=== PATIENT | female | born 1935 | race Caucasian/White ===

== ENCOUNTER 2018-10-15 13:31 | Observation (INO) | payer MEDICARE ==
[2018-10-15] MEDS ORDERED: SODIUM CHLORIDE 0.9% 1,000 ML IV STA (13:50)
--- NOTE | 2018-10-15 14:13 | ED ---
Weakness HPI - General Chief complaint: Weakness Stated complaint: weakness, not eating Time Seen by Provider: 10/15/18 13:47 Source: patient, RN notes reviewed, old records reviewed Mode of arrival: wheelchair Limitations: no limitations - History of Present Illness Initial comments: This is an 83-year-old female the ER for evaluation patient resents today for evaluation of weakness decreased appetite decreased [id number]. Admits to mild dysuria. Patient denies any headache chest pain shortness breath or abdominal pain. Patient states she is having difficulty the last 3 days symptoms progressively worsening. Taking all medication as prescribed. No recent hospitalizations MD Complaint: generalized weakness -: days(s) (3) Location: generalized Severity: moderate Severity scale (1-10): 4 Quality: aching Consistency: constant Improves with: none Worsens with: none Context: recent illness Associated Symptoms: nausea/vomiting - Related Data Home Medications Medication Instructions Recorded Confirmed Aspirin EC [Ecotrin Low Dose] 81 mg PO DAILY 10/15/18 10/15/18 Letrozole [Femara] 2.5 mg PO DAILY 10/15/18 10/15/18 Levothyroxine Sodium [Synthroid] 88 mcg PO DAILY 10/15/18 10/15/18 Phenytoin Sodium Extended 200 mg PO Q48H 10/15/18 10/15/18 [Dilantin] Phenytoin Sodium Extended 300 mg PO Q48H 10/15/18 10/15/18 [Dilantin] Pravastatin Sodium [Pravachol] 20 mg PO HS 10/15/18 10/15/18 amLODIPine [Norvasc] 5 mg PO DAILY 10/15/18 10/15/18 hydrALAZINE HCL 25 mg PO Q6H PRN 10/15/18 10/15/18 lamoTRIgine [LaMICtal] 300 mg PO BID 10/15/18 10/15/18 Allergies Allergy/AdvReac Type Severity Reaction Status Date / Time No Known Allergies Allergy Verified 10/15/18 13:48 Review of Systems ROS Statement: Those systems with pertinent positive or pertinent negative responses have been documented in the HPI. ROS Other: All systems not noted in ROS Statement are negative. Past Medical History Past Medical History: Hyperlipidemia, Seizure Disorder Additional Past Medical History / Comment(s): Breast Ca History of Any Multi-Drug Resistant Organisms: None Reported Past Surgical History: Cholecystectomy Additional Past Surgical History / Comment(s): Breast removal Past Psychological History: Anxiety, Depression Smoking Status: Current every day smoker Past Alcohol Use History: None Reported Past Drug Use History: None Reported General Exam Limitations: no limitations General appearance: alert, in no apparent distress Head exam: Present: atraumatic, normocephalic, normal inspection Eye exam: Present: normal appearance, PERRL, EOMI. Absent: scleral icterus, conjunctival injection, periorbital swelling ENT exam: Present: normal exam, mucous membranes moist Neck exam: Present: normal inspection. Absent: tenderness, meningismus, lymphadenopathy Respiratory exam: Present: normal lung sounds bilaterally. Absent: respiratory distress, wheezes, rales, rhonchi, stridor Cardiovascular Exam: Present: regular rate, normal rhythm, normal heart sounds. Absent: systolic murmur, diastolic murmur, rubs, gallop, clicks GI/Abdominal exam: Present: soft, normal bowel sounds. Absent: distended, tenderness, guarding, rebound, rigid Extremities exam: Present: normal inspection, full ROM, normal capillary refill. Absent: tenderness, pedal edema, joint swelling, calf tenderness Back exam: Present: normal inspection Neurological exam: Present: alert, oriented X3, CN II-XII intact Psychiatric exam: Present: normal affect, normal mood Skin exam: Present: warm, dry, intact, normal color. Absent: rash Course Vital Signs 10/15/18 10/15/18 13:34 16:40 Temperature 98.5 F Pulse Rate 75 62 Respiratory 16 18 Rate Blood Pressure 122/68 154/67 O2 Sat by Pulse 97 97 Oximetry - Reevaluation(s) Reevaluation #1: Medical records reviewed Patient without significant complaint or symptom. She does admit to still feeling weak no improvement here in the ER EKG Findings - EKG Comments: EKG Findings:: EKG shows sinus rhythm at 71, NE 272, QRS 84, QTc 436 Medical Decision Making - Medical Decision Making 83 female the ER for evaluation of weakness positive dysuria with UTI, will admit for antibiotics hydration. - Lab Data Result diagrams: 10/16/18 07:37 10/16/18 07:37 Lab Results 10/15/18 10/15/18 10/15/18 Range/Units 14:07 14:07 14:07 WBC 7.7 (3.8-10.6) k/uL RBC 4.69 (3.80-5.40) m/uL Hgb 13.5 (11.4-16.0) gm/dL Hct 41.0 (34.0-46.0) % MCV 87.4 (80.0-100.0) fL MCH 28.7 (25.0-35.0) pg MCHC 32.8 (31.0-37.0) g/dL RDW 13.7 (11.5-15.5) % Plt Count 247 (150-450) k/uL Neutrophils % 75 % Lymphocytes % 12 % Monocytes % 7 % Eosinophils % 1 % Basophils % 1 % Neutrophils # 5.8 (1.3-7.7) k/uL Lymphocytes # 1.0 (1.0-4.8) k/uL Monocytes # 0.6 (0-1.0) k/uL Eosinophils # 0.1 (0-0.7) k/uL Basophils # 0.1 (0-0.2) k/uL PT (9.0-12.0) sec INR (<1.2) APTT (22.0-30.0) sec Sodium 134 L (137-145) mmol/L Potassium 4.1 (3.5-5.1) mmol/L Chloride 95 L (98-107) mmol/L Carbon Dioxide 28 (22-30) mmol/L Anion Gap 11 mmol/L BUN 17 (7-17) mg/dL Creatinine 0.83 (0.52-1.04) mg/dL Est GFR (CKD-EPI)AfAm 77 (>60 ml/min/1.73 sqM) Est GFR (CKD-EPI)NonAf 67 (>60 ml/min/1.73 sqM) Glucose 98 (74-99) mg/dL Plasma Lactic Acid Edgar 1.2 (0.7-2.0) mmol/L Calcium 9.3 (8.4-10.2) mg/dL Phosphorus 4.2 (2.5-4.5) mg/dL Magnesium 1.8 (1.6-2.3) mg/dL Total Bilirubin 0.3 (0.2-1.3) mg/dL AST 32 (14-36) U/L ALT 17 (9-52) U/L Alkaline Phosphatase 122 (38-126) U/L Creatine Kinase 45 (30-135) U/L Troponin I (0.000-0.034) ng/mL NT-Pro-B Natriuret Pep pg/mL Total Protein 7.3 (6.3-8.2) g/dL Albumin 4.4 (3.5-5.0) g/dL TSH 0.444 L (0.465-4.680) mIU/L Urine Color Urine Appearance (Clear) Urine pH (5.0-8.0) Ur Specific Taylor (1.001-1.035) Urine Protein (Negative) Urine Glucose (UA) (Negative) Urine Ketones (Negative) Urine Blood (Negative) Urine Nitrite (Negative) Urine Bilirubin (Negative) Urine Urobilinogen (<2.0) mg/dL Ur Leukocyte Esterase (Negative) Urine RBC (0-5) /hpf Urine WBC (0-5) /hpf Ur Squamous Epith Cells (0-4) /hpf Urine Bacteria (None) /hpf 10/15/18 10/15/18 10/15/18 Range/Units 14:07 14:07 14:07 WBC (3.8-10.6) k/uL RBC (3.80-5.40) m/uL Hgb (11.4-16.0) gm/dL Hct (34.0-46.0) % MCV (80.0-100.0) fL MCH (25.0-35.0) pg MCHC (31.0-37.0) g/dL RDW (11.5-15.5) % Plt Count (150-450) k/uL Neutrophils % % Lymphocytes % % Monocytes % % Eosinophils % % Basophils % % Neutrophils # (1.3-7.7) k/uL Lymphocytes # (1.0-4.8) k/uL Monocytes # (0-1.0) k/uL Eosinophils # (0-0.7) k/uL Basophils # (0-0.2) k/uL PT 10.1 (9.0-12.0) sec INR 0.9 (<1.2) APTT 23.2 (22.0-30.0) sec Sodium (137-145) mmol/L Potassium (3.5-5.1) mmol/L Chloride (98-107) mmol/L Carbon Dioxide (22-30) mmol/L Anion Gap mmol/L BUN (7-17) mg/dL Creatinine (0.52-1.04) mg/dL Est GFR (CKD-EPI)AfAm (>60 ml/min/1.73 sqM) Est GFR (CKD-EPI)NonAf (>60 ml/min/1.73 sqM) Glucose (74-99) mg/dL Plasma Lactic Acid Edgar (0.7-2.0) mmol/L Calcium (8.4-10.2) mg/dL Phosphorus (2.5-4.5) mg/dL Magnesium (1.6-2.3) mg/dL Total Bilirubin (0.2-1.3) mg/dL AST (14-36) U/L ALT (9-52) U/L Alkaline Phosphatase (38-126) U/L Creatine Kinase (30-135) U/L Troponin I <0.012 (0.000-0.034) ng/mL NT-Pro-B Natriuret Pep 464 pg/mL Total Protein (6.3-8.2) g/dL Albumin (3.5-5.0) g/dL TSH (0.465-4.680) mIU/L Urine Color Urine Appearance (Clear) Urine pH (5.0-8.0) Ur Specific Taylor (1.001-1.035) Urine Protein (Negative) Urine Glucose (UA) (Negative) Urine Ketones (Negative) Urine Blood (Negative) Urine Nitrite (Negative) Urine Bilirubin (Negative) Urine Urobilinogen (<2.0) mg/dL Ur Leukocyte Esterase (Negative) Urine RBC (0-5) /hpf Urine WBC (0-5) /hpf Ur Squamous Epith Cells (0-4) /hpf Urine Bacteria (None) /hpf 10/15/18 Range/Units 15:35 WBC (3.8-10.6) k/uL RBC (3.80-5.40) m/uL Hgb (11.4-16.0) gm/dL Hct (34.0-46.0) % MCV (80.0-100.0) fL MCH (25.0-35.0) pg MCHC (31.0-37.0) g/dL RDW (11.5-15.5) % Plt Count (150-450) k/uL Neutrophils % % Lymphocytes % % Monocytes % % Eosinophils % % Basophils % % Neutrophils # (1.3-7.7) k/uL Lymphocytes # (1.0-4.8) k/uL Monocytes # (0-1.0) k/uL Eosinophils # (0-0.7) k/uL Basophils # (0-0.2) k/uL PT (9.0-12.0) sec INR (<1.2) APTT (22.0-30.0) sec Sodium (137-145) mmol/L Potassium (3.5-5.1) mmol/L Chloride (98-107) mmol/L Carbon Dioxide (22-30) mmol/L Anion Gap mmol/L BUN (7-17) mg/dL Creatinine (0.52-1.04) mg/dL Est GFR (CKD-EPI)AfAm (>60 ml/min/1.73 sqM) Est GFR (CKD-EPI)NonAf (>60 ml/min/1.73 sqM) Glucose (74-99) mg/dL Plasma Lactic Acid Edgar (0.7-2.0) mmol/L Calcium (8.4-10.2) mg/dL Phosphorus (2.5-4.5) mg/dL Magnesium (1.6-2.3) mg/dL Total Bilirubin (0.2-1.3) mg/dL AST (14-36) U/L ALT (9-52) U/L Alkaline Phosphatase (38-126) U/L Creatine Kinase (30-135) U/L Troponin I (0.000-0.034) ng/mL NT-Pro-B Natriuret Pep pg/mL Total Protein (6.3-8.2) g/dL Albumin (3.5-5.0) g/dL TSH (0.465-4.680) mIU/L Urine Color Light Yellow Urine Appearance Clear (Clear) Urine pH 5.5 (5.0-8.0) Ur Specific Taylor 1.004 (1.001-1.035) Urine Protein Negative (Negative) Urine Glucose (UA) Negative (Negative) Urine Ketones Negative (Negative) Urine Blood Trace H (Negative) Urine Nitrite Positive H (Negative) Urine Bilirubin Negative (Negative) Urine Urobilinogen <2.0 (<2.0) mg/dL Ur Leukocyte Esterase Trace H (Negative) Urine RBC 1 (0-5) /hpf Urine WBC <1 (0-5) /hpf Ur Squamous Epith Cells <1 (0-4) /hpf Urine Bacteria Few H (None) /hpf - Radiology Data Radiology results: report reviewed (CTA chest is negative for acute disease), image reviewed Disposition Clinical Impression: Dehydration, Weakness, UTI (urinary tract infection) Disposition: ADMITTED IP TO THIS HOSP Condition: Fair Is patient prescribed a controlled substance at d/c from ED?: No
[2018-10-15 14:27] LABS: Basophils # (A) 0.1 k/uL (0-0.2); Basophils % (A) 1 %; Eosinophils # (A) 0.1 k/uL (0-0.7); Eosinophils % (A) 1 %; HGB 13.5 gm/dL (11.4-16.0); Lymphocytes % (A) 12 %; MCH 28.7 pg (25.0-35.0); MCHC 32.8 g/dL (31.0-37.0); MCV 87.4 fL (80.0-100.0); Mean Platelet Volume 7.4; Monocytes # (A) 0.6 k/uL (0-1.0); Monocytes % (A) 7 %; Neutrophils # (A) 5.8 k/uL (1.3-7.7); Neutrophils % (A) 75 %; Platelet Count 247 k/uL (150-450); RBC 4.69 m/uL (3.80-5.40); RDW 13.7 % (11.5-15.5); WBC 7.7 k/uL (3.8-10.6)
[2018-10-15 14:33] LABS: INR 0.9 (<1.2); Partial Thromboplastin Time 23.2 sec (22.0-30.0); Prothrombin Time 10.1 sec (9.0-12.0)
[2018-10-15 14:44] LABS: Albumin 4.4 g/dL (3.5-5.0); Calcium 9.3 mg/dL (8.4-10.2); Magnesium 1.8 mg/dL (1.6-2.3); Phosphorus 4.2 mg/dL (2.5-4.5); Potassium 4.1 mmol/L (3.5-5.1); Total Bilirubin 0.3 mg/dL (0.2-1.3); Total Protein 7.3 g/dL (6.3-8.2)
[2018-10-15 15:53] LABS: Appearance,Urine Clear (Clear); Bacteria,Urine Few /hpf; Bilirubin,Urine Negative (Negative); Blood,Urine Trace (Negative); Color,Urine Light Yellow; Glucose,Urine (UA) Negative (Negative); Ketones,Urine Negative (Negative); Leukocyte Esterase,Urine Trace (Negative); Nitrite,Urine Positive (Negative); PH, Urine 5.5 (5.0-8.0); Protein,Urine Negative (Negative); RBC,Urine 1 /hpf (0-5); Specific Gravity,Urine 1.004 (1.001-1.035); Squamous Epithelial Cell,Urine <1 /hpf (0-4); Urobilinogen,Urine <2.0 mg/dL (<2.0); WBC,Urine <1 /hpf (0-5)
--- NOTE | 2018-10-15 16:16 | CT ---
EXAMINATION TYPE: CT angio chest DATE OF EXAM: 10/15/2018 COMPARISON: None HISTORY: Weakness and fatigue CT DLP: 205 mGycm CONTRAST: CT chest with contrast and 3D reconstruction with MIP imaging is performed with IV Contrast, patient injected with 67 mL of Isovue 370. Contrast-enhanced CT of the chest was performed through the course of the pulmonary arteries with billy g and mediastinal window settings submitted. 3D reconstruction with MIP imaging was also performed. PULMONARY ARTERIES: The pulmonary arteries and their major tributaries are patent. I do not see meg dence for sizable filling defect to suggest pulmonary embolic process. LUNGS: The lungs are clear and free of infiltrate. No evidence for atelectasis. Nonspecific 5 mm pulm onary nodule within the periphery of the right midlung zone. Consider follow-up CT in [address] eural effusion. MEDIASTINUM: Thoracic aorta is of normal caliber,however, evaluation is limited given timing of the contrast bolus. If there is concern for thoracic aortic pathology consider KARUNA. Correlate clinicall y . The heart is mildly enlarged. No evidence for mediastinal mass. No mediastinal lymph nodes grea ter than 1cm. HILAR STRUCTURES: No evidence for mass. No hilar lymph nodes greater than 1 cm. UPPER ABDOMEN: Simple cyst of the kidneys. IMPRESSION: 1. No evidence for Pulmonary embolism at this time.
[2018-10-15] MEDS ORDERED: hydrALAZINE HCL 25 MG TAB PO PRN (17:41)
[2018-10-15] MEDS ORDERED: NALOXONE 0.4 MG/ML 1 ML VIAL IV PRN (17:46)
--- NOTE | 2018-10-15 18:33 | P.HPIM ---
History of Present Illness H&P Date: 10/15/18 Chief Complaint: weakness 83-year-old female with PMH of hyperlipidemia, seizure disorder, history of breast cancer, anxiety and depression presents to the ED for generalized weakness. Patient's main complaint is bilateral shoulder pain. This is been ongoing for the past month. Pain is worsened on the left side rather than the right side. Patient describes the pain as muscular soreness and usually occurs at night when she goes to sleep. Patient states that she has underwent shoulder x-ray through her PCP which was negative.patient reports her pain to be 10 out of 10 in severity, especially at night. Patient reports generalized weakness that has been ongoing over the last 2 days. Her reports that he had to lift her legs up just to get her into bed. Patient does not ambulate with any assisted devices. Patient reports a fall last night after urinating and having an episode of diarrhea. She did report some lightheadedness as she was getting up prior to the fall. Patient denies any loss of consciousness or head trauma. Patient does report diarrhea that has been ongoing since yesterday. She reports 2 bowel movements, semisolid without any blood. Patient also reports urinary frequency. She denies any dysuria or hematuria. Patient denies any headache, lower extremity edema, nausea or vomiting, fever or chills, cough, chest pain, shortness of breath. Patient does report a decrease appetite and a weight loss of 15 pounds over the past year. She denies any numbness/weakness/tingling of the extremities. In the ED, vital signs were stable. CBC and coagulation panel was negative. BMP showed sodium of 134, chloride of 95. Lactic acid was negative. Troponin was less than 0.012. BNP was 464. TSH was 0.444. Urinalysis showed trace blood and positive for nitrite. CTA of the chest ruled out PE. Patient is admitted for generalized weakness, UTI. Review of Systems Pertinent positives and negatives as discussed in HPI, a complete review of systems was performed and all other systems are negative. Past Medical History Past Medical History: Hyperlipidemia, Seizure Disorder Additional Past Medical History / Comment(s): Breast Ca History of Any Multi-Drug Resistant Organisms: None Reported Past Surgical History: Cholecystectomy Additional Past Surgical History / Comment(s): Breast removal Past Psychological History: Anxiety, Depression Smoking Status: Current every day smoker Past Alcohol Use History: None Reported Past Drug Use History: None Reported Medications and Allergies Home Medications Medication Instructions Recorded Confirmed Type Letrozole [Femara] 2.5 mg PO DAILY 10/15/18 10/15/18 History Levothyroxine Sodium [Synthroid] 88 mcg PO DAILY 10/15/18 10/15/18 History Phenytoin Sodium Extended 200 mg PO Q48H 10/15/18 10/15/18 History [Dilantin] Phenytoin Sodium Extended 300 mg PO Q48H 10/15/18 10/15/18 History [Dilantin] Pravastatin Sodium [Pravachol] 20 mg PO HS 10/15/18 10/15/18 History amLODIPine [Norvasc] 5 mg PO DAILY 10/15/18 10/15/18 History hydrALAZINE HCL 25 mg PO Q6H PRN 10/15/18 10/15/18 History lamoTRIgine [LaMICtal] 300 mg PO BID 10/15/18 10/15/18 History Allergies Allergy/AdvReac Type Severity Reaction Status Date / Time No Known Allergies Allergy Verified 10/15/18 13:48 Physical Exam Vitals: Vital Signs Temp Pulse Resp BP Pulse Ox 10/15/18 16:40 62 18 154/67 97 10/15/18 13:34 98.5 F 75 16 122/68 97 Intake and Output 10/15/18 10/15/18 10/15/18 06:59 14:59 22:59 Other: Weight 58.967 kg General: [non toxic], [no distress], [appears at stated age] Derm: [warm], [dry] Head: [atraumatic], [normocephalic], [symmetric] Eyes: [EOMI], [no lid lag], [anicteric sclera] Mouth: [no lip lesion], [mucus membranes moist] Cardiovascular: [S1S2 reg], [no murmur], [positive DP pulse bilateral], Lungs: [CTA bilateral], [no rhonchi, no rales] , [no accessory muscle use] Abdominal: [soft], [ nontender to palpation], [no guarding], [no appreciable organomegaly] Ext: [no gross muscle atrophy], 1+ nonpitting edema], [no contractures] Neuro: [ CN II-XI grossly intact], [no focal neuro deficits] Psych: [Alert], [oriented], [appropriate affect] Results CBC & Chem 7: 10/15/18 14:07 10/15/18 14:07 Labs: Abnormal Lab Results - Last 24 Hours (Table) 10/15/18 10/15/18 Range/Units 14:07 15:35 Sodium 134 L (137-145) mmol/L Chloride 95 L (98-107) mmol/L TSH 0.444 L (0.465-4.680) mIU/L Urine Blood Trace H (Negative) Urine Nitrite Positive H (Negative) Ur Leukocyte Esterase Trace H (Negative) Urine Bacteria Few H (None) /hpf Assessment and Plan Assessment: Generalized weakness likely secondary to UTI Bilateral shoulder pain UTI Hypothyroidism with low TSH Hypertension Seizure disorder Hyperlipidemia History of breast cancer Smoker Likely secondary to UTI. Plans: Follow PT and OT recommendations. IV antibiotics in the treatment of UTI. Fall precautions. Troponin was less than 0.012, EKG showing sinus rhythm with first-degree AV block. CTA of the chest ruled out PE. Plans: Adequate outpatient follow-up for possible arthritis or nerve entrapment. Urinalysis shows positive nitrites. Patient asymptomatic. Plans: Start Rocephin IV daily. Follow urine cultures. Follow blood cultures. Continue normal saline at 75 mL per hour. TSH 0.44. Possibly over titration of levothyroxine. Plans: Follow free T4. We'll continue Synthroid for now. BP 154/67. Plans: Continue amlodipine and hydralazine. Monitor vitals, adjust medications as necessary. Plans: Continue phenytoin and lamotrigine. Plans: Continue pravastatin. Plans: Continue letrozole. Need adequate outpatient follow-up. Plans: Will offer nicotine patch. Patient states that she does not want any mechanical intubation. She is open to chest compressions. Patient names her Marques decision-maker in the case that she can't make decisions for herself. DVT prophylaxis: [SCD boots] Discussed with: [Patient] Anticipated discharge: [1-2 days] Anticipated discharge place: [[facility] versus home with home health] A total of [45] minutes was spent on the care of this complex patient more than 50% of the time was spent in counseling and care coordination.
[2018-10-15] MEDS ORDERED: ACETAMINOPHEN TAB 325 MG TAB PO PRN (18:48)
[2018-10-15] MEDS ORDERED: HYDROcodone/APAP 5-325MG 1 EACH TAB PO PRN (18:48)
[2018-10-15] MEDS: lamoTRIgine 100 MG TAB PO SCH (20:27)
[2018-10-15] MEDS: SODIUM CHLORIDE 0.9% 1,000 ML IV SCH (20:30)
[2018-10-15] MEDS ORDERED: PRAVASTATIN SODIUM 20 MG TAB PO SCH (21:00)
[2018-10-16] MEDS ORDERED: LEVOTHYROXINE 88 MCG TAB PO SCH (06:30)
[2018-10-16] MEDS: lamoTRIgine 100 MG TAB PO SCH (08:10)
[2018-10-16 08:19] LABS: Calcium 8.9 mg/dL (8.4-10.2); Potassium 3.8 mmol/L (3.5-5.1)
[2018-10-16 08:35] LABS: T4, Free (Free Thyroxine) 1.01 ng/dL (0.78-2.19)
[2018-10-16] MEDS: SODIUM CHLORIDE 0.9% 1,000 ML IV SCH (08:41)
[2018-10-16 08:46] LABS: Basophils % (A) 1 %; Eosinophils # (A) 0.1 k/uL (0-0.7); Eosinophils % (A) 2 %; HCT 37.1 % (34.0-46.0); HGB 12.3 gm/dL (11.4-16.0); Lymphocytes # (A) 1.1 k/uL (1.0-4.8); Lymphocytes % (A) 16 %; MCH 28.6 pg (25.0-35.0); MCHC 33.3 g/dL (31.0-37.0); Mean Platelet Volume 7.4; Monocytes # (A) 0.6 k/uL (0-1.0); Monocytes % (A) 9 %; Neutrophils # (A) 4.6 k/uL (1.3-7.7); Neutrophils % (A) 69 %; Platelet Count 218 k/uL (150-450); RBC 4.31 m/uL (3.80-5.40); RDW 13.3 % (11.5-15.5); WBC 6.7 k/uL (3.8-10.6)
[2018-10-16] MEDS ORDERED: LETROZOLE 2.5 MG TAB PO SCH (09:00)
[2018-10-16] MEDS ORDERED: amLODIPine 5 MG TAB PO SCH (09:00)
[2018-10-16] MEDS ORDERED: PHENYTOIN SODIUM EXTENDED 100 MG CAP PO SCH (09:00)
[2018-10-16 09:11] LABS: C Reactive Protein 62.4 mg/L (<10.0)
[2018-10-16] MEDS ORDERED: predniSONE 20 MG TAB PO SCH (09:30)
--- NOTE | 2018-10-16 11:54 | XR ---
EXAMINATION TYPE: XR KUB DATE OF EXAM: 10/16/2018 COMPARISON: NONE HISTORY: Diarrhea TECHNIQUE: One view abdominal series FINDINGS: The bowel gas pattern nonspecific with multiple air-fluid levels. Surgical clips in the right upper q uadrant are seen of subsegmental consolidation left lung base. Curvature the spine with degenerative changes noted. Arthropathy of the hips. IMPRESSION: 1. Nonspecific abdomen correlate for ileus, enteritis or partial obstruction.
--- NOTE | 2018-10-16 12:35 | P.PN ---
Subjective Progress Note Date: 10/16/18 Principal diagnosis: Weakness, diarrhea Patient was seen and examined. No acute events overnight. Patient reports 2 episodes of diarrhea, semisolid stool. She denies any chest pain, shortness of breath or palpitations. No nausea or vomiting. Tolerating diet very well. Objective - Vital Signs Vital signs: Vital Signs Temp 99.1 F 10/16/18 05:00 Pulse 68 10/16/18 05:00 Resp 20 10/16/18 05:00 BP 154/61 10/16/18 05:00 Pulse Ox 96 10/16/18 05:00 Intake & Output 10/15/18 10/16/18 10/16/18 18:59 06:59 18:59 Intake Total 300 Balance 300 Weight 58.967 kg Intake: Oral 300 Other: Voiding Method Bedside Commode Toilet Toilet Incontinent Incontinent Incontinent # Voids 4 - Exam General: [non toxic], [no distress], [appears at stated age] Derm: [warm], [dry] Head: [atraumatic], [normocephalic], [symmetric] Eyes: [EOMI], [no lid lag], [anicteric sclera] Mouth: [no lip lesion], [mucus membranes moist] Cardiovascular: [S1S2 reg], [no murmur], [positive DP pulse bilateral], Lungs: [CTA bilateral], [no rhonchi, no rales] , [no accessory muscle use] Abdominal: [soft], [ nontender to palpation], [no guarding], [no appreciable organomegaly] Ext: [no gross muscle atrophy], 1+ nonpitting edema], [no contractures] Neuro: [ CN II-XI grossly intact], [no focal neuro deficits] Psych: [Alert], [oriented], [appropriate affect] - Labs CBC & Chem 7: 10/16/18 07:37 10/16/18 07:37 Labs: Abnormal Lab Results - Last 24 Hours (Table) 10/15/18 10/15/18 10/16/18 Range/Units 14:07 15:35 07:37 Sodium 134 L (137-145) mmol/L Chloride 95 L (98-107) mmol/L Glucose 65 L (74-99) mg/dL C-Reactive Protein 62.4 H (<10.0) mg/L TSH 0.444 L (0.465-4.680) mIU/L Urine Blood Trace H (Negative) Urine Nitrite Positive H (Negative) Ur Leukocyte Esterase Trace H (Negative) Urine Bacteria Few H (None) /hpf Microbiology - Last 24 Hours (Table) 10/15/18 15:50 Urine Culture - Preliminary Urine,Voided Assessment and Plan Assessment: Generalized weakness likely secondary to UTI Diarrhea Bilateral shoulder pain UTI Subclinical hyperthyroidism Hypertension Seizure disorder Hyperlipidemia History of breast cancer Smoker Likely secondary to UTI. CPK negative. CRP elevated. Concerns for polymyalgia rheumatica? Plans: Follow PT and OT recommendations. IV antibiotics in the treatment of UTI. Fall precautions. Follow ESR. Trial of low-dose prednisone starting today. Ongoing for the last 2 days. Plans: Follow KUB. C. difficile negative. Troponin was less than 0.012 x 2, EKG showing sinus rhythm with first-degree AV block, ACS ruled out. CTA of the chest ruled out PE. Plans: Concerns for polymyalgia rheumatica, will start low-dose prednisone today. Urinalysis shows positive nitrites. Patient asymptomatic. Plans: Start Rocephin IV daily. Follow urine cultures. Follow blood cultures. Continue normal saline at 75 mL per hour. TSH 0.44, free-T4 within normal limits. Possibly over titration of levothyroxine. Plans: Continue Synthroid. BP 154/61. Plans: Continue amlodipine and hydralazine. Monitor vitals, adjust medications as necessary. Plans: Continue phenytoin and lamotrigine. Plans: Continue pravastatin. Plans: Continue letrozole. Need adequate outpatient follow-up. Plans: Will offer nicotine patch. Patient requires assistance from nursing services manager in order to get out of bed and shower. Seen by PT and cleared. Trial of prednisone for possible polymyalgia rheumatica. Will DC on Bactrim DS for 3 days for treatment of UTI. Advised to follow up PCP within 1-2 days of discharge. KUB suggestive of partial obstruction? but patient does not have any nausea or vomiting, she is tolerating her diet well with bowel movements.
--- NOTE | 2018-10-16 12:42 | P.DS ---
Providers Date of admission: 10/15/18 16:20 Expected date of discharge: 10/16/18 Attending physician: Bob Joseph MD Primary care physician: Tania Eagle MD Hospital Course: 83-year-old female with PMH of hyperlipidemia, seizure disorder, history of breast cancer, anxiety and depression presents to the ED for generalized weakness. Patient's main complaint is bilateral shoulder pain. This is been ongoing for the past month. Pain is worsened on the left side rather than the right side. Patient describes the pain as muscular soreness and usually occurs at night when she goes to sleep. Patient states that she has underwent shoulder x-ray through her PCP which was negative. Patient reports her pain to be 10 out of 10 in severity, especially at night. Patient reports generalized weakness that has been ongoing over the last 2 days. Her reports that he had to lift her legs up just to get her into bed. Patient does not ambulate with any assisted devices. Patient reports a fall last night after urinating and having an episode of diarrhea. She did report some lightheadedness as she was getting up prior to the fall. Patient denies any loss of consciousness or head trauma. Patient does report diarrhea that has been ongoing since yesterday. She reports 2 bowel movements, semisolid without any blood. Patient also reports urinary frequency. She denies any dysuria or hematuria. Patient denies any headache, lower extremity edema, nausea or vomiting, fever or chills, cough, chest pain, shortness of breath. Patient does report a decrease appetite and a weight loss of 15 pounds over the past year. She denies any numbness/weakness/tingling of the extremities. In the ED, vital signs were stable. CBC and coagulation panel was negative. BMP showed sodium of 134, chloride of 95. Lactic acid was negative. Troponin was less than 0.012. BNP was 464. TSH was 0.444. Urinalysis showed trace blood and positive for nitrite. CTA of the chest ruled out PE. Patient is admitted for generalized weakness, UTI. Her generalized weakness was thought to be secondary to UTI. CPK was negative. CRP was elevated, concerns for polymyalgia rheumatica. Physical therapy was consulted and cleared the patient for discharge. Patient was started on low- dose prednisone, to be followed up with primary care provider. Patient reported 2 days of diarrhea. Clostridium difficile was negative. KUB was obtained which showed nonspecific air-fluid levels. Acute coronary syndrome was ruled out for her bilateral shoulder pain. Troponin was less than 0.0122 with EKG showing sinus rhythm with first-degree AV block. CT of the chest was performed which ruled out PE. Urinalysis was positive for nitrates. Patient started on Rocephin IV. Urine cultures were pending at the time of discharge. Patient was discharged on Manjula trim by mouth. Patient had a low TSH of 0.44 on admission. Free T4 was within normal limits. She was continued on her home dose of Synthroid. Otherwise, her home medications were resumed for seizure disorder, hypertension, hyperlipidemia, history of breast cancer and smoker. Patient was seen prior to discharge. She is requesting to go home. Patient reports that her energy level has improved since admission. She was able to walk with physical therapy without any difficulties. Generalized weakness likely secondary to UTI Diarrhea Bilateral shoulder pain UTI Subclinical hyperthyroidism Hypertension Seizure disorder Hyperlipidemia History of breast cancer Smoker Likely secondary to UTI. CPK negative. CRP elevated. Concerns for polymyalgia rheumatica? Plans: Follow PT and OT recommendations. IV antibiotics in the treatment of UTI. Fall precautions. Follow ESR. Trial of low-dose prednisone starting today. Ongoing for the last 2 days. Plans: Follow KUB. C. difficile negative. Troponin was less than 0.012 x 2, EKG showing sinus rhythm with first-degree AV block, ACS ruled out. CTA of the chest ruled out PE. Plans: Concerns for polymyalgia rheumatica, will start low-dose prednisone today. Urinalysis shows positive nitrites. Patient asymptomatic. Plans: Start Rocephin IV daily. Follow urine cultures. Follow blood cultures. Continue normal saline at 75 mL per hour. TSH 0.44, free-T4 within normal limits. Possibly over titration of levothyroxine. Plans: Continue Synthroid. BP 154/61. Plans: Continue amlodipine and hydralazine. Monitor vitals, adjust medications as necessary. Plans: Continue phenytoin and lamotrigine. Plans: Continue pravastatin. Plans: Continue letrozole. Need adequate outpatient follow-up. Plans: Will offer nicotine patch. Seen by PT and cleared. Trial of prednisone for possible polymyalgia rheumatica. Will DC on Bactrim DS for 3 days for treatment of UTI. Advised to follow up PCP within 1-2 days of discharge. KUB suggestive of partial obstruction? but patient does not have any nausea or vomiting, she is tolerating her diet well with bowel movements. Pertinent Studies: Chest CTA, KUB Patient Condition at Discharge: Stable Plan - Discharge Summary New Discharge Prescriptions: New RX: predniSONE 20 mg PO DAILY #14 tab Sulfamethox-Tmp 800-160Mg [Bactrim DS 800-160 mg] 1 tab PO Q12HR #6 tab Continue RX: hydrALAZINE HCL 25 mg PO Q6H PRN PRN Reason: Blood Pressure - High RX: Levothyroxine Sodium [Synthroid] 88 mcg PO DAILY RX: lamoTRIgine [LaMICtal] 300 mg PO BID RX: amLODIPine [Norvasc] 5 mg PO DAILY RX: Pravastatin Sodium [Pravachol] 20 mg PO HS RX: Letrozole [Femara] 2.5 mg PO DAILY RX: Phenytoin Sodium Extended [Dilantin] 300 mg PO Q48H RX: Phenytoin Sodium Extended [Dilantin] 200 mg PO Q48H RX: Aspirin EC [Ecotrin Low Dose] 81 mg PO DAILY Discharge Medication List RX: Aspirin EC [Ecotrin Low Dose] 81 mg PO DAILY 10/15/18 [History] RX: Letrozole [Femara] 2.5 mg PO DAILY 10/15/18 [History] RX: Levothyroxine Sodium [Synthroid] 88 mcg PO DAILY 10/15/18 [History] RX: Phenytoin Sodium Extended [Dilantin] 200 mg PO Q48H 10/15/18 [History] RX: Phenytoin Sodium Extended [Dilantin] 300 mg PO Q48H 10/15/18 [History] RX: Pravastatin Sodium [Pravachol] 20 mg PO HS 10/15/18 [History] RX: amLODIPine [Norvasc] 5 mg PO DAILY 10/15/18 [History] RX: hydrALAZINE HCL 25 mg PO Q6H PRN 10/15/18 [History] RX: lamoTRIgine [LaMICtal] 300 mg PO BID 10/15/18 [History] RX: predniSONE 20 mg PO DAILY #14 tab 10/16/18 [Rx] Sulfamethox-Tmp 800-160Mg [Bactrim DS 800-160 mg] 1 tab PO Q12HR #6 tab 10/16/18 [Rx] Follow up Appointment(s)/Referral(s): Tania Eagle MD [Primary Care Provider] - 1-2 days Activity/Diet/Wound Care/Special Instructions: Diet: Heart healthy, add ensure Follow-up PCP within 1-2 days of discharge. He was started on low-dose prednisone for concerns of polymyalgia rheumatica. You will need to see your primary care doctor for further workup. Your urine culture is pending at the time of discharge. We will prescribe 3 days of Bactrim. Please follow up urine culture with your primary care doctor. Discharge Disposition: HOME SELF-CARE
[2018-10-16 13:27] LABS: Erythrocyte Sedimentation Rate 15 mm/hr (0-20)
[2018-10-16 13:45] VITALS: BMI 22.3
[2018-10-16 14:11] VITALS: BP 150/67; PULSE 64; RESP 16; TEMP 98.4
[2018-10-17] MEDS ORDERED: PHENYTOIN SODIUM EXTENDED 100 MG CAP PO SCH (09:00)
== END 2018-10-16 14:29 | disposition home or self-care (01) ==
LOC: EC 13:31 → 4MS4W 16:20
PROVIDERS: ADMIT Family Medicine; ATTEND Family Medicine
DX: R53.1 Weakness (principal); N39.0 Urinary tract infection, site not specified; E86.0 Dehydration; E03.9 Hypothyroidism, unspecified; I10 Essential (primary) hypertension; I44.0 Atrioventricular block, first degree; E05.90 Thyrotoxicosis, unspecified without thyrotoxic crisis or storm; R19.7 Diarrhea, unspecified; R79.82 Elevated C-reactive protein (CRP); G40.909 Epilepsy, unspecified, not intractable, without status epilepticus; E78.5 Hyperlipidemia, unspecified; F41.9 Anxiety disorder, unspecified; F32.9 Major depressive disorder, single episode, unspecified; F17.200 Nicotine dependence, unspecified, uncomplicated; M25.511 Pain in right shoulder; M25.512 Pain in left shoulder; Z79.82 Long term (current) use of aspirin; Z79.890 Hormone replacement therapy; Z79.811 Long term (current) use of aromatase inhibitors; Z79.899 Other long term (current) drug therapy; Z85.3 Personal history of malignant neoplasm of breast; Z90.49 Acquired absence of other specified parts of digestive tract; Z90.10 Acquired absence of unspecified breast and nipple; W19.XXXA Unspecified fall, initial encounter
CPT/HCPCS: 96361; 96365; 99285; 36415; 93005; 97116; 97162; 84439; 83880; 80053; 80048; 85652; 82550 ×2; 83605; 83735; 84100; 84443; 84484; 85025 ×2; 85610; 85730; 86140; 81001; 87040; 87324; 87086; 87077; 87186; 74018; 71275; G0378 ×2; J0696; J7512; Q9967

== ENCOUNTER 2018-11-08 19:21 | Emergency (ER) | payer MEDICARE ==
[2018-11-08 19:45] LABS: Glucose,Whole Blood 97 mg/dL (75-99)
[2018-11-08 21:08] LABS: Basophils # (A) 0.1 k/uL (0-0.2); Basophils % (A) 1 %; Eosinophils # (A) 0.1 k/uL (0-0.7); Eosinophils % (A) 2 %; HCT 38.3 % (34.0-46.0); HGB 12.6 gm/dL (11.4-16.0); Lymphocytes % (A) 15 %; MCH 29.4 pg (25.0-35.0); MCHC 32.9 g/dL (31.0-37.0); MCV 89.4 fL (80.0-100.0); Mean Platelet Volume 7.3; Monocytes # (A) 0.5 k/uL (0-1.0); Monocytes % (A) 7 %; Neutrophils % (A) 72 %; Platelet Count 233 k/uL (150-450); RBC 4.28 m/uL (3.80-5.40); RDW 15.4 % (11.5-15.5); WBC 6.9 k/uL (3.8-10.6)
[2018-11-08 21:24] LABS: ALT 16 U/L (9-52); AST 26 U/L (14-36); African American GFR (CKD) >90 (>60 ml/min/1.73 sqM); Albumin 4.4 g/dL (3.5-5.0); Alkaline Phosphatase 106 U/L (38-126); Anion Gap 11 mmol/L; Bilirubin, Delta 0.1 mg/dL (0.0-0.2); Bilirubin,Unconjugated 0.3 mg/dL (0.0-1.1); Blood Urea Nitrogen 18 mg/dL (7-17); Calcium 9.5 mg/dL (8.4-10.2); Carbon Dioxide 28 mmol/L (22-30); Chloride 98 mmol/L (98-107); Glucose 94 mg/dL (74-99); Phenytoin (Dilantin) 14.6 ug/mL; Potassium 4.7 mmol/L (3.5-5.1); Sodium 137 mmol/L (137-145); Total Bilirubin 0.4 mg/dL (0.2-1.3); Total Protein 7.5 g/dL (6.3-8.2)
[2018-11-08 21:46] LABS: Appearance,Urine Cloudy (Clear); Bacteria,Urine Few /hpf; Bilirubin,Urine Negative (Negative); Blood,Urine Negative (Negative); Color,Urine Light Yellow; Glucose,Urine (UA) Negative (Negative); Ketones,Urine Negative (Negative); Leukocyte Esterase,Urine Moderate (Negative); Mucus,Urine Rare /hpf; Nitrite,Urine Positive (Negative); PH, Urine 7.5 (5.0-8.0); Protein,Urine Negative (Negative); RBC,Urine 2 /hpf (0-5); Specific Gravity,Urine 1.013 (1.001-1.035); Squamous Epithelial Cell,Urine <1 /hpf (0-4); Urobilinogen,Urine <2.0 mg/dL (<2.0)
--- NOTE | 2018-11-08 21:50 | ED ---
Neuro HPI - General Chief Complaint: Neuro Symptoms/Deficit Stated Complaint: Confusion Time Seen by Provider: 11/08/18 19:40 Source: patient, family Mode of arrival: wheelchair Limitations: no limitations - History of Present Illness Is the patient presenting with stroke symptoms?: No Initial Comments: 83-year-old female presenting after a episode of unresponsiveness. Per the patient's she was sitting outside on the porch when her daughter found her staring, repeatedly swallowing, not answering questions. After this resolved the patient was confused and did not know where she was, who her was, or who her daughter was. They state by the time she arrived in the ED via EMS she had returned to her baseline. They state that she does have a history of seizure disorder, however her seizures are normally characterized by generalized tonic-clonic movements, and her last seizure was 3 months prior. She is compliant with her Dilantin She is only complaining of feeling tired today. She denied any headache, chest pain, shortness of breath, or any other symptoms prior to the event. The patient states 3 months prior she was diagnosed with a kidney infection, and that today she was urinating less frequently. The patient and her recently moved to the area. She is seeing a neurologist out of [facility], but they are unsure if he works inpatient as well. Patient has no previous history of CVA. - Related Data Home Medications: Home Medications Medication Instructions Recorded Confirmed Aspirin EC [Ecotrin Low Dose] 81 mg PO DAILY 10/15/18 11/08/18 Letrozole [Femara] 2.5 mg PO DAILY 10/15/18 11/08/18 Levothyroxine Sodium [Synthroid] 88 mcg PO DAILY 10/15/18 11/08/18 Phenytoin Sodium Extended 200 mg PO Q48H 10/15/18 11/08/18 [Dilantin] Phenytoin Sodium Extended 300 mg PO Q48H 10/15/18 11/08/18 [Dilantin] Pravastatin Sodium [Pravachol] 20 mg PO HS 10/15/18 11/08/18 amLODIPine [Norvasc] 5 mg PO DAILY 10/15/18 11/08/18 hydrALAZINE HCL 25 mg PO Q6H PRN 10/15/18 11/08/18 lamoTRIgine [LaMICtal] 300 mg PO BID 10/15/18 11/08/18 Allergies/Adverse Reactions: Allergies Allergy/AdvReac Type Severity Reaction Status Date / Time No Known Allergies Allergy Verified 11/08/18 20:36 Review of Systems ROS Statement: Those systems with pertinent positive or pertinent negative responses have been documented in the HPI. Review of Systems Constitutional: Denies fever, chills Eyes: Denies change in vision, Denies pain Ears, nose, mouth, throat: Denies headaches, Denies sore throat Cardiovascular: Denies chest pain. Denies palpitations Respiratory: Denies shortness of breath, Denies cough Gastrointestinal: Denies abdominal pain. Denies nausea, vomiting, diarrhea. Genitourinary: Denies hematuria, Denies infections Musculoskeletal: Denies pain, Denies swelling Integumentary: Denies rash Neurological: Denies headache, focal weakness, focal numbness. Positive altered mental status Psychiatric: Denies anxiety, Denies depression Hematologic/Lymphatic: Denies easy bleeding or bruising ROS Other: All systems not noted in ROS Statement are negative. General Exam - General Exam Comments Initial Comments: General: Awake, alert, No acute Distress HENT: Normocephalic. Atraumatic Eyes: PERRL. EOMI. No scleral icterus. No injected conjunctiva Neck: Full ROM Chest/Lungs: Clear to auscultation bilaterally. No wheezing, rhonchi, or rales Cardiac: Regular rate, rhythm. No murmurs or rubs Abdomen/GI: Soft, nontender, nondistended. No rebound, guarding, or rigidity. Musculoskeletal: Full ROM Skin: Warm, dry, intact Neurologic: A/Ox3, no weakness, no sensory deficit, no abnormal gait, no coordination deficit. finger to nose intact. No pronator drift. No facial asymmetry. Limitations: no limitations Stroke MDM - Lab Data Result diagrams: 11/08/18 19:52 11/08/18 19:52 Lab Results 11/08/18 11/08/18 11/08/18 Range/Units 19:36 19:52 19:52 WBC 6.9 (3.8-10.6) k/uL RBC 4.28 (3.80-5.40) m/uL Hgb 12.6 (11.4-16.0) gm/dL Hct 38.3 (34.0-46.0) % MCV 89.4 (80.0-100.0) fL MCH 29.4 (25.0-35.0) pg MCHC 32.9 (31.0-37.0) g/dL RDW 15.4 (11.5-15.5) % Plt Count 233 (150-450) k/uL Neutrophils % 72 % Lymphocytes % 15 % Monocytes % 7 % Eosinophils % 2 % Basophils % 1 % Neutrophils # 5.0 (1.3-7.7) k/uL Lymphocytes # 1.0 (1.0-4.8) k/uL Monocytes # 0.5 (0-1.0) k/uL Eosinophils # 0.1 (0-0.7) k/uL Basophils # 0.1 (0-0.2) k/uL Sodium 137 (137-145) mmol/L Potassium 4.7 (3.5-5.1) mmol/L Chloride 98 (98-107) mmol/L Carbon Dioxide 28 (22-30) mmol/L Anion Gap 11 mmol/L BUN 18 H (7-17) mg/dL Creatinine 0.71 (0.52-1.04) mg/dL Est GFR (CKD-EPI)AfAm >90 (>60 ml/min/1.73 sqM) Est GFR (CKD-EPI)NonAf 81 (>60 ml/min/1.73 sqM) Glucose 94 (74-99) mg/dL POC Glucose (mg/dL) 97 (75-99) mg/dL POC Glu Geography Faculty Member ID Emma Barnes Calcium 9.5 (8.4-10.2) mg/dL Total Bilirubin 0.4 (0.2-1.3) mg/dL Conjugated Bilirubin 0.0 (0.0-0.3) mg/dL Unconjugated Bilirubin 0.3 (0.0-1.1) mg/dL Delta Bilirubin 0.1 (0.0-0.2) mg/dL AST 26 (14-36) U/L ALT 16 (9-52) U/L Alkaline Phosphatase 106 (38-126) U/L Troponin I (0.000-0.034) ng/mL NT-Pro-B Natriuret Pep pg/mL Total Protein 7.5 (6.3-8.2) g/dL Albumin 4.4 (3.5-5.0) g/dL Lipase 161 (23-300) U/L Urine Color Urine Appearance (Clear) Urine pH (5.0-8.0) Ur Specific [place] (1.001-1.035) Urine Protein (Negative) Urine Glucose (UA) (Negative) Urine Ketones (Negative) Urine Blood (Negative) Urine Nitrite (Negative) Urine Bilirubin (Negative) Urine Urobilinogen (<2.0) mg/dL Ur Leukocyte Esterase (Negative) Urine RBC (0-5) /hpf Urine WBC (0-5) /hpf Ur Squamous Epith Cells (0-4) /hpf Urine Bacteria (None) /hpf Urine Mucus (None) /hpf Phenytoin 14.6 ug/mL 11/08/18 11/08/18 11/08/18 Range/Units 19:52 19:52 21:23 WBC (3.8-10.6) k/uL RBC (3.80-5.40) m/uL Hgb (11.4-16.0) gm/dL Hct (34.0-46.0) % MCV (80.0-100.0) fL MCH (25.0-35.0) pg MCHC (31.0-37.0) g/dL RDW (11.5-15.5) % Plt Count (150-450) k/uL Neutrophils % % Lymphocytes % % Monocytes % % Eosinophils % % Basophils % % Neutrophils # (1.3-7.7) k/uL Lymphocytes # (1.0-4.8) k/uL Monocytes # (0-1.0) k/uL Eosinophils # (0-0.7) k/uL Basophils # (0-0.2) k/uL Sodium (137-145) mmol/L Potassium (3.5-5.1) mmol/L Chloride (98-107) mmol/L Carbon Dioxide (22-30) mmol/L Anion Gap mmol/L BUN (7-17) mg/dL Creatinine (0.52-1.04) mg/dL Est GFR (CKD-EPI)AfAm (>60 ml/min/1.73 sqM) Est GFR (CKD-EPI)NonAf (>60 ml/min/1.73 sqM) Glucose (74-99) mg/dL POC Glucose (mg/dL) (75-99) mg/dL POC Glu Geography Faculty Member ID Calcium (8.4-10.2) mg/dL Total Bilirubin (0.2-1.3) mg/dL Conjugated Bilirubin (0.0-0.3) mg/dL Unconjugated Bilirubin (0.0-1.1) mg/dL Delta Bilirubin (0.0-0.2) mg/dL AST (14-36) U/L ALT (9-52) U/L Alkaline Phosphatase (38-126) U/L Troponin I <0.012 (0.000-0.034) ng/mL NT-Pro-B Natriuret Pep 187 pg/mL Total Protein (6.3-8.2) g/dL Albumin (3.5-5.0) g/dL Lipase (23-300) U/L Urine Color Light Yellow Urine Appearance Cloudy H (Clear) Urine pH 7.5 (5.0-8.0) Ur Specific [place] 1.013 (1.001-1.035) Urine Protein Negative (Negative) Urine Glucose (UA) Negative (Negative) Urine Ketones Negative (Negative) Urine Blood Negative (Negative) Urine Nitrite Positive H (Negative) Urine Bilirubin Negative (Negative) Urine Urobilinogen <2.0 (<2.0) mg/dL Ur Leukocyte Esterase Moderate H (Negative) Urine RBC 2 (0-5) /hpf Urine WBC 44 H (0-5) /hpf Ur Squamous Epith Cells <1 (0-4) /hpf Urine Bacteria Few H (None) /hpf Urine Mucus Rare H (None) /hpf Phenytoin ug/mL - NIH Stroke Scale 1a. Level of Consciousness: (0) alert 1b. LOC Questions: (0) answers correctly 1c. LOC Commands: (0) performs tasks correctly 2. Best Gaze: (0) normal 3. Visual: (0) no visual loss 4. Facial Palsy: (0) normal symmetrical movement 5a. Motor Arm Left: (0) no drift 5b. Motor Arm Right: (0) no drift 6a. Motor Leg Left: (0) no drift 6b. Motor Leg Right: (0) no drift 7. Limb Ataxia: (0) absent 8. Sensory: (0) normal 9. Best Language: (0) no aphasia 10. Dysarthria: (0) normal 11. Extinction/Inattention: (0) no abnormality - Medical Decision Making 83-year-old female presenting with an episode of altered mental status. On initial exam the patient is awake, alert, and in NAD. VSS. The patient's NIHSS is 0. Her CT head is negative for acute process. Her laboratory workup revealed a UTI, but otherwise was negative for acute process. Her Dilantin level was in the therapeutic range. She was given a dose of Rocephin here in the department and a culture was sent. The patient then had a similar episode in the department followed by a period of confusion. I am concerned at this time that these episodes may be seizures. We do not have neurology here at this facility and therefore the patient requires transfer to [facility]. I spoke with Dr. Biib mauro. - EKG Data -: EKG Interpreted by Me (Sinus rhythm with first-degree AV block at a rate of 80 bpm. ) Past Medical History Past Medical History: Cancer, Hearing Disorder / Deafness, Hyperlipidemia, Seizure Disorder Additional Past Medical History / Comment(s): Breast Ca , History of Any Multi-Drug Resistant Organisms: ESBL Date of last positivie culture/infection: 10/15/18-E. coli ESBL MDRO Source:: Urine Past Surgical History: Cholecystectomy Additional Past Surgical History / Comment(s): Breast removal ight sided Past Anesthesia/Blood Transfusion Reactions: No Reported Reaction Past Psychological History: Anxiety, Depression Smoking Status: Former smoker Past Alcohol Use History: None Reported Past Drug Use History: None Reported Course Vital Signs 11/08/18 19:23 Temperature 99.2 F Pulse Rate 81 Respiratory 14 Rate Blood Pressure 145/71 O2 Sat by Pulse 93 L Oximetry Disposition Clinical Impression: Seizure, Altered mental status, UTI (urinary tract infection) Disposition: TRANSFER TO PSYCH HOSP/UNIT Is patient prescribed a controlled substance at d/c from ED?: No Referrals: Tania Eagle MD [Primary Care Provider] - 1-2 days - Out of Hospital Transfer - Req. Specs Out of Hospital Transfer - Requested Specifics: Other Emergency Center ([facility])
--- NOTE | 2018-11-08 21:58 | XR ---
EXAMINATION TYPE: XR chest 2V DATE OF EXAM: 11/08/2018 COMPARISON: None HISTORY: 83-year-old female with chest pain TECHNIQUE: AP and lateral views FINDINGS: Heart borderline enlarged. Aorta within normal limits. Strandy bibasilar densities. No consolidation or pleural effusion seen. IMPRESSION: Strandy bibasilar atelectasis. No definite acute process.
--- NOTE | 2018-11-08 22:21 | CT ---
EXAM: CT Head Without Intravenous Contrast CLINICAL HISTORY: Altered mental status TECHNIQUE: Axial computed tomography images of the head/brain without intravenous contrast. CTDI is 0.085, 0.085, 49.1 mGy and DLP is 1066.4 mGy-cm. This CT exam was performed using one or more of the following dose reduction techniques: automated exposure control, adjustment of the mA and/or kV according to patient size, and/or use of iterative reconstruction technique. COMPARISON: No relevant prior studies available. FINDINGS: Brain: No acute infarct, hemorrhage, mass or edema. Chronic small vessel ischemic disease and senescent changes. Ventricles: Unremarkable. No ventriculomegaly. Bones/joints: Unremarkable. No acute fracture. Soft tissues: Unremarkable. Sinuses: Minimal mucosal thickening of paranasal sinuses. Mastoid air cells: Unremarkable as visualized. No mastoid effusion. IMPRESSION: No acute findings.
[2018-11-09 00:31] VITALS: BP 147/80; PULSE 80; RESP 20; TEMP 99
== END 2018-11-09 00:32 ==
LOC: EC 19:21
DX: G40.909 Epilepsy, unspecified, not intractable, without status epilepticus (principal); R41.82 Altered mental status, unspecified; N39.0 Urinary tract infection, site not specified; E78.5 Hyperlipidemia, unspecified; H91.90 Unspecified hearing loss, unspecified ear; Z87.891 Personal history of nicotine dependence; Z79.82 Long term (current) use of aspirin; Z79.899 Other long term (current) drug therapy; Z79.890 Hormone replacement therapy; Z85.3 Personal history of malignant neoplasm of breast
CPT/HCPCS: 36415; 93005; 83880; 80048; 80076; 80185; 83690; 84484; 85025; 81001; 87086; 71046; 70450; 99285; 96365; 96366; J0696; 87077; 87186

== ENCOUNTER 2018-12-24 16:13 | Inpatient (IN) | payer MEDICARE ==
[2018-12-24 16:22] LABS: Glucose,Whole Blood 95 mg/dL (75-99)
[2018-12-24 16:31] LABS: Basophils # (A) 0.2 k/uL (0-0.2); Basophils % (A) 2 %; Eosinophils # (A) 0.1 k/uL (0-0.7); Eosinophils % (A) 2 %; HCT 40.6 % (34.0-46.0); HGB 12.9 gm/dL (11.4-16.0); Lymphocytes # (A) 1.4 k/uL (1.0-4.8); Lymphocytes % (A) 19 %; MCH 27.5 pg (25.0-35.0); MCHC 31.7 g/dL (31.0-37.0); MCV 86.9 fL (80.0-100.0); Mean Platelet Volume 6.6; Monocytes # (A) 0.4 k/uL (0-1.0); Monocytes % (A) 5 %; Neutrophils # (A) 5.4 k/uL (1.3-7.7); Neutrophils % (A) 70 %; Platelet Count 301 k/uL (150-450); RBC 4.67 m/uL (3.80-5.40); WBC 7.7 k/uL (3.8-10.6)
[2018-12-24] MEDS ORDERED: LORazepam 2 MG/ML INJ IV STA (16:46)
[2018-12-24 16:48] LABS: ALT 12 U/L (9-52); AST 29 U/L (14-36); African American GFR (CKD) >90 (>60 ml/min/1.73 sqM); Albumin 4.5 g/dL (3.5-5.0); Alkaline Phosphatase 108 U/L (38-126); Anion Gap 10 mmol/L; Blood Urea Nitrogen 13 mg/dL (7-17); Calcium 9.5 mg/dL (8.4-10.2); Carbon Dioxide 28 mmol/L (22-30); Chloride 100 mmol/L (98-107); Glucose 106 mg/dL (74-99); Potassium 4.5 mmol/L (3.5-5.1); Sodium 138 mmol/L (137-145); Total Bilirubin 0.4 mg/dL (0.2-1.3); Total Protein 7.9 g/dL (6.3-8.2)
[2018-12-24 16:50] LABS: INR 0.9 (<1.2); Partial Thromboplastin Time 22.5 sec (22.0-30.0); Prothrombin Time 10.1 sec (9.0-12.0)
--- NOTE | 2018-12-24 16:59 | ED ---
Altered Mental Status HPI - General Chief Complaint: Altered Mental Status Stated Complaint: Poss Stroke Time Seen by Provider: 12/24/18 16:20 Source: patient, family, EMS Mode of arrival: EMS Limitations: altered mental status - History of Present Illness Initial Comments: Patient is an 83-year-old female who presents to the emergency department with reported stroke-like symptoms. states that earlier today he noted that his was confused. She seemed very forgetful. She was going to go with him to a doctor's appointment at 1:00 PM however she wanted to go back to sleep as she felt ill. states that he put her in bed around noon and this was the last time that she was seen normal. He left for his doctor's appointment and returned home around 3:00 PM. He found the patient still in bed unresponsive. He states it was difficult to arouse her. When he did, she did not recognize him. EMS was called. They noted that the patient had left-sided facial droop and severe aphasia. She does arrive to the hospital and continues to have aphasia. The facial droop has resolved. She is moving all extremities and following all commands. The patient's does report a history of seizures. States that she rarely suffers from them. She has been on her current regimen of Dilantin and Lamictal for several years. does reports that she missed a dose a few days ago. He does not believe that this is consistent with her seizure-like activity as she is normally acutely aware shortly after her seizures and does not have confusion like this. Does suffer from grand mal and petit seizures. There is no report of any recent blunt head trauma during the patient is denying any headaches, fevers, chills, nausea or v omiting. The patient is not on any anticoagulation. There are no other alleviating, precipitating or modifying factors - Related Data Home Medications Medication Instructions Recorded Confirmed Aspirin EC [Ecotrin Low Dose] 81 mg PO DAILY 10/15/18 12/24/18 Letrozole [Femara] 2.5 mg PO DAILY 10/15/18 12/24/18 Levothyroxine Sodium [Synthroid] 88 mcg PO DAILY 10/15/18 12/24/18 Phenytoin Sodium Extended 200 mg PO Q48H 10/15/18 12/24/18 [Dilantin] Phenytoin Sodium Extended 300 mg PO Q48H 10/15/18 12/24/18 [Dilantin] Pravastatin Sodium [Pravachol] 20 mg PO HS 10/15/18 12/24/18 amLODIPine [Norvasc] 5 mg PO DAILY 10/15/18 12/24/18 hydrALAZINE HCL 25 mg PO Q6H PRN 10/15/18 12/24/18 lamoTRIgine [LaMICtal] 300 mg PO BID 10/15/18 12/24/18 Allergies Allergy/AdvReac Type Severity Reaction Status Date / Time No Known Allergies Allergy Verified 12/24/18 16:26 Review of Systems ROS Statement: Those systems with pertinent positive or pertinent negative responses have been documented in the HPI. ROS Other: All systems not noted in ROS Statement are negative. Past Medical History Past Medical History: Cancer, Hearing Disorder / Deafness, Hyperlipidemia, Seizure Disorder Additional Past Medical History / Comment(s): Breast Ca , History of Any Multi-Drug Resistant Organisms: ESBL Date of last positivie culture/infection: 11/08/18-E. coli ESBL MDRO Source:: Urine Past Surgical History: Cholecystectomy Additional Past Surgical History / Comment(s): Breast removal ight sided Past Anesthesia/Blood Transfusion Reactions: No Reported Reaction Past Psychological History: Anxiety, Depression Smoking Status: Former smoker Past Alcohol Use History: None Reported Past Drug Use History: None Reported General Exam Limitations: altered mental status General appearance: alert, other (confused. oriented x 1) Head exam: Present: atraumatic, normocephalic Eye exam: Present: normal appearance, PERRL, EOMI Pupils: Present: normal accommodation ENT exam: Present: normal exam, mucous membranes moist, TM's normal bilaterally Neck exam: Present: normal inspection. Absent: tenderness, meningismus Respiratory exam: Present: normal lung sounds bilaterally. Absent: respiratory distress, wheezes, rales, rhonchi Cardiovascular Exam: Present: regular rate, normal rhythm GI/Abdominal exam: Present: soft. Absent: distended, tenderness, guarding, rebound, rigid Extremities exam: Present: normal inspection, full ROM. Absent: pedal edema Back exam: Present: normal inspection, full ROM. Absent: tenderness Neurological exam: Present: altered, other (Positive for moderate aphasia and mild dysarthria. The patient will follow most commands. She is oriented 1. Finger to nose cannot be performed as the patient cannot follow this direction. No facial droop. Patient has 5 out of 5 muscle strength in all 4 extremities. Negative pronator drift. Distal sensation is intact in all extremities) Psychiatric exam: Present: normal mood, flat affect Skin exam: Present: warm, dry, intact Course Vital Signs 12/24/18 12/24/18 12/24/18 16:16 16:45 17:15 Temperature Pulse Rate 89 77 70 Pulse Rate [ Pulse Oximetery ] Respiratory 20 16 16 Rate Blood Pressure 170/115 178/78 167/72 Blood Pressure [Right Arm] O2 Sat by Pulse 94 L 95 95 Oximetry 12/24/18 12/24/18 12/24/18 17:30 17:45 18:33 Temperature Pulse Rate 70 71 69 Pulse Rate [ Pulse Oximetery ] Respiratory 18 18 18 Rate Blood Pressure 163/71 148/63 152/67 Blood Pressure [Right Arm] O2 Sat by Pulse 96 96 95 Oximetry 12/24/18 12/24/18 12/24/18 20:52 22:09 23:33 Temperature 98 F Pulse Rate 77 68 Pulse Rate [ 66 Pulse Oximetery ] Respiratory 18 20 20 Rate Blood Pressure 151/72 147/66 Blood Pressure 151/69 [Right Arm] O2 Sat by Pulse 97 98 98 Oximetry - Reevaluation(s) Reevaluation #1: I spoke with Dr. Ramirez at [address] angios head and neck. Reevaluation #2: Patient is reevaluated. Alert and oriented 2. Speech has improved. I discussed the case with Dr. Ramirez again at 1710 who stated that the patient has no large vessel occlusion. No TPA. The patient may remain at [facility] and should have an EEG Medical Decision Making - Medical Decision Making Upon arrival the patient is immediately placed in a trauma bay 2. She is hooked up to continuous pulse ox and cardiac monitoring. An Accu-Chek is performed. A 12-lead EKG is also performed on the patient. NIH stroke scale is conducted demonstrates a score of 5. We did activate a code stroke. Last known well was at noon. During my assessment of the patient she does have focal seizure. she becomes unresponsive and hypoxic. The seizure only lasts a minute before resolving. The patient does have a post ictal phase. She is placed on oxygen and returns to her previous baseline neurologic activity. The patient does go for a CT of her head as well as CT angios of her head and neck. I did discuss the case with Dr. Ramirez who agreed with imaging studies. The patient is then placed back in the trauma bay. She is reevaluated and does have some improvement in her symptoms. Her stroke scale is now 2. Trace studies were conducted. Upon review of the results the patient does have nitrite positive urine. Because of this I did conduct blood cultures and initiated the patient on Rocephin. Dr. Ramirez does review the films and there are no gross findings. The patient will be admitted to the hospital. I called and discussed the case with Dr. Joseph who accepted admission for the patient. I will place neurology on consult. The patient remained in stable condition and was transported to the floor - Lab Data Result diagrams: 12/24/18 16:20 12/24/18 16:20 Lab Results 12/24/18 12/24/18 12/24/18 Range/Units 16:20 16:20 16:20 WBC 7.7 (3.8-10.6) k/uL RBC 4.67 (3.80-5.40) m/uL Hgb 12.9 (11.4-16.0) gm/dL Hct 40.6 (34.0-46.0) % MCV 86.9 (80.0-100.0) fL MCH 27.5 (25.0-35.0) pg MCHC 31.7 (31.0-37.0) g/dL RDW 13.0 (11.5-15.5) % Plt Count 301 (150-450) k/uL Neutrophils % 70 % Lymphocytes % 19 % Monocytes % 5 % Eosinophils % 2 % Basophils % 2 % Neutrophils # 5.4 (1.3-7.7) k/uL Lymphocytes # 1.4 (1.0-4.8) k/uL Monocytes # 0.4 (0-1.0) k/uL Eosinophils # 0.1 (0-0.7) k/uL Basophils # 0.2 (0-0.2) k/uL PT (9.0-12.0) sec INR (<1.2) APTT (22.0-30.0) sec Sodium 138 (137-145) mmol/L Potassium 4.5 (3.5-5.1) mmol/L Chloride 100 (98-107) mmol/L Carbon Dioxide 28 (22-30) mmol/L Anion Gap 10 mmol/L BUN 13 (7-17) mg/dL Creatinine 0.65 (0.52-1.04) mg/dL Est GFR (CKD-EPI)AfAm >90 (>60 ml/min/1.73 sqM) Est GFR (CKD-EPI)NonAf 84 (>60 ml/min/1.73 sqM) Glucose 106 H (74-99) mg/dL POC Glucose (mg/dL) (75-99) mg/dL POC Glu Sales Person ID Calcium 9.5 (8.4-10.2) mg/dL Total Bilirubin 0.4 (0.2-1.3) mg/dL AST 29 (14-36) U/L ALT 12 (9-52) U/L Alkaline Phosphatase 108 (38-126) U/L Troponin I <0.012 (0.000-0.034) ng/mL Total Protein 7.9 (6.3-8.2) g/dL Albumin 4.5 (3.5-5.0) g/dL TSH (0.465-4.680) mIU/L Urine Color Urine Appearance (Clear) Urine pH (5.0-8.0) Ur Specific [place] (1.001-1.035) Urine Protein (Negative) Urine Glucose (UA) (Negative) Urine Ketones (Negative) Urine Blood (Negative) Urine Nitrite (Negative) Urine Bilirubin (Negative) Urine Urobilinogen (<2.0) mg/dL Ur Leukocyte Esterase (Negative) Urine RBC (0-5) /hpf Urine WBC (0-5) /hpf Ur Squamous Epith Cells (0-4) /hpf Urine Bacteria (None) /hpf 12/24/18 12/24/18 12/24/18 Range/Units 16:20 16:20 16:21 WBC (3.8-10.6) k/uL RBC (3.80-5.40) m/uL Hgb (11.4-16.0) gm/dL Hct (34.0-46.0) % MCV (80.0-100.0) fL MCH (25.0-35.0) pg MCHC (31.0-37.0) g/dL RDW (11.5-15.5) % Plt Count (150-450) k/uL Neutrophils % % Lymphocytes % % Monocytes % % Eosinophils % % Basophils % % Neutrophils # (1.3-7.7) k/uL Lymphocytes # (1.0-4.8) k/uL Monocytes # (0-1.0) k/uL Eosinophils # (0-0.7) k/uL Basophils # (0-0.2) k/uL PT 10.1 (9.0-12.0) sec INR 0.9 (<1.2) APTT 22.5 (22.0-30.0) sec Sodium (137-145) mmol/L Potassium (3.5-5.1) mmol/L Chloride (98-107) mmol/L Carbon Dioxide (22-30) mmol/L Anion Gap mmol/L BUN (7-17) mg/dL Creatinine (0.52-1.04) mg/dL Est GFR (CKD-EPI)AfAm (>60 ml/min/1.73 sqM) Est GFR (CKD-EPI)NonAf (>60 ml/min/1.73 sqM) Glucose (74-99) mg/dL POC Glucose (mg/dL) 95 (75-99) mg/dL POC Glu Sales Person ID Jeaneth Nunes Calcium (8.4-10.2) mg/dL Total Bilirubin (0.2-1.3) mg/dL AST (14-36) U/L ALT (9-52) U/L Alkaline Phosphatase (38-126) U/L Troponin I (0.000-0.034) ng/mL Total Protein (6.3-8.2) g/dL Albumin (3.5-5.0) g/dL TSH 2.100 (0.465-4.680) mIU/L Urine Color Urine Appearance (Clear) Urine pH (5.0-8.0) Ur Specific [place] (1.001-1.035) Urine Protein (Negative) Urine Glucose (UA) (Negative) Urine Ketones (Negative) Urine Blood (Negative) Urine Nitrite (Negative) Urine Bilirubin (Negative) Urine Urobilinogen (<2.0) mg/dL Ur Leukocyte Esterase (Negative) Urine RBC (0-5) /hpf Urine WBC (0-5) /hpf Ur Squamous Epith Cells (0-4) /hpf Urine Bacteria (None) /hpf 12/24/18 Range/Units 17:30 WBC (3.8-10.6) k/uL RBC (3.80-5.40) m/uL Hgb (11.4-16.0) gm/dL Hct (34.0-46.0) % MCV (80.0-100.0) fL MCH (25.0-35.0) pg MCHC (31.0-37.0) g/dL RDW (11.5-15.5) % Plt Count (150-450) k/uL Neutrophils % % Lymphocytes % % Monocytes % % Eosinophils % % Basophils % % Neutrophils # (1.3-7.7) k/uL Lymphocytes # (1.0-4.8) k/uL Monocytes # (0-1.0) k/uL Eosinophils # (0-0.7) k/uL Basophils # (0-0.2) k/uL PT (9.0-12.0) sec INR (<1.2) APTT (22.0-30.0) sec Sodium (137-145) mmol/L Potassium (3.5-5.1) mmol/L Chloride (98-107) mmol/L Carbon Dioxide (22-30) mmol/L Anion Gap mmol/L BUN (7-17) mg/dL Creatinine (0.52-1.04) mg/dL Est GFR (CKD-EPI)AfAm (>60 ml/min/1.73 sqM) Est GFR (CKD-EPI)NonAf (>60 ml/min/1.73 sqM) Glucose (74-99) mg/dL POC Glucose (mg/dL) (75-99) mg/dL POC Glu Sales Person ID Calcium (8.4-10.2) mg/dL Total Bilirubin (0.2-1.3) mg/dL AST (14-36) U/L ALT (9-52) U/L Alkaline Phosphatase (38-126) U/L Troponin I (0.000-0.034) ng/mL Total Protein (6.3-8.2) g/dL Albumin (3.5-5.0) g/dL TSH (0.465-4.680) mIU/L Urine Color Light Yellow Urine Appearance Clear (Clear) Urine pH 7.5 (5.0-8.0) Ur Specific [place] 1.030 (1.001-1.035) Urine Protein Negative (Negative) Urine Glucose (UA) Negative (Negative) Urine Ketones Negative (Negative) Urine Blood Trace H (Negative) Urine Nitrite Positive H (Negative) Urine Bilirubin Negative (Negative) Urine Urobilinogen <2.0 (<2.0) mg/dL Ur Leukocyte Esterase Small H (Negative) Urine RBC 7 H (0-5) /hpf Urine WBC 8 H (0-5) /hpf Ur Squamous Epith Cells <1 (0-4) /hpf Urine Bacteria Rare H (None) /hpf - EKG Data EKG Comments: EKG demonstrates a sinus rhythm with a first-degree AV block. Ventricular rate of 70. MS interval 232. QRS 86. QTC 432. No acute ST segment elevations or depressions concerning for ischemic changes. Disposition Clinical Impression: UTI (urinary tract infection), Weakness, Seizure, TIA (transient ischemic attack) Disposition: ADMITTED IP TO THIS HOSP Condition: Serious Is patient prescribed a controlled substance at d/c from ED?: No Decision to Admit Reason: Admit from EC Decision Date: 12/24/18 Decision Time: 18:56
--- NOTE | 2018-12-24 17:12 | CT ---
EXAMINATION TYPE: CT angio head neck DATE OF EXAM: 12/24/2018 HISTORY: Weakness and neuro deficit. COMPARISON: None CT DLP: mGycm. Automated Exposure Control for Dose Reduction was Utilized. TECHNIQUE: CTA scan of the neck is performed with IV Contrast, patient injected with 65 mL of Isovue 370, axial images are obtained, coronal and sagittal reformatted images are reviewed. Three-D recons tructed images are created on an independent workstation and reviewed. FINDINGS: There is normal branching pattern of the great vessels on the aortic arch. There is bilateral arteria l flow in the subclavian arteries. There is arterial flow in the common internal and external carotid arteries bilaterally. There is art erial flow in both vertebral arteries. The carotid arteries show wide patency of the bifurcations. Th ere is no evidence of carotid or vertebral artery aneurysm or dissection. There is no evidence of car otid or vertebral artery stenosis. There is some mild plaque in the distal left vertebral artery. There is arterial flow in the anterior middle and posterior cerebral arteries. There is arterial flow in the vertebrobasilar artery system. There is no mass effect. There is bilateral patency of the pos terior communicating arteries. I see no evidence of intracranial aneurysm or neovascularity. There is normal contrast opacification of the venous sinuses. IMPRESSION: Negative CT angiogram of the neck. Negative CT angiogram of the brain.
--- NOTE | 2018-12-24 17:17 | CT ---
EXAMINATION TYPE: CT brain wo con for TPA DATE OF EXAM: 12/24/2018 COMPARISON: 11/08/2018 HISTORY: 83-year-old female with weakness and neuro deficit TECHNIQUE: Examination was done in axial plane without intravenous contrast. Coronal and sagittal r econstructions performed. CT DLP: Not reported Automated exposure control for dose reduction was used. FINDINGS: There is no evidence of acute intracranial hemorrhage, acute ischemic changes, mass, mass-effect, or extra-axial fluid collection. There is no effacement of cerebral sulci or basal subarachnoid cister ns. There is no hydrocephalus. There is no midline shift. De La Cruz-white matter distinction is preserv ed. Atherosclerotic calcifications within the bilateral carotid siphons. 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 Scattered mild mucosal thickening ethmoid air cells. Mastoid air cells well pneumatized. Orbits and g lobes are intact. IMPRESSION: No acute intracranial abnormality seen.
[2018-12-24 17:48] LABS: Appearance,Urine Clear (Clear); Bacteria,Urine Rare /hpf; Bilirubin,Urine Negative (Negative); Blood,Urine Trace (Negative); Color,Urine Light Yellow; Glucose,Urine (UA) Negative (Negative); Ketones,Urine Negative (Negative); Leukocyte Esterase,Urine Small (Negative); Nitrite,Urine Positive (Negative); PH, Urine 7.5 (5.0-8.0); Protein,Urine Negative (Negative); RBC,Urine 7 /hpf (0-5); Squamous Epithelial Cell,Urine <1 /hpf (0-4); Urobilinogen,Urine <2.0 mg/dL (<2.0)
--- NOTE | 2018-12-24 18:36 | XR ---
EXAMINATION TYPE: XR chest 2V DATE OF EXAM: 12/24/2018 COMPARISON: 11/08/2018 HISTORY: Altered mental status TECHNIQUE: Frontal and lateral views of the chest are obtained. FINDINGS: Heart is normal. Lungs are clear of consolidation. There are chest leads. Costophrenic ang les are clear. Bony thorax is intact. IMPRESSION: No active cardiopulmonary disease. Normal heart. Minimal scarring at the left cardiophre radha angle unchanged.
[2018-12-24] MEDS ORDERED: IBUPROFEN 400 MG TAB PO PRN (18:56)
[2018-12-24] MEDS ORDERED: NALOXONE 0.4 MG/ML 1 ML VIAL IV PRN (18:56)
[2018-12-24] MEDS ORDERED: ACETAMINOPHEN TAB 325 MG TAB PO PRN (18:56)
[2018-12-24] MEDS ORDERED: hydrALAZINE HCL 25 MG TAB PO PRN (18:58)
[2018-12-25 00:13] VITALS: BMI 21.9
[2018-12-25] MEDS: PRAVASTATIN SODIUM 20 MG TAB PO SCH ×2 (00:17→20:06)
[2018-12-25] MEDS: lamoTRIgine 100 MG TAB PO SCH ×3 (00:17→20:06)
--- NOTE | 2018-12-25 02:35 | P.HPIM ---
History of Present Illness H&P Date: 12/24/18 Chief Complaint: Altered mental status 83-year-old female with history of seizures hypertension and breast cancer Patient was brought into the hospital by her . 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 She claims that she feels fine and denies any concerns or complaints at this time. Whenever she is asked she's focused on her emotional struggles. It seems like they have moved to 5 months ago from their home to come and live with her daughter and they don't seem to be happy about it. However the did mention that this morning his seemed off, she seemed to be confused a little bit which is unusual for her. They had a doctor appointment at 1 however his did not feel well and decided to skip the appointment and stay home and sleep went to his appointment in couple hours later he comes back home he finds are still sleeping however she was not arousable this time he grew even more concerned and called 911 and decided to bring her to the hospital. Patient didn't notice any seizure-like activities, however EMS noted that there was some slurred speech and left facial droop, and more confusion when she couldn't even recognize her . However by the time she was in the ER this has resolved. However patient continues to be forgetful when she is talking which is creating some frustration to her. In the ED code stroke was activated that sukhdev Ramirez neuro intervention evaluated CT angiogram of the head and neck which showed no occlusions and he recommended no TPA. He suggested to rule out seizures. During my interview with the patient patient had a brief moment about 1 minute where she was staring into the blank not interacting and I noticed that her oxygen saturation dropped to the 60s this was very brief lasted less than 1 minute and then corrected with supplemental oxygen and the patient was alert again and interactive. However the oxygen saturation did not drop after I di scontinued the supplemental oxygen at 2 L. This was concerning for [place] seizure 1 the is asked he is not sure of what kind of seizure the patient has put he reports that she has been on the same medications for many years and she has probably missed a dose just few days ago. Otherwise patient currently denies any chest pain or trouble breathing denies any fevers or chills denies any coughing she denies any head injury or falls denies being on any anticoagulation she denies any sick contacts denies any recent traveling other than 5 months ago and removed. In the ED EKG suggested first degree AV block CT angiogram of the head and neck reviewed by neuro interventional cough. Labs were unremarkable CT of the head was negative Chest x-ray showed no acute process. patient admitted for further monitoring and evaluation by neurology Review of Systems Pertinent positives as noted in HPI. All other systems were reviewed and are negative Past Medical History Past Medical History: Cancer, Hearing Disorder / Deafness, Hyperlipidemia, Seizure Disorder Additional Past Medical History / Comment(s): Breast Ca , History of Any Multi-Drug Resistant Organisms: ESBL Date of last positivie culture/infection: 11/08/18-E. coli ESBL MDRO Source:: Urine Past Surgical History: Cholecystectomy Additional Past Surgical History / Comment(s): Breast removal ight sided Past Anesthesia/Blood Transfusion Reactions: No Reported Reaction Past Psychological History: Anxiety, Depression Smoking Status: Never smoker Past Alcohol Use History: None Reported Past Drug Use History: None Reported Medications and Allergies Home Medications Medication Instructions Recorded Confirmed Type Aspirin EC [Ecotrin Low Dose] 81 mg PO DAILY 10/15/18 12/24/18 History Letrozole [Femara] 2.5 mg PO DAILY 10/15/18 12/24/18 History Levothyroxine Sodium [Synthroid] 88 mcg PO DAILY 10/15/18 12/24/18 History Phenytoin Sodium Extended 200 mg PO Q48H 10/15/18 12/24/18 History [Dilantin] Phenytoin Sodium Extended 300 mg PO Q48H 10/15/18 12/24/18 History [Dilantin] Pravastatin Sodium [Pravachol] 20 mg PO HS 10/15/18 12/24/18 History amLODIPine [Norvasc] 5 mg PO DAILY 10/15/18 12/24/18 History hydrALAZINE HCL 25 mg PO Q6H PRN 10/15/18 12/24/18 History lamoTRIgine [LaMICtal] 300 mg PO BID 10/15/18 12/24/18 History Allergies Allergy/AdvReac Type Severity Reaction Status Date / Time No Known Allergies Allergy Verified 12/24/18 16:26 Physical Exam Vitals: Vital Signs Temp Pulse Pulse Resp BP BP Pulse Ox 12/24/18 23:33 68 20 147/66 98 12/24/18 22:09 77 20 151/72 98 12/24/18 20:52 98 F 66 18 151/69 97 12/24/18 18:33 69 18 152/67 95 12/24/18 17:45 71 18 148/63 96 12/24/18 17:30 70 18 163/71 96 12/24/18 17:15 70 16 167/72 95 12/24/18 16:45 77 16 178/78 95 12/24/18 16:16 89 20 170/115 94 L Intake and Output 12/24/18 12/24/18 12/25/18 14:59 22:59 06:59 Intake Total 500 Balance 500 Intake: Amount of Fluid Infused ( 500 ml) Other: Weight 61.643 kg Constitutional: No acute distress, conversant, pleasant Eyes: Anicteric sclerae, moist conjunctiva, n Pupils equal round reactive to light ENMT: NC/AT Oropharynx clear, no erythema, no exudates Neck: Supple, FROM, no masses, or JVD No carotid bruits No thyromegaly Lungs: Clear to auscultation Clear to percussion Normal respiratory effort, no accessory muscle use Cardiovascular: Heart regular in rate and rhythm, No murmurs, gallops, or rubs No peripheral edema Abdominal: Soft Nontender, no guarding, rebound or rigidity Abdomen moving with respiration Normoactive bowel sounds No hepatomegaly, No splenomegaly No palpable mass No abdominal wall hernia noted Skin: Normal temperature, tone, texture, turgor No induration No subcutaneous nodules No rash, lesions No ulcers Extremities: No digital cyanosis No clubbing Pedal pulses intact and symmetrical Radial pulses intact and symmetrical No calf tenderness Psychiatric: Alert and oriented to person, place and not oriented to time Appropriate affect fair judgment Neuro Muscles Strength 4/5 in all 4 extremities Sensation to light touch grossly present throughout Cranial nerves II-XII grossly intact Patient seems to have pressured speech and forgetfulness No focal sensory deficits Finger-nose testing is intact Lymphatics: no palpable cervical or supraclavicular , or inguinal lymph nodes Results CBC & Chem 7: 12/24/18 16:20 12/24/18 16:20 Labs: Abnormal Lab Results - Last 24 Hours (Table) 12/24/18 12/24/18 Range/Units 16:20 17:30 Glucose 106 H (74-99) mg/dL Urine Blood Trace H (Negative) Urine Nitrite Positive H (Negative) Ur Leukocyte Esterase Small H (Negative) Urine RBC 7 H (0-5) /hpf Urine WBC 8 H (0-5) /hpf Urine Bacteria Rare H (None) /hpf Thrombosis Risk Factor Assmnt - Choose All That Apply Any of the Below Risk Factors Present?: Yes Each Risk Factor Represents 3 Points: Age 75 years or older Thrombosis Risk Factor Assessment Total Risk Factor Score: 3 Thrombosis Risk Factor Assessment Level: Moderate Risk Assessment and Plan Assessment: 83-year-old female with history of breast cancer, hypertension, seizures. Admitted as an inpatient with anticipated length of stay more than 2 midnight due to acute changes in mental status with possibility of underlying seizures. Patient was evaluated by on-call neuro intervention for possible stroke CT angiogram the head and neck evaluated her were no occlusions noted and on-call neuro intervention did not recommend any TPA at this time Plan: Acute metabolic encephalopathy Rule out postictal confusion due to breakthrough seizure versus TIA CT angiogram of the head and neck evaluated by on-call neuro intervention no recommendations for any intervention at this time Check EEG Resume antiseizure medications Neuro evaluation Neurology consultation Permits of hypertension for 24 hours hold on blood pressure meds IV fluid hydration Check echocardiogram, Check lipid profile Seizure and fall precautions ET/OT evaluation Monitor vital signs Check phenytoin levels Surrogate decision-maker: Patient CODE STATUS: No code DVT prophylaxis: Mechanical Discussed with: Patient, ER, RN Anticipated length of stay more than [address]: Pending clinical course A total of 70 minutes was spent on the care of this complex patient more than 50% of the time was spent in counseling and care coordination.
--- NOTE | 2018-12-25 02:39 | P.HPADDEND ---
H&P Addendum H&P Addendum Date: 12/25/18 Advanced Care Planning Active diagnoses: Acute metabolic encephalopathy secondary to breakthrough seizures, rule out underlying TIA Background: The patient was admitted for treatment of confusion and possible breakthrough seizures versus TIA. Confirmation and clarification of wishes upon admission. Discussion: Person(s) present and participating in discussion: The patient, myself, and patient Summary: Patient seems to be slightly confused at this time and she is fixated on her emotional stress at home with financial and social issues not realizing or having and insight about why she is in the hospital at this time. Discussion was mainly with the was concerned about his 's condition which seems to be acutely confused today. He understand that in the differential could be TIA versus a breakthrough seizure resulting in her symptoms. Which will require further workup and neurology evaluation. Patient did express that the has mentioned in the past that she made peace with the Lord and herself and that when the time for her comes that she would like to go peacefully and not pursue any CPR or resuscitation however he does want to medically pursue everyt jovana possible at the moment to reach a diagnosis however if she sustained a cardiopulmonary arrest to let her go peacefully without pursuing any CPR. Time spent: Total time spent face to face in education and discussion directly related to advanced care plannin minutes
[2018-12-25] MEDS: LEVOTHYROXINE 88 MCG TAB PO SCH (05:40)
[2018-12-25 07:09] LABS: Phenytoin (Dilantin) Free <0.8 ug/mL (0.8-2.0)
[2018-12-25 08:05] LABS: Basophils # (A) 0.3 k/uL (0-0.2); Basophils % (A) 3 %; Eosinophils # (A) 0.1 k/uL (0-0.7); Eosinophils % (A) 1 %; HCT 38.4 % (34.0-46.0); HGB 12.7 gm/dL (11.4-16.0); Lymphocytes # (A) 1.8 k/uL (1.0-4.8); Lymphocytes % (A) 20 %; MCH 28.8 pg (25.0-35.0); MCHC 33.1 g/dL (31.0-37.0); MCV 86.9 fL (80.0-100.0); Mean Platelet Volume 7.3; Monocytes # (A) 0.7 k/uL (0-1.0); Monocytes % (A) 8 %; Neutrophils % (A) 66 %; Platelet Count 281 k/uL (150-450); RBC 4.42 m/uL (3.80-5.40); RDW 12.9 % (11.5-15.5); WBC 9.1 k/uL (3.8-10.6)
[2018-12-25 08:29] LABS: Calcium 9.3 mg/dL (8.4-10.2); Potassium 3.8 mmol/L (3.5-5.1)
[2018-12-25] MEDS ORDERED: PHENYTOIN SODIUM EXTENDED 100 MG CAP PO SCH (09:00)
[2018-12-25] MEDS ORDERED: amLODIPine 5 MG TAB PO SCH (09:00)
[2018-12-25 09:07] LABS: Lamotrigine (Lamictal) 2.8 ug/mL (2.0-15.0)
[2018-12-25] MEDS: ASPIRIN 81 MG PO SCH (09:18)
[2018-12-25] MEDS: LETROZOLE 2.5 MG TAB PO SCH (12:11)
--- NOTE | 2018-12-25 12:16 | ECHOF ---
Referral Reason:?tia MEASUREMENTS -------- HEIGHT: 167.6 cm WEIGHT: 61.2 kg BP: 142/72 RVIDd: 3.6 cm (< 3.3) IVSd: 1.5 cm (0.6 - 1.1) LVIDd: 3.7 cm (3.9 - 5.3) LVPWd: 1.2 cm (0.6 - 1.1) IVSs: 1.8 cm LVIDs: 2.6 cm LVPWs: 1.7 cm LAESV Index (A-L): 19.19 ml/m Ao Diam: 2.5 cm (2.0 - 3.7) AV Cusp: 1.7 cm (1.5 - 2.6) LA Diam: 2.6 cm (2.7 - 3.8) MV E Elan: 0.74 m/s MV DecT: 178 ms MV A Elan: 0.77 m/s MV E/A Ratio: 0.96 AV maxP.35 mmHg AV meanP.15 mmHg AR PHT: 336 ms RAP: 5.00 mmHg RVSP: 20.86 mmHg FINDINGS -------- Sinus rhythm. The left ventricular size is normal. There is moderate concentric left ventricular hypertrophy. O verall left ventricular systolic function is normal with, an EF between 55 - 60 %. The diastolic fi lling pattern is normal for the age of the patient. The right ventricle is mildly enlarged. Left atrium is normal size by volume. The right atrial size is normal. Interatrial and interventricular septum intact. The aortic valve is trileaflet and appears structurally normal. There is mild aortic valve sclerosi s without stenosis. There is mild aortic regurgitation. Mild mitral annular calcification present. There is trace mitral regurgitation. Mild tricuspid regurgitation present. There is no evidence of pulmonary hypertension. The right v entricular systolic pressure, as measured by Doppler, is 20.86mmHg. Trace/mild (physiologic) pulmonic regurgitation. The aortic root size is normal. The inferior vena cava was not well visualized. There is no pericardial effusion. CONCLUSIONS -------- 1. Sinus rhythm. 2. The left ventricular size is normal. 3. Overall left ventricular systolic function is normal with, an EF between 55 - 60 %. 4. The diastolic filling pattern is normal for the age of the patient. 5. The right ventricle is mildly enlarged. 6. Left atrium is normal size by volume. 7. The right atrial size is normal. 8. Interatrial and interventricular septum intact. 9. The aortic valve is trileaflet and appears structurally normal. 10. There is mild aortic valve sclerosis without stenosis. 11. There is mild aortic regurgitation. 12. Mild mitral annular calcification present. 13. There is trace mitral regurgitation. 14. Mild tricuspid regurgitation present. 15. There is no evidence of pulmonary hypertension. 16. The right ventricular systolic pressure, as measured by Doppler, is 20.86mmHg. 17. Trace/mild (physiologic) pulmonic regurgitation. 18. The aortic root size is normal. 19. The inferior vena cava was not well visualized. 20. There is no pericardial effusion. PRINTING MACHINE MECHANIC: Neyda Howard RDCS
--- NOTE | 2018-12-25 13:14 | P.PN ---
Subjective Progress Note Date: 12/25/18 Principal diagnosis: Confusion Patient was seen and examined. No acute events overnight. Patient reports some fatigue today. Otherwise, no complaints. She denies any chest pain, shortness of breath or palpitations. No nausea or vomiting. No fever or chills. 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 Objective - Vital Signs Vital signs: Vital Signs Temp 97.7 F 12/25/18 08:00 Pulse 70 12/25/18 09:10 Resp 14 12/25/18 09:10 BP 125/60 12/25/18 08:00 Pulse Ox 92 L 12/25/18 08:00 Intake & Output 12/24/18 12/25/18 12/25/18 18:59 06:59 18:59 Intake Total 500 120 Balance 500 120 Weight 61.643 kg 62 kg Intake: Amount of Fluid Infused ( 500 ml) Oral 120 Other: Voiding Method Bedpan Toilet # Voids 1 2 # Bowel Movements 1 - Exam General: [non toxic], [no distress], [appears at stated age] Derm: [warm], [dry] Head: [atraumatic], [normocephalic], [symmetric] Eyes: [EOMI], [no lid lag], [anicteric sclera] Mouth: [no lip lesion], [mucus membranes moist] Cardiovascular: [S1S2 reg], [no murmur], [positive DP pulse bilateral], Lungs: [CTA bilateral], [no rhonchi, no rales] , [no accessory muscle use] Abdominal: [soft], [ nontender to palpation], [no guarding], [no appreciable organomegaly] Ext: [no gross muscle atrophy], [no edema], [no contractures] Neuro: [ CN II-XI grossly intact], [no focal neuro deficits] Psych: [Alert], [oriented], [appropriate affect] - Labs CBC & Chem 7: 12/25/18 06:25 12/25/18 06:25 Labs: Abnormal Lab Results - Last 24 Hours (Table) 12/24/18 12/24/18 12/24/18 Range/Units 16:20 17:30 18:10 Basophils # (0-0.2) k/uL Sodium (137-145) mmol/L Glucose 106 H (74-99) mg/dL Urine Blood Trace H (Negative) Urine Nitrite Positive H (Negative) Ur Leukocyte Esterase Small H (Negative) Urine RBC 7 H (0-5) /hpf Urine WBC 8 H (0-5) /hpf Urine Bacteria Rare H (None) /hpf Free Phenytoin <0.8 L (0.8-2.0) ug/mL 12/25/18 12/25/18 Range/Units 06:25 06:25 Basophils # 0.3 H (0-0.2) k/uL Sodium 136 L (137-145) mmol/L Glucose 68 L (74-99) mg/dL Urine Blood (Negative) Urine Nitrite (Negative) Ur Leukocyte Esterase (Negative) Urine RBC (0-5) /hpf Urine WBC (0-5) /hpf Urine Bacteria (None) /hpf Free Phenytoin (0.8-2.0) ug/mL Assessment and Plan Assessment: Acute metabolic encephalopathy, TIA versus postictal confusion from breakthrough seizure Seizure disorder Hypertension History of breast cancer Hypothyroidism Hyperlipidemia CT brain negative. CTA head and neck negative. TSH within normal limits. UA shows positive nitrite. Plans: Resume home antiepileptics. Neurology consulted for further guidance. Follow EEG. Follow Echocardiogram. Telemetry monitoring. Fall precautions. Advanced neurochecks. Seizure precautions. PT and OT consultation. Phenytoin level sub-therapeutic. Lamotrigine level therapeutic. Plans: Ma nagement as above. Resume Lamictal 300 mg by mouth twice a day, Dilantin 200 mg by mouth every 48 hours and 300 mg by mouth. BP 125/60. Plans: Amlodipine discontinued. Monitor vitals, adjust medications as necessary. Plans: Continue Femara. Need adequate outpatient follow-up. Plans: Continue Synthroid. Plans: Continue pravastatin. [Patient admitted for acute metabolic encephalopathy, TIA versus postictal confusion. Neurology consulted. CVA and seizure workup underway. Likely DC in 1-2 days.]
--- NOTE | 2018-12-25 13:49 | P.CNNES ---
History of Present Illness Consult date: 12/25/18 Reason for Consult: Possible seizure/TIA Chief complaint: Altered mental status History of Present Illness: REFERRING PHYSICIAN: Dr. Nakita Leo HISTORY OF PRESENT ILLNESS: Thank you for allowing me to evaluate Mrs. Racheal Grace. Ms. Grace is a 83-year-old woman with past medical history of breast cancer, seizure disorder, hearing deficit, anxiety, depression, presenting with 1 episode of possible syncopal episode, consulted neurology for concern for seizure. There is no family at bedside. The H&P has a thorough information from the family. Per H&P along with the patient is providing this information, patient had a doctor's appointment yesterday around 1 PM, but patient did not feel well, so she decided to stay home and sleep. went to the doctor's appointment. Patient was still sleeping, and patient was not very easily arousable. thought patient had a seizure, and was concerned. patient states that she uses a pill box for her meds, but she does get forgetful at times. She takes phenytoin 300mg every other day and 200mg every other day, so it becomes confusing for her. Patient states that about a week ago, she had been on the toilet, had diarrhea, and when she got up, she was feeling dizzy and fell. Did not lose consciousness. She remembers the entire episode. Patient states that in the past, she has had episodes of shaking that she would know it happened after the fact, would be slightly disoriented after before returning to baseline. Patient had her first seizure when she was in first grade. Patient continues to state that her memory has gotten bad, but patient able to remember certain things. PAST MEDICAL HISTORY: breast cancer, seizure disorder, hearing deficit, anxiety, depression PAST SURGICAL HISTORY: Cholecystectomy HOME MEDICATIONS: Hydralazine, levothyroxine, lamotrigine, repeating, pravastatin, letrozole, phenytoin, aspirin 83 ALLERGIES: NO KNOWN ALLERGIES SOCIAL HISTORY: Former smoker. REVIEW OF SYSTEMS: The 14 systems are reviewed and no additional points are identified compared to the review of systems documented history and physical PHYSICAL EXAMINATION: VITAL SIGNS: T 97.7 HR 70 RR 14 blood pressure 125/60 O2 saturation 92% on room air GEN.: NAD, pleasant and cooperative HEENT: NCAT, sclera without icterus NECK: Supple, no carotid bruit SKIN AND EXTREMITIES: Warm to touch, no edema NEURO: MENTAL STATUS: Patient alert and oriented to self, place, time. Able to name the current president. Speech fluent, able to name and repeat, following all commands readily. No right and left disorientation, extinction to double simultaneous stimulation, finger agnosia, neglect. CRANIAL NERVES II THROUGH XII: II: Pupils are equal and reactive to light symmetrically. No afferent pupillary defect. Visual bunch are intact. III, IV, : No ptosis. Extraocular movements full. No nystagmus. V: Facial sensation intact from V1-3. VII. No clear facial asymmetry. VIII: Decreased hearing in R ear, which is chronic. IX, X: Symmetric palate elevation. XI: Shoulder shrug intact. XII: Tongue midline without fasciculation or atrophy. MOTOR: Normal bulk/tone. No pronator drift or tremor. Strength is 5/5 througho ut all 4 extremities. SENSORY: Intact to light touch, temperature, pinprick in all 4 extremities. REFLEXES: 2+ throughout. Toes are downgoing. COORDINATION: Finger to nose intact. No dysmetria. GAIT: deferred DIAGNOSTIC TESTING: LABORATORY: WBC 9.1 hemoglobin 12.7 platelet 281 PT 10.1 INR 0.9 sodium 136 potassium 3.8 chloride 99 bicarb 26 BUN 15 creatinine 0.74 glucose 68 AST 29 ALT 12 alk phos 108 troponin <0.012 urinalysis + nitrite and leuk esterase 8 WBC Free phenytoin level <0.8 lamotrigine 2.8 IMAGING: CT head without contrast 12/24/2018: No acute intracranial abnormality seen. CTA head and neck without without contrast 12/24/2018: Negative CTA of head and neck. Transthoracic echocardiogram on 04/03/2019: Sinus rhythm, EF 55-60%, LV/LA/RA sizes are normal. RV size is mildly enlarged. ASSESSMENT/RECOMMENDATIONS: Ms. Grace is a 83-year-old woman with past medical history of breast cancer, seizure disorder, hearing deficit, anxiety, depression, presenting with 1 episode of possible syncopal episode, consulted neurology for concern for seizure. Patient with a positive urine study, which may have caused the sleepiness and difficulty with arousal yesterday. Seizure is also not off the differential, but difficult to tell at this time. Patient's phenytoin level low at <0.8. albumin level normal. It appears that it's difficult for patient to be consistent with her meds as the dose for phenytoin alternates, from 300mg and 200mg. I would recommend patient to be on 300mg qday dosing for now along with her lamictal until she sees a neurologist as outpatient to consider changing her medication doses. Patient needs outpatient Neurology appointment within 2-3 weeks of discharge. Routine EEG obtained. Will follow up result later. If u nremarkable, Neurology will sign off. Past Medical History Past Medical History: Cancer, Hearing Disorder / Deafness, Hyperlipidemia, Seizure Disorder Additional Past Medical History / Comment(s): Breast Ca , History of Any Multi-Drug Resistant Organisms: ESBL Date of last positivie culture/infection: 11/08/18-E. coli ESBL MDRO Source:: Urine Past Surgical History: Cholecystectomy Additional Past Surgical History / Comment(s): Breast removal ight sided Past Anesthesia/Blood Transfusion Reactions: No Reported Reaction Past Psychological History: Anxiety, Depression Smoking Status: Never smoker Past Alcohol Use History: None Reported Past Drug Use History: None Reported Medications and Allergies Home Medications Medication Instructions Recorded Confirmed Type Aspirin EC [Ecotrin Low Dose] 81 mg PO DAILY 10/15/18 12/24/18 History Letrozole [Femara] 2.5 mg PO DAILY 10/15/18 12/24/18 History Levothyroxine Sodium [Synthroid] 88 mcg PO DAILY 10/15/18 12/24/18 History Phenytoin Sodium Extended 200 mg PO Q48H 10/15/18 12/24/18 History [Dilantin] Phenytoin Sodium Extended 300 mg PO Q48H 10/15/18 12/24/18 History [Dilantin] Pravastatin Sodium [Pravachol] 20 mg PO HS 10/15/18 12/24/18 History amLODIPine [Norvasc] 5 mg PO DAILY 10/15/18 12/24/18 History hydrALAZINE HCL 25 mg PO Q6H PRN 10/15/18 12/24/18 History lamoTRIgine [LaMICtal] 300 mg PO BID 10/15/18 12/24/18 History Allergies Allergy/AdvReac Type Severity Reaction Status Date / Time No Known Allergies Allergy Verified 12/24/18 16:26 Physical Examination - Vital Signs Vital Signs: Vital Signs Temp Pulse Pulse Resp BP BP Pulse Ox 12/25/18 08:00 97.7 F 70 14 125/60 92 L 12/25/18 07:50 97.7 F 70 14 125/60 92 L 12/25/18 03:05 98 F 69 18 142/72 98 12/24/18 23:33 68 20 147/66 98 12/24/18 22:09 77 20 151/72 98 12/24/18 20:52 98 F 66 18 151/69 97 12/24/18 18:33 69 18 152/67 95 12/24/18 17:45 71 18 148/63 96 12/24/18 17:30 70 18 163/71 96 12/24/18 17:15 70 16 167/72 95 12/24/18 16:45 77 16 178/78 95 12/24/18 16:16 89 20 170/115 94 L Intake and Output 12/24/18 12/25/18 12/25/18 22:59 06:59 14:59 Intake Total 500 120 Balance 500 120 Intake: Amount of Fluid Infused ( 500 ml) Oral 120 Other: Voiding Method Bedpan Toilet # Voids 1 Weight 61.643 kg 62 kg Results - Laboratory Findings CBC and BMP: 12/25/18 06:25 12/25/18 06:25 Abnormal Lab Findings: Abnormal Labs 12/24/18 12/24/18 12/24/18 16:20 17:30 18:10 Basophils # Sodium Glucose 106 H Urine Blood Trace H Urine Nitrite Positive H Ur Leukocyte Esterase Small H Urine RBC 7 H Urine WBC 8 H Urine Bacteria Rare H Free Phenytoin <0.8 L 12/25/18 12/25/18 06:25 06:25 Basophils # 0.3 H Sodium 136 L Glucose 68 L Urine Blood Urine Nitrite Ur Leukocyte Esterase Urine RBC Urine WBC Urine Bacteria Free Phenytoin
[2018-12-25 20:09] VITALS: RESP 18
[2018-12-26] MEDS: LEVOTHYROXINE 88 MCG TAB PO SCH (05:37)
[2018-12-26 07:55] VITALS: BP 148/67; PULSE 69; TEMP 98.6
[2018-12-26] MEDS: LETROZOLE 2.5 MG TAB PO SCH (08:37)
[2018-12-26] MEDS: lamoTRIgine 100 MG TAB PO SCH (08:37)
[2018-12-26] MEDS: ASPIRIN 81 MG PO SCH (08:37)
[2018-12-26] MEDS ORDERED: PHENYTOIN SODIUM EXTENDED 100 MG CAP PO SCH (09:00)
--- NOTE | 2018-12-26 10:12 | P.DS ---
Providers Date of admission: 12/24/18 19:00 Expected date of discharge: 12/26/18 Attending physician: Bob Joseph MD Consults: 12/24/18 18:57 Consult Physician Urgent Consulting Provider: Aspen Vegas Consult Reason/Comments: acute breakthrough seizure, possible TIA Do you want consulting provider notified?: Yes Primary care physician: Tania Eagle MD Hospital Course: Patient is an 83-year-old female with PMH of breast cancer, seizure disorder, hyperlipidemia that presented to the hospital for a possible seizure. 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 She claims that she feels fine and denies any concerns or complaints at this time. According to the , his appeared off, confused and was difficult to arouse after a nap. Her hu sband did not notice any seizure-like activities. EMS noted the patient had slurred speech and left facial droop and increased confusion as patient could not recognize her . All of her symptoms resolved while in the ED. Patient was resumed on her home medication of antiepileptics including Lamictal 300 mg by mouth twice a day and phenytoin alternating [address] brain showed no acute abnormality. CTA of the head and neck was within normal limits. Chest x-ray was negative for acute changes. Echocardiogram showed EF 55- 60%with moderate concentric LVH. Urinalysis showed positive nitrite and small leukocyte esterase though patient was completely asymptomatic. Neurology was consulted and recommended changing patient's phenytoin dose as she was the therapeutic to 300 mg by mouth daily. Neurology also recommended EEG which is pending at the time of discharge. She was seen by physical therapy and occupational therapy likely with the patient for discharge. Patient was seen and examined prior to discharge. No acute events overnight. Patient reports complete resolution of her symptoms. She denies any chest pain, shortness of breath or palpitations. No nausea or vomiting. No fever or chills. Patient denies any dizziness, numbness/weakness/tingling of the extremities or confusion. General: [non toxic], [no distress], [appears at stated age] Derm: [warm], [dry] Head: [atraumatic], [normocephalic], [symmetric] Eyes: [EOMI], [no lid lag], [anicteric sclera] Mouth: [no lip lesion], [mucus membranes moist] Cardiovascular: [S1S2 reg], [no murmur], [positive DP pulse bilateral], Lungs: [CTA bilateral], [no rhonchi, no rales] , [no accessory muscle use] Abdominal: [soft], [ nontender to palpation], [no guarding], [no appreciable organomegaly] Ext: [no gross muscle atrophy], [no edema], [no contractures] Neuro: [ CN II-XI grossly intact], [no focal neuro deficits] Psych: [Alert], [oriented], [appropriate affect] Acute metabolic encephalopathy, TIA versus postictal confusion from breakthrough seizure Abnormal urinalysis Seizure disorder Hypertension History of breast cancer Hypothyroidism Hyperlipidemia Plans: CVA workup negative thus far. EEG pending at the time of discharge. Discussed with neurology Dr. Vegas, patient is cleared for discharge from a neurology standpoint on Dilantin 300 mg by mouth twice a day and with outpatient follow-up. Patient does not currently drive. Plans: Patient is asymptomatic. Nothing to do. Plans: Management as above. Resume Lamictal 300 mg by mouth twice a day, Dilantin 300 mg by mouth daily. BP 148/67. Plans: Amlodipine discontinued. Monitor vitals, adjust medications as necessary. Plans: Continue Femara. Need adequate outpatient follow-up. Plans: Continue Synthroid. Plans: Continue pravastatin. [This complex discharge took around 35 minutes to complete. Patient cleared from neurology standpoint. Dilantin dose adjusted, discussed with patient. Will need adequate outpatient follow-up with neurology.] Pertinent Studies: brain CT, CTA head and neck, echocardiogram Patient Condition at Discharge: Stable Plan - Discharge Summary New Discharge Prescriptions: New Phenytoin Sodium Extended [Dilantin] 300 mg PO DAILY #90 cap Continue hydrALAZINE HCL 25 mg PO Q6H PRN PRN Reason: Blood Pressure >160 Levothyroxine Sodium [Synthroid] 88 mcg PO DAILY amLODIPine [Norvasc] 5 mg PO DAILY Pravastatin Sodium [Pravachol] 20 mg PO HS Letrozole [Femara] 2.5 mg PO DAILY Aspirin EC [Ecotrin Low Dose] 81 mg PO DAILY lamoTRIgine [LaMICtal] 300 mg PO BID #180 tab Discontinued Phenytoin Sodium Extended [Dilantin] 300 mg PO Q48H Phenytoin Sodium Extended [Dilantin] 200 mg PO Q48H Discharge Medication List Aspirin EC [Ecotrin Low Dose] 81 mg PO DAILY 10/15/18 [History] Letrozole [Femara] 2.5 mg PO DAILY 10/15/18 [History] Levothyroxine Sodium [Synthroid] 88 mcg PO DAILY 10/15/18 [History] Pravastatin Sodium [Pravachol] 20 mg PO HS 10/15/18 [History] amLODIPine [Norvasc] 5 mg PO DAILY 10/15/18 [History] hydrALAZINE HCL 25 mg PO Q6H PRN 10/15/18 [History] Phenytoin Sodium Extended [Dilantin] 300 mg PO DAILY #90 cap 12/26/18 [Rx] lamoTRIgine [LaMICtal] 300 mg PO BID #180 tab 12/26/18 [Rx] Follow up Appointment(s)/Referral(s): Tania Eagle MD [Primary Care Provider] - 1-2 days Edil Mcmahon MD [STAFF PHYSICIAN] - 1 Week Activity/Diet/Wound Care/Special Instructions: Diet: Low-salt Follow-up PCP within 3 days of discharge. Follow-up neurology within 1 week of discharge. Follow up the EEG that was done here during the Neurology appointment. Please do not drive. Take all medications as advised. Discharge Disposition: HOME SELF-CARE
--- NOTE | 2018-12-26 11:35 | EEG ---
ELECTROENCEPHALOGRAM REPORT PROCEDURE DATE: 12/25/2018 ELECTROENCEPHALOGRAM (EEG) REPORT: TECHNIQUE: A routine 18-channel EEG was performed with video using the 10/20 international electrode placement system. HISTORY: Patient more confused. Patient's having difficulty arousing her from sleep. The medical history includes hyperlipidemia, seizure disorder. CURRENT MEDICATIONS: Pravachol, Dilantin, Synthroid, Femara, Lamictal, Motrin. STUDY DURATION: 22 minutes. FINDINGS: BACKGROUND: The background activity consisted of 7-8 hertz rhythmic waveforms symmetrically distributed through both posterior quadrants. ACTIVATION: Hyperventilation: Not performed. Photic stimulation: Mild symmetric driving seen. Sleep: Drowsy. ABNORMALITIES: 1. Frequent single and occasionally grouped moderate to high voltage spike and slow waves were seen primarily over the right frontal region. Some of these had spread to the left frontal region. There was also spread to the right temporal and central regions. 2. Maximal amplitude on referential montage was over the right frontal region. 3. Intermittent diffuse 5-7 hertz polymorphic theta range slowing was seen. IMPRESSION: Abnormal EEG. The spike and slow waves seen over the right frontal region are epileptiform in nature. The diffuse theta range slowing mentioned above is not epileptiform in nature. Please note that background frequencies did not exceed 8 hertz. This can be considered within normal limits given the patient's age. CONCLUSION: These findings indicate the presence of an epileptiform focus involving the right frontal region. These findings can be seen with the presence of a structural abnormality of epileptiform origin involving the right frontal region. These findings also indicate mild diffuse cerebral dysfunction. These findings were called to the ordering neurologist at 10:30 a.m. on 12/26/2018. No seizures were recorded. MMODL / IJN: [id number] /
== END 2018-12-26 12:22 | disposition home or self-care (01) | DRG 101 ==
LOC: EC 16:13 → 3SCARD 19:00
PROVIDERS: ADMIT Family Medicine; ATTEND Family Medicine
DX: G40.909 Epilepsy, unspecified, not intractable, without status epilepticus (principal); G45.9 Transient cerebral ischemic attack, unspecified; R47.01 Aphasia; E78.5 Hyperlipidemia, unspecified; Z66 Do not resuscitate; R09.02 Hypoxemia; R47.1 Dysarthria and anarthria; R29.810 Facial weakness; I10 Essential (primary) hypertension; E03.9 Hypothyroidism, unspecified; F32.9 Major depressive disorder, single episode, unspecified; F41.9 Anxiety disorder, unspecified; R82.90 Unspecified abnormal findings in urine; H91.90 Unspecified hearing loss, unspecified ear; Z79.82 Long term (current) use of aspirin; Z79.811 Long term (current) use of aromatase inhibitors; Z79.890 Hormone replacement therapy; Z79.899 Other long term (current) drug therapy; Z85.3 Personal history of malignant neoplasm of breast; Z86.19 Personal history of other infectious and parasitic diseases; Z90.49 Acquired absence of other specified parts of digestive tract; Z90.11 Acquired absence of right breast and nipple; Z87.891 Personal history of nicotine dependence
CPT/HCPCS: 36415; 70450; 70496; 70498; 71046; 80048; 80053; 80175; 80186; 81001; 82607; 84443; 84484; 85025; 85610; 85730; 86780; 87040; 93306; 95816; 96365; 96366; 96375; 99285

== ENCOUNTER 2019-10-19 23:07 | Inpatient (IN) | payer MEDICARE ==
[2019-10-19] MEDS ORDERED: TOPICAL SKIN ADHESIVE 1 EACH AMP TOPICAL ONE (23:25)
[2019-10-19] MEDS ORDERED: DIPH,PERTUS(ACELL)TETVAC-LF 0.5 ML VIAL IM ONE (23:25)
--- NOTE | 2019-10-19 23:30 | ED ---
Fall HPI - General Stated Complaint: Fall Time Seen by Provider: 10/19/19 23:10 Source: patient, EMS Mode of arrival: EMS - History of Present Illness Initial Comments: This patient is an 84-year-old woman presenting to be evaluated for a trip and fall injury. The patient states that she had missed a step and tumbled forward striking her left brow and left hip/knee. The patient's family did give her pain pill she does not recall what kind, and phoned an ambulance to have her evaluated. The patient states she is mainly having pain to the posterior aspect of the left hip. She denies loss consciousness. She denies headache or neck pain. No chest, back, or abdominal pain. MD Complaint: fall -: hour(s) Fall From: standing When Fall Occurred: 1-[address] Fall Occurred: home Loss of Consciousness: none Prolonged Down Time?: no Symptoms Prior to Fall: none Location: face, back Severity: moderate Quality: aching Context: tripped/slipped Associated Symptoms: other - Related Data Home Medications Medication Instructions Recorded Confirmed Aspirin EC [Ecotrin Low Dose] 81 mg PO DAILY 10/15/18 12/24/18 Letrozole [Femara] 2.5 mg PO DAILY 10/15/18 12/24/18 Levothyroxine Sodium [Synthroid] 88 mcg PO DAILY 10/15/18 12/24/18 Pravastatin Sodium [Pravachol] 20 mg PO HS 10/15/18 12/24/18 amLODIPine [Norvasc] 5 mg PO DAILY 10/15/18 12/24/18 hydrALAZINE HCL 25 mg PO Q6H PRN 10/15/18 12/24/18 Previous Rx's Medication Instructions Recorded Phenytoin Sodium Extended 300 mg PO DAILY #90 cap 12/26/18 [Dilantin] lamoTRIgine [LaMICtal] 300 mg PO BID #180 tab 12/26/18 Allergies Allergy/AdvReac Type Severity Reaction Status Date / Time No Known Allergies Allergy Verified 12/24/18 16:26 Review of Systems ROS Statement: Those systems with pertinent positive or pertinent negative responses have been documented in the HPI. ROS Other: All systems not noted in ROS Statement are negative. Constitutional: Denies: fever, chills Eyes: Denies: vision change ENT: Denies: epistaxis Respiratory: Denies: cough, dyspnea Cardiovascular: Denies: chest pain, syncope Gastrointestinal: Denies: abdominal pain, vomiting Musculoskeletal: Reports: as per HPI, arthralgia Skin: Denies: rash Neurological: Denies: headache, weakness, numbness, paresthesias, confusion Hematological/Lymphatic: Denies: easy bleeding Past Medical History Past Medical History: Cancer, Hearing Disorder / Deafness, Hyperlipidemia, Seizure Disorder Additional Past Medical History / Comment(s): Breast Ca , History of Any Multi-Drug Resistant Organisms: ESBL Date of last positivie culture/infection: 11/08/18-E. coli ESBL MDRO Source:: Urine Past Surgical History: Cholecystectomy Additional Past Surgical History / Comment(s): Breast removal ight sided Past Anesthesia/Blood Transfusion Reactions: No Reported Reaction Past Psychological History: Anxiety, Depression Smoking Status: Former smoker Past Alcohol Use History: None Reported Past Drug Use History: None Reported General Exam Limitations: no limitations General appearance: alert, in no apparent distress Head exam: Present: normocephalic, other (Superficial laceration to the left brow) Eye exam: Present: PERRL, EOMI. Absent: scleral icterus, conjunctival injection, nystagmus, periorbital tenderness ENT exam: Present: normal oropharynx, mucous membranes moist Neck exam: Present: normal inspection, full ROM. Absent: tenderness, meningismus Respiratory exam: Present: normal lung sounds bilaterally. Absent: respiratory distress, wheezes, rales, rhonchi, stridor, chest wall tenderness Cardiovascular Exam: Present: regular rate, normal rhythm, normal heart sounds. Absent: systolic murmur, diastolic murmur, rubs, gallop Course Vital Signs 10/19/19 10/20/19 23:11 01:51 Temperature 98.8 F 98.6 F Pulse Rate 98 74 Respiratory 16 Rate Blood Pressure 191/69 184/68 O2 Sat by Pulse 96 96 Oximetry Disposition Clinical Impression: Fall, Fracture of hip, left, closed Disposition: ADMITTED IP TO THIS HOSP Condition: Fair Is patient prescribed a controlled substance at d/c from ED?: No Referrals: None,Stated [Primary Care Provider] - 1-2 days
--- NOTE | 2019-10-20 00:05 | XR ---
EXAMINATION TYPE: XR lumbar spine 2 or 3V DATE OF EXAM: 10/19/2019 COMPARISON: NONE HISTORY: Fall. Hip pain TECHNIQUE: 3 views FINDINGS: There is slight lumbar levoscoliosis. The posterior elements are intact. There is narrowing at L4-5 disc with spur formation. There is no compression fracture. Sacroiliac joints appear intact. IMPRESSION: L4-5 spondylosis. No fracture seen.
--- NOTE | 2019-10-20 00:07 | XR ---
EXAMINATION TYPE: XR Hip LT and AP Pelvis DATE OF EXAM: 10/19/2019 COMPARISON: 10/16/2018 HISTORY: Fall. Left hip pain TECHNIQUE: 3 views FINDINGS: Pelvic ring appears intact. Sacroiliac joints appear intact. Hip joint spaces are fairly no rmal. There is evidence of an acute nondisplaced 2 cm chip fracture of the greater trochanter of the left femur. IMPRESSION: Acute chip fracture of the greater trochanter left femur.
[2019-10-20] MEDS ORDERED: HYDROcodone/APAP 5-325MG 1 EACH TAB PO STA (01:28)
--- NOTE | 2019-10-20 01:28 | CT ---
EXAMINATION TYPE: CT hip LT wo con DATE OF EXAM: 10/20/2019 COMPARISON: None HISTORY: left hip pain from fall CT DLP: 375.9 mGycm Automated exposure control for dose reduction was used. Multiple axial sections were obtained from the mid ileum to the subtrochanteric femur without contras t. FINDINGS: There is a 2.9 x 2 cm chip fracture without displacement of the greater trochanter of the left femur. The femoral neck is intact. Acetabulum is intact. There is hypertrophic spurring of the acetabulum. There are some degenerative cysts in the anterior acetabulum. The visualized left pubic rami appear i ntact. There is no evidence of free fluid in the pelvis. There is no evidence of a soft tissue mass. IMPRESSION: Acute nondisplaced large chip fracture of the greater trochanter of the left femur.
[2019-10-20] MEDS ORDERED: NALOXONE 0.4 MG/ML 1 ML VIAL IV PRN (03:11)
[2019-10-20] MEDS: SODIUM CHLORIDE 0.9% 1,000 ML IV SCH (03:32)
[2019-10-20 03:59] LABS: Basophils # (A) 0.1 k/uL (0-0.2); Basophils % (A) 1 %; Eosinophils # (A) 0.3 k/uL (0-0.7); Eosinophils % (A) 3 %; HCT 36.8 % (34.0-46.0); HGB 11.9 gm/dL (11.4-16.0); Lymphocytes # (A) 1.8 k/uL (1.0-4.8); Lymphocytes % (A) 21 %; MCH 27.5 pg (25.0-35.0); MCHC 32.3 g/dL (31.0-37.0); MCV 85.3 fL (80.0-100.0); Mean Platelet Volume 7.5; Monocytes # (A) 0.7 k/uL (0-1.0); Monocytes % (A) 8 %; Neutrophils # (A) 5.4 k/uL (1.3-7.7); Neutrophils % (A) 63 %; Platelet Count 217 k/uL (150-450); RBC 4.32 m/uL (3.80-5.40); RDW 12.9 % (11.5-15.5); WBC 8.6 k/uL (3.8-10.6)
[2019-10-20 04:09] LABS: Calcium 9.4 mg/dL (8.4-10.2)
[2019-10-20] MEDS ORDERED: MORPHINE SULFATE 4 MG/ML SYRINGE IVP PRN (04:37)
[2019-10-20] MEDS: HYDROcodone/APAP 5-325MG 1 EACH TAB PO PRN ×2 (05:07→09:09)
[2019-10-20] MEDS ORDERED: hydrALAZINE HCL 25 MG TAB PO PRN (06:00)
[2019-10-20] MEDS: LEVOTHYROXINE 88 MCG TAB PO SCH (06:30)
[2019-10-20] MEDS: PHENYTOIN SODIUM EXTENDED 100 MG CAP PO SCH (09:05)
[2019-10-20] MEDS: amLODIPine 5 MG TAB PO SCH (09:09)
[2019-10-20] MEDS: ASPIRIN 81 MG PO SCH (09:09)
[2019-10-20] MEDS: LETROZOLE 2.5 MG TAB PO SCH (09:09)
[2019-10-20] MEDS: lamoTRIgine 100 MG TAB PO SCH ×2 (09:09→22:17)
--- NOTE | 2019-10-20 10:38 | P.CNOR ---
History of Present Illness - [facility] Consult date: 10/20/19 Consult reason: fracture History of present illness: Patient is an 84-year-old female who presented to [facility] late last night after falling at her daughter's home. She missed a step while going down the stairs, she fell directly on her left side, she also did hit her head. There was no loss of consciousness during the fall. I was contacted by the emergency room staff late last night regarding the patient, she was admitted under orthopedic care. Imaging studies demonstrated a minimally displaced left greater trochanteric femur fracture. She was admitted to the general medicine floor with our team in the evening providers, internal medicine was placed on consult. Patient was evaluated today at bedside, she is resting comfortably. She has most discomfort in her left hip region. She also has some soreness on the top of her left foot. She denies any pain involving the bilateral upper extremities, new onset cervical, thoracic or lumbar pain, or right lower extremity pain. Patient normally ambulates with no assistive devices. She denies any previous surgery involving the left lower extremity. Review of Systems Constitutional: Reports as per [facility] Past Medical History Past Medical History: Cancer, Hearing Disorder / Deafness, Hyperlipidemia, Hypertension, Seizure Disorder Additional Past Medical History / Comment(s): Breast Ca, last seizure "about a year ago" History of Any Multi-Drug Resistant Organisms: ESBL Year Discovered:: 11/08/18-E. coli ESBL MDRO Source:: Urine Past Surgical History: Cholecystectomy Additional Past Surgical History / Comment(s): Breast lump removal right sided Past Anesthesia/Blood Transfusion Reactions: No Reported Reaction Past Psychological History: Anxiety, Depression Smoking Status: Never smoker Past Alcohol Use History: None Reported Past Drug Use History: None Reported - Past Family History Mother Family Medical History: Myocardial Infarction (OK) Additional Family Medical History / Comment(s): Heart problems Sister(s) Family Medical History: Cancer Additional Family Medical History / Comment(s): of lung cancer Medications and Allergies Home Medications Medication Instructions Recorded Confirmed Type Letrozole [Femara] 2.5 mg PO DAILY 10/15/18 10/20/19 History Pravastatin Sodium [Pravachol] 20 mg PO HS 10/15/18 10/20/19 History Cholecalciferol [Vitamin D3 (25 2,000 unit PO DAILY 10/20/19 10/20/19 History Mcg = 1000 Iu)] Escitalopram [Lexapro] 5 mg PO DAILY 10/20/19 10/20/19 History Thiamine [Vitamin B-1] 100 mg PO DAILY 10/20/19 10/20/19 History lamoTRIgine [LaMICtal] 150 mg PO BID 10/20/19 10/20/19 History levETIRAcetam [Keppra] 1,000 mg PO Q12HR 10/20/19 10/20/19 History Allergies Allergy/AdvReac Type Severity Reaction Status Date / Time No Known Allergies Allergy Verified 10/20/19 07:59 Physical Examination Left lower extremity: No obvious open lesions or sores are present throughout the extremity. No cervical areas of soft tissue swelling or erythema. She's tender with palpation of the greater trochanter. Logroll maneuver of the leg reproduces no significant pain. She is able to flex the knee and hip with minimal difficulty. No effusion present on the knee, thissignificant tenderness with palpation. The calf is soft, there is no tenderness with palpation. Plantar flexion, dorsiflexion, EHL, FHL are intact. Minimal tenderness present on the dorsum of the foot with palpation. Dorsalis pedis pulses 2+. Results - Labs Labs: Abnormal Lab Results - Last 24 Hours (Table) 10/20/19 Range/Units 03:45 Glucose 123 H (74-99) mg/dL H & H 10/20/19 Range/Units 03:45 Hgb 11.9 (11.4-16.0) gm/dL Hct 36.8 (34.0-46.0) % Result Diagrams: 10/20/19 03:45 10/20/19 03:45 - Diagnostic results Hip x-ray: report reviewed, image reviewed Hip CT: report reviewed (Images of the left hip demonstrate a minimally displaced left greater trochanteric femur fracture. There is no extension of the intertrochanteric region. The hip joint remains intact.), image reviewed Assessment and Plan Assessment: Minimally displaced left greater trochanteric femur fracture Status post fall from standing Other medical comorbidities Plan: I was able to discuss the case, including the physical exam findings and imaging studies might any Dr. Hall. No orthopedic surgical intervention recommended at this time. Recommend conservative measures, this to include icing of the region. Pain medication as needed along with anti-inflammatories. Physical therapy evaluation also be placed Weightbearing status at 50% with a walker Other medical claims analyst recommendations Patient mentioned that her is in the hospital down in the [facility], they may be able to work with case management for rehab placement together. Further recommendations to follow
[2019-10-20] MEDS: traMADol 50 MG TAB PO SCH ×3 (15:09→22:17)
[2019-10-20] MEDS: PRAVASTATIN SODIUM 20 MG TAB PO SCH (22:19)
[2019-10-21] MEDS: SODIUM CHLORIDE 0.9% 1,000 ML IV SCH (03:17)
[2019-10-21] MEDS: LEVOTHYROXINE 88 MCG TAB PO SCH (06:06)
[2019-10-21] MEDS: amLODIPine 5 MG TAB PO SCH (08:39)
[2019-10-21] MEDS: lamoTRIgine 100 MG TAB PO SCH ×2 (08:39→22:13)
[2019-10-21] MEDS: LETROZOLE 2.5 MG TAB PO SCH (08:39)
[2019-10-21] MEDS: ASPIRIN 81 MG PO SCH (08:39)
[2019-10-21] MEDS: traMADol 50 MG TAB PO SCH ×4 (08:40→22:11)
[2019-10-21] MEDS: PHENYTOIN SODIUM EXTENDED 100 MG CAP PO SCH (08:41)
--- NOTE | 2019-10-21 12:39 | P.PN ---
Subjective Progress Note Date: 10/21/19 Principal diagnosis: Left greater trochanteric femur fracture Patient evaluated today at bedside, she is resting comfortably. She did attempt to get out of bed with therapy, was very difficult for her to do that due to pain. She denies any chest pain or shortness of breath. Objective - Vital Signs Vital signs: Vital Signs Temp 98.3 F 10/21/19 04:37 Pulse 70 10/21/19 08:30 Resp 16 10/21/19 08:30 BP 127/60 10/21/19 08:30 Pulse Ox 92 L 10/21/19 04:37 Intake & Output 10/20/19 10/21/19 10/21/19 18:59 06:59 18:59 Output Total 200 Balance -200 Output: Urine 200 Other: Voiding Method Bedpan Bedpan Bedpan Diaper Diaper Diaper # Voids 1 2 # Bowel Movements 0 - Exam Left lower extremity: Exam is unchanged from initial evaluation - Labs CBC & Chem 7: 10/20/19 03:45 10/20/19 03:45 Assessment and Plan Assessment: Minimally displaced left greater trochanteric femur fracture Status post fall from standing Other medical comorbidities Plan: I was able to discuss the case, including the physical exam findings and imaging studies might any Dr. Hall. No orthopedic surgical intervention r ecommended at this time. Recommend conservative measures, this to include icing of the region. Pain medication as needed along with anti-inflammatories. Physical therapy evaluation also be placed Weightbearing status at 50% with a walker Other emergency medical dispatcher recommendations Patient mentioned that her is in the hospital down in the [facility], they may be able to work with case management for rehab placement together. We will continue to follow patient patient's Time with Patient: Less than 30
[2019-10-21] MEDS ORDERED: ESCITALOPRAM 5 MG TAB PO SCH (13:30)
[2019-10-21] MEDS ORDERED: THIAMINE 100 MG TAB PO SCH (13:30)
--- NOTE | 2019-10-21 18:26 | P.CONS ---
History of Present Illness - Reason for Consult Consult date: 10/21/19 breast cancer Requesting physician: Cody Hall - Chief Complaint hip pain - History of Present Illness Patient is a 84-year-old female with a history of breast cancer, seizure disorder, and HLD who presented after a fall at her daughter's home. In the ER she underwent an extensive evaluation. She was ultimately found to have a chip fracture of her left greater trochanter. Patient seen and examined at bedside. She denies any lightheadedness, dizzines s, headache, visual disturbance, chest pain, shortness of breath, nausea, or vomiting. She states that she was at her daughter's visiting and went to go down the steps. She feels as though she missed a step and she fell initially shaking her head and then her left hip. She denies feeling ill prior to this. She denies any syncopal episodes. Patient recounts his initial story without any confusion. However on deeper questioning as to her past medical history and recent activities she becomes confused and is unable to fully tolerate the history. I discussed this with her daughter who is able to help with history gathering. Apparently the patient used to live in [place] with her and then they became increasingly confused and having frequent falls. They then moved to [place]. Per daughter. However the patient did not like living in [place] and moved to [place] with her other daughter. Approximately a week ago her was hospitalized at [facility] and she came to [place] to visit. The patient has been evaluated by her primary care physician for possible cognitive impairment. She did have a prior fall approximately a year and half ago resulting in h ospitalization. She did have some confusion which was felt to be due to Dilantin overdose, she has subsequently been taken off Dilantin and currently is taking Lamictal and Keppra. Review of Systems Pertinent positives and negatives as discussed in HPI, a complete review of systems was performed and all other systems are negative. Past Medical History Past Medical History: Cancer, Hearing Disorder / Deafness, Hyperlipidemia, Hypertension, Seizure Disorder Additional Past Medical History / Comment(s): Breast Ca, last seizure "about a year ago" History of Any Multi-Drug Resistant Organisms: ESBL Year Discovered:: 11/08/18-E. coli ESBL MDRO Source:: Urine Past Surgical History: Cholecystectomy Additional Past Surgical History / Comment(s): Breast lump removal right sided Past Anesthesia/Blood Transfusion Reactions: No Reported Reaction Past Psychological History: Anxiety, Depression Smoking Status: Never smoker Past Alcohol Use History: None Reported Past Drug Use History: None Reported - Past Family History Mother Family Medical History: Myocardial Infarction ([place]) Additional Family Medical History / Comment(s): Heart problems Sister(s) Family Medical History: Cancer Additional Family Medical History / Comment(s): of lung cancer Medications and Allergies Home Medications Medication Instructions Recorded Confirmed Type Letrozole [Femara] 2.5 mg PO DAILY 10/15/18 10/20/19 History Pravastatin Sodium [Pravachol] 20 mg PO HS 10/15/18 10/20/19 History Cholecalciferol [Vitamin D3 (25 2,000 unit PO DAILY 10/20/19 10/20/19 History Mcg = 1000 Iu)] Escitalopram [Lexapro] 5 mg PO DAILY 10/20/19 10/20/19 History Thiamine [Vitamin B-1] 100 mg PO DAILY 10/20/19 10/20/19 History lamoTRIgine [LaMICtal] 150 mg PO BID 10/20/19 10/20/19 History levETIRAcetam [Keppra] 1,000 mg PO Q12HR 10/20/19 10/20/19 History Allergies Allergy/AdvReac Type Severity Reaction Status Date / Time No Known Allergies Allergy Verified 10/20/19 07:59 Physical Exam Osteopathic Statement: *. No significant issues noted on an osteopathic structural exam other than those noted in the History and Physical/Consult. Vitals: Vital Signs Temp Pulse Pulse Resp BP Pulse Ox 10/21/19 08:30 70 16 127/60 10/21/19 08:00 16 10/21/19 04:37 98.3 F 72 12 137/66 92 L 10/20/19 20:10 98.3 F 100 16 122/80 98 Intake and Output 10/21/19 10/21/19 10/21/19 06:59 14:59 22:59 Intake Total 480 Balance 480 Intake: Oral 480 Other: Voiding Method Bedpan Bedpan Bedpan Diaper Diaper Diaper # Voids 2 2 # Bowel Movements 0 General: non toxic, no distress, appears at stated age, normal weight Derm: Contusion left supraorbital ridge, lateral, no bleeding. no unusual rashes/lesions no unusual ecchymoses, warm, dry Head: atraumatic, normocephalic, symmetric Eyes: EOMI, no lid lag, anicteric sclera, pupils equal round reactive to light ENT: Nose and ears atraumatic, no thrush, no pharyngeal erythema Neck: No thyromegaly, no cervical lymphadenopathy, trachea midline, supple Mouth: no lip lesion, mucus membranes moist Cardiovascular: S1S2 reg, no murmur, positive posterior tibial pulse bilateral, no edema, capillary refill less than 2 seconds Lungs: Decreased breath sounds bilateral, no rhonchi, no rales , no accessory muscle use Abdominal: soft, nontender to palpation, no guarding, no appreciable org anomegaly, normal bowel sounds Ext: no gross muscle atrophy, muscle strength 4 out of 5 in bilateral upper extremities grossly, no contractures, lower extremity muscle strength testing is limited secondary to pain Neuro: CN II-XI grossly intact, light touch intact all 4 extremities Psych: Alert, oriented 3, has some inappropriate rambling and difficulty maintaining concentration Results CBC & Chem 7: 10/20/19 03:45 10/20/19 03:45 Assessment and Plan Assessment: Toxic metabolic encephalopathy - likely due to pain medications - stream line meds to tramadol only - frequent reorientation - speech consult for cognition at SNF - check head CT Fall with left greater trochanter chip fracture - pain control - pt/ot - PT/OT - bone density testing as outpatient Hx Breast Ca - Femara Seizure disorder - patinet has been off dilantin - resume keppra and lamictal - outpatient follow-up HTN - not on chronic medication - follow BP HLD - statin Thank you for allowing us to participate in the care of this pleasant patient. Do not hesitate to contact us with questions. Someone can be reached from the [facility] hospitalist group all hours of the day at [phone] or via perfect serve.
[2019-10-21] MEDS: THIAMINE 100 MG TAB PO SCH (19:17)
[2019-10-21] MEDS: ESCITALOPRAM 5 MG TAB PO SCH (19:17)
[2019-10-21] MEDS: levETIRAcetam 500 MG TAB PO SCH (19:17)
--- NOTE | 2019-10-21 20:03 | CT ---
EXAMINATION TYPE: CT brain wo con DATE OF EXAM: 10/21/2019 COMPARISON: 12/24/2018 HISTORY: Fall injury CT DLP: 931.7 mGycm Automated exposure control for dose reduction was used. There is cerebral cortical atrophy. There is no mass effect nor midline shift. There is no sign of in tracranial hemorrhage. Calvarium is intact. IMPRESSION: Cerebral atrophy. No acute intracranial abnormality. No change compared to old exam.
[2019-10-21] MEDS: PRAVASTATIN SODIUM 20 MG TAB PO SCH (22:10)
[2019-10-22] MEDS: levETIRAcetam 500 MG TAB PO SCH ×2 (05:09→07:50)
[2019-10-22] MEDS: LAMOTRIGINE 150 MG PO SCH (05:09)
[2019-10-22] MEDS: SODIUM CHLORIDE 0.9% 1,000 ML IV SCH (06:11)
[2019-10-22 06:59] LABS: Basophils # (A) 0.1 k/uL (0-0.2); Basophils % (A) 1 %; Eosinophils # (A) 0.2 k/uL (0-0.7); Eosinophils % (A) 4 %; HCT 36.7 % (34.0-46.0); HGB 11.7 gm/dL (11.4-16.0); Lymphocytes # (A) 1.7 k/uL (1.0-4.8); Lymphocytes % (A) 28 %; MCH 27.4 pg (25.0-35.0); MCV 85.8 fL (80.0-100.0); Mean Platelet Volume 7.3; Monocytes # (A) 0.5 k/uL (0-1.0); Monocytes % (A) 8 %; Neutrophils # (A) 3.5 k/uL (1.3-7.7); Neutrophils % (A) 56 %; Platelet Count 208 k/uL (150-450); RBC 4.28 m/uL (3.80-5.40); RDW 12.6 % (11.5-15.5); WBC 6.2 k/uL (3.8-10.6)
[2019-10-22 07:28] LABS: Calcium 9.2 mg/dL (8.4-10.2); Potassium 4.4 mmol/L (3.5-5.1)
[2019-10-22] MEDS: lamoTRIgine 100 MG TAB PO SCH (07:49)
[2019-10-22] MEDS: ASPIRIN 81 MG PO SCH (07:50)
[2019-10-22] MEDS: ESCITALOPRAM 5 MG TAB PO SCH (07:50)
[2019-10-22] MEDS: amLODIPine 5 MG TAB PO SCH (07:50)
[2019-10-22] MEDS: traMADol 50 MG TAB PO SCH ×2 (07:50→13:03)
[2019-10-22] MEDS: LETROZOLE 2.5 MG TAB PO SCH (07:52)
[2019-10-22] MEDS: THIAMINE 100 MG TAB PO SCH (07:55)
[2019-10-22] MEDS ORDERED: CHOLECALCIFEROL 1,000 UNIT TAB PO SCH ×2 (09:00)
--- NOTE | 2019-10-22 09:05 | P.PN ---
Subjective Progress Note Date: 10/22/19 Principal diagnosis: fall with left hip pain Patient is a 84-year-old female with a history of breast cancer, seizure disorder, and HLD who presented after a fall at her daughter's home. In the ER she underwent an extensive evaluation. She was ultimately found to have a chip fracture of her left greater trochanter. She has had cognitive delay work up as outpatient. Her primary care physicians is in [place] as she lives [place] with her other daughter. Was here visiting as her was hospitalized (he lives here in [place] with her other daughter). Patient seen and examined at bedside. No chest pain, shortness of breath, nausea, or vomiting. D/W nursing, less confused today. Objective - Vital Signs Vital signs: Vital Signs Temp 98.3 F 10/22/19 04:30 Pulse 67 10/22/19 04:30 Resp 14 10/22/19 04:30 BP 127/62 10/22/19 04:30 Pulse Ox 96 10/22/19 04:30 Intake & Output 10/21/19 10/22/19 10/22/19 18:59 06:59 18:59 Intake Total 480 120 Balance 480 120 Intake: Oral 480 120 Other: Voiding Method Bedpan Bedpan Bedpan Diaper Diaper Diaper # Voids 2 1 - Exam General: non toxic, no distress, appears at stated age Derm: warm, dry Head: atraumatic, normocephalic, symmetric Eyes: EOMI, no lid lag, anicteric sclera Mouth: no lip lesion, mucus membranes moist Cardiovascular: S1S2 reg, no murmur, positive posterior tibial pulse bilateral, Lungs: CTA bilateral, no rhonchi, no rales , no accessory muscle use Abdominal: soft, nontender to palpation, no guarding, no appreciable organomegaly Ext: no gross muscle atrophy, no edema, no contractures Neuro: CN II-XI grossly intact, no focal neuro deficits Psych: Alert, slightly confused. - Labs CBC & Chem 7: 10/22/19 06:17 10/22/19 06:17 Labs: Abnormal Lab Results - Last 24 Hours (Table) 10/22/19 Range/Units 06:17 Sodium 136 L (137-145) mmol/L Assessment and Plan Assessment: Toxic metabolic encephalopathy on to of cognitive delay - likely due to pain medications - tramadol for pain - frequent reorientation - speech consult for cognition at SNF - head CT negative - outpatient bone density testing if hasn't been done in the last 2 years Fall with left greater trochanter chip fracture - pain control - PT/OT recs - bone density testing as outpatient Hx Breast Ca - Femara Seizure disorder - leti has been off dilantin - keppra and lamictal - outpatient follow-up HTN - not on chronic medication - follow BP HLD - statin Medically optimized for discharge. Thank you for allowing us to participate in the care of this pleasant patient. Do not hesitate to contact us with questions. Someone can be reached from the [facility] hospitalist group all hours of the day at [phone] or via [employer].
--- NOTE | 2019-10-22 13:27 | P.DS ---
Providers Date of admission: 10/20/19 03:16 Expected date of discharge: 10/22/19 Attending physician: Cody Hall Consults: 10/21/19 12:36 Consult Physician Routine Consulting Provider: Latosha Hearn Consult Reason/Comments: Medical Management Do you want consulting provider notified?: Yes Primary care physician: Stated None Hospital Course: Date of admission: 10/19/2019 Date of discharge: 10/22/2019 Admission diagnosis: Left greater trochanteric femur fracture, status post fall Discharge diagnosis: Same Attending physician: Dr. Hall Surgical procedures: None Brief history: Patient is a 84-year-old female who presented to [facility] for her on after falling at her daughter's home injuring her left hip. It was determined she had a minimally displaced left greater trochanteric femur fracture. She was admitted under our care for further workup. Internal medicine's consult for medical management. Hospital course: Patient did receive daily physical therapy for gait and ambulation training. We did allow 50% weightbearing with walker at all times. She did have further workup by internal medicine, medications were also altered, please see their notes for further detail. Patient will be transferred to a [facility] for [facility]hab. Discharge condition/disposition: Patient will be discharged rehab in stable condition. Discharge medications: Instructions are given on resumption of patient's normal daily medications per primary care recommendation, in addition patient will be prescribed tramadol 50 mg, Norvasc 5 mg, aspirin 81 mg. Discharge instructions: 1. 50% weightbearing, utilize walker at all times 2. Daily physical therapy 3. Pain medication as needed 4. Plan for [facility] at [facility] and 3 weeks fracture evaluation with Dr. Hall, for any questions Patient Condition at Discharge: Fair Plan - Discharge Summary New Discharge Prescriptions: New amLODIPine [Norvasc] 5 mg PO DAILY tab traMADol HCl [Ultram] 50 mg PO Q6H PRN #28 tab PRN Reason: Pain Aspirin [Adult Low Dose Aspirin EC] 81 mg PO DAILY #30 tablet. Continue Pravastatin Sodium [Pravachol] 20 mg PO HS Letrozole [Femara] 2.5 mg PO DAILY Cholecalciferol [Vitamin D3 (25 Mcg = 1000 Iu)] 2,000 unit PO DAILY Escitalopram [Lexapro] 5 mg PO DAILY lamoTRIgine [LaMICtal] 150 mg PO BID levETIRAcetam [Keppra] 1,000 mg PO Q12HR Thiamine [Vitamin B-1] 100 mg PO DAILY Discharge Medication List Letrozole [Femara] 2.5 mg PO DAILY 10/15/18 [History] Pravastatin Sodium [Pravachol] 20 mg PO HS 10/15/18 [History] Cholecalciferol [Vitamin D3 (25 Mcg = 1000 Iu)] 2,000 unit PO DAILY 10/20/19 [History] Escitalopram [Lexapro] 5 mg PO DAILY 10/20/19 [History] Thiamine [Vitamin B-1] 100 mg PO DAILY 10/20/19 [History] lamoTRIgine [LaMICtal] 150 mg PO BID 10/20/19 [History] levETIRAcetam [Keppra] 1,000 mg PO Q12HR 10/20/19 [History] Aspirin [Adult Low Dose Aspirin EC] 81 mg PO DAILY #30 tablet. 10/22/19 [Rx] amLODIPine [Norvasc] 5 mg PO DAILY tab 10/22/19 [Rx] traMADol HCl [Ultram] 50 mg PO Q6H PRN #28 tab 10/22/19 [Rx] Follow up Appointment(s)/Referral(s): None,Stated [Primary Care Provider] - 1-2 days Cody Hall DO [Doctor of Osteopathic Medicine] - 3 Weeks Activity/Diet/Wound Care/Special Instructions: Discharge instructions: 1. 50% weightbearing with walker 2. Daily physical therapy 3. Tramadol as needed 4. Plan for follow-up [facility] orth[facility] in 3 weeks Discharge Disposition: TRANSFER TO SNF/ECF
--- NOTE | 2019-10-22 13:28 | P.PN ---
Subjective Progress Note Date: 10/22/19 Principal diagnosis: Left greater trochanteric femur fracture Patient evaluated today at bedside, she is resting comfortably. Patient is doing a lot better today. Plan for discharge to rehab today. Objective - Vital Signs Vital signs: Vital Signs Temp 98.2 F 10/22/19 12:22 Pulse 63 10/22/19 12:22 Resp 17 10/22/19 12:22 BP 123/63 10/22/19 12:22 Pulse Ox 94 L 10/22/19 12:22 Intake & Output 10/21/19 10/22/19 10/22/19 18:59 06:59 18:59 Intake Total 480 120 Balance 480 120 Intake: Oral 480 120 Other: Voiding Method Bedpan Bedpan Bedpan Diaper Diaper Diaper # Voids 2 1 - Exam Left lower extremity: Exam is unchanged from initial evaluation - Labs CBC & Chem 7: 10/22/19 06:17 10/22/19 06:17 Labs: Abnormal Lab Results - Last 24 Hours (Table) 10/22/19 Range/Units 06:17 Sodium 136 L (137-145) mmol/L Assessment and Plan Assessment: Minimally displaced left greater trochanteric femur fracture Status post fall from standing Other medical comorbidities Plan: Recommend conservative measures, this to include icing of the region. Pain medication as needed along with anti-inflammatories. Physical therapy evaluation also be placed Weightbearing status at 50% with a walker Other medical scientific liaison recommendations Plan for discharge to rehab today Time with Patient: Less than 30
[2019-10-23 08:24] VITALS: BP 123/63; PULSE 63; TEMP 98.2
[2019-10-23 08:27] VITALS: RESP 17
== END 2019-10-22 15:02 | DRG 535 ==
LOC: EC 23:07 → 5NMEDONC 10-20 03:16
PROVIDERS: ADMIT Orthopaedic Surgery; ATTEND Orthopaedic Surgery
DX: S72.112A Displaced fracture of greater trochanter of left femur, initial encounter for closed fracture (principal); G92 Toxic encephalopathy; S00.83XA Contusion of other part of head, initial encounter; W10.9XXA Fall (on) (from) unspecified stairs and steps, initial encounter; Y93.01 Activity, walking, marching and hiking; H91.90 Unspecified hearing loss, unspecified ear; Z90.49 Acquired absence of other specified parts of digestive tract; Z11.59 Encounter for screening for other viral diseases; R29.6 Repeated falls; Z85.3 Personal history of malignant neoplasm of breast; E78.5 Hyperlipidemia, unspecified; G40.909 Epilepsy, unspecified, not intractable, without status epilepticus; T39.95XA Adverse effect of unspecified nonopioid analgesic, antipyretic and antirheumatic, initial encounter; I10 Essential (primary) hypertension; Z79.82 Long term (current) use of aspirin; Z79.890 Hormone replacement therapy; Z79.899 Other long term (current) drug therapy; Z80.1 Family history of malignant neoplasm of trachea, bronchus and lung; Z82.49 Family history of ischemic heart disease and other diseases of the circulatory system; Z87.891 Personal history of nicotine dependence; Z86.19 Personal history of other infectious and parasitic diseases
CPT/HCPCS: 12011; 70450; 72100; 73502; 80048; 85025; 90471; 90715; 99285

== ENCOUNTER 2022-05-04 19:02 | Inpatient (IN) | payer MEDICARE ==
--- NOTE | 2022-05-04 19:25 | ED ---
General Adult HPI - General Chief complaint: Fall Stated complaint: AMS Time Seen by Provider: 05/04/22 19:11 Source: EMS Mode of arrival: EMS - History of Present Illness Initial comments: Dictation was produced using [employer] dictation software. please excuse any grammatical, word or spelling errors. Chief Complaint: 86-year-old female presents emergency Department after being found down at home History of Present Illness: 86-year-old female past medical history of seizure disorder presents to the ER after being found down at home. Patient was witnessed by home health care from being unconscious for approximately 5-10 minutes. Upon EMS arrival she was awake and alert 1. EMS states that her mentation improved en route to the emergency department. Patient has no complaints at this time. Some clear patient fell. She does not recall the events. States that she had not had a seizure for several years. The ROS documented in this emergency department record has been reviewed and confirmed by me. Those systems with pertinent positive or negative responses have been documented in the HPI. All other systems are other negative and/or noncontributory. PHYSICAL EXAM: General Impression: Alert and oriented x3, not in acute distress HEENT: Normocephalic atraumatic, extra-ocular movements intact, pupils equal and reactive to light bilaterally, mucous membranes moist. Cardiovascular: Heart regular rate and rhythm Chest: Able to complete full sentences, no retractions, no tachypnea Abdomen: abdomen soft, non-tender, non-distended, no organomegaly Musculoskeletal: Pulses present and equal in all extremities, no peripheral edema Motor: no focal deficits noted Neurological: CN II-XII grossly intact, no focal motor or sensory deficits noted Skin: Intact with no visualized rashes Psych: Normal affect and mood ED course: 86-year-old female presents emergency Department after being found down at home. She has a history of seizure disorder. Seizure medications were vital signs upon arrival are within acceptable limits. Nursing notes and chart review was performed EKG interpreted by me: Ventricular rate 76, sinus rhythm,. Interval 343, QRS 77, QTc 38. No NC prolongation, no QTC prolongation, no ST or T-wave changes noted. Overall, this EKG is unremarkable Patient had a witnessed seizure at approximately 800pm. The bedside after immediately returning from CT. Patient's seizure lasted for approximately 1 mi nute. She was postictal. Clinically he was consistent with generalized tonic- clonic. Patient is given 2 mg of IV Ativan. Seizure activity stopped. Case discussed with neurology who recommends loading with Keppra, and continuing oral Lamictal. He also requests starting oral lacosamide. Laboratory evaluation obtained. CBC unremarkable. Metabolic panel is negative. Abdominal labs negative. Computed tomography scan of the head and C-spine was individually interpreted by me found to be unremarkable for any acute processes. Patient will be admitted with consultation to neurology. Case discussed Dr. Silva who is willing to accept patient's care for admission. Was pt. sent in by a medical professional or institution (, PA, AVIATION OPERATIONS SPECIALIST, urgent care, hospital, or chcf...) When possible be specific @ -[No] Did you speak to anyone other than the patient for history (EMS, parent, family, police, friend...)? What history was obtained from this source @ -[No] Did you review nursing and triage notes (agree or disagree)? Why? @ -[I reviewed and agree with nursing and triage notes] Were old charts reviewed (outside hosp., previous admission, EMS record, old EKG, old radiological studies, urgent care reports/EKG's, chcf records)? Report findings @ -[No old charts were reviewed] Differential Diagnosis (chest pain, altered mental status, abdominal pain women, abdominal pain men, vaginal bleeding, weakness, fever, dyspnea, syncope, headache, dizziness, GI bleed, back pain, seizure, CVA, palpatations, mental health)? @ -Differential Seizure: Recurrent seizure disorder, febrile seizure, alcohol withdrawal, stimulants, meningitis, encephalitis, intercranial hemorrhage, intracranial tumor, stroke, eclampsia, thyrotoxicosis, hypocalcemia, hyponatremia, hypernatremia, hypomagn esemia, psychogenic, this is not meant to be an all-inclusive list. EKG interpreted by me (3pts min.). @ -[As above] X-rays interpreted by me (1pt min.). @ -[None done] CT interpreted by me (1pt min.). @ -See above U/S interpreted by me (1pt. min.). @ -[None done] What testing was considered but not performed or refused? (CT, X-rays, U/S, labs)? Why? @ -[See above] What meds were considered but not given or refused? Why? @ -[See above] Did you discuss the management of the patient with other professionals (professionals i.e. , PA, AVIATION OPERATIONS SPECIALIST, lab, RT, psych nurse, social work msw, account associate, teacher, senior escrow officer, case management associate)? Give summary @ -Dr. Silva and Dr. Enriquez Was smoking cessation discussed for >3mins.? @ -[No] Was critical care preformed (if so, how long)? @ -yes, 33 minutes Were there social determinants of health that impacted care today? How? (Homelessness, low income, unemployed, alcoholism, drug addiction, transport ation, low edu. Level, literacy, decrease access to med. care, prison, rehab)? @ -[No] Was there de-escalation of care discussed even if they declined (Discuss DNR or withdrawal of care, Hospice)? DNR status @ -[No] What co-morbidities impacted this encounter? (DM, HTN, Smoking, COPD, CAD, Cancer, CVA, ARF, Chemo, Hep., AIDS, mental health diagnosis, sleep apnea, morbid obesity)? @ -[None] Was patient admitted / discharged? Hospital course, mention meds given and route, prescriptions, significant lab abnormalities, going to OR and other pertinent info. @ -see above Undiagnosed new problem with uncertain prognosis? @ -[No] Drug Therapy requiring intensive monitoring for toxicity (Heparin, Nitro, Insulin, Cardizem)? @ -no Were any procedures done? @ -no Diagnosis/symptom? @ -Status epilepticus Acute, or Chronic, or Acute on Chronic? @ -Acute Uncomplicated (without systemic symptoms) or Complicated (systemic symptoms)? @ -complicated Side effects of treatment? @ -[No] Exacerbation, Progression, or Severe Exacerbation? @ -Exacerbation Poses a threat to life or bodily function? How? (Chest pain, [place], [place], pneumonia, PE, COPD, DKA, ARF, appy, cholecystitis, CVA, Diverticulitis, Homicidal, Suicidal, threat to staff... and all critical care pts) @ -Yes - Related Data Home Medications Medication Instructions Recorded Confirmed Pravastatin Sodium [Pravachol] 20 mg PO DAILY 10/15/18 05/04/22 lamoTRIgine [LaMICtal] 150 mg PO BID 10/20/19 05/04/22 Brivaracetam [Briviact] 1 dose PO DIRECTED 05/04/22 05/04/22 Cholecalciferol [Vitamin D3 (25 25 mcg PO DAILY 05/04/22 05/04/22 Mcg = 1000 Iu)] Levothyroxine Sodium [Synthroid] 50 mcg PO DAILY 05/04/22 05/04/22 Pregabalin [Lyrica] See Taper PO DIRECTED 05/04/22 05/04/22 Sertraline [Zoloft] 100 mg PO DAILY 05/04/22 05/04/22 Thiamine [Vitamin B-1] 100 mg PO DAILY 05/04/22 05/04/22 lisinopriL [Zestril] 5 mg PO DAILY 05/04/22 05/04/22 Allergies Allergy/AdvReac Type Severity Reaction Status Date / Time No Known Allergies Allergy Verified 05/04/22 20:03 Review of Systems ROS Statement: Those systems with pertinent positive or pertinent negative responses have been documented in the HPI. ROS Other: All systems not noted in ROS Statement are negative. Past Medical History Past Medical History: Cancer, Hearing Disorder / Deafness, Hyperlipidemia, Hypertension, Seizure Disorder Additional Past Medical History / Comment(s): Breast Ca, last seizure "about a year ago" History of Any Multi-Drug Resistant Organisms: ESBL Date of last positivie culture/infection: 11/08/18-E. coli ESBL MDRO Source:: Urine Past Surgical History: Cholecystectomy Additional Past Surgical History / Comment(s): Breast lump removal right sided Past Anesthesia/Blood Transfusion Reactions: No Reported Reaction Past Psychological History: Anxiety, Depression Past Alcohol Use History: None Reported Past Drug Use History: None Reported - Past Family History Mother Family Medical History: Myocardial Infarction ([place]) Additional Family Medical History / Comment(s): Heart problems Sister(s) Family Medical History: Cancer Additional Family Medical History / Comment(s): of lung cancer Course Vital Signs 05/04/22 05/04/22 05/04/22 19:04 19:24 20:00 Temperature 98.9 F Pulse Rate 76 77 74 Respiratory 18 7 L 15 Rate Blood Pressure 167/79 167/79 184/87 O2 Sat by Pulse 95 96 96 Oximetry Medical Decision Making - Lab Data Result diagrams: 05/04/22 19:33 05/04/22 19:33 Lab Results 05/04/22 05/04/22 05/04/22 Range/Units 19:33 19:33 19:33 WBC 6.1 (3.8-10.6) k/uL RBC 4.26 (3.80-5.40) m/uL Hgb 12.0 (11.4-16.0) gm/dL Hct 37.5 (34.0-46.0) % MCV 88.0 (80.0-100.0) fL MCH 28.2 (25.0-35.0) pg MCHC 32.1 (31.0-37.0) g/dL RDW 13.1 (11.5-15.5) % Plt Count 213 (150-450) k/uL MPV 7.4 Neutrophils % 64 % Lymphocytes % 24 % Monocytes % 6 % Eosinophils % 2 % Basophils % 1 % Neutrophils # 3.9 (1.3-7.7) k/uL Lymphocytes # 1.5 (1.0-4.8) k/uL Monocytes # 0.3 (0-1.0) k/uL Eosinophils # 0.1 (0-0.7) k/uL Basophils # 0.1 (0-0.2) k/uL Sodium 137 (137-145) mmol/L Potassium 5.0 (3.5-5.1) mmol/L Chloride 105 (98-107) mmol/L Carbon Dioxide 28 (22-30) mmol/L Anion Gap 4 mmol/L BUN 23 H (7-17) mg/dL Creatinine 0.83 (0.52-1.04) mg/dL Est GFR (CKD-EPI)AfAm 75 (>60 ml/min/1.73 sqM) Est GFR (CKD-EPI)NonAf 65 (>60 ml/min/1.73 sqM) Glucose 109 H (74-99) mg/dL Plasma Lactic Acid Edgar 1.2 (0.7-2.0) mmol/L Calcium 8.9 (8.4-10.2) mg/dL Magnesium 1.9 (1.6-2.3) mg/dL Total Bilirubin 0.2 (0.2-1.3) mg/dL AST 25 (14-36) U/L ALT 15 (4-34) U/L Alkaline Phosphatase 72 (38-126) U/L Creatine Kinase 66 (30-135) U/L Troponin I (0.000-0.034) ng/mL Total Protein 7.5 (6.3-8.2) g/dL Albumin 4.5 (3.5-5.0) g/dL 05/04/22 Range/Units 19:33 WBC (3.8-10.6) k/uL RBC (3.80-5.40) m/uL Hgb (11.4-16.0) gm/dL Hct (34.0-46.0) % MCV (80.0-100.0) fL MCH (25.0-35.0) pg MCHC (31.0-37.0) g/dL RDW (11.5-15.5) % Plt Count (150-450) k/uL MPV Neutrophils % % Lymphocytes % % Monocytes % % Eosinophils % % Basophils % % Neutrophils # (1.3-7.7) k/uL Lymphocytes # (1.0-4.8) k/uL Monocytes # (0-1.0) k/uL Eosinophils # (0-0.7) k/uL Basophils # (0-0.2) k/uL Sodium (137-145) mmol/L Potassium (3.5-5.1) mmol/L Chloride (98-107) mmol/L Carbon Dioxide (22-30) mmol/L Anion Gap mmol/L BUN (7-17) mg/dL Creatinine (0.52-1.04) mg/dL Est GFR (CKD-EPI)AfAm (>60 ml/min/1.73 sqM) Est GFR (CKD-EPI)NonAf (>60 ml/min/1.73 sqM) Glucose (74-99) mg/dL Plasma Lactic Acid Edgar (0.7-2.0) mmol/L Calcium (8.4-10.2) mg/dL Magnesium (1.6-2.3) mg/dL Total Bilirubin (0.2-1.3) mg/dL AST (14-36) U/L ALT (4-34) U/L Alkaline Phosphatase (38-126) U/L Creatine Kinase (30-135) U/L Troponin I <0.012 (0.000-0.034) ng/mL Total Protein (6.3-8.2) g/dL Albumin (3.5-5.0) g/dL Disposition Clinical Impression: Status epilepticus Disposition: ADMITTED IP TO THIS [facility] Condition: Serious Instructions (If sedation given, give patient instructions): Seizure/Epilepsy Discharge Instructions & Follow-Up Referrals: Nonstaff,Physician [Primary Care Provider] - 1-2 days Decision Time: 20:45
[2022-05-04 20:02] LABS: Basophils # (A) 0.1 k/uL (0-0.2); Basophils % (A) 1 %; Eosinophils # (A) 0.1 k/uL (0-0.7); Eosinophils % (A) 2 %; HCT 37.5 % (34.0-46.0); Lymphocytes # (A) 1.5 k/uL (1.0-4.8); Lymphocytes % (A) 24 %; MCH 28.2 pg (25.0-35.0); MCHC 32.1 g/dL (31.0-37.0); Mean Platelet Volume 7.4; Monocytes # (A) 0.3 k/uL (0-1.0); Monocytes % (A) 6 %; Neutrophils # (A) 3.9 k/uL (1.3-7.7); Neutrophils % (A) 64 %; Platelet Count 213 k/uL (150-450); RBC 4.26 m/uL (3.80-5.40); RDW 13.1 % (11.5-15.5); WBC 6.1 k/uL (3.8-10.6)
[2022-05-04] MEDS ORDERED: LORazepam 2 MG/ML INJ IV STA (20:03)
--- NOTE | 2022-05-04 20:07 | CT ---
EXAMINATION TYPE: CT brain cspine wo con DATE OF EXAM: 05/04/2022 COMPARISON: 10/21/2019 [] CT brain HISTORY: Seizures. AMS. CT DLP: 1228.6 mGycm Automated exposure control for dose reduction was used. Images obtained of the brain and cervical spine without contrast. There is mild cerebral cortical atrophy. There is no mass effect or midline shift. No sign of intracr anial hemorrhage. Calvarium is intact. There is normal aeration of the mastoid sinuses. Skull base is intact. The cervical vertebra have normal alignment. There is degenerative disc space narrowing from C4 to C7 with spurring of the endplates. There is mild multilevel cervical facet arthropathy. Prevertebral so ft tissues are intact. The skull base is intact. IMPRESSION: Cerebral atrophy. Mild chronic small vessel ischemia. No acute intracranial abnormality. Brain unchan ged compared to old exams Spondylotic changes in the lower cervical spine. No fracture.
[2022-05-04 20:14] LABS: Albumin 4.5 g/dL (3.5-5.0); Calcium 8.9 mg/dL (8.4-10.2); Magnesium 1.9 mg/dL (1.6-2.3); Total Bilirubin 0.2 mg/dL (0.2-1.3); Total Protein 7.5 g/dL (6.3-8.2)
[2022-05-04] MEDS ORDERED: levETIRAcetam IV 1,500 MG in SALINE 1 100ML.BAG IVPB STA (20:18)
[2022-05-04] MEDS ORDERED: LEVETIRACETAM 1500 MG/100 ML ONE (20:25)
[2022-05-04] MEDS ORDERED: NALOXONE 0.4 MG/ML 1 ML VIAL IV PRN (20:36)
[2022-05-04] MEDS ORDERED: ONDANSETRON 4 MG/2 ML VIAL IVP PRN (20:36)
[2022-05-04] MEDS: SODIUM CHLORIDE 0.9% 1,000 ML IV SCH (20:54)
[2022-05-04] MEDS: LACOSAMIDE 50 MG TABLET PO SCH (23:08)
[2022-05-04] MEDS: lamoTRIgine 100 MG TAB PO SCH (23:09)
[2022-05-05] MEDS: SODIUM CHLORIDE 0.9% 1,000 ML IV SCH ×3 (05:40→20:00)
[2022-05-05] MEDS: LACOSAMIDE 50 MG TABLET PO SCH ×2 (09:19→19:59)
[2022-05-05] MEDS: lamoTRIgine 100 MG TAB PO SCH ×2 (09:19→20:00)
--- NOTE | 2022-05-05 10:34 | P.CNNES ---
History of Present Illness Consult date: 05/05/22 Requesting physician: [place] Reason for Consult: seizures History of Present Illness: This is 86 [id number] with history epilepsy who presented to the emergency department because of seizure-like activity. History is obtained from patient's daughter (Kyra) and ED team. The patient has moved from [place] about a week ago. She is resides in [facility] ([facility] According to the daughter, the patient is on Briviact 50mg 2 tab bid and Lamictal 150mg 1 tab bid and was planned to have Briviact weaned down but does not think the process of weaning her has stated but unsure. She is not sure of details while since her other sister (Lazara) is aware of that information over [facility]. She thinks patient last seizure was at least 3 months ago to her knowledge but according to ED notes has not had one for several years. Per the ED team the patient was witnessed by health care to be just for about 5-10 minutes. And upon EMS arrival the patient was awake alert 1. While in the ED the patient had a seizure around 8 PM upon returning from CT and the seizure lasted 1 minute and she was post ictal and she had generalized tonic-clonic seizure according to ED and she was given 2 mg Ativan and a seizure at the was aborted. The ED spoke with me regarding this patient to get yesterday via phone and I notified them to give her Keppra 1500 mg loading dose once and go up on the Lamictal to 200 mg 1 tablet twice a day and start Vimpat 100 mg 1 tablet twice a day until we get to her home medication of Briviact. Today according to the nurse she's doing better but she is unsteady walk-in. Today the patient denies of any headache. She feels better today. Patient history of epilepsy since childhood according to daughter. Of note patient had an EEG in our facility on 12/2018: And it's reported the findings indicate the presence of epileptiform focus involving the right frontal region. These findings can be as seen in the presence of structural abnormality of epileptiform origin involving the right frontal region. These findings also indicated mild diffuse cerebral dysfunction. Some other workup during his hospital visit consisted of: Afebrile. CBC with differential is unremarkable Initial serum glucose is 109. Plasma Lactic acid vein is 1.2 Sodium, calcium, magnesium AST and ALT is within normal limits. CK level is 66 CT of the head is reported as cerebral atrophy. Mild chronic small vessel ischemia. No acute abnormality. Brain unchanged compared to old exam. I personally reviewed the CT of the head and I feel the patient has an old left cerebellar vermis old stroke, also has hypodensity over the subcortical bilateral frontal which seems chronic in my opinion. CT cervical spine and reported as spondylitic changes in the lower cervical spine. No fracture. Review of Systems Review of system: The 12 point system was reviewed and apparent positive and negative per HPI. Past Medical History Past Medical History: Cancer, Hearing Disorder / Deafness, Hyperlipidemia, Hypertension, Seizure Disorder Additional Past Medical History / Comment(s): Breast Ca, last seizure "about a year ago" History of Any Multi-Drug Resistant Organisms: ESBL Date of last positivie culture/infection: 11/08/18-E. coli ESBL MDRO Source:: Urine Past Surgical History: Cholecystectomy Additional Past Surgical History / Comment(s): Breast lump removal right sided Past Anesthesia/Blood Transfusion Reactions: No Reported Reaction Smoking Status: Never smoker - Past Family History Mother Family Medical History: Myocardial Infarction ([place]) Additional Family Medical History / Comment(s): Heart problems Sister(s) Family Medical History: Cancer Additional Family Medical History / Comment(s): of lung cancer Medications and Allergies Home Medications Medication Instructions Recorded Confirmed Type Pravastatin Sodium [Pravachol] 20 mg PO DAILY 10/15/18 05/04/22 History lamoTRIgine [LaMICtal] 150 mg PO BID 10/20/19 05/04/22 History Brivaracetam [Briviact] 1 dose PO DIRECTED 05/04/22 05/04/22 History Cholecalciferol [Vitamin D3 (25 25 mcg PO DAILY 05/04/22 05/04/22 History Mcg = 1000 Iu)] Levothyroxine Sodium [Synthroid] 50 mcg PO DAILY 05/04/22 05/04/22 History Pregabalin [Lyrica] See Taper PO DIRECTED 05/04/22 05/04/22 History Sertraline [Zoloft] 100 mg PO DAILY 05/04/22 05/04/22 History Thiamine [Vitamin B-1] 100 mg PO DAILY 05/04/22 05/04/22 History lisinopriL [Zestril] 5 mg PO DAILY 05/04/22 05/04/22 History Allergies Allergy/AdvReac Type Severity Reaction Status Date / Time No Known Allergies Allergy Verified 05/04/22 20:03 Physical Examination - Vital Signs Vital Signs: Vital Signs Temp Pulse Pulse Resp BP BP Pulse Ox 05/05/22 08:00 98.0 F 61 18 146/58 94 L 05/05/22 06:59 98.3 F 68 16 157/72 92 L 05/05/22 04:00 98.5 F 51 L 15 157/72 92 L 05/05/22 00:00 98.5 F 58 L 18 183/77 94 L 05/04/22 21:50 98.3 F 68 16 178/77 98 05/04/22 20:56 61 18 177/86 95 05/04/22 20:00 74 15 184/87 96 05/04/22 19:24 77 7 L 167/79 96 05/04/22 19:04 98.9 F 76 18 167/79 95 Intake and Output 05/04/22 05/05/22 05/05/22 22:59 06:59 14:59 Intake Total 910 Output Total 400 Balance 510 Intake: Intake, IV Titration 910 Amount Sodium Chloride 0.9% 1, 910 000 ml @ 130 mls/hr IV . [id number] [facility] Rx#:[id number] Output: Urine 400 Other: Voiding Method Diaper # Voids 1 1 Weight 58.967 kg 58.967 kg GENERAL: The patient is lying in bed and is not in acute distress. CHEST: The heart rate is regular rate rhythm. No murmurs to auscultation. LUNG: Clear to auscultation bilaterally no wheezing noted throughout. Not lab ored breathing. ABDOMEN/GI: Bowel sounds present in all 4 quadrants. No tenderness to palpation throughout. NEUROLOGICAL: Higher mental function: The patient is awake, alert, oriented to self, place and time. Is somewhat slow to respond. Patient is following simple commands. No aphasia and no neglect. Cranial nerves: The pupils are round, equal and reactive to light and accommodation. Visual bunch are full to confrontation throughout. Extraocular movement is intact no nystagmus is noted. Facial sensation is normal to touch throughout. The facial strength is normal throughout. Hearing is very hard of hearing bilaterally to hand rub. Tongue is midline and moved [id number] without any difficulty. No dysarthria is noted. Shoulder shrug is normal bilaterally. Motor: Gait is very unsteady walking and was two person assist. The strength is unable to assess individual muscle strength but moving all extremities above gravity and does appear any focality. Normal tone and bulk. Cerebellum: Normal finger to nose heel to chin bilaterally. Sensation: Sensation is normal to touch throughout. Reflexes (right/left): 1+ Plantars are mute bilaterally. Results - Laboratory Findings CBC and BMP: 05/04/22 19:33 05/04/22 19:33 Abnormal Lab Findings: Abnormal Labs 05/04/22 19:33 BUN 23 H Glucose 109 H Assessment and Plan Assessment: Breakthrough seizure. 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 I started her on Vimpat 100 mg twice a day in the meantime to avoid any further seizures until we get her Briviact medication of 50mg 2 tab bid. We'll try to obtain further information if the patient missed her medication or she was weaned down on her antiepileptic drugs I ordered MRI of the brain, seizure protocol Ordered routine EEG which will be performed this Saturday since no tech's available Continue seizure precautions Continue seizure pads Placed on every 4 hours neuro checks Because of her seizure according to the [place] DMV, patient to avoid driving for 6 month until seizure free, to avoid the [place], avoid swimming unassisted or use heavy machinery We'll defer the rest of the medical management to primary team The plan was discussed with the patient's daughter (Kyra) via phone and her nurse. I attempted to contact her other daughter (Lazara) who knows more about her seizures/medication but no response. Thank you for the consultation. UPDATE: I spoke with the patient's other daughter (Lazara) via phone who stated the patient was on Dilantin in the past and was discontinued since her levels was fluctuating and because of physician concern of side-effects of medications but patient did not have side-effect to and was switched to Keppra but failed the medication since continued to have seizure. Per daughter she was not sure if was on Lamictal 100 or 150mg 1 tab bid but she stated in past was on higher dose and level were high so had to drop it down but medication has been effective. She is on Briviact 100mg 1 tab bid because of her Behavior/mood side-effect there were concerned it was a medication effect and her neurologist and psychiatrist wanted to switch her to Lyrica. Daughter stated that medication has not been changed and unsure if she has received the medications or missed since just moved to new facility. Her last seizure was possibly 3-4 months ago because possibly she did not receive her medications. Therefore: I will not start Lyrica since it is a weak seizure medications and instead will start her on Vimpat 50mg bid rather on initial 100mg bid I will not restart her Briviact because of concern of behavior/mood issues which possibly can be result of medication (cannot rule out underlying dementia that patient's daughter feels). I will continue to keep Lamictal 200mg bid for now (was on 15 0mg bid) and if level high then recommend going to 150mg bid and go up on Vimpat 100mg 1 tab bid. Because of her severe unsteady gait, will pursue with MRI Brain. Ordered TSH, vitamin B12, folate. I have spent a total of 40 minutes with patient care. Going over plan with two of daughters and had lengthy discussion. Time with Patient: Greater than 30
[2022-05-05] MEDS ORDERED: LORazepam 2 MG/ML INJ IV PRN (10:36)
[2022-05-05] MEDS: lisinopriL 5 MG TAB PO SCH (12:20)
[2022-05-05] MEDS: LEVOTHYROXINE 50 MCG TAB PO SCH (12:20)
[2022-05-05] MEDS: SERTRALINE 100 MG TAB PO SCH (12:20)
[2022-05-05] MEDS: THIAMINE 100 MG TAB PO SCH (12:20)
[2022-05-05] MEDS: PRAVASTATIN SODIUM 20 MG TAB PO SCH (12:20)
[2022-05-05 14:17] LABS: T4, Free (Free Thyroxine) 1.13 ng/dL (0.78-2.19)
[2022-05-05] MEDS ORDERED: MELATONIN 3 MG TABLET PO PRN (17:01)
[2022-05-05] MEDS ORDERED: LACTULOSE 20 GM/30 ML CUP PO PRN (17:01)
[2022-05-05] MEDS ORDERED: CALCIUM CARBONATE 500 MG CHEWABLE PO PRN (17:01)
--- NOTE | 2022-05-05 17:03 | P.HPIM ---
History of Present Illness H&P Date: 05/05/22 Chief Complaint: Seizure This is a pleasant 86-year-old patient was chronic stable medical conditions include hard of hearing, hypertension, hyperlipidemia, anxiety depression. Patient had developed seizures during his childhood. Admitted to remission. She is then came back on. Patient last seizure was 4 months ago. Patient apparently had a seizure at home and was found down at home. With this by the home health care. Patient to start recovering on way to the hospital. Did not recall the events. Last seizure was 4 months ago prior. Patient has moved from [place] about a week ago. Lives in assisted living make urine works. Patient also had a seizure in the ER. It was tonic-clonic seizure described. Review of systems: GEN.: Tired EYES: None HEENT: Decreased hearing NECK: None RESPIRATORY: None CARDIOVASCULAR: None GASTROINTESTINAL: None GENITOURINARY: None MUSCULOSKELETAL: Joint pains LYMPHATICS: None HEMATOLOGICAL: None PSYCHIATRY: None NEUROLOGICAL: Uses a walker Past medical history to include: Hard of hearing, hypertension, hyperlipidemia, epilepsy, breast cancer, anxiety depression Social history: No smoking or alcohol. Moved from [place] about a week ago. At [facility]. Physical examination: VITAL SIGNS: 98, 61, 18, 146/58, 94% room air GENERAL: BMI 22.3, sitting up but awake a bit tired. EYES: Pupils equal. Conjunctiva normal. HEENT: External appearance of nose and ears normal, oral cavity grossly normal. Decreased hearing NECK: JVD not raised; masses not palpable. HEART: First and second heart sounds are normal; no edema. LUNGS: Respiratory rate normal; clear to auscultation. ABDOMEN: Soft, nontender, liver spleen not palpable, no masses palpable. PSYCH: Alert and oriented x3; mood and affect normal. MUSCULOSKELETAL:No Clubbing/cyanosis;muscles-grossly intact. OA NEUROLOGICAL: Cranial nerves grossly intact; no facial asymmetry, power and sensation grossly intact. LYMPHATICS: No lymph nodes palpable in the axilla and neck INVESTIGATIONS, reviewed in the clinical context: White count is 6.1 hemoglobin 12 platelets 213 potassium 523 creatinine 0.83 Vitamin B12 427 TSH 4.7 EKG tracing personally reviewed by me-normal sinus rhythm CT brain and C-spine without contrast: Cerebral atrophy. Chronic changes. Spondylitic changes. Assessment and plan: -Recurrent 2 witnessed episodes of generalized tonic-clonic seizure. Patient has known history of epilepsy during her childhood and total out of the same. Have come back. Patient's currently on AEDs. Patient had one episode at home and wanted the ER. Neurology Dr. Gresham was consulted. Patient was restarted on Vimpat 50 mg twice a day, Lamictal 150 mg twice a day. 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 coli ESBL MDRO Source:: Urine Past Surgical History: Cholecystectomy Additional Past Surgical History / Comment(s): Breast lump removal right sided Past Anesthesia/Blood Transfusion Reactions: No Reported Reaction Smoking Status: Never smoker - Past Family History Mother Family Medical History: Myocardial Infarction ([place]) Additional Family Medical History / Comment(s): Heart problems Sister(s) Family Medical History: Cancer Additional Family Medical History / Comment(s): of lung cancer Medications and Allergies Home Medications Medication Instructions Recorded Confirmed Type Pravastatin Sodium [Pravachol] 20 mg PO DAILY 10/15/18 05/04/22 History lamoTRIgine [LaMICtal] 150 mg PO BID 10/20/19 05/04/22 History Brivaracetam [Briviact] 1 dose PO DIRECTED 05/04/22 05/04/22 History Cholecalciferol [Vitamin D3 (25 25 mcg PO DAILY 05/04/22 05/04/22 History Mcg = 1000 Iu)] Levothyroxine Sodium [Synthroid] 50 mcg PO DAILY 05/04/22 05/04/22 History Pregabalin [Lyrica] See Taper PO DIRECTED 05/04/22 05/04/22 History Sertraline [Zoloft] 100 mg PO DAILY 05/04/22 05/04/22 History Thiamine [Vitamin B-1] 100 mg PO DAILY 05/04/22 05/04/22 History lisinopriL [Zestril] 5 mg PO DAILY 05/04/22 05/04/22 History Allergies Allergy/AdvReac Type Severity Reaction Status Date / Time No Known Allergies Allergy Verified 05/04/22 20:03 Physical Exam Vitals: Vital Signs Temp Pulse Pulse Resp BP BP Pulse Ox 05/05/22 08:00 98.0 F 61 18 146/58 94 L 05/05/22 06:59 98.3 F 68 16 157/72 92 L 05/05/22 04:00 98.5 F 51 L 15 157/72 92 L 05/05/22 00:00 98.5 F 58 L 18 183/77 94 L 05/04/22 21:50 98.3 F 68 16 178/77 98 05/04/22 20:56 61 18 177/86 95 05/04/22 20:00 74 15 184/87 96 05/04/22 19:24 77 7 L 167/79 96 05/04/22 19:04 98.9 F 76 18 167/79 95 Intake and Output 05/04/22 05/05/22 05/05/22 22:59 06:59 14:59 Intake Total 910 Output Total 400 Balance 510 Intake: Intake, IV Titration 910 Amount Sodium Chloride 0.9% 1, 910 000 ml @ 130 mls/hr IV . Q7H42M [facility] Rx#:[id number] Output: Urine 400 Other: Voiding Method Diaper # Voids 1 1 Weight 58.967 kg 58.967 kg Results CBC & Chem 7: 05/04/22 19:33 05/04/22 19:33 Labs: Abnormal Lab Results - Last 24 Hours (Table) 05/04/22 Range/Units 19:33 BUN 23 H (7-17) mg/dL Glucose 109 H (74-99) mg/dL Thrombosis Risk Factor Assmnt - Choose All That Apply Any of the Below Risk Factors Present?: Yes Each Factor Represents 1 point: Medical pt on bed rest Other Risk Factors: Yes Each Risk Factor Represents 2 Points: Patient confined to bed Each Risk Factor Represents 3 Points: Age 75 years or older Other congenital or acquired thrombophilia - If yes, enter type in comment: No Thrombosis Risk Factor Assessment Total Risk Factor Score: 6 Thrombosis Risk Factor Assessment Level: High Risk
[2022-05-05] MEDS: ENOXAPARIN 40 MG/0.4 ML SYRINGE SQ SCH (17:49)
[2022-05-06] MEDS: SODIUM CHLORIDE 0.9% 1,000 ML IV SCH ×3 (05:51→20:17)
[2022-05-06] MEDS: LEVOTHYROXINE 50 MCG TAB PO SCH (06:38)
[2022-05-06] MEDS: SERTRALINE 100 MG TAB PO SCH (08:21)
[2022-05-06] MEDS: lamoTRIgine 100 MG TAB PO SCH ×2 (08:21→20:35)
[2022-05-06] MEDS: ENOXAPARIN 40 MG/0.4 ML SYRINGE SQ SCH (08:22)
[2022-05-06] MEDS: CHOLECALCIFEROL 25 MCG (1000 IU) TABLET PO SCH (08:22)
[2022-05-06] MEDS: THIAMINE 100 MG TAB PO SCH (08:22)
[2022-05-06] MEDS: PRAVASTATIN SODIUM 20 MG TAB PO SCH (08:22)
[2022-05-06] MEDS: lisinopriL 5 MG TAB PO SCH (08:22)
[2022-05-06] MEDS: LACOSAMIDE 50 MG TABLET PO SCH ×2 (08:22→20:36)
--- NOTE | 2022-05-06 14:38 | P.PN ---
Subjective Progress Note Date: 05/06/22 Patient is seen at bedside and per her nurse no further seizures. Patient feels she is doing better. Denies of headaches. Objective - Vital Signs Vital signs: Vital Signs Temp 98.3 F 05/06/22 08:00 Pulse 53 L 05/06/22 08:00 Resp 16 05/06/22 08:00 BP 149/61 05/06/22 08:00 Pulse Ox 94 L 05/06/22 08:00 FiO2 Intake & Output 05/05/22 05/06/22 05/06/22 18:59 06:59 18:59 Intake Total 720 540 358 Output Total 200 Balance 720 540 158 Intake: Oral 720 540 358 Output: Urine 200 Other: Voiding Method Diaper # Voids 2 2 1 - Exam GENERAL: The patient is lying in bed and is not in acute distress. NEUROLOGICAL: Higher mental function: The patient is awake, alert, oriented to self, place and time. Is somewhat slow to respond. Patient is following simple commands. No aphasia and no neglect. Cranial nerves: The pupils are round, equal and reactive to light and accommodation. Visual bunch are full to confrontation throughout. Extraocular movement is intact no nystagmus is noted. Facial sensation is normal to touch throughout. The facial strength is normal throughout. Hearing is very hard of hearing bilaterally to hand rub. Tongue is midline and moved [id number] without any difficulty. No dysarthria is noted. Shoulder shrug is normal bilaterally. Motor: Gait is deferred The strength is unable to assess individual muscle strength but moving all extremities above gravity and does appear any focality. Normal tone and bulk. Cerebellum: Normal finger to nose heel to chin bilaterally. Sensation: Sensation is normal to touch throughout. Reflexes (right/left): 1+ Plantars are mute bilaterally. Some other workup during his hospital visit consisted of: Afebrile. CBC with differential is unremarkable Initial serum glucose is 109. Plasma Lactic acid vein is 1.2 TSH: 4.720, free T4: 1.13 Vitamin B12: 427 Folate 10.10 CK level: 66 Sodium, calcium, magnesium AST and ALT is within normal limits. CK level is 66 CT of the head is reported as cerebral atrophy. Mild chronic small vessel ischemia. No acute abnormality. Brain unchanged compared to old exam. I personally reviewed the CT of the head and I feel the patient has an old left cerebellar vermis old stroke, also has hypodensity over the subcortical bilateral frontal which seems chronic in my opinion. CT cervical spine and reported as spondylitic changes in the lower cervical spine. No fracture. - Labs CBC & Chem 7: 05/04/22 19:33 05/04/22 19:33 Assessment and Plan Assessment: Breakthrough seizure. 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 I started her on Vimpat 50 mg twice a day. I will not restart her Briviact because of concern of behavior/mood issues which possibly can be result of medication (cannot rule out underlying dementia that patient's daughter feels). If Lamicat levels come back high then recommend going down on Lamictal to 150mg bid and go up on Vimpat 100mg 1 tab bid. PePending routine EEG which will be performed this Saturday since no tech's available Continue seizure precautions Continue seizure pads On every 4 hours neuro checks Because of her seizure according to the [place] DMV, patient to avoid driving for 6 month until seizure free, to avoid the [place], avoid swimming unassisted or use heavy machinery. Per daughter she does not drive. We'll defer the rest of the medical management to primary team Upon discharge, recommend patient to follow-up with neurologist as outpatient within 1-2 weeks. The plan was discussed with the patient's daughter (Kyra) in person and her nurse. Dr. Montanez will start neurology service tomorrow a.m. Time with Patient: Less than 30
--- NOTE | 2022-05-06 21:39 | P.PN ---
Progress Note - Text Progress Note Date: 05/06/22 Chief Complaint: Seizure This is a pleasant 86-year-old patient was chronic stable medical conditions include hard of hearing, hypertension, hyperlipidemia, anxiety depression. Patient had developed seizures during childhood. Then went into remission. Last few years his seizures came back. Patient last seizure was 4 months ago. Patient apparently had a seizure at home and was found down at home. With this by the home health care. Patient to start recovering on way to the hospital. Did not recall the events. . Patient has moved from [place] about a week ago. Lives in assisted living make urine works. Patient also had a seizure in the ER. It was tonic-clonic seizure described. May 06: . Pending MRI EEG. No further seizures. Active Medications Calcium Carbonate/Glycine (Calcium Carbonate 500 Mg Chewable) 1,000 mg PO Q4HR PRN PRN Reason: Dyspepsia Cholecalciferol (Cholecalciferol 25 Mcg (1000 Iu) Tablet) 25 mcg PO DAILY [facility] Last Admin: 05/06/22 08:22 Dose: 25 mcg Enoxaparin Sodium (Enoxaparin 40 Mg/0.4 Ml Syringe) 40 mg SQ DAILY [facility] Last Admin: 05/06/22 08:22 Dose: 40 mg Sodium Chloride (Saline 0.9%) 1,000 mls @ 130 mls/hr IV .Q7H42M [facility] Last Admin: 05/06/22 20:17 Dose: Not Given Lacosamide (Lacosamide 50 Mg Tablet) 50 mg PO BID [facility] Last Admin: 05/06/22 20:36 Dose: 50 mg Lactulose (Lactulose 20 Gm/30 Ml Cup) 20 gm PO DAILY PRN PRN Reason: Constipation Lamotrigine (Lamotrigine 100 Mg Tab) 150 mg PO BID [facility] Last Admin: 05/06/22 20:35 Dose: 150 mg Levothyroxine Sodium (Levothyroxine 50 Mcg Tab) 50 mcg PO 0630 [facility] Last Admin: 05/06/22 06:38 Dose: 50 mcg Lisinopril (Lisinopril 5 Mg Tab) 5 mg PO DAILY [facility] Last Admin: 05/06/22 08:22 Dose: 5 mg Lorazepam (Lorazepam 2 Mg/Ml Inj) 1 mg IV Q4HR PRN PRN Reason: Seizures Melatonin (Melatonin 3 Mg Tablet) 3 mg PO HS PRN PRN Reason: Insomnia Naloxone HCl (Naloxone 0.4 Mg/Ml 1 Ml Vial) 0.2 mg IV Q2M PRN PRN Reason: Opioid Reversal Ondansetron HCl (Ondansetron 4 Mg/2 Ml Vial) 4 mg IVP Q8HR PRN PRN Reason: Nausea And Vomiting Pravastatin Sodium (Pravastatin Sodium 20 Mg Tab) 20 mg PO DAILY [facility] Last Admin: 05/06/22 08:22 Dose: 20 mg Sertraline HCl (Sertraline 100 Mg Tab) 100 mg PO DAILY [facility] Last Admin: 05/06/22 08:21 Dose: 100 mg Thiamine HCl (Thiamine 100 Mg Tab) 100 mg PO DAILY [facility] Last Admin: 05/06/22 08:22 Dose: 100 mg Past medical history to include: Hard of hearing, hypertension, hyperlipidemia, epilepsy, breast cancer, anxiety depression Social history: No smoking or alcohol. Moved from [place] about a week ago. At [facility]. Physical examination: VITAL SIGNS: 98.3, 53, 16, 1 49 x 61, 94% room air GENERAL: Declining in bed comfortable EYES: Pupils equal. Conjunctiva normal. HEENT: External appearance of nose and ears normal, oral cavity grossly normal. Decreased hearing NECK: JVD not raised; masses not palpable. HEART: First and second heart sounds are normal; no edema. LUNGS: Respiratory rate normal; clear to auscultation. ABDOMEN: Soft, nontender, liver spleen not palpable, no masses palpable. PSYCH: Alert and oriented x3; mood and affect normal. MUSCULOSKELETAL:No Clubbing/cyanosis;muscles-grossly intact. OA INVESTIGATIONS, reviewed in the clinical context: White count is 6.1 hemoglobin 12 platelets 213 potassium 523 creatinine 0.83 Vitamin B12 427 TSH 4.7 EKG tracing personally reviewed by me-normal sinus rhythm CT brain and C-spine without contrast: Cerebral atrophy. Chronic changes. Spondylitic changes. Assessment and plan: -Recurrent 2 witnessed episodes of generalized tonic-clonic seizure. Patient has known history of epilepsy during her childhood and total out of the same. Have come back. Patient's currently on AEDs. Patient had one episode at home and wanted the ER. Neurology Dr. Gresham was consulted. Patient was restarted on Vimpat 50 mg twice a day, Lamictal 150 mg twice a day. 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
[2022-05-07] MEDS: SODIUM CHLORIDE 0.9% 1,000 ML IV SCH ×2 (04:17→11:18)
[2022-05-07] MEDS: LEVOTHYROXINE 50 MCG TAB PO SCH (06:16)
[2022-05-07] MEDS: lamoTRIgine 100 MG TAB PO SCH ×2 (08:03→20:40)
[2022-05-07] MEDS: LACOSAMIDE 50 MG TABLET PO SCH ×2 (08:03→20:40)
[2022-05-07] MEDS: CHOLECALCIFEROL 25 MCG (1000 IU) TABLET PO SCH (08:03)
[2022-05-07] MEDS: lisinopriL 5 MG TAB PO SCH (08:03)
[2022-05-07] MEDS: ENOXAPARIN 40 MG/0.4 ML SYRINGE SQ SCH (08:03)
[2022-05-07] MEDS: THIAMINE 100 MG TAB PO SCH (08:03)
[2022-05-07] MEDS: PRAVASTATIN SODIUM 20 MG TAB PO SCH (08:03)
[2022-05-07] MEDS: SERTRALINE 100 MG TAB PO SCH (08:04)
--- NOTE | 2022-05-07 15:30 | MR ---
EXAMINATION TYPE: MR brain wo/w con DATE OF EXAM: 05/07/2022 COMPARISON: CT brain 3 days ago and older CTs. HISTORY: seizure protocol TECHNIQUE: Multiplanar, multisequence images of the brain and brainstem is performed without and with IV contras t, utilizing 6 mL intravenous Gadavist . FINDINGS: Diffusion weighted images demonstrate no evidence of a recent infarct or other diffusion ab normality. There is mild to moderate ventricular and sulcal prominence. There are scattered focal an d confluent areas of T2 hyperintensity seen throughout the superficial, deep, and periventricular whi te matter. Lesions are nonspecific in appearance and distribution. Approximately 50 scattered lesions are present. T2 coronal weighted images show hippocampal gyri to appear symmetric and felt within no rmal limits. Midline structures demonstrate normal morphology. The craniocervical junction appears within normal limits. Post contrast images demonstrate no abnormal enhancement. The dural venous sinuses appear pa tent. The visualized sinuses are clear and the globes are intact. IMPRESSION: No MRI evidence for a recent infarct. There is mild to moderate diffuse cerebral atroph y and moderate to borderline advanced nonspecific white matter changes favor product of chronic small vessel ischemic change in patient of this age. No suspicious postcontrast enhancement is seen.
--- NOTE | 2022-05-07 21:27 | EEG ---
ELECTROENCEPHALOGRAM REPORT [place]: This is an 86-year-old female, who came to the hospital for seizure-like activity. The patient does have history of seizure disorder. CURRENT MEDICATIONS: 1. Vimpat. 2. Lamictal. 3. Synthroid. 4. Zestril. 5. Ativan. 6. Melatonin. 7. Zofran. 8. Pravachol. 9. Zoloft. 10.Vitamin B1. EEG FINDINGS: This is a 21-channel digital EEG recorded with video component, utilizing 10/20 international system with referential and bipolar montages. Background consists of well developed, well regulated, moderate voltage activity in mixed alpha and 6 to 7 hertz theta activity seen in bihemispheric region. Background is posterior dominant and reactive to eye opening and closing. There is frequent epileptiform activity, with evidence of spike and slow wave predominantly originating in the left frontal region, sometimes bisynchronous and bifrontal region and very rarely involving the left frontal region. No electrographic seizure was however recorded. Drowsiness was seen, but deeper stages of sleep were not attained. EKG channel showed no obvious arrhythmia. IMPRESSION: This is an abnormal EEG due to the presence of epileptiform activity involving predominantly right frontal region, and sometimes synchronous involving bifrontal region, and very rarely involving the left frontal region. This is suggestive of underlying cortical irritability and tendency for seizures. 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 This EEG implies tendency for focal onset or rapidly generalized seizures. Clinical correlation is recommended. MMODL / IJN: [id number] /
--- NOTE | 2022-05-07 22:02 | P.PN ---
Progress Note - Text Progress Note Date: 05/07/22 Chief Complaint: Seizure This is a pleasant 86-year-old patient was chronic stable medical conditions include hard of hearing, hypertension, hyperlipidemia, anxiety depression. Patient had developed seizures during childhood. Then went into remission. Last few years his seizures came back. Patient last seizure was 4 months ago. Patient apparently had a seizure at home and was found down at home. With this by the home health care. Patient to start recovering on way to the hospital. Did not recall the events. . Patient has moved from [place] about a week ago. Lives in assisted living make urine works. Patient also had a seizure in the ER. It was tonic-clonic seizure described. May 06: Comfortable. Pending MRI EEG. No further seizures. May 07: Comfortable. No new issues. Discussed with Dr. Ashton from neurology. Patient to continue with Vimpat 50 mg twice a day for one week then go to 100 mg twice a day. He'll follow-up with neurology outpatient. EGD shows seizure activity. MRI unremarkable. Nurse called. The patient does not have a ride home today. Has undergone tomorrow. Active Medications Calcium Carbonate/Glycine (Calcium Carbonate 500 Mg Chewable) 1,000 mg PO Q4HR PRN PRN Reason: Dyspepsia Cholecalciferol (Cholecalciferol 25 Mcg (1000 Iu) Tablet) 25 mcg PO DAILY [facility] Last Admin: 05/07/22 08:03 Dose: 25 mcg Enoxaparin Sodium (Enoxaparin 40 Mg/0.4 Ml Syringe) 40 mg SQ DAILY [facility] Last Admin: 05/07/22 08:03 Dose: 40 mg Sodium Chloride (Saline 0.9%) 1,000 mls @ 130 mls/hr IV .Q7H42M [facility] Last Admin: 05/07/22 11:18 Dose: Not Given Lacosamide (Lacosamide 50 Mg Tablet) 50 mg PO BID [facility] Last Admin: 05/07/22 20:40 Dose: 50 mg Lactulose (Lactulose 20 Gm/30 Ml Cup) 20 gm PO DAILY PRN PRN Reason: Constipation Lamotrigine (Lamotrigine 100 Mg Tab) 150 mg PO BID [facility] Last Admin: 05/07/22 20:40 Dose: 150 mg Levothyroxine Sodium (Levothyroxine 50 Mcg Tab) 50 mcg PO 0630 [facility] Last Admin: 05/07/22 06:16 Dose: 50 mcg Lisinopril (Lisinopril 5 Mg Tab) 5 mg PO DAILY [facility] Last Admin: 05/07/22 08:03 Dose: 5 mg Lorazepam (Lorazepam 2 Mg/Ml Inj) 1 mg IV Q4HR PRN PRN Reason: Seizures Melatonin (Melatonin 3 Mg Tablet) 3 mg PO HS PRN PRN Reason: Insomnia Naloxone HCl (Naloxone 0.4 Mg/Ml 1 Ml Vial) 0.2 mg IV Q2M PRN PRN Reason: Opioid Reversal Ondansetron HCl (Ondansetron 4 Mg/2 Ml Vial) 4 mg IVP Q8HR PRN PRN Reason: Nausea And Vomiting Pravastatin Sodium (Pravastatin Sodium 20 Mg Tab) 20 mg PO DAILY [facility] Last Admin: 05/07/22 08:03 Dose: 20 mg Sertraline HCl (Sertraline 100 Mg Tab) 100 mg PO DAILY [facility] Last Admin: 05/07/22 08:04 Dose: 100 mg Thiamine HCl (Thiamine 100 Mg Tab) 100 mg PO DAILY [facility] Last Admin: 05/07/22 08:03 Dose: 100 mg Past medical history to include: Hard of hearing, hypertension, hyperlipidemia, epilepsy, breast cancer, anxiety depression Social history: No smoking or alcohol. Moved from [place] about a week ago. At [facility]. Physical examination: VITAL SIGNS: 98.2, 62, 18, 140/62, 96% room air GENERAL: comfortable EYES: Pupils equal. Conjunctiva normal. HEENT: External appearance of nose and ears normal, oral cavity grossly normal. Decreased hearing NECK: JVD not raised; masses not palpable. HEART: First and second heart sounds are normal; no edema. LUNGS: Respiratory rate normal; clear to auscultation. ABDOMEN: Soft, nontender, liver spleen not palpable, no masses palpable. PSYCH: Alert and oriented x3; mood and affect normal. MUSCULOSKELETAL:No Clubbing/cyanosis;muscles-grossly intact. OA INVESTIGATIONS, reviewed in the clinical context: EEG: Seizure in the right frontal region daily in the left frontal region. activity reported MRI brain: Diffuse cerebral atrophy. Some white matter changes. White count is 6.1 hemoglobin 12 platelets 213 potassium 523 creatinine 0.83 Vitamin B12 427 TSH 4.7 EKG tracing personally reviewed by me-normal sinus rhythm CT brain and C-spine without contrast: Cerebral atrophy. Chronic changes. Spondylitic changes. Assessment and plan: -Recurrent 2 witnessed episodes of generalized tonic-clonic seizure. Patient has known history of epilepsy during her childhood and total out of the same. Have come back. Patient's currently on AEDs. Patient had one episode at home and wanted the ER. Vimpat 50 mg twice a day, to be increased to 100 mg twice a day after 7 days. Lamictal 150 mg twice a day. MRI unremarkable. EEG positive for epilepsy. 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 Home tomorrow.
[2022-05-08] MEDS: LEVOTHYROXINE 50 MCG TAB PO SCH (06:05)
[2022-05-08] MEDS: SODIUM CHLORIDE 0.9% 1,000 ML IV SCH ×3 (07:07→18:28)
[2022-05-08 08:21] VITALS: RESP 16; TEMP 98.2
[2022-05-08] MEDS: PRAVASTATIN SODIUM 20 MG TAB PO SCH (08:27)
[2022-05-08] MEDS: SERTRALINE 100 MG TAB PO SCH (08:28)
[2022-05-08] MEDS: LACOSAMIDE 50 MG TABLET PO SCH (08:28)
[2022-05-08] MEDS: lamoTRIgine 100 MG TAB PO SCH (08:28)
[2022-05-08] MEDS: ENOXAPARIN 40 MG/0.4 ML SYRINGE SQ SCH (08:28)
[2022-05-08] MEDS: CHOLECALCIFEROL 25 MCG (1000 IU) TABLET PO SCH (08:28)
[2022-05-08] MEDS: THIAMINE 100 MG TAB PO SCH (08:28)
[2022-05-08] MEDS: lisinopriL 5 MG TAB PO SCH (08:28)
--- NOTE | 2022-05-08 13:12 | P.PN ---
Subjective Progress Note Date: 05/07/22 Patient initially seen by Dr. Gagandeep Enriquez. Please refer to his note for details. Patient is a 86-year-old female with history of epilepsy with breakthrough seizures. Patient is very hard of hearing. I spoke to patient's daughter Fatemeh as well as Lazara on the phone to coordinate care. Patient used to live in [place] with Alexandrea, but now has moved with Fatemeh recently. They have not estab lished a neurologist yet in [place]. Alexandrea mentioned that patient has been on Briviact , but has developed bad mood side effects from it. Her neurologist were planning to wean her off this medica tion. Patient is also on Lamictal. Patient has never been on Vimpat. Objective - Vital Signs Vital signs: Vital Signs Temp 97.9 F 05/07/22 11:19 Pulse 62 05/07/22 11:19 Resp 18 05/07/22 11:19 BP 148/62 05/07/22 11:19 Pulse Ox 96 05/07/22 11:19 FiO2 Intake & Output 05/06/22 05/07/22 05/07/22 18:59 06:59 18:59 Intake Total 476 740 240 Output Total 200 550 Balance 276 190 240 Intake: Oral 476 740 240 Output: Urine 200 550 Other: Voiding Method Diaper # Voids 1 2 # Bowel Movements 1 - Exam GENERAL: The patient is lying in bed and is not in acute distress. NEUROLOGICAL: Higher mental function: The patient is awake, alert, oriented to self, place and time. Is somewhat slow to respond. Patient is following simple commands. No aphasia and no neglect. Cranial nerves: The pupils are round, equal and reactive to light and accommodation. Visual bunch are full to confrontation throughout. Extraocular movement is intact no nystagmus is noted. Facial sensation is normal to touch throughout. The facial strength is normal throughout. Hearing is very hard of hearing bilaterally to hand rub, and for routine conversation. Tongue is midline and moved [id number] without any difficulty. No dysarthria is noted. Shoulder shrug is normal bilaterally. Motor: Gait is deferred The strength is unable to assess individual muscle strength but moving all extremities above gravity and does appear any focality. Normal tone and bulk. Cerebellum: Normal finger to nose heel to chin bilaterally. Sensation: Sensation is normal to touch throughout. Reflexes (right/left): 1+ - Labs CBC & Chem 7: 05/04/22 19:33 05/04/22 19:33 Assessment and Plan Assessment: Breakthrough seizure. 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 Agree with starting Vimpat 50 mg twice a day. After one week, increase dose to 100 mg twice a day. Stop Briviact because of behavioral side effects as per patient's daughter. EEG was abnormal due to presence of epileptiform activity involving pre dominantly right frontal region and sometimes synchronous involving bilateral frontal region and very rarely involving the left frontal region. This is suggestive of underlying cortical irritability and tendency for seizures. 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 This EEG plies tendency for focal onset or rapidly generalized seizures. Clinical correlation is recommended. Continue seizure precautions Continue seizure pads B12 427, folate 10.10, TSH is slightly elevated 4.72, free T4 1.13. IM to address abnormal thyroid functions. Because of her seizure according to the [place] DMV, patient to avoid driving for 6 month until seizure free, to avoid the [place], avoid swimming unassisted or use heavy machinery. Per daughter she does not drive. Neurologically clear for discharge. Patient to follow up with local neurologist regarding her seizure disorder. Discussed with Dr Silva in detail.
[2022-05-08] MEDS ORDERED: LISINOPRIL-HCTZ 10-12.5 MG 1 EACH TAB PO SCH (13:45)
[2022-05-08 15:48] VITALS: BP 119/54; PULSE 64
--- NOTE | 2022-05-08 21:44 | P.DS ---
Providers Date of admission: 05/04/22 20:37 Expected date of discharge: 05/08/22 Attending physician: Elier Silva Consults: 05/04/22 20:24 Consult Physician Stat Consulting Provider: Gagandeep Enriquez Consult Reason/Comments: seizures Do you want consulting provider notified?: Already Contacted Primary care physician: Physician Nonstaff Hospital Course: Chief Complaint: Seizure This is a pleasant 86-year-old patient was chronic stable medical conditions include hard of hearing, hypertension, hyperlipidemia, anxiety depression. Patient had developed seizures during childhood. Then went into remission. Last few years his seizures came back. Patient last seizure was 4 months ago. Patient apparently had a seizure at home and was found down at home. With this by the home health care. Patient to start recovering on way to the hospital. Did not recall the events. . Patient has moved from [place] about a week ago. Lives in assisted living make urine works. Patient also had a seizure in the ER. It was tonic-clonic seizure described. May 06: Comfortable. Pending MRI EEG. No further seizures. May 07: Comfortable. No new issues. Discussed with Dr. Ashton from neurology. Patient to continue with Vimpat 50 mg twice a day for one week then go to 100 mg twice a day. He'll follow-up with neurology outpatient. EGD shows seizure activity. MRI unremarkable. Nurse called. The patient does not have a ride home today. Has undergone tomorrow. May 08: No further she is at activity. Discussed with the patient. Blood pressure running high. Medication adjusted to Zestril 10/12.5 twice a day. Follow-up with PCP. Discussion and discharge planning more than 35 minutes Past medical history to include: Hard of hearing, hypertension, hyperlipidemia, epilepsy, breast cancer, anxiety depression Social history: No smoking or alcohol. Moved from [place] about a week ago. At [facility]. Physical examination: VITAL SIGNS: 98.2, 64, 16, 119/54 GENERAL: comfortable EYES: Pupils equal. Conjunctiva normal. HEENT: External appearance of nose and ears normal, oral cavity grossly normal. Decreased hearing NECK: JVD not raised; masses not palpable. HEART: First and second heart sounds are normal; no edema. LUNGS: Respiratory rate normal; clear to auscultation. ABDOMEN: Soft, nontender, liver spleen not palpable, no masses palpable. PSYCH: Alert and oriented x3; mood and affect normal. MUSCULOSKELETAL:No Clubbing/cyanosis;muscles-grossly intact. OA INVESTIGATIONS, reviewed in the clinical context: EEG: Seizure in the right frontal region daily in the left frontal region. activity reported MRI brain: Diffuse cerebral atrophy. Some white matter changes. White count is 6.1 hemoglobin 12 platelets 213 potassium 523 creatinine 0.83 Vitamin B12 427 TSH 4.7 EKG tracing personally reviewed by me-normal sinus rhythm CT brain and C-spine without contrast: Cerebral atrophy. Chronic changes. Spondylitic changes. Assessment and plan: -Recurrent 2 witnessed episodes of generalized tonic-clonic seizure. Patient has known history of epilepsy during her childhood and total out of the same. Have come back. Patient's currently on AEDs. Patient had one episode at home and wanted the ER. Vimpat 50 mg twice a day, to be increased to 100 mg twice a day after 7 days. Lamictal 150 mg twice a day. MRI unremarkable. EEG positive for epilepsy. 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 -Full code Disposition: Home Plan - Discharge Summary Discharge Rx Participant: No New Discharge Prescriptions: New Lacosamide [Vimpat] 50 mg PO BID #60 tab Lisinopril-Hctz 10-12.5 mg [Zestoretic 10-12.5] 1 each PO BID #60 tab Continue Pravastatin Sodium [Pravachol] 20 mg PO DAILY lamoTRIgine [LaMICtal] 150 mg PO BID Thiamine [Vitamin B-1] 100 mg PO DAILY Sertraline [Zoloft] 100 mg PO DAILY Levothyroxine Sodium [Synthroid] 50 mcg PO DAILY Cholecalciferol [Vitamin D3 (25 Mcg = 1000 Iu)] 25 mcg PO DAILY Discontinued Brivaracetam [Briviact] 1 dose PO DIRECTED Pregabalin [Lyrica] See Taper PO DIRECTED lisinopriL [Zestril] 5 mg PO DAILY Discharge Medication List Pravastatin Sodium [Pravachol] 20 mg PO DAILY 10/15/18 [History] lamoTRIgine [LaMICtal] 150 mg PO BID 10/20/19 [History] Cholecalciferol [Vitamin D3 (25 Mcg = 1000 Iu)] 25 mcg PO DAILY 05/04/22 [History] Levothyroxine Sodium [Synthroid] 50 mcg PO DAILY 05/04/22 [History] Sertraline [Zoloft] 100 mg PO DAILY 05/04/22 [History] Thiamine [Vitamin B-1] 100 mg PO DAILY 05/04/22 [History] Lacosamide [Vimpat] 50 mg PO BID #60 tab 05/07/22 [Rx] Lisinopril-Hctz 10-12.5 mg [Zestoretic 10-12.5] 1 each PO BID #60 tab 05/08/22 [Rx] Follow up Appointment(s)/Referral(s): neurologistdr [Other] - 1 Week Edil Mcmahon MD [REFERRING] - 1 Week (Neuro) Sharon Bain MD [Medical Doctor] - 1 Week (Neuro) Nonstaff,Physician [Primary Care Provider] - 1-2 days (PLease schedule an appointment with a primary care physician) Patient Instructions/Handouts: Seizure/Epilepsy Discharge Instructions & Follow-Up, Epilepsy (DC) Activity/Diet/Wound Care/Special Instructions: vimpat 50 mg 1 tablet twice a day for 7 days then 100 mg twice a day Discharge Disposition: HOME SELF-CARE
--- NOTE | 2022-05-09 10:16 | P.PN ---
Subjective Progress Note Date: 05/08/22 05/08/2022: Patient was seen for a follow-up. No seizures. Offers no complaints. Patient is tolerating medications well. 05/07/2022: Patient initially seen by Dr. Gagandeep Enriquez. Please refer to his note for details. Patient is a 86-year-old female with history of epilepsy with breakthrough seizures. Patient is very hard of hearing. I spoke to patient's daughter Fatemeh as well as Lazara on the phone to coordinate care. Patient used to live in [place] with Alexandrea, but now has moved with Fatemeh recently. They have not established a neurologist yet in [place]. Alexandrea mentioned that patient has been on Briviact , but has developed bad mood side effects from it. Her neurologist were planning to wean her off this medication. Patient is also on Lamictal. Patient has never been on Vimpat. Objective - Vital Signs Vital signs: Vital Signs Temp 98.2 F 05/08/22 08:00 Pulse 64 05/08/22 15:48 Resp 16 05/08/22 15:48 BP 119/54 05/08/22 15:48 Pulse Ox 98 05/08/22 12:00 FiO2 Intake & Output 05/07/22 05/08/22 05/08/22 18:59 06:59 18:59 Intake Total 240 480 Balance 240 480 Intake: Oral 240 480 Other: Voiding Method Diaper Diaper # Voids 1 1 # Bowel Movements 3 - Exam GENERAL: The patient is lying in bed and is not in acute distress. NEUROLOGICAL: Higher mental function: The patient is awake, alert, oriented to self, place and time. Is somewhat slow to respond. Patient is following simple commands. No aphasia and no neglect. Cranial nerves: The pupils are round, equal and reactive to light and accommodation. Visual bunch are full to confrontation throughout. Extraocular movement is intact no nystagmus is noted. Facial sensation is normal to touch throughout. The facial strength is normal throughout. Hearing is very hard of hearing bilaterally to hand rub, and for routine conversation. Tongue is midline and moved [id number] without any difficulty. No dysarthria is noted. Shoulder shrug is normal bilaterally. Motor: Gait is deferred The strength is unable to assess individual muscle strength but moving all extremities above gravity and does appear any focality. Normal tone and bulk. Cerebellum: Normal finger to nose heel to chin bilaterally. Sensation: Sensation is normal to touch throughout. Reflexes (right/left): 1+ - Labs CBC & Chem 7: 05/04/22 19:33 05/04/22 19:33 Assessment and Plan Assessment: Breakthrough seizure. 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 Agree with starting Vimpat 50 mg twice a day. After one week, increase dose to 100 mg twice a day. Patient tolerating Vimpat well. No further seizures. Stop Briviact because of behavioral side effects as per patient's daughter. EEG was abnormal due to presence of epileptiform activity involving predominantly right frontal region and sometimes synchronous involving bilateral frontal region and very rarely involving the left frontal region. This is suggestive of underlying cortical irritability and tendency for seizures. 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 This EEG plies tendency for focal onset or rapidly generalized seizures. Clinical correlation is recommended. Continue seizure precautions Continue seizure pads B12 427, folate 10.10, TSH is slightly elevated 4.72, free T4 1.13. IM to address abnormal thyroid functions. Because of her seizure according to the [place] DMV, patient to avoid driving for 6 month until seizure free, to avoid the [place], avoid swimming unassisted or use heavy machinery. Per daughter she does not drive. Neurologically clear for discharge. Patient to follow up with local neurologist regarding her seizure disorder.
== END 2022-05-08 19:06 | disposition home or self-care (01) | DRG 101 ==
LOC: EC 19:02 → 3SCARD 20:37
PROVIDERS: ADMIT Hospitalist; ATTEND Hospitalist
DX: G40.901 Epilepsy, unspecified, not intractable, with status epilepticus (principal); G93.89 Other specified disorders of brain; H91.90 Unspecified hearing loss, unspecified ear; I10 Essential (primary) hypertension; F32.A Depression, unspecified; F41.9 Anxiety disorder, unspecified; Z85.3 Personal history of malignant neoplasm of breast; M19.91 Primary osteoarthritis, unspecified site; R26.9 Unspecified abnormalities of gait and mobility; E03.9 Hypothyroidism, unspecified; Z86.73 Personal history of transient ischemic attack (TIA), and cerebral infarction without residual deficits; Z79.890 Hormone replacement therapy; Z79.899 Other long term (current) drug therapy; Z82.49 Family history of ischemic heart disease and other diseases of the circulatory system; E78.5 Hyperlipidemia, unspecified; K59.00 Constipation, unspecified; Z91.81 History of falling
CPT/HCPCS: 36415; 70450; 70553; 72125; 80053; 80175; 82550; 82607; 82746; 83605; 83735; 84439; 84443; 84484; 85025; 93005; 95816; 96365; 96375; 99291

== ENCOUNTER 2022-05-10 05:20 | Inpatient (IN) | payer MEDICARE ==
[2022-05-10 05:29] LABS: Glucose,Whole Blood 148 mg/dL (70-110)
[2022-05-10 05:38] LABS: Basophils # (A) 0.1 k/uL (0-0.2); Basophils % (A) 1 %; Eosinophils # (A) 0.1 k/uL (0-0.7); Eosinophils % (A) 1 %; HCT 39.4 % (34.0-46.0); HGB 13.1 gm/dL (11.4-16.0); Lymphocytes # (A) 1.6 k/uL (1.0-4.8); Lymphocytes % (A) 17 %; MCH 29.2 pg (25.0-35.0); MCHC 33.4 g/dL (31.0-37.0); MCV 87.5 fL (80.0-100.0); Mean Platelet Volume 7.7; Monocytes # (A) 0.4 k/uL (0-1.0); Monocytes % (A) 4 %; Neutrophils % (A) 73 %; Platelet Count 251 k/uL (150-450); RDW 13.1 % (11.5-15.5); WBC 9.5 k/uL (3.8-10.6)
[2022-05-10 05:51] LABS: Albumin 4.7 g/dL (3.5-5.0); Calcium 9.1 mg/dL (8.4-10.2); Potassium 4.5 mmol/L (3.5-5.1); Total Bilirubin 0.4 mg/dL (0.2-1.3); Total Protein 7.8 g/dL (6.3-8.2)
[2022-05-10 05:53] LABS: Partial Thromboplastin Time 23.8 sec (22.0-30.0); Prothrombin Time 10.4 sec (9.0-12.0)
--- NOTE | 2022-05-10 06:13 | ED ---
General Adult HPI - General Chief complaint: Altered Mental Status Stated complaint: Seizure Time Seen by Provider: 05/10/22 05:25 Source: EMS Mode of arrival: EMS Limitations: altered mental status - History of Present Illness Initial comments: This is an 86-year-old female with a past medical history including seizure disorder presents emergency department via EMS after the patient was found to have a seizure. There was no history associated with the patient no further history was obtained by EMS. The patient's woke up and noted that the patient was shaking next to him and therefore EMS was called. On arrival, EMS did state that the patient was combative and aggressive and it was likely postictal. It was reported the patient also had a significant left-sided facial droop and left-sided gaze. On arrival, the patient was nonverbal and could not follow commands. The patient was awake and maintaining her airway properly. No further history could be obtained at this time. - Related Data Home Medications Medication Instructions Recorded Confirmed Pravastatin Sodium [Pravachol] 20 mg PO DAILY 10/15/18 05/04/22 lamoTRIgine [LaMICtal] 150 mg PO BID 10/20/19 05/04/22 Cholecalciferol [Vitamin D3 (25 25 mcg PO DAILY 05/04/22 05/04/22 Mcg = 1000 Iu)] Levothyroxine Sodium [Synthroid] 50 mcg PO DAILY 05/04/22 05/04/22 Sertraline [Zoloft] 100 mg PO DAILY 05/04/22 05/04/22 Thiamine [Vitamin B-1] 100 mg PO DAILY 05/04/22 05/04/22 Lisinopril-Hctz 10-12.5 mg 1 tab PO BID 05/10/22 05/10/22 [Zestoretic 10-12.5] Previous Rx's Medication Instructions Recorded Lacosamide [Vimpat] 50 mg PO BID #60 tab 05/07/22 Allergies Allergy/AdvReac Type Severity Reaction Status Date / Time No Known Allergies Allergy Verified 05/10/22 05:39 Review of Systems ROS Statement: Those systems with pertinent positive or pertinent negative responses have been documented in the HPI. ROS Other: All systems not noted in ROS Statement are negative. Limitations: ROS unobtainable due to patients medical condition Past Medical History Past Medical History: Cancer, Hearing Disorder / Deafness, Hyperlipidemia, Hypertension, Seizure Disorder Additional Past Medical History / Comment(s): Breast Ca, History of Any Multi-Drug Resistant Organisms: ESBL Date of last positivie culture/infection: 11/08/18-E. coli ESBL MDRO Source:: Urine Past Surgical History: Cholecystectomy Additional Past Surgical History / Comment(s): Breast lump removal right sided Past Anesthesia/Blood Transfusion Reactions: No Reported Reaction Past Psychological History: Anxiety, Depression Smoking Status: Never smoker Past Alcohol Use History: None Reported Past Drug Use History: None Reported - Past Family History Mother Family Medical History: Myocardial Infarction ([place]) Additional Family Medical History / Comment(s): Heart problems Sister(s) Family Medical History: Cancer Additional Family Medical History / Comment(s): of lung cancer General Exam Limitations: altered mental status (ANOx0) General appearance: alert, in no apparent distress Head exam: Present: atraumatic, normocephalic, normal inspection Eye exam: Present: normal appearance, PERRL Pupils: Present: normal accommodation ENT exam: Present: normal exam, normal oropharynx, mucous membranes moist Neck exam: Present: normal inspection, full ROM Respiratory exam: Present: normal lung sounds bilaterally Cardiovascular Exam: Present: regular rate, normal rhythm, normal heart sounds GI/Abdominal exam: Present: soft, normal bowel sounds Extremities exam: Present: normal inspection, full ROM Back exam: Present: normal inspection, full ROM Neurological exam: Present: altered, CN II-XII intact Psychiatric exam: Present: other (Patient not following commands, not agitated) Skin exam: Present: warm, dry, intact Course Vital Signs 05/10/22 05/10/22 05/10/22 05:24 05:30 05:45 Temperature 97.9 F Pulse Rate 75 70 Respiratory 18 9 L Rate Blood Pressure 184/86 184/86 200/87 O2 Sat by Pulse 98 98 94 L Oximetry 05/10/22 06:00 Temperature Pulse Rate 69 Respiratory 8 L Rate Blood Pressure 196/86 O2 Sat by Pulse 93 L Oximetry EKG Findings - EKG Comments: EKG Findings:: An EKG was obtained and was interpreted by myself showing a rate of 76, OK interval 137, QRS duration 90 and QTC of 428. This EKG showed a normal sinus rhythm with no ST segment elevation or depression noted. EKG was read as a junctional rhythm. Medical Decision Making - Medical Decision Making Was pt. sent in by a medical professional or institution (, INDER, FIBER ANALYST, urgent care, hospital, or senior care...) When possible be specific @ -No Did you speak to anyone other than the patient for history (EMS, parent, family, police, friend...)? What history was obtained from this source @ -Yes, EMS Did you review nursing and triage notes (agree or disagree)? Why? @ -I reviewed and agree with nursing and triage notes Were old charts reviewed (outside hosp., previous admission, EMS record, old EKG, old radiological studies, urgent care reports/EKG's, senior care records)? Report findings @ -No old charts were reviewed Differential Diagnosis (chest pain, altered mental status, abdominal pain women, abdominal pain men, vaginal bleeding, weakness, fever, dyspnea, syncope, headache, dizziness, GI bleed, back pain, seizure, CVA, palpatations, mental health)? @ -Acute CVA, postictal state EKG interpreted by me (3pts min.). @ -As above X-rays interpreted by me (1pt min.). @ -A chest x-ray was obtained and was interpreted by myself showing no acute process. CT interpreted by me (1pt min.). @ -CT head and CTA of the head and neck was obtained per stroke protocol. CT of the head showed a hyperdense right M1 and M2 arteries concern for acute thromboembolic disease. CTA of the head and neck was negative. U/S interpreted by me (1pt. min.). @ -None done What testing was considered but not performed or refused? (CT, X-rays, U/S, labs)? Why? @ -None What meds were considered but not given or refused? Why? @ -None Did you discuss the management of the patient with other professionals (professionals i.e. INDER Ayon, FIBER ANALYST, lab, RT, psych nurse, social media senior associate, wringer operator, teacher, asset protection officer, case coordinator)? Give summary @ -Yes, neurointerventionalist, Dr. Telles was contacted [phone] regarding the code stroke and the patient. Was smoking cessation discussed for >3mins.? @ -No Was critical care preformed (if so, how long)? @ -Yes, see above Were there social determinants of health that impacted care today? How? (Homelessness, low income, unemployed, alcoholism, drug addiction, transportation, low edu. Level, literacy, decrease access to med. care, usp, rehab)? @ -No Was there de-escalation of care discussed even if they declined (Discuss DNR or withdrawal of care, Hospice)? DNR status @ -No What co-morbidities impacted this encounter? (DM, HTN, Smoking, COPD, CAD, Cancer, CVA, ARF, Chemo, Hep., AIDS, mental health diagnosis, sleep apnea, morbid obesity)? @ -Seizure disorder Was patient admitted / discharged? Hospital course, mention meds given and route, prescriptions, significant lab abnormalities, going to OR and other pertinent info. @ -The patient was seen and evaluated emergency department. On physical exam, the patient was altered and not able to answer any questions or follow any commands. The patient was ANO 0. Due to this, a code stroke was called immediately on arrival. Code stroke was called at 0523. All scans were obtained and laboratory workup was largely within normal limits. CT of the head showed concern for stroke however CTA was negative. On reevaluation, the patient did not have any improvement in her mentation likely indicating a stroke versus prolonged postictal state. Dr. Telles was once again contacted regarding this. He did state that there was no intervention needed at this time and the patient could be admitted based on the possible prolonged postictal state and CVA. He did recommend neurology consult and EEG. The patient was just discharged from the hospital and will be admitted to the same physician. , was contacted and did accept the patient for admission. The patient did have a second seizure here in the emergency department was given 1 Steve of Ativan. The patient continued to remain stable and will be admitted in stable condition. Undiagnosed new problem with uncertain prognosis? @ -No Drug Therapy requiring intensive monitoring for toxicity (Heparin, Nitro, Insulin, Cardizem)? @ -No Were any procedures done? @ -No Diagnosis/symptom? @ -CVA, possible prolonged postictal state Acute, or Chronic, or Acute on Chronic? @ -Acute Uncomplicated (without systemic symptoms) or Complicated (systemic symptoms)? @ -Complicated Side effects of treatment? @ -No Exacerbation, Progression, or Severe Exacerbation? @ -No Poses a threat to life or bodily function? How? (Chest pain, [place], [place], pneumonia, PE, COPD, DKA, ARF, appy, cholecystitis, CVA, Diverticulitis, Homicidal, Suicidal, threat to staff... and all critical care pts) @ -Yes, CVA or prolonged postictal state causing the patient to have altered mental status, unable to follow commands or answer any questions. - Lab Data Result diagrams: 05/10/22 05:27 05/10/22 05:27 Lab Results 05/10/22 05/10/22 05/10/22 Range/Units 05: 05: 05:27 WBC 9.5 (3.8-10.6) k/uL RBC 4.50 (3.80-5.40) m/uL Hgb 13.1 (11.4-16.0) gm/dL Hct 39.4 (34.0-46.0) % MCV 87.5 (80.0-100.0) fL MCH 29.2 (25.0-35.0) pg MCHC 33.4 (31.0-37.0) g/dL RDW 13.1 (11.5-15.5) % Plt Count 251 (150-450) k/uL MPV 7.7 Neutrophils % 73 % Lymphocytes % 17 % Monocytes % 4 % Eosinophils % 1 % Basophils % 1 % Neutrophils # 7.0 (1.3-7.7) k/uL Lymphocytes # 1.6 (1.0-4.8) k/uL Monocytes # 0.4 (0-1.0) k/uL Eosinophils # 0.1 (0-0.7) k/uL Basophils # 0.1 (0-0.2) k/uL PT 10.4 (9.0-12.0) sec INR 1.0 (<1.2) APTT 23.8 (22.0-30.0) sec Sodium 137 (137-145) mmol/L Potassium 4.5 (3.5-5.1) mmol/L Chloride 99 (98-107) mmol/L Carbon Dioxide 27 (22-30) mmol/L Anion Gap 11 mmol/L BUN 28 H (7-17) mg/dL Creatinine 1.12 H (0.52-1.04) mg/dL Est GFR (CKD-EPI)AfAm 52 (>60 ml/min/1.73 sqM) Est GFR (CKD-EPI)NonAf 45 (>60 ml/min/1.73 sqM) Glucose 147 H (74-99) mg/dL POC Glucose (mg/dL) (70-110) mg/dL POC Glu Electrical Installation Supervisor ID Calcium 9.1 (8.4-10.2) mg/dL Total Bilirubin 0.4 (0.2-1.3) mg/dL AST 25 (14-36) U/L ALT 18 (4-34) U/L Alkaline Phosphatase 77 (38-126) U/L Troponin I (0.000-0.034) ng/mL Total Protein 7.8 (6.3-8.2) g/dL Albumin 4.7 (3.5-5.0) g/dL 05/10/22 05/10/22 Range/Units 05:27 05:27 WBC (3.8-10.6) k/uL RBC (3.80-5.40) m/uL Hgb (11.4-16.0) gm/dL Hct (34.0-46.0) % MCV (80.0-100.0) fL MCH (25.0-35.0) pg MCHC (31.0-37.0) g/dL RDW (11.5-15.5) % Plt Count (150-450) k/uL MPV Neutrophils % % Lymphocytes % % Monocytes % % Eosinophils % % Basophils % % Neutrophils # (1.3-7.7) k/uL Lymphocytes # (1.0-4.8) k/uL Monocytes # (0-1.0) k/uL Eosinophils # (0-0.7) k/uL Basophils # (0-0.2) k/uL PT (9.0-12.0) sec INR (<1.2) APTT (22.0-30.0) sec Sodium (137-145) mmol/L Potassium (3.5-5.1) mmol/L Chloride (98-107) mmol/L Carbon Dioxide (22-30) mmol/L Anion Gap mmol/L BUN (7-17) mg/dL Creatinine (0.52-1.04) mg/dL Est GFR (CKD-EPI)AfAm (>60 ml/min/1.73 sqM) Est GFR (CKD-EPI)NonAf (>60 ml/min/1.73 sqM) Glucose (74-99) mg/dL POC Glucose (mg/dL) 148 H (70-110) mg/dL POC Glu Electrical Installation Supervisor ID Jacek Ku Calcium (8.4-10.2) mg/dL Total Bilirubin (0.2-1.3) mg/dL AST (14-36) U/L ALT (4-34) U/L Alkaline Phosphatase (38-126) U/L Troponin I <0.012 (0.000-0.034) ng/mL Total Protein (6.3-8.2) g/dL Albumin (3.5-5.0) g/dL Critical Care Time Critical Care Time: Yes Total Critical Care Time: 31 Disposition Clinical Impression: Seizure, Post-ictal state, CVA (cerebral vascular accident) Disposition: ADMITTED IP TO THIS [facility] Condition: Stable Is patient prescribed a controlled substance at d/c from ED?: No Referrals: Tania Eagle MD [Primary Care Provider] - 1-2 days Time of Disposition: 06:30 Decision to Admit Reason: Admit from EC Decision Date: 05/10/22 Decision Time: 06:30
--- NOTE | 2022-05-10 06:15 | XR ---
EXAM: XR Chest, 1 View CLINICAL HISTORY: Altered mental status. TECHNIQUE: Frontal view of the chest. COMPARISON: 12/24/18 FINDINGS: Lungs: Normal lung volumes. No evidence of airspace consolidation. Probable mild scarring or atelectasis seen in the left lung base. No pulmonary edema. Pleural space: Unremarkable. No pneumothorax. Heart: Cardiac silhouette is top normal. Mediastinum: No mediastinal widening or shift. Bones/joints: No acute osseous abnormality. IMPRESSION: No evidence of acute cardiopulmonary abnormality.
--- NOTE | 2022-05-10 06:23 | CT ---
EXAM: CT Head Without Intravenous Contrast CLINICAL HISTORY: ITS.REASON CT Reason: Neuro deficit, acute, stroke suspected TECHNIQUE: Axial computed tomography images of the head/brain without intravenous contrast. CTDI is 39.18 mGy and DLP is 1096.2 mGy-cm. This CT exam was performed using one or more of the following dose reduction techniques: automated exposure control, adjustment of the mA and/or kV according to patient size, and/or use of iterative reconstruction technique. COMPARISON: 05/04/2022. FINDINGS: Brain: Hypodense right M1 and M2 middle cerebral arteries. No hemorrhage. Moderate nonspecific white matter changes. No edema. Ventricles: Unremarkable. No ventriculomegaly. Bones/joints: Unremarkable. No acute fracture. Soft tissues: Bilateral lens replacements. Sinuses: Unremarkable as visualized. No acute sinusitis. Mastoid air cells: Unremarkable as visualized. No mastoid effusion. IMPRESSION: Hyperdense right M1 and M2 arteries concern for acute thromboembolic disease. Recommend CT angiogram of the neck for further evaluation.
--- NOTE | 2022-05-10 06:35 | CT ---
EXAM: CT Angiography Head With Intravenous Contrast CLINICAL HISTORY: ITS.REASON CT Reason: Neuro deficit, acute, stroke suspected TECHNIQUE: Axial computed tomographic angiography images of the head with intravenous contrast. CTDI is 19.6 mGy and DLP is 180.5 mGy-cm. This CT exam was performed using one or more of the following dose reduction techniques: automated exposure control, adjustment of the mA and/or kV according to patient size, and/or use of iterative reconstruction technique. 3D and MIP reconstructed images were created and reviewed. COMPARISON: No relevant prior studies available. FINDINGS: Right internal carotid artery: No acute findings. Intracranial segment is patent with no significant stenosis. No aneurysm. Right anterior cerebral artery: Unremarkable. No occlusion or significant stenosis. No aneurysm. Right middle cerebral artery: There is an occluded proximal right M2 segment with 2 or 3 occluded proximal or distal M3 segments with diminished enhancement of the distal arteries.. Right posterior cerebral artery: Unremarkable. No occlusion or significant stenosis. No aneurysm. Right vertebral artery: Unremarkable as visualized. Left internal carotid artery: No acute findings. Intracranial segment is patent with no significant stenosis. No aneurysm. Left anterior cerebral artery: Unremarkable. No occlusion or significant stenosis. No aneurysm. Left middle cerebral artery: Unremarkable. No occlusion or significant stenosis. No aneurysm. Left posterior cerebral artery: Unremarkable. No occlusion or significant stenosis. No aneurysm. Left vertebral artery: Unremarkable as visualized. Basilar artery: Unremarkable. No occlusion or significant stenosis. No aneurysm. IMPRESSION: Findings concerning for occlusion of the proximal right M2 segment and 2 or 3 are M3 segments with decreased enhancement of the distal arteries concerning for acute thromboembolic event. EXAM: CT Angiography Neck With Intravenous Contrast CLINICAL HISTORY: ITS.REASON CT Reason: Neuro deficit, acute, stroke suspected TECHNIQUE: Routine carotid CT angiography protocol was performed with intravenous contrast. Nascet criteria using the distal ICAs for comparison were used for evaluation of stenoses. CTDI is 19.6 mGy and DLP is 180.5 mGy-cm. This CT exam was performed using one or more of the following dose reduction techniques: automated exposure control, adjustment of the mA and/or kV according to patient size, and/or use of iterative reconstruction technique. MIP reconstructed images were created and reviewed. COMPARISON: None. FINDINGS: VASCULATURE: Right common carotid artery: Unremarkable. No occlusion or significant stenosis. No dissection. Right internal carotid artery: Unremarkable. Extracranial segment is patent with no occlusion or significant stenosis. No dissection. Right external carotid artery: Unremarkable. No occlusion. Right vertebral artery: Unremarkable. No occlusion or significant stenosis. No dissection. Left common carotid artery: Unremarkable. No occlusion or significant stenosis. No dissection. Left internal carotid artery: Unremarkable. Extracranial segment is patent with no occlusion or significant stenosis. No dissection. Left external carotid artery: Unremarkable. No occlusion. Left vertebral artery: Unremarkable. No occlusion or significant stenosis. No dissection. NECK: Bones/joints: Moderate to advanced disc degeneration at C4-5, C5-6 and C6-7 with a severe spinal canal stenosis at C5-6 with AP diameter version 7.7 mm. Soft tissues: Unremarkable. Lung apices: Clear. CAROTID STENOSIS REFERENCE USING NASCET CRITERIA: % ICA stenosis = (1 - narrowest ICA diameter/diameter of distal cervical ICA) x 100. Mild - <50% stenosis. Moderate - 50-69% stenosis. Severe - 70-94% stenosis. Near occlusion - 95-99% stenosis. Occluded - 100% stenosis. IMPRESSION: Negative CT angiogram of the neck.
[2022-05-10] MEDS ORDERED: LABETALOL 5 MG/ML VIAL MDV IVP STA (07:00)
[2022-05-10] MEDS ORDERED: LORazepam 2 MG/ML INJ IV STA (07:03)
[2022-05-10] MEDS ORDERED: LACOSAMIDE IV 200 MG in SODIUM CHLORIDE 0.9% 50 ML IVPB STA (08:06)
[2022-05-10] MEDS ORDERED: LISINOPRIL-HCTZ 10-12.5 MG 1 EACH TAB PO SCH (10:00)
[2022-05-10] MEDS: SERTRALINE 100 MG TAB PO SCH (10:47)
[2022-05-10 15:10] LABS: Appearance,Urine Clear (Clear); Bilirubin,Urine Negative (Negative); Blood,Urine Small (Negative); Color,Urine Yellow; Glucose,Urine (UA) Negative (Negative); Ketones,Urine Negative (Negative); Leukocyte Esterase,Urine Trace (Negative); Nitrite,Urine Negative (Negative); PH, Urine 5.5 (5.0-8.0); Protein,Urine Negative (Negative); RBC,Urine 3 /hpf (0-5); Squamous Epithelial Cell,Urine <1 /hpf (0-4); Urobilinogen,Urine <2.0 mg/dL (<2.0); WBC,Urine 1 /hpf (0-5)
[2022-05-10] MEDS ORDERED: ASPIRIN 325 MG TAB PO STA (17:57)
[2022-05-10] MEDS: ENOXAPARIN 40 MG/0.4 ML SYRINGE SQ SCH (18:05)
[2022-05-10] MEDS: CLOPIDOGREL 75 MG TAB PO SCH (18:05)
[2022-05-10] MEDS: LACOSAMIDE 50 MG TABLET PO SCH (20:29)
[2022-05-10] MEDS: lamoTRIgine 100 MG TAB PO SCH (20:29)
[2022-05-10] MEDS: lisinopriL 10 MG TAB PO SCH (20:29)
--- NOTE | 2022-05-10 22:44 | P.HPIM ---
History of Present Illness H&P Date: 05/10/22 Chief Complaint: Seizure Patient just in the hospital from May 05 through May 08. This is a pleasant 86-year-old patient was chronic stable medical conditions include hard of hearing, hypertension, hyperlipidemia, anxiety depression. Patient had developed seizures during childhood. Then went into remission. Last few years seizures came back. last seizure was 4 months ago. had a seizure at home and was found down at home. Witnessed by the home health care. Started to recovering on way to the hospital. Did not recall the events. . Patient has moved from [place] about a week ago. Lives in assisted living [facility]. also had a seizure in the ER. It was tonic-clonic seizure . Patient was then discharged on Vimpat 50 mg twice a day. Plan was to increase it outpatient after 1 week 100 mg twice daily.( Lyrica and Briviact was discontinued on last admission) Patient now brought into the ER after with decided there seizure. EMS noted some left-sided facial droop and left-sided case. In the ER neurology was consulted. Was given 1 dose of IV 200 mg Vimpat. Also 1 dose of IV milligram Ativan. In the ER computed tomography scan of the brain and CT angiogram of the brain was done. This spoke to from neurology. Patient is admitted. Patient had another seizure in the ER. This morning the patient seen somewhat drowsy able to answer questions slowly. Lethargic. CT angiogram of the neck unremarkable. CT angiogram of the head showed concern for occlusion of proximal right M2 segment and 2 or 3 and 3 se gments of decreased enhancement of the distal arteries with concern for acute thromboembolic event. Review of systems the physical Doppler and history from the patient because of a day. And being lethargic Past medical history to include: Hard of hearing, hypertension, hyperlipidemia, epilepsy, breast cancer, anxiety depression Social history: No smoking or alcohol. Moved from [place] about a week ago. At [facility] assisted living. Physical examination: VITAL SIGNS: 97.9, 75, 18, 1 88 x 85, 98% room air upon presentation GENERAL: BMI 23, laying in bed tired]. EYES: Pupils equal. Conjunctiva normal. HEENT: External appearance of nose and ears normal, oral cavity grossly normal hard of hearing. NECK: JVD not raised; masses not palpable. HEART: First and second heart sounds are normal; no edema. LUNGS: Respiratory rate normal; clear to auscultation. ABDOMEN: Soft, nontender, liver spleen not palpable, no masses palpable. PSYCH: Able tonsil simple questions.l. MUSCULOSKELETAL:No Clubbing/cyanosis;muscles-grossly intact NEUROLOGICAL: Cranial nerves grossly intact; no facial asymmetry, speech is slow. Moving all 4 limbs.. LYMPHATICS: No lymph nodes palpable in the axilla and neck INVESTIGATIONS, reviewed in the clinical context: White count 9.5 hemoglobin 13.1 platelets 251 potassium 4.5 BUN 28 creatinine 1.12 EKG tracing personally reviewed by me: Sinus versus questionable junctional rhythm. Chest x-ray film personally reviewed by me-portable. No obvious infiltrate Computed tomography scan brain: Hyperdense right M1/M2 arteries consulted for acute thromboembolic disease. CT angiography head with IV contrast: Acute proximal right M2 segment with 2 or 3 occluded proximal or distal and 3 segments with diminished enhancement of the distal arteries. Otherwise unremarkable. Recent admission: EEG: Seizure in the right frontal region daily in the left frontal region. activity reported MRI brain: Diffuse cerebral atrophy. Some white matter changes. Vitamin B12 [address] brain and C-spine without contrast: Cerebral atrophy. Chronic changes. Spondylitic changes. Assessment and plan: -Recurrent generalized tonic-clonic seizure. known history of epilepsy during her childhood and came back afterwards. Patient is discharged from here 2 days ago on Vimpat 50 mg twice a day. EEG was positive. Given IV Vimpat in the ER. started on 150 mg twice a day. ( Lyrica and Briviact was discontinued on last admission) Follow with neurology -Questionable Acute stroke possibly in the right M1 and M2 arteries. Neurology was consulted from the ER. Aspirin Plavix. On Pravachol. PT OT. Speech therapy. Computed tomography scan was reviewed by Dr. Ashton. He talks it is an acute stroke. MRI brain has been ordered. In the meantime continue with aspirin Plavix -Post ictal state. 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 Questions answered. MRI brain ordered. Doubtful acute stroke. CAT scan reviewed by Dr. Ashton. Past Medical History Past Medical History: Cancer, Hearing Disorder / Deafness, Hyperlipidemia, Hypertension, Seizure Disorder, Thyroid Disorder Additional Past Medical History / Comment(s): Seizures/lifelong, daughter states pt takes 1-2 days after a seizure to "come around", R breast cancer with lumpectomy/radiation txs, very [place] bilaterally/has hearing aides, past L femur fracture/no surgery, UTI, thyroid disease. History of Any Multi-Drug Resistant Organisms: ESBL Date of last positivie culture/infection: 11/08/18-E. coli ESBL MDRO Source:: Urine Past Surgical History: Breast Surgery, Cholecystectomy Additional Past Surgical History / Comment(s): R breast lumpectomy Past Anesthesia/Blood Transfusion Reactions: No Reported Reaction Smoking Status: Never smoker - Past Family History Mother Family Medical History: CVA/TIA Additional Family Medical History / Comment(s): Heart problems Sister(s) Family Medical History: Cancer Additional Family Medical History / Comment(s): of lung cancer Medications and Allergies Home Medications Medication Instructions Recorded Confirmed Type Pravastatin Sodium [Pravachol] 20 mg PO DAILY 10/15/18 05/10/22 History lamoTRIgine [LaMICtal] 150 mg PO BID 10/20/19 05/10/22 History Cholecalciferol [Vitamin D3 (25 25 mcg PO DAILY 05/04/22 05/10/22 History Mcg = 1000 Iu)] Levothyroxine Sodium [Synthroid] 50 mcg PO DAILY 05/04/22 05/10/22 History Sertraline [Zoloft] 100 mg PO DAILY 05/04/22 05/10/22 History Thiamine [Vitamin B-1] 100 mg PO DAILY 05/04/22 05/10/22 History Lacosamide [Vimpat] 50 mg PO BID #60 tab 05/07/22 05/10/22 Rx Lisinopril-Hctz 10-12.5 mg 1 tab PO BID 05/10/22 05/10/22 History [Zestoretic 10-12.5] Allergies Allergy/AdvReac Type Severity Reaction Status Date / Time No Known Allergies Allergy Verified 05/10/22 05:39 Physical Exam Vitals: Vital Signs Temp Pulse Pulse Resp BP BP Pulse Ox 05/10/22 08:56 98.7 F 67 18 173/70 95 05/10/22 08:31 79 20 154/77 100 05/10/22 07:30 62 20 148/66 100 05/10/22 06:00 69 8 L 196/86 93 L 05/10/22 05:45 70 9 L 200/87 94 L 05/10/22 05:30 97.9 F 75 18 184/86 98 05/10/22 05:24 184/86 98 Intake and Output 05/09/22 05/10/22 05/10/22 22:59 06:59 14:59 Other: Weight 58.967 kg 58.967 kg Results CBC & Chem 7: 05/10/22 05:27 05/10/22 05:27 Labs: Abnormal Lab Results - Last 24 Hours (Table) 05/10/22 05/10/22 Range/Units 05:27 05:27 BUN 28 H (7-17) mg/dL Creatinine 1.12 H (0.52-1.04) mg/dL Glucose 147 H (74-99) mg/dL POC Glucose (mg/dL) 148 H (70-110) mg/dL Thrombosis Risk Factor Assmnt - Choose All That Apply Any of the Below Risk Factors Present?: Yes Other Risk Factors: Yes Each Risk Factor Represents 2 Points: Malignancy Each Risk Factor Represents 3 Points: Age 75 years or older Other congenital or acquired thrombophilia - If yes, enter type in comment: No Thrombosis Risk Factor Assessment Total Risk Factor Score: 5 Thrombosis Risk Factor Assessment Level: High Risk
[2022-05-11] MEDS: LEVOTHYROXINE 50 MCG TAB PO SCH (06:00)
[2022-05-11] MEDS: lisinopriL 10 MG TAB PO SCH ×2 (08:38→20:28)
[2022-05-11] MEDS: ENOXAPARIN 40 MG/0.4 ML SYRINGE SQ SCH (08:38)
[2022-05-11] MEDS: PRAVASTATIN SODIUM 20 MG TAB PO SCH (08:38)
[2022-05-11] MEDS: CHOLECALCIFEROL 25 MCG (1000 IU) TABLET PO SCH (08:38)
[2022-05-11] MEDS: THIAMINE 100 MG TAB PO SCH (08:38)
[2022-05-11] MEDS: CLOPIDOGREL 75 MG TAB PO SCH (08:38)
[2022-05-11] MEDS: SERTRALINE 100 MG TAB PO SCH (08:38)
[2022-05-11] MEDS: LACOSAMIDE 50 MG TABLET PO SCH ×2 (08:38→20:28)
[2022-05-11] MEDS: ASPIRIN 81 MG PO SCH (08:38)
[2022-05-11] MEDS: lamoTRIgine 100 MG TAB PO SCH ×2 (08:38→20:29)
--- NOTE | 2022-05-11 09:16 | P.CNNES ---
History of Present Illness Consult date: 05/10/22 Requesting physician: Solomon Carrero Reason for Consult: Prolonged post-ictal, CVA History of Present Illness: Patient is a 86-year-old female, with history of epilepsy, recently seen in hospital consultation with neurology team for seizures. Patient has recently moved from [place], where her neurologist were adjusting her seizure medication. Patient currently on Lamictal 150 mg twice a day. Patient was havi ng mood issues with Briviact, therefore her neurologist in [place] was weaning her off Briviact, therefore it was discontinued with the recent hospitalization and patient was started on Vimpat 50 mg twice a day. She was discharged on Vimpat 50 mg twice a day and recommended to increase dose to 100 mg twice a day in one week and have patient follow up with neurologist here in [place]. Patient's EEG at during last admission was quite active, with evidence of right frontal sharp and slow waves, often bisynchronous involving bifrontal region, sometimes extending to the temporal regions as well. Rare left frontal sharp waves were also seen. Patient was brought to the hospital by ambulance at 5:20 AM early this morning. It was mentioned that patient's stated that he woke up and found patient actively seizing. Unknown duration of seizure. When EMS arrived, the seizure has stopped. Patient was lethargic and only responsive to painful stimuli. Upon patient's arousal, there was prominent left-sided facial droop and signs of left sided hemiplegia. Patient's confirmed that she has history of seizures but no previous history of CVA. Patient was uncooperative with examination. Patient's last known well time was 9 PM 05/09/2022. Blood glucose was 124. Patient remained unresponsive throughout transport with prominent left-sided gaze and aphasia. Her vitals at the scene was blood pressure 166/71, pulse rate 89, respirations 18 saturation 99%. EKG shows junctional rhythm. Chest x-ray was normal, CT head reported hyperdense right M1 and M2 artery is concern for acute thromboembolic disease. Recommend CT angiogram of the neck for further evaluation. I personally reviewed CT, and appears there is possible some calcification in the right MCA and distal branches, as it was also present in the previous CT head also. There is some hypodensity in the right external capsule, but was also present in the previous CT head. Blood test shows normal CBC, PT/PTT, normal electrolytes, BUN 28, creatinine 1.12. Hepatic panel, tropo julia are normal. UA is negative. CTA of the head revealed findings concerning for occlusion of the proximal right M2 segment, and to or 3 and 3 segments with decreased enhancement of the distal arteries concerning for acute thromboembolic event. CTA of the neck was normal. It appears when patient arrived to the hospital, patient was nonverbal and could not follow commands. As per ED records, it was reported that CT head showed concern for stroke however CTA was negative. ED staff discuss case with stroke neurologist Dr. Cintron, and patient was not a candidate for TPA because of last known well over 4.[address] Cintron did not recommend any neuro intervention. When I came to see the patient, patient was alert and awake. Mentation was much improved as compared to description as above. Patient states that her mouth tastes terrible. Offers no other complaints. Review of Systems Constitutional: Denies chills, Denies fever Eyes: denies blurred vision, denies pain Ears, nose, mouth and throat: Denies headache, Denies sore throat Cardiovascular: Denies chest pain, Denies shortness of breath Respiratory: Denies cough Gastrointestinal: Denies abdominal pain, Denies diarrhea, Denies nausea, Denies vomiting Genitourinary: Denies dysuria, Denies hematuria Musculoskeletal: Denies fractures, Denies muscle weakness, Denies myalgias Integumentary: Denies pruritus, Denies rash Neurological: Reports as per HPI Psychiatric: Denies anxiety, Denies depression Endocrine: Denies fatigue, Denies weight change Past Medical History Past Medical History: Cancer, Hearing Disorder / Deafness, Hyperlipidemia, Hypertension, Seizure Disorder, Thyroid Disorder Additional Past Medical History / Comment(s): Seizures/lifelong, daughter states pt takes 1-2 days after a seizure to "come around", R breast cancer with lumpectomy/radiation txs, very [place] bilaterally/has hearing aides, past L femur fracture/no surgery, UTI, thyroid disease. History of Any Multi-Drug Resistant Organisms: ESBL Date of last positivie culture/infection: 11/08/18-E. coli ESBL MDRO Source:: Urine Past Surgical History: Breast Surgery, Cholecystectomy Additional Past Surgical History / Comment(s): R breast lumpectomy Past Anesthesia/Blood Transfusion Reactions: No Reported Reaction Smoking Status: Never smoker - Past Family History Mother Family Medical History: CVA/TIA Additional Family Medical History / Comment(s): Heart problems Sister(s) Family Medical History: Cancer Additional Family Medical History / Comment(s): of lung cancer Medications and Allergies Home Medications Medication Instructions Recorded Confirmed Type Pravastatin Sodium [Pravachol] 20 mg PO DAILY 10/15/18 05/10/22 History lamoTRIgine [LaMICtal] 150 mg PO BID 10/20/19 05/10/22 History Cholecalciferol [Vitamin D3 (25 25 mcg PO DAILY 05/04/22 05/10/22 History Mcg = 1000 Iu)] Levothyroxine Sodium [Synthroid] 50 mcg PO DAILY 05/04/22 05/10/22 History Sertraline [Zoloft] 100 mg PO DAILY 05/04/22 05/10/22 History Thiamine [Vitamin B-1] 100 mg PO DAILY 05/04/22 05/10/22 History Lacosamide [Vimpat] 50 mg PO BID #60 tab 05/07/22 05/10/22 Rx Lisinopril-Hctz 10-12.5 mg 1 tab PO BID 05/10/22 05/10/22 History [Zestoretic 10-12.5] Allergies Allergy/AdvReac Type Severity Reaction Status Date / Time No Known Allergies Allergy Verified 05/10/22 05:39 Physical Examination - Vital Signs Vital Signs: Vital Signs Temp Pulse Pulse Resp BP BP Pulse Ox 05/10/22 13:41 69 05/10/22 11:08 69 18 150/65 95 05/10/22 10:47 153/64 05/10/22 08:56 98.7 F 67 18 173/70 95 05/10/22 08:31 79 20 154/77 100 05/10/22 07:30 62 20 148/66 100 05/10/22 06:00 69 8 L 196/86 93 L 05/10/22 05:45 70 9 L 200/87 94 L 05/10/22 05:30 97.9 F 75 18 184/86 98 05/10/22 05:24 184/86 98 Intake and Output 05/09/22 05/10/22 05/10/22 22:59 06:59 14:59 Other: Voiding Method Toilet Incontinent External Catheter # Voids 1 Weight 58.967 kg 58.967 kg Patient is an elderly female, in no acute distress Patient is alert awake oriented to time place and person. Patient is extremely hard of hearing. Speech and language functions are normal. Patient can name and repeat very well. No obvious aphasia or dysarthria. She sometimes seems to have some paraphasic errors. Patient tells me that it some month of May and the year is 2022. She knows that she lives in [facility]. Attention, concentration and fund of knowledge is limited. Patient has some perseveration, as she would keep on repeating May for other questions asked. On cranial nerve examination, pupils are equal, round and reacting to light, visual bunch are full on confrontation, with no neglect on double simultaneous depression. Extraocular muscles are intact with no nystagmus. Face is symmetric, tongue protrudes to the midline. Palatal elevation and sensation normal, hearing is severely decreased and shoulder shrug normal, facial sensation normal. On muscle strength testing, there is no pronator drift and the strength is normal in arms and legs distally and proximally, except hip flexion, which is 4 bilaterally. Deep tendon reflexes are symmetric 1 all over and plantars are upgoing bilaterally. Sensory to touch is equal with no neglect on double simultaneous stimulation. Cerebellar function showed tremulousness for [id number] testing bilaterally, although there is no ataxia. No ataxia for [id number] testing on either side. Tone and bulk of muscles normal. Gait deferred.. On general examination, there is no carotid bruit or murmur, S1-S2 audible. Chest is clear on consultation. Abdomen is soft nontender. No organomegaly, bowel sounds present. Peripheral pulses are present. No edema. Results - Laboratory Findings CBC and BMP: 05/10/22 05:27 05/10/22 05:27 Abnormal Lab Findings: Abnormal Labs 05/10/22 05/10/22 05:27 05:27 BUN 28 H Creatinine 1.12 H Glucose 147 H POC Glucose (mg/dL) 148 H Assessment and Plan Assessment: * Breakthrough seizure. Patient's Vimpat needs to be further optimized. * Aphasia, with left hemiparesis, now seems to have completely resolved. Suspect ictal phenomenon with post ictal Gio's paralysis. Current examination is normal, except for some paraphasic errors and perseveration, which could also be postictal phenomenon. NIH stroke scale is 0. She was not a candidate for TPA, or thrombectomy. * Possible thromboembolic phenomenon, rule out CVA. 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 Patient's Lamictal level was 5.0(2-15) on 05/06/2022. Patient was given a loading dose of Vimpat 200 mg in the ER. Maintenance dose to be increased to 100 mg twice a day. Stay off Briviact because of behavioral side effects as per patient's daughter. MRI brain, evaluate for an acute stroke. 2-D echo to rule out embolic source Patient started on dual antiplatelet medications including aspirin and Plavix. Hemoglobin A1c, fasting lipid panel Patient's B12 427, folate 10.10 on 05/04/2022. TSH 4.72, free T4 1.13 EEG 05/07/2022 was abnormal due to presence of epileptiform activity involving predominantly right frontal region and sometimes synchronous involving bilateral frontal region and very rarely involving the left frontal region. This is suggestive of underlying cortical irritability and tendency for seizures. 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 This EEG plies tendency for focal onset or rapidly generalized seizures. Clinical correlation is recommended. Continue seizure precautions Continue seizure pads Neurology will follow. Discussed with primary physician in detail. Time with Patient: Greater than 30
[2022-05-11 09:24] LABS: Chol/HDL Ratio 3.42 Ratio; LDL Cholesterol,Calculated 152.5 mg/dL (0.0-131.0); VLDL Calculation 18.04 mg/dL (5.00-40.00)
[2022-05-11 10:51] VITALS: BMI 23.0
--- NOTE | 2022-05-11 13:00 | CA ---
Transthoracic Echo Report Name: Racheal Grace Age: 86 Gender: F : 1935 Exam Date: 05/11/2022 08:48 Exam Location: [place] [facility] Ht (in): 63 Wt (lb): 160 Ordering Physician: Elier Silva MD Attending/Referring Phys: Certified Paralegal Candido Hubbard RDCS Procedure CPT: Indications: possible stroke Cardiac Hx: Technical Quality: Fair Contrast 1: Total Dose (mL): Contrast 2: Total Dose (mL): MEASUREMENTS (Male / Female) Normal Values 2D ECHO LV Diastolic Diameter PLAX 3.8 cm 4.2 - 5.9 / 3.9 - 5.3 cm LV Systolic Diameter PLAX 2.3 cm IVS Diastolic Thickness 1.3 cm 0.6 - 1.0 / 0.6 - 0.9 cm LVPW Diastolic Thickness 1.3 cm 0.6 - 1.0 / 0.6 - 0.9 cm LV Relative Wall Thickness 0.7 RV Internal Dim ED PLAX 2.1 cm M-MODE Aortic Root Diameter MM 2.5 cm LA Systolic Diameter MM 3.0 cm LA Ao Ratio MM 1.2 AV Cusp Separation MM 1.7 cm DOPPLER AV Peak Velocity 124.3 cm/s AV Peak Gradient 6.2 mmHg AI Peak Velocity 282.6 cm/s AI Peak Gradient 31.9 mmHg AI Pressure Half Time 1342.3 ms LVOT Peak Velocity 92.1 cm/s LVOT Peak Gradient 3.4 mmHg MV Area PHT 3.6 cm??? MR Peak Velocity 218.4 cm/s MR Peak Gradient 19.1 mmHg Mitral E Point Velocity 81.0 cm/s Mitral A Point Velocity 88.5 cm/s Mitral E to A Ratio 0.9 MV Deceleration Time 208.0 ms TR Peak Velocity 201.4 cm/s TR Peak Gradient 16.2 mmHg Right Atrial Pressure 3.0 mmHg Pulmonary Artery Systolic Pressu 19.2 mmHg Right Ventricular Systolic Press 19.2 mmHg PV Peak Velocity 85.1 cm/s PV Peak Gradient 2.9 mmHg FINDINGS Left Ventricle Mildly increased septal wall thickness. Left ventricular hypertrophy. Left ventricular ejection fraction is estimated at 65-70%. Right Ventricle Normal right ventricular size. Normal right ventricular global systolic function. Right Atrium Normal right atrial size. Left Atrium Normal left atrial size. Mitral Valve Mitral valve thickened. Mild mitral regurgitation. Aortic Valve Aortic valve sclerosis. No aortic stenosis. Mild aortic regurgitation. Tricuspid Valve Mild tricuspid regurgitation. Pulmonic Valve Structurally normal pulmonic valve. Pericardium No pericardial or pleural effusion. Aorta Normal size aortic root and proximal ascending aorta. CONCLUSIONS Normal LV systolic function Mild mitral and aortic regurgitation Previewed by: Dr. Orville Dodge MD (Electronically Signed) Final Date: 11 May 2022 12:59
--- NOTE | 2022-05-11 17:04 | P.PN ---
Progress Note - Text Progress Note Date: 05/11/22 Chief Complaint: Seizure Patient just in the hospital from May 05 through May 08. This is a pleasant 86-year-old patient was chronic stable medical conditions include hard of hearing, hypertension, hyperlipidemia, anxiety depression. Patient had developed seizures during childhood. Then went into remission. Last few years seizures came back. last seizure was 4 months ago. had a seizure at home and was found down at home. Witnessed by the home health care. Started to recovering on way to the hospital. Did not recall the events. . Patient has moved from [place] about a week ago. Lives in assisted living [facility]. also had a seizure in the ER. It was tonic-clonic seizure . Patient was then discharged on Vimpat 50 mg twice a day. Plan was to increase it outpatient after 1 week 100 mg twice daily.( Johanne was disc ontinued on last admission) Patient now brought into the ER after with decided there seizure. EMS noted some left-sided facial droop and left-sided case. In the ER neurology was consulted. Was given 1 dose of IV 200 mg Vimpat. Also 1 dose of IV milligram Ativan. In the ER computed tomography scan of the brain and CT angiogram of the brain was done. This spoke to from neurology. Patient is admitted. Patient had another seizure in the ER. This morning the patient seen somewhat drowsy able to answer questions slowly. Lethargic. CT angiogram of the neck unremarkable. CT angiogram of the head showed concern for occlusion of proximal right M2 segment and 2 or 3 and 3 segments of decreased enhancement of the distal arteries with concern for acute thromboembolic event. May 11: Doing well this morning up in a chair. Holding a full conversation. No focal deficits. Pending MRI that'll be done this evening. As discussed with neurologist Dr. Ashton last night-stroke not felt to be present. No further seizures. On Vimpat 100 mg twice a day and Lamictal 150 mg twice a day. Eating fair. Patient walked 100 feet with a walker. Active Medications Aspirin (Aspirin 81 Mg) 81 mg PO DAILY [facility] Last Admin: 05/11/22 08:38 Dose: 81 mg Cholecalciferol (Cholecalciferol 25 Mcg (1000 Iu) Tablet) 25 mcg PO DAILY [facility] Last Admin: 05/11/22 08:38 Dose: 25 mcg Clopidogrel Bisulfate (Clopidogrel 75 Mg Tab) 75 mg PO DAILY [facility] Last Admin: 05/11/22 08:38 Dose: 75 mg Enoxaparin Sodium (Enoxaparin 40 Mg/0.4 Ml Syringe) 40 mg SQ DAILY [facility] Last Admin: 05/11/22 08:38 Dose: 40 mg Lacosamide (Lacosamide 50 Mg Tablet) 100 mg PO BID [facility] Last Admin: 05/11/22 08:38 Dose: 100 mg Lamotrigine (Lamotrigine 100 Mg Tab) 150 mg PO BID [facility] Last Admin: 05/11/22 08:38 Dose: 150 mg Levothyroxine Sodium (Levothyroxine 50 Mcg Tab) 50 mcg PO 0630 [facility] Last Admin: 05/11/22 06:00 Dose: 50 mcg Lisinopril (Lisinopril 10 Mg Tab) 10 mg PO BID [facility] Last Admin: 05/11/22 08:38 Dose: 10 mg Pravastatin Sodium (Pravastatin Sodium 20 Mg Tab) 20 mg PO DAILY [facility] Last Admin: 05/11/22 08:38 Dose: 20 mg Sertraline HCl (Sertraline 100 Mg Tab) 100 mg PO DAILY [facility] Last Admin: 05/11/22 08:38 Dose: 100 mg Thiamine HCl (Thiamine 100 Mg Tab) 100 mg PO DAILY [facility] Last Admin: 05/11/22 08:38 Dose: 100 mg Past medical history to include: Hard of hearing, hypertension, hyperlipidemia, epilepsy, breast cancer, anxiety depression Social history: No smoking or alcohol. Moved from [place] about a week ago. At [facility] assisted living. Physical examination: VITAL SIGNS: 98.1, 61, 16, 1 56 x 64, 97% room air GENERAL: Up in a chair, awake, comfortable EYES: Pupils equal. Conjunctiva normal. HEENT: External appearance of nose and ears normal, oral cavity grossly normal hard of hearing. NECK: JVD not raised; masses not palpable. HEART: First and second heart sounds are normal; no edema. LUNGS: Respiratory rate normal; clear to auscultation. ABDOMEN: Soft, nontender, liver spleen not palpable, no masses palpable. PSYCH: Answering questions appropriately. MUSCULOSKELETAL:No Clubbing/cyanosis;muscles-grossly intact. OA NEUROLOGICAL: Cranial nerves grossly intact; no facial asymmetry, speech is slow. Moving all 4 limbs.. INVESTIGATIONS, reviewed in the clinical context: White count 9.5 hemoglobin 13.1 platelets 251 potassium 4.5 BUN 28 creatinine 1.12 EKG tracing personally reviewed by me: Sinus versus questionable junctional rhythm. Chest x-ray film personally reviewed by me-portable. No obvious infiltrate Computed tomography scan brain: Hyperdense right M1/M2 arteries consulted for acute thromboembolic disease. CT angiography head with IV contrast: Acute proximal right M2 segment with 2 or 3 occluded proximal or distal and 3 segments with diminished enhancement of the distal arteries. Otherwise unremarkable. Recent admission: EEG: Seizure in the right frontal region daily in the left frontal region. activity reported MRI brain: Diffuse cerebral atrophy. Some white matter changes. Vitamin B12 [address] brain and C-spine without contrast: Cerebral atrophy. Chronic changes. Spondylitic changes. Assessment and plan: -Recurrent generalized tonic-clonic seizure. known history of epilepsy during her childhood and came back afterwards. Patient is discharged from here 2 days ago on Vimpat 50 mg twice a day. EEG was positive. Given IV Vimpat in the ER. Vimpat 100 mg twice a day. ( Lyrica and Briviact was discontinued on last admission) Follow with neurology -Questionable Acute stroke possibly in the right M1 and M2 arteries. Neurology was consulted from the ER. Aspirin Plavix. On Pravachol. PT OT. Speech therapy. Computed tomography scan was reviewed by Dr. Ashton. Stroke felt to be unlikely. MRI brain without be done this evening. In the meantime continue with aspirin Plavix -Post ictal state.: Corrected -Hypothyroid Synthroid -Hyperlipidemia Pravachol 20 mg a day -Essential hypertension Zestril 10 mg twice a day -Anxiety depression Zoloft 100 mg a day -Primary osteoarthritis Tylenol as tolerated -Chronic gait dysfunction uses a walker at baseline -Full code Discussed with patient at length. Awaiting MRI. If no further seizures and okay with neurology hopefully can be discharged tomorrow. Follow-up as per neurology.
--- NOTE | 2022-05-12 01:55 | P.PN ---
Subjective Progress Note Date: 05/11/22 Patient was seen for a follow-up. Patient is much more alert and awake in no distress. She appears back to baseline. Continues to have significant hearing loss like usual. Denies headache. Objective - Vital Signs Vital signs: Vital Signs Temp 98 F 05/11/22 16:00 Pulse 61 05/11/22 16:00 Resp 16 05/11/22 16:00 BP 156/64 05/11/22 16:00 Pulse Ox 97 05/11/22 16:00 FiO2 21 05/10/22 20:57 Intake & Output 05/10/22 05/11/22 05/11/22 18:59 06:59 18:59 Intake Total 1080 838 Output Total 50 300 500 Balance 1030 -300 338 Weight 58.967 kg 58.967 kg Intake: Oral 1080 838 Output: Urine 50 300 500 Other: Voiding Method Toilet Toilet External Catheter Incontinent Incontinent External Catheter External Catheter # Voids 1 1 - Exam Patient able to name all objects, can repeat very well. Patient can follow directions like pointing to the window which is on her left side. Face is symmetric, visual bunch are full. No pronator drift. The strength is normal. Sensations are equal. No ataxia. - Labs CBC & Chem 7: 05/10/22 05:27 05/10/22 05:27 Labs: Abnormal Lab Results - Last 24 Hours (Table) 05/10/22 Range/Units 05:27 Cholesterol 241.00 H (0.00-200.00) mg/dL LDL Cholesterol, Calc 152.5 H (0.0-131.0) mg/dL HDL Cholesterol 70.50 H (40.00-60.00) mg/dL Assessment and Plan Assessment: * Breakthrough seizure. Patient's Vimpat needs to be further optimized. * Aphasia, with left hemiparesis, now seems to have completely resolved. Suspect ictal phenomenon with post ictal Gio's paralysis. Current examination is normal, except for some paraphasic errors and perseveration, which could also be postictal phenomenon. NIH stroke scale is 0. She was not a candidate for TPA, or thrombectomy. Her speech is now back to baseline today. * Possible thromboembolic phenomenon, rule out CVA. 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 Patient's Lamictal level was 5.0(2-15) on 05/06/2022. Patient was given a loading dose of Vimpat 200 mg in the ER. Maintenance dose to be increased to 100 mg twice a day. Stay off Briviact because of behavioral side effects as per patient's daughter. MRI brain pending. 2-D echo revealed normal left ventricular systolic function. Mild mitral and aortic regurgitation. Left atrial size is normal. Patient started on dual antiplatelet medications including aspirin and Plavix. Hemoglobin A1c pending Fasting lipid panel with cholesterol 241, LDL 152, HDL 70, triglycerides 90. Patient on pravastatin 20 mg (at home). Suggest increase dose to target LDL <70. Patient's B12 427, folate 10.10 on 05/04/2022. TSH 4.72, free T4 1.13 EEG 05/07/2022 was abnormal due to presence of epileptiform activity involving predominantly right frontal region and sometimes synchronous involving bilateral frontal region and very rarely involving the left frontal region. This is suggestive of underlying cortical irritability and tendency for seizures. 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 This EEG plies tendency for focal onset or rapidly generalized seizures. Clinical correlation is recommended. Continue seizure precautions Continue seizure pads Dr. Dexter covering neurology service over the weekend and Dr. Enriquez will start neurology service on Saturday.
[2022-05-12] MEDS: LEVOTHYROXINE 50 MCG TAB PO SCH (06:23)
[2022-05-12] MEDS: THIAMINE 100 MG TAB PO SCH (09:01)
[2022-05-12] MEDS: SERTRALINE 100 MG TAB PO SCH (09:01)
[2022-05-12] MEDS: LACOSAMIDE 50 MG TABLET PO SCH (09:01)
[2022-05-12] MEDS: ASPIRIN 81 MG PO SCH (09:01)
[2022-05-12] MEDS: CHOLECALCIFEROL 25 MCG (1000 IU) TABLET PO SCH (09:01)
[2022-05-12] MEDS: lamoTRIgine 100 MG TAB PO SCH (09:01)
[2022-05-12] MEDS: lisinopriL 10 MG TAB PO SCH (09:02)
[2022-05-12] MEDS: CLOPIDOGREL 75 MG TAB PO SCH (09:02)
[2022-05-12] MEDS: PRAVASTATIN SODIUM 20 MG TAB PO SCH (09:02)
[2022-05-12] MEDS: ENOXAPARIN 40 MG/0.4 ML SYRINGE SQ SCH (09:02)
--- NOTE | 2022-05-12 12:39 | MR ---
EXAMINATION TYPE: MR brain wo con DATE OF EXAM: 05/12/2022 11:58 AM COMPARISON: 05/10/2022, MRI brain 05/07/2022 CLINICAL INDICATION:Female, 86 years old with history of Possible stroke; TECHNIQUE: Multi planar, multi sequence imaging was performed through the brain including: T1, T2, In version recovery, Diffusion weighted imaging, and gradient echo imaging. No gadolinium was given. FINDINGS: Generalized atrophy changes with proportional dilation of the ventricular system. Scattered foci of high T2 signal intensity are seen within the periventricular white matter. Midline structures show no abnormality. Diffusion-weighted imaging shows no evidence of restricted diffusion. The susceptibilit y weighted images do not reveal any evidence for micro-hemorrhage. The bone marrow signal is within normal limits. Paranasal sinuses and mastoid air cells: Mild scattered paranasal sinus disease. Visualized orbits: Bilateral aphakia IMPRESSION: No change from 05/07/2022 1. No evidence of intracranial mass or acute/subacute infarct. 2. Nonspecific white matter changes, likely secondary to small vessel ischemic disease.
[2022-05-12 14:30] VITALS: RESP 18
--- NOTE | 2022-05-12 14:31 | P.PN ---
Subjective Progress Note Date: 05/12/22 The patient is an 86-year-old female who is seen in neurologic follow- up on May 12, 2022, via teleneurology. The chart has been reviewed. The patient reportedly has a history of epilepsy since childhood. Medication doses have been recently adjusted. The patient apparently had a breakthrough seizure, at home. She was brought into the emergency department where she was found to have left-sided weakness and aphasia. The symptoms resolved. CT scan of the brain was negative for acute he morrhage and infarct. MRI of the brain was performed this morning. There is no evidence of acute he morrhage or infarct. 2-D echocardiogram reveals no sign of PFO or thrombus. Per neurology consultation, the patient's Vimpat dosing was adjusted. The patient has reportedly not had any further seizures since admission to the hospital. Objective - Vital Signs Vital signs: Vital Signs Temp 99.0 F 05/12/22 12:00 Pulse 68 05/12/22 12:00 Resp 20 05/12/22 12:00 BP 133/67 05/12/22 12:00 Pulse Ox 96 05/12/22 12:00 FiO2 21 05/10/22 20:57 Intake & Output 05/11/22 05/12/22 05/12/22 18:59 06:59 18:59 Intake Total 838 Output Total 500 600 Balance 338 -600 Weight 58.967 kg Intake: Oral 838 Output: Urine 500 600 Other: Voiding Method External Catheter External Catheter External Catheter # Voids 1 1 - Exam Gen.: The patient is reclining in the bed. She is well-nourished, well- developed and in no acute distress. HEENT: Head is atraumatic, normocephalic. Fundus not visualized. There is no scleral icterus. Mucous membranes are moist Neurological examination Mental status: The patient awake, alert and oriented 3. She is markedly hard of hearing. Her speech is clear. Cranial nerves: 2-12 grossly intact, with the exception of markedly decreased hearing. - Labs CBC & Chem 7: 05/10/22 05:27 05/10/22 05:27 Assessment and Plan Assessment: * Breakthrough seizure. Patient's Vimpat dosing has been optimized. * Aphasia, with left hemiparesis, now seems to have completely resolved. Suspect ictal phenomenon with post ictal Gio's paralysis. Current examination is normal, except for some paraphasic errors and perseveration, which could also be postictal phenomenon. NIH stroke scale is 0. She was not a candidate for TPA, or thrombectomy. 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 Continue current dosing of Lamictal and Vimpat 2. Follow-up with own neurologist in 2-3 weeks 3. Although technically normal at 427, would recommend oral B12 supplementation Time with Patient: Less than 30 (Spent 20 minutes reviewing chart notes, labs, imaging reports and examining this patient.)
[2022-05-12 16:17] VITALS: BP 151/69; PULSE 63; TEMP 98.2
--- NOTE | 2022-05-14 07:37 | DS ---
DISCHARGE SUMMARY FINAL DIAGNOSES: 1. Recurrent generalized tonic-clonic seizures. 2. Questionable acute transient ischemic attack. 3. Postictal state. 4. Hypothyroidism. 5. Multiple medical issues. DISCHARGE DISPOSITION: The patient will be discharged in stable condition and guarded prognosis after cleared by Neurology. HISTORY OF PRESENT ILLNESS: This is an 86-year-old woman with a past medical history of multiple medical problems, admitted with tonic-clonic seizures. The patient was evaluated for acute stroke. MRA was negative. The patient will be discharged in stable condition and guarded prognosis with the following advices and medications. DIET: Cardiac. MEDICATIONS: The patient will be put on increased dose of Vimpat 100 mg b.i.d., and aspirin 81 mg daily. FOLLOWUP: Follow up with Neurology, Dr. Mcmahon as recommended. Follow up with Dr. Eagle as recommended. DICTATION ENDS HERE. MMPHILIPPE / IJN: [id number] /
== END 2022-05-12 17:11 | disposition home or self-care (01) | DRG 101 ==
LOC: EC 05:20 → 3SCARD 07:14
PROVIDERS: ADMIT Hospitalist; ATTEND Hospitalist
DX: G40.409 Other generalized epilepsy and epileptic syndromes, not intractable, without status epilepticus (principal); R47.01 Aphasia; G81.94 Hemiplegia, unspecified affecting left nondominant side; G45.9 Transient cerebral ischemic attack, unspecified; R29.700 NIHSS score 0; M19.91 Primary osteoarthritis, unspecified site; G83.84 Todd's paralysis (postepileptic); I67.2 Cerebral atherosclerosis; R26.81 Unsteadiness on feet; I10 Essential (primary) hypertension; H91.90 Unspecified hearing loss, unspecified ear; F41.9 Anxiety disorder, unspecified; F32.A Depression, unspecified; E78.5 Hyperlipidemia, unspecified; E03.9 Hypothyroidism, unspecified; Z86.73 Personal history of transient ischemic attack (TIA), and cerebral infarction without residual deficits; Z85.3 Personal history of malignant neoplasm of breast; Z79.899 Other long term (current) drug therapy; Z79.890 Hormone replacement therapy
CPT/HCPCS: 36415; 70450; 70496; 70498; 70551; 71045; 80053; 80061; 81001; 83605; 84484; 85025; 85610; 85730; 93005; 93306; 94760; 96374; 96375; 99291

== ENCOUNTER → 2022-06-27 | Outpatient (CLI) | payer MEDICARE | END | disposition home or self-care (01) | LOC: LABWHC1 10:52 | PROVIDERS: ATTEND Psychiatry & Neurology Neurology | DX: Z01.812 Encounter for preprocedural laboratory examination (principal); Z51.81 Encounter for therapeutic drug level monitoring | CPT/HCPCS: 36415; 80175 ==

== ENCOUNTER 2022-07-11 15:28 | Inpatient (IN) | payer MEDICARE ==
[2022-07-11] MEDS ORDERED: MECLIZINE 12.5 MG TAB PO STA (17:05)
[2022-07-11] MEDS ORDERED: SODIUM CHLORIDE 0.9% 1,000 ML IV STA (17:05)
[2022-07-11 17:41] LABS: Basophils % (A) 0 %; Eosinophils # (A) 0.1 k/uL (0-0.7); Eosinophils % (A) 1 %; HCT 36.5 % (34.0-46.0); HGB 12.4 gm/dL (11.4-16.0); Lymphocytes # (A) 1.2 k/uL (1.0-4.8); Lymphocytes % (A) 15 %; MCH 28.9 pg (25.0-35.0); MCHC 34.1 g/dL (31.0-37.0); Mean Platelet Volume 7.3; Monocytes # (A) 0.6 k/uL (0-1.0); Monocytes % (A) 7 %; Neutrophils # (A) 5.9 k/uL (1.3-7.7); Neutrophils % (A) 73 %; Platelet Count 298 k/uL (150-450); RBC 4.29 m/uL (3.80-5.40); RDW 12.5 % (11.5-15.5); WBC 8.1 k/uL (3.8-10.6)
[2022-07-11 17:53] LABS: Potassium 5.1 mmol/L (3.5-5.1)
[2022-07-11 17:54] LABS: Albumin 4.6 g/dL (3.5-5.0); Calcium 9.1 mg/dL (8.4-10.2); Total Bilirubin 0.4 mg/dL (0.2-1.3); Total Protein 7.8 g/dL (6.3-8.2)
--- NOTE | 2022-07-11 18:03 | CT ---
EXAMINATION TYPE: CT brain steffiine wo con DATE OF EXAM: 07/11/2022 COMPARISON: 05/04/2022 HISTORY: Dizziness. CT DLP: 1252.9 mGycm Automated exposure control for dose reduction was used. Images obtained of the brain and cervical spine with no contrast. There is cerebral atrophy. There is no mass effect or midline shift. No sign of intracranial hemorrha ge. There is some patchy hypodensity in the periventricular white matter. Calvarium is intact. Sella turcica appears normal. The cervical vertebra have normal alignment. There is degenerative disc space narrowing at C4-5 and C 5-6 and C6-7 with spurring of the endplates. There is multilevel mild cervical hypertrophic facet art hropathy. No compression fracture. Prevertebral soft tissues are intact. IMPRESSION: Cerebral atrophy and chronic white matter changes. No hemorrhage. No significant change compared to o ld exam. Spondylotic changes in the cervical spine mainly at C5-6 and C6-7. No fracture. No significant change .
--- NOTE | 2022-07-11 18:05 | XR ---
EXAMINATION TYPE: XR chest 2V DATE OF EXAM: 07/11/2022 COMPARISON: 05/10/2022 HISTORY: Dizziness TECHNIQUE: 2 views FINDINGS: Heart is enlarged. There is some infiltrate at the lateral left lung base. There is a minim al infiltrate lateral right lung base. There are no hilar masses. No heart failure. The bony thorax i s intact. There are no hilar masses. IMPRESSION: There is some mild airspace infiltrates at the lateral lung bases which are increased com pared to the old exam. No heart failure seen.
--- NOTE | 2022-07-11 18:28 | ED ---
Dizziness HPI - General Chief Complaint: Dizziness Stated Complaint: low blood pressure,dizzy Time Seen by Provider: 07/11/22 16:50 Source: patient Mode of arrival: wheelchair Limitations: no limitations - History of Present Illness Initial Comments: Patient is an 87-year-old female presenting with chief complaint of dizziness. Patient lives with her in assisted living, she states that today she started to feel dizzy and felt like she had to sit down. They called the nurse at the facility to take her blood pressure, the tells me that "her bottom number was low". He does not remember the exact values. They state that the nurses at the facility were concerned and encouraged her to report to the ER. Patient is at her baseline mental status according to her daughter at bedside, patient states "I know I'm dehydrated", states that she often forgets to drink water. No chest pain or difficulty breathing. Patient does admit to o n-and-off diarrhea that been going on for the last 1-2 weeks. No abdominal pain. No vomiting. No fevers or chills. No URI like symptoms. No dysuria or hematuria. - Related Data Home Medications Medication Instructions Recorded Confirmed Pravastatin Sodium [Pravachol] 20 mg PO DAILY 10/15/18 05/10/22 lamoTRIgine [LaMICtal] 150 mg PO BID 10/20/19 05/10/22 Cholecalciferol [Vitamin D3 (25 25 mcg PO DAILY 05/04/22 05/10/22 Mcg = 1000 Iu)] Levothyroxine Sodium [Synthroid] 50 mcg PO DAILY 05/04/22 05/10/22 Sertraline [Zoloft] 100 mg PO DAILY 05/04/22 05/10/22 Thiamine [Vitamin B-1] 100 mg PO DAILY 05/04/22 05/10/22 Lisinopril-Hctz 10-12.5 mg 1 tab PO BID 05/10/22 05/10/22 [Zestoretic 10-12.5] Previous Rx's Medication Instructions Recorded Aspirin 81 mg PO DAILY #30 tab 05/12/22 Lacosamide [Vimpat] 100 mg PO BID #30 tab 05/12/22 Allergies Allergy/AdvReac Type Severity Reaction Status Date / Time No Known Allergies Allergy Verified 07/11/22 15:43 Review of Systems ROS Statement: Those systems with pertinent positive or pertinent negative responses have been documented in the HPI. ROS Other: All systems not noted in ROS Statement are negative. Past Medical History Past Medical History: Cancer, Hearing Disorder / Deafness, Hyperlipidemia, Hypertension, Seizure Disorder, Thyroid Disorder Additional Past Medical History / Comment(s): Seizures/lifelong, daughter states pt takes 1-2 days after a seizure to "come around", R breast cancer with lumpectomy/radiation txs, very [place] bilaterally/has hearing aides, past L femur fracture/no surgery, UTI, thyroid disease. History of Any Multi-Drug Resistant Organisms: ESBL Date of last positivie culture/infection: 11/08/18-E. coli ESBL MDRO Source:: Urine Past Surgical History: Breast Surgery, Cholecystectomy Additional Past Surgical History / Comment(s): R breast lumpectomy Past Anesthesia/Blood Transfusion Reactions: No Reported Reaction Past Psychological History: Anxiety, Depression Smoking Status: Never smoker Past Alcohol Use History: None Reported Past Drug Use History: None Reported - Past Family History Mother Family Medical History: CVA/TIA Additional Family Medical History / Comment(s): Heart problems Sister(s) Family Medical History: Cancer Additional Family Medical History / Comment(s): of lung cancer General Exam Limitations: no limitations General appearance: alert, in no apparent distress Head exam: Present: atraumatic, normocephalic, normal inspection Eye exam: Present: normal appearance, EOMI Neck exam: Present: normal inspection, full ROM Respiratory exam: Present: normal lung sounds bilaterally. Absent: respiratory distress, wheezes, rales, rhonchi, stridor Cardiovascular Exam: Present: regular rate, normal rhythm, normal heart sounds. Absent: systolic murmur, diastolic murmur, rubs, gallop, clicks GI/Abdominal exam: Present: soft. Absent: distended, tenderness, guarding, rebound, rigid Neurological exam: Present: alert, altered (baseline), CN II-XII intact Psychiatric exam: Present: normal affect, normal mood Skin exam: Present: warm, dry, intact, normal color. Absent: rash Course Vital Signs 07/11/22 07/11/22 07/11/22 15:38 19:25 21:50 Temperature 98.0 F Pulse Rate 64 61 58 L Respiratory 20 18 16 Rate Blood Pressure 162/70 143/68 135/81 O2 Sat by Pulse 98 98 100 Oximetry EKG Findings - EKG Comments: EKG Findings:: Sinus rhythm with first-degree AV block. Ventricular rate 66. [place] interval 331. QRS 105. QT 399. QTc 413. Medical Decision Making - Medical Decision Making Was pt. sent in by a medical professional or institution (, PA, RICE DRIER OPERATOR, urgent care, hospital, or usp...) When possible be specific @ -No Did you speak to anyone other than the patient for history (EMS, parent, family, police, friend...)? What history was obtained from this source @ -Daughter and Did you review nursing and triage notes (agree or disagree)? Why? @ -I reviewed and agree with nursing and triage notes Were old charts reviewed (outside hosp., previous admission, EMS record, old EKG, old radiological studies, urgent care reports/EKG's, usp records)? Report findings @ -No old charts were reviewed Differential Diagnosis (chest pain, altered mental status, abdominal pain women, abdominal pain men, vaginal bleeding, weakness, fever, dyspnea, syncope, headache, dizziness, GI bleed, back pain, seizure, CVA, palpatations, mental health, musculoskeletal)? @ -MDM Differential Dizziness: Benign paroxysmal positional Vertigo, Menieres disease, otitis media, acoustic neuroma, vertebrobasilar insufficiency, cerebellar stroke, encephalitis, hypovolemic, arrhythmia, coronary artery syndrome, anemia this is not meant to be an all-inclusive list EKG interpreted by me (3pts min.). @ -As above X-rays interpreted by me (1pt min.). @ -On chest x-ray there is some mild airspace infiltrates at the lateral lung bases which are increased compared to old exam. No heart failure seen. CT interpreted by me (1pt min.). @ -CT of the brain and cervical spine shows no acute intracranial process or cervical spine fracture. U/S interpreted by me (1pt. min.). @ -None done What testing was considered but not performed or refused? (CT, X-rays, U/S, labs)? Why? @ -None What meds were considered but not given or refused? Why? @ -None Did you discuss the management of the patient with other professionals (prof luda i.e. , PA, RICE DRIER OPERATOR, lab, RT, psych nurse, psychiatric social worker supervisor, railroad worker, teacher, public affairs officer, manager rn case)? Give summary @ -Discussed with the admitting provider Taylor Gongora RICE DRIER OPERATOR Was smoking cessation discussed for >3mins.? @ -No Was critical care preformed (if so, how long)? @ -No Were there social determinants of health that impacted care today? How? (Homelessness, low income, unemployed, alcoholism, drug addiction, transportation, low edu. Level, literacy, decrease access to med. care, fci, rehab)? @ -No Was there de-escalation of care discussed even if they declined (Discuss DNR or withdrawal of care, Hospice)? DNR status @ -No What co-morbidities impacted this encounter? (DM, HTN, Smoking, COPD, CAD, Cancer, CVA, ARF, Chemo, Hep., AIDS, mental health diagnosis, sleep apnea, morbid obesity)? @ -None Was patient admitted / discharged? Hospital course, mention meds given and route, prescriptions, significant lab abnormalities, going to OR and other pertinent info. @ -Patient is an 87-year-old female presenting with chief complaint of dizziness. No chest pain or difficulty breathing. No fall or injury, though patient is a poor historian. Lab work shows no leukocytosis or anemia. Sodium is 121 and chloride is 86 BUN is 26 and creatinine is 1.07. Patient admits to poor oral intake, abnormalities likely a result of dehydration and malnutrition. Patient is started on IV fluids. EKG shows no acute changes and troponin is less than 0.012. Urine shows evidence of UTI, we'll treat with Rocephin. Chest x-ray shows infiltrates, patient is given a dose of azithromycin. CT shows no evidence of acute intracranial process or cervical spine fracture. Patient will be admitted for hyponatremia and UTI. [facility] hospitalist group [facility] on- call accepts admission. Patient and family are agreeable with the plan. I discussed this case with my attending Dr. Evans. Undiagnosed new problem with uncertain prognosis? @ -No Drug Therapy requiring intensive monitoring for toxicity (Heparin, Nitro, Insulin, Cardizem)? @ -No Were any procedures done? @ -No Diagnosis/symptom? @ -Hyponatremia Acute, or Chronic, or Acute on Chronic? @ -Acute Uncomplicated (without systemic symptoms) or Complicated (systemic symptoms)? @ -Complicated Side effects of treatment? @ -No Exacerbation, Progression, or Severe Exacerbation? @ -No Poses a threat to life or bodily function? How? (Chest pain, [place], [place], pneumonia, PE, COPD, DKA, ARF, appy, cholecystitis, CVA, Diverticulitis, Homicidal, Suicidal, threat to staff... and all critical care pts) @ -No Diagnosis/symptom? @UTI Acute, or Chronic, or Acute on Chronic? @Acute Uncomplicated (without systemic symptoms) or Complicated (systemic symptoms)? @Complicated Side effects of treatment? @ none Exacerbation, Progression, or Severe Exacerbation] @ no Poses a threat to life or bodily function? @ no - Lab Data Result diagrams: 07/11/22 17:23 07/11/22 17: Lab Results 07/11/22 07/11/22 07/11/22 Range/Units 17: 17: 17: WBC 8.1 (3.8-10.6) k/uL RBC 4.29 (3.80-5.40) m/uL Hgb 12.4 (11.4-16.0) gm/dL Hct 36.5 (34.0-46.0) % MCV 85.0 (80.0-100.0) fL MCH 28.9 (25.0-35.0) pg MCHC 34.1 (31.0-37.0) g/dL RDW 12.5 (11.5-15.5) % Plt Count 298 (150-450) k/uL MPV 7.3 Neutrophils % 73 % Lymphocytes % 15 % Monocytes % 7 % Eosinophils % 1 % Basophils % 0 % Neutrophils # 5.9 (1.3-7.7) k/uL Lymphocytes # 1.2 (1.0-4.8) k/uL Monocytes # 0.6 (0-1.0) k/uL Eosinophils # 0.1 (0-0.7) k/uL Basophils # 0.0 (0-0.2) k/uL PT 10.3 (9.0-12.0) sec INR 1.0 (<1.2) Sodium (137-145) mmol/L Potassium (3.5-5.1) mmol/L Chloride (98-107) mmol/L Carbon Dioxide (22-30) mmol/L Anion Gap mmol/L BUN (7-17) mg/dL Creatinine (0.52-1.04) mg/dL Est GFR (CKD-EPI)AfAm (>60 ml/min/1.73 sqM) Est GFR (CKD-EPI)NonAf (>60 ml/min/1.73 sqM) Glucose (74-99) mg/dL Plasma Lactic Acid Edgar (0.7-2.0) mmol/L Calcium (8.4-10.2) mg/dL Total Bilirubin (0.2-1.3) mg/dL AST (14-36) U/L ALT (4-34) U/L Alkaline Phosphatase (38-126) U/L Troponin I (0.000-0.034) ng/mL Total Protein (6.3-8.2) g/dL Albumin (3.5-5.0) g/dL Urine Color Light Yellow Urine Appearance Cloudy H (Clear) Urine pH 5.5 (5.0-8.0) Ur Specific [place] 1.007 (1.001-1.035) Urine Protein Negative (Negative) Urine Glucose (UA) Negative (Negative) Urine Ketones Negative (Negative) Urine Blood Trace H (Negative) Urine Nitrite Negative (Negative) Urine Bilirubin Negative (Negative) Urine Urobilinogen <2.0 (<2.0) mg/dL Ur Leukocyte Esterase Large H (Negative) Urine RBC 5 (0-5) /hpf Urine WBC 167 H (0-5) /hpf Urine WBC Clumps Many H (None) /hpf Ur Squamous Epith Cells 1 (0-4) /hpf Urine Bacteria Many H (None) /hpf Urine Mucus Rare H (None) /hpf 07/11/22 07/11/22 07/11/22 Range/Units 17:23 17:23 17:23 WBC (3.8-10.6) k/uL RBC (3.80-5.40) m/uL Hgb (11.4-16.0) gm/dL Hct (34.0-46.0) % MCV (80.0-100.0) fL MCH (25.0-35.0) pg MCHC (31.0-37.0) g/dL RDW (11.5-15.5) % Plt Count (150-450) k/uL MPV Neutrophils % % Lymphocytes % % Monocytes % % Eosinophils % % Basophils % % Neutrophils # (1.3-7.7) k/uL Lymphocytes # (1.0-4.8) k/uL Monocytes # (0-1.0) k/uL Eosinophils # (0-0.7) k/uL Basophils # (0-0.2) k/uL PT (9.0-12.0) sec INR (<1.2) Sodium 121 L (137-145) mmol/L Potassium 5.1 (3.5-5.1) mmol/L Chloride 86 L (98-107) mmol/L Carbon Dioxide 28 (22-30) mmol/L Anion Gap 7 mmol/L BUN 26 H (7-17) mg/dL Creatinine 1.07 H (0.52-1.04) mg/dL Est GFR (CKD-EPI)AfAm 55 (>60 ml/min/1.73 sqM) Est GFR (CKD-EPI)NonAf 48 (>60 ml/min/1.73 sqM) Glucose 85 (74-99) mg/dL Plasma Lactic Acid Edgar 0.5 L (0.7-2.0) mmol/L Calcium 9.1 (8.4-10.2) mg/dL Total Bilirubin 0.4 (0.2-1.3) mg/dL AST 24 (14-36) U/L ALT 15 (4-34) U/L Alkaline Phosphatase 78 (38-126) U/L Troponin I <0.012 (0.000-0.034) ng/mL Total Protein 7.8 (6.3-8.2) g/dL Albumin 4.6 (3.5-5.0) g/dL Urine Color Urine Appearance (Clear) Urine pH (5.0-8.0) Ur Specific [place] (1.001-1.035) Urine Protein (Negative) Urine Glucose (UA) (Negative) Urine Ketones (Negative) Urine Blood (Negative) Urine Nitrite (Negative) Urine Bilirubin (Negative) Urine Urobilinogen (<2.0) mg/dL Ur Leukocyte Esterase (Negative) Urine RBC (0-5) /hpf Urine WBC (0-5) /hpf Urine WBC Clumps (None) /hpf Ur Squamous Epith Cells (0-4) /hpf Urine Bacteria (None) /hpf Urine Mucus (None) /hpf Disposition Clinical Impression: Hyponatremia, UTI (urinary tract infection) Disposition: ADMITTED IP TO THIS HOSP Condition: Fair Time of Disposition: 19:30
[2022-07-11 18:38] LABS: Appearance,Urine Cloudy (Clear); Bacteria,Urine Many /hpf; Bilirubin,Urine Negative (Negative); Blood,Urine Trace (Negative); Color,Urine Light Yellow; Glucose,Urine (UA) Negative (Negative); Ketones,Urine Negative (Negative); Leukocyte Esterase,Urine Large (Negative); Mucus,Urine Rare /hpf; Nitrite,Urine Negative (Negative); PH, Urine 5.5 (5.0-8.0); Protein,Urine Negative (Negative); RBC,Urine 5 /hpf (0-5); Specific Gravity,Urine 1.007 (1.001-1.035); Squamous Epithelial Cell,Urine 1 /hpf (0-4); Urobilinogen,Urine <2.0 mg/dL (<2.0); WBC,Urine 167 /hpf (0-5)
[2022-07-11 18:44] LABS: Prothrombin Time 10.3 sec (9.0-12.0)
[2022-07-11] MEDS ORDERED: NALOXONE 0.4 MG/ML 1 ML VIAL IV PRN (19:26)
[2022-07-11] MEDS ORDERED: cefTRIAXone IN SWFI 1,000 MG/10 ML SYRINGE IVP STA (19:28)
[2022-07-11] MEDS ORDERED: AZITHROMYCIN 500 MG in SODIUM CHLORIDE 0.9% 250 ML IVPB STA (19:28)
[2022-07-11] MEDS: SODIUM CHLORIDE 0.9% 1,000 ML IV SCH (20:22)
[2022-07-12] MEDS ORDERED: ACETAMINOPHEN TAB 325 MG TAB PO PRN (00:46)
[2022-07-12] MEDS ORDERED: ONDANSETRON 4 MG/2 ML VIAL IVP PRN (00:46)
[2022-07-12 01:21] LABS: Potassium 4.3 mmol/L (3.5-5.1)
[2022-07-12] MEDS: LACOSAMIDE 50 MG TABLET PO SCH ×3 (01:44→20:30)
[2022-07-12] MEDS: lamoTRIgine 100 MG TAB PO SCH ×4 (01:44→20:31)
[2022-07-12] MEDS ORDERED: LEVOTHYROXINE 50 MCG TAB PO SCH (06:30)
[2022-07-12] MEDS ORDERED: FAMOTIDINE 20 MG/2 ML VIAL IV SCH (09:00)
[2022-07-12] MEDS: ASPIRIN 81 MG PO SCH (09:03)
[2022-07-12] MEDS: THIAMINE 100 MG TAB PO SCH (09:03)
[2022-07-12] MEDS: HEPARIN SODIUM,PORCINE/PF 5,000 UNIT/0.5 ML SYRINGE SQ SCH ×2 (09:03→20:31)
[2022-07-12] MEDS: PRAVASTATIN SODIUM 20 MG TAB PO SCH (09:04)
[2022-07-12 10:07] LABS: African American GFR (CKD) 67.6 (60.0-200.0); Anion Gap 11.7 mmol/L (10.00-18.00); BUN/Creat Ratio 25.78 Ratio (12.00-20.00); Blood Urea Nitrogen 23.2 mg/dL (9.0-27.0); Calcium 8.9 mg/dL (8.7-10.3); Carbon Dioxide 21.3 mmol/L (20.0-27.5); Non-African American GFR(CKD) 58.3 (60.0-200.0); Potassium 4.9 mmol/L (3.5-5.5)
[2022-07-12 10:38] LABS: Basophils # (A) 0.06 X 10*3/uL (0.00-0.10); Basophils % (A) 0.9 %; Eosinophils # (A) 0.12 X 10*3/uL (0.04-0.35); Eosinophils % (A) 1.9 %; HCT 32.5 % (37.2-46.3); HGB 10.9 g/dL (12.0-15.0); Immature Grans, Automated 0.3 %; Lymphocytes # (A) 1.87 X 10*3/uL (0.90-5.00); Lymphocytes % (A) 29.4 %; MCH 28.2 pg (27.0-32.0); MCHC 33.5 g/dL (32.0-37.0); MCV 84.2 fL (80.0-97.0); Mean Platelet Volume 9.9 fL (9.5-12.2); Monocytes # (A) 0.68 X 10*3/uL (0.20-1.00); Monocytes % (A) 10.7 %; NRBC Per 100 WBC 0 /100 WBCS (0.0-0.0); Neutrophils # (A) 3.61 X 10*3/uL (1.80-7.70); Neutrophils % (A) 56.8 %; Platelet Count 263 X 10*3/uL (140-440); RBC 3.86 X 10*6/uL (4.10-5.20); RDW 12.7 % (11.5-14.5); WBC 6.36 X 10*3/uL (4.50-10.00)
--- NOTE | 2022-07-12 10:57 | P.HPIM ---
History of Present Illness This is a pleasant 87 years old female with past medical history of Hearing Disorder / Deafness, Hyperlipidemia, Hypertension, Seizure Disorder, hypothyroidism, R breast cancer with lumpectomy/radiation txs. The patient is hard of hearing Patient's presents because of dehydration, she states she had 3 bouts of diarrhea this week and had similar 3 episodes of diarrhea a week before, however her last area was 2 days ago and she is been constipated since then with no abdominal pain. She had low appetite but today she feels her appetite is much better. Also she's been complaining of from her urine with going often with little amount of urine but no red dysuria. She felt dizzy and about to pass out about one week or so. No chest pain or dyspnea or coughing. However on exam she has short systolic murmur. She denies headache dizziness weakness or numbness no smoking alcohol or illicit drugs Patient vitals are reviewed on admission, blood pressure is slightly elevated however she is afebrile Labs show an unremarkable CBC, INR. BMP showed sodium low at 121. Creatinine at baseline of 1.07. Previously level 0.7-1.0. Liver enzymes aren't elevated. Troponin is negative. Urine analysis is suspicious for infection or concentrated sample CT of the head and neck showing cerebral atrophy and chronic changes with no ac [place] change and spondylotic changes in the cervical and C6-7 with no fracture and no significant change Chest x-ray showing there is mildinfiltrates at the lateral lung bases which are increased compared to the old exam. No heart failure in The emergency room patient received ceftriaxone and Zithromax And Received 1 L of Normal Saline Started on 50 ML/H Past Medical History Past Medical History: Cancer, Hearing Disorder / Deafness, Hyperlipidemia, Hypertension, Seizure Disorder, Thyroid Disorder Additional Past Medical History / Comment(s): Seizures/lifelong, daughter states pt takes 1-2 days after a seizure to "come around", R breast cancer with lumpectomy/radiation txs, very [place] bilaterally/has hearing aides, past L femur fracture/no surgery, UTI, thyroid disease. History of Any Multi-Drug Resistant Organisms: ESBL Date of last positivie culture/infection: 11/08/18-E. coli ESBL MDRO Source:: Urine Past Surgical History: Breast Surgery, Cholecystectomy Additional Past Surgical History / Comment(s): R breast lumpectomy Past Anesthesia/Blood Transfusion Reactions: No Reported Reaction Past Psychological History: Anxiety, Depression Smoking Status: Never smoker Past Alcohol Use History: None Reported Past Drug Use History: None Reported - Past Family History Mother Family Medical History: CVA/TIA Additional Family Medical History / Comment(s): Heart problems Sister(s) Family Medical History: Cancer Additional Family Medical History / Comment(s): of lung cancer Medications and Allergies Home Medications Medication Instructions Recorded Confirmed Type RX: Pravastatin Sodium [Pravachol] 20 mg PO DAILY 10/15/18 07/12/22 History RX: Cholecalciferol [Vitamin D3 25 mcg PO DAILY 05/04/22 07/12/22 History (25 Mcg = 1000 Iu)] RX: Levothyroxine Sodium 50 mcg PO DAILY 05/04/22 07/12/22 History [Synthroid] RX: Sertraline [Zoloft] 100 mg PO HS 05/04/22 07/12/22 History RX: Thiamine [Vitamin B-1] 100 mg PO DAILY 05/04/22 07/12/22 History RX: Lisinopril-Hctz 10-12.5 mg 1 tab PO BID 05/10/22 07/12/22 History [Zestoretic 10-12.5] RX: Aspirin 81 mg PO DAILY #30 tab 05/12/22 07/12/22 Rx RX: Lacosamide [Vimpat] 100 mg PO BID #30 tab 05/12/22 07/12/22 Rx Ascorbic Acid [Vitamin C] 500 mg PO DAILY 07/12/22 07/12/22 History RX: Primidone [Mysoline] 25 mg PO HS 07/12/22 07/12/22 History lamoTRIgine [LaMICtal] 100 mg PO BID 07/12/22 07/12/22 History Allergies Allergy/AdvReac Type Severity Reaction Status Date / Time No Known Allergies Allergy Verified 07/12/22 07:41 Physical Exam Vitals: Vital Signs Temp Pulse Pulse Resp BP BP Pulse Ox 07/12/22 03:59 98.4 F 62 15 110/56 94 L 07/11/22 22:56 97.5 F L 61 17 173/75 100 07/11/22 21:50 58 L 16 135/81 100 07/11/22 19:25 61 18 143/68 98 07/11/22 15:38 98.0 F 64 20 162/70 98 Intake and Output 07/11/22 07/11/22 07/12/22 14:59 22:59 06:59 Other: Voiding Method Toilet # Voids 1 Weight 54.431 kg -GENERAL: The patient is alert and oriented x3, not in any acute distress. Well developed, well nourished. Heart of hearing HEENT: Pupils are round and equally reacting to light. EOMI. No scleral icterus. No conjunctival pallor. Normocephalic, atraumatic. No pharyngeal erythema. No thyromegaly. CARDIOVASCULAR: S1 and S2 present. No murmurs, rubs, or gallops. PULMONARY: Chest is clear to auscultation, no wheezing or crackles. ABDOMEN: Soft, nontender, nondistended, normoactive bowel sounds. No palpable organomegaly. MUSCULOSKELETAL: No joint swelling or deformity. EXTREMITIES: No cyanosis, clubbing, or pedal edema. NEUROLOGICAL: Gross neurological examination did not reveal any focal deficits. SKIN: No rashes. no petechiae. Results CBC & Chem 7: 07/12/22 06:51 07/12/22 06:51 Labs: Abnormal Lab Results - Last 24 Hours (Table) 07/11/22 07/11/22 07/11/22 Range/Units 17:23 17:23 17:23 Sodium 121 L (137-145) mmol/L Chloride 86 L (98-107) mmol/L BUN 26 H (7-17) mg/dL Creatinine 1.07 H (0.52-1.04) mg/dL Plasma Lactic Acid Edgar 0.5 L (0.7-2.0) mmol/L Urine Appearance Cloudy H (Clear) Urine Blood Trace H (Negative) Ur Leukocyte Esterase Large H (Negative) Urine WBC 167 H (0-5) /hpf Urine WBC Clumps Many H (None) /hpf Urine Bacteria Many H (None) /hpf Urine Mucus Rare H (None) /hpf 07/12/22 Range/Units 00:26 Sodium 122 L (137-145) mmol/L Chloride 90 L (98-107) mmol/L BUN (7-17) mg/dL Creatinine (0.52-1.04) mg/dL Plasma Lactic Acid Edgar (0.7-2.0) mmol/L Urine Appearance (Clear) Urine Blood (Negative) Ur Leukocyte Esterase (Negative) Urine WBC (0-5) /hpf Urine WBC Clumps (None) /hpf Urine Bacteria (None) /hpf Urine Mucus (None) /hpf Microbiology - Last 24 Hours (Table) 07/11/22 17:23 Urine Culture - Preliminary Urine,Voided Thrombosis Risk Factor Assmnt - Choose All That Apply Any of the Below Risk Factors Present?: No Other Risk Factors: Yes Each Risk Factor Represents 3 Points: Age 75 years or older Other congenital or acquired thrombophilia - If yes, enter type in comment: No Thrombosis Risk Factor Assessment Total Risk Factor Score: 3 Thrombosis Risk Factor Assessment Level: Moderate Risk Assessment and Plan Assessment: Frequent diarrhea and dehydration, present on admission, currently improving greatly viral gastroenteritis versus reactive gastroenteritis Possible acute urinary tract infection slightly worsening infiltrates in the chest x-ray versus atelectasis, however patient clinically does not behave like pneumonia. Follow-up as an outpatient Hypertension Hyperlipidemia Hearing difficulty History of seizure disorder. Hypothyroidism History of ESBL UTI, last culture of the system lumps 2019 History of right breast cancer with lumpectomy/radiation txs Anxiety, depression, not an active issue Plan: Continue gentle hydration, normal saline at 50 mL per hour Monitor sodium level Nephrology consult Follow-upcalcitonin patient reports improvement after she was started on antibiotic therefore we will continue Follow-up urine culture Labs and medication were reviewed.. Continue same treatment. Continue with symptomatic treatment. Resume home medication. Monitor labs and vitals. DVT and GI prophylaxis. Further recommendations as per clinical course of the patient DVT prophylaxis: Subcutaneous heparin GI Prophylaxis: Pepcid PT/OT: Pending Prognosis is guarded
--- NOTE | 2022-07-12 13:23 | P.NPCON ---
History of Present Illness - Reason for Consult hyponatremia - History of Present Illness Patient is an 87-year-old female with history of hyperlipidemia, hypertension, seizure disorder and right breast cancer with history of lumpectomy and radiation therapy. Patient also has hearing loss. She is admitted to the hospital with complaints of increased weakness. Patient had diarrhea 3-4 episodes per day for about 2-3 days prior to admission. She has had decreased appetite as well. Patient is noted to have a serum sodium of 121. She reports that she has had low sodium levels previously many years ago. No history of any new medication being started recently Serum creatinine was 1.0 No significant pain. Patient is maintained on normal saline and serum sodium has improved to 126. Systolic blood pressure noted in the 90s. Review of Systems As per HPI Past Medical History Past Medical History: Cancer, Hearing Disorder / Deafness, Hyperlipidemia, Hypertension, Seizure Disorder, Thyroid Disorder Additional Past Medical History / Comment(s): Seizures/lifelong, daughter states pt takes 1-2 days after a seizure to "come around", R breast cancer with lumpectomy/radiation txs, very [place] bilaterally/has hearing aides, past L femur fracture/no surgery, UTI, thyroid disease. History of Any Multi-Drug Resistant Organisms: ESBL Date of last positivie culture/infection: 11/08/18-E. coli ESBL MDRO Source:: Urine Past Surgical History: Breast Surgery, Cholecystectomy Additional Past Surgical History / Comment(s): R breast lumpectomy Past Anesthesia/Blood Transfusion Reactions: No Reported Reaction Past Psychological History: Anxiety, Depression Smoking Status: Never smoker Past Alcohol Use History: None Reported Past Drug Use History: None Reported - Past Family History Mother Family Medical History: CVA/TIA Additional Family Medical History / Comment(s): Heart problems Sister(s) Family Medical History: Cancer Additional Family Medical History / Comment(s): of lung cancer Medications and Allergies Home Medications Medication Instructions Recorded Confirmed Type Pravastatin Sodium [Pravachol] 20 mg PO DAILY 10/15/18 07/12/22 History Cholecalciferol [Vitamin D3 (25 25 mcg PO DAILY 05/04/22 07/12/22 History Mcg = 1000 Iu)] Levothyroxine Sodium [Synthroid] 50 mcg PO DAILY 05/04/22 07/12/22 History Sertraline [Zoloft] 100 mg PO HS 05/04/22 07/12/22 History Thiamine [Vitamin B-1] 100 mg PO DAILY 05/04/22 07/12/22 History Lisinopril-Hctz 10-12.5 mg 1 tab PO BID 05/10/22 07/12/22 History [Zestoretic 10-12.5] Aspirin 81 mg PO DAILY #30 tab 05/12/22 07/12/22 Rx Lacosamide [Vimpat] 100 mg PO BID #30 tab 05/12/22 07/12/22 Rx Ascorbic Acid [Vitamin C] 500 mg PO DAILY 07/12/22 07/12/22 History Primidone [Mysoline] 25 mg PO HS 07/12/22 07/12/22 History lamoTRIgine [LaMICtal] 100 mg PO BID 07/12/22 07/12/22 History Allergies Allergy/AdvReac Type Severity Reaction Status Date / Time No Known Allergies Allergy Verified 07/12/22 07:41 Physical Exam Vitals: Vital Signs Temp Pulse Pulse Resp BP BP BP 07/12/22 11:09 58 L 118/64 07/12/22 07:00 97.9 F 63 16 90/50 07/12/22 03:59 98.4 F 62 15 110/56 07/11/22 22:56 97.5 F L 61 17 173/75 07/11/22 21:50 58 L 16 135/81 07/11/22 19:25 61 18 143/68 07/11/22 15:38 98.0 F 64 20 162/70 Pulse Ox 07/12/22 11:09 95 07/12/22 07:00 95 07/12/22 03:59 94 L 07/11/22 22:56 100 07/11/22 21:50 100 07/11/22 19:25 98 07/11/22 15:38 98 Intake and Output 07/11/22 07/12/22 07/12/22 22:59 06:59 14:59 Intake Total 118 Balance 118 Intake: Oral 118 Other: Voiding Method Toilet Diaper Incontinent # Voids 1 2 Weight 54.431 kg Patient is awake, comfortable, no acute distress Examination of the heart S1 and S2 Examination lungs bilateral breath sounds are heard Abdomen is soft nontender Examination of lower extremity shows no significant edema [employer] exam is grossly intact. Patient is quite hard of hearing Results - Lab Results Most recent lab results Calcium 8.9 mg/dL (8.7-10.3) 07/12/22 06:51 07/12/22 06:51 07/12/22 06:51 Assessment and Plan Assessment: 1. Hypovolemic hyponatremia currently improving with IV saline. TSH was elevated at 6.8. Patient is maintained on supplementation. 2. Diarrhea currently improved 3. History of hypertension currently with low blood pressure. Medications on hold 4. Pyuria rule out UTI 5. hypothyroidism 6. Mild acute kidney injury improved with IV hydration. Plan: Continue normal saline Repeat sodium this evening Check random urine sodium and urine osmolality Encourage increased oral intake particularly protein Thank you for the consultation. We will continue to follow the patient with you during her hospitalization
[2022-07-12] MEDS: PRIMIDONE 25 MG TAB PO SCH (20:30)
[2022-07-12] MEDS: SERTRALINE 100 MG TAB PO SCH (20:31)
[2022-07-12] MEDS ORDERED: FAMOTIDINE 20 MG TAB PO SCH (21:00)
[2022-07-13] MEDS: LEVOTHYROXINE 50 MCG TAB PO SCH (06:06)
[2022-07-13] MEDS: SODIUM CHLORIDE 0.9% 1,000 ML IV SCH ×2 (06:07→19:42)
[2022-07-13] MEDS: PRAVASTATIN SODIUM 20 MG TAB PO SCH (10:07)
[2022-07-13] MEDS: ASPIRIN 81 MG PO SCH (10:08)
[2022-07-13] MEDS: FAMOTIDINE 20 MG TAB PO SCH (10:08)
[2022-07-13] MEDS: lamoTRIgine 100 MG TAB PO SCH ×2 (10:08→20:17)
[2022-07-13] MEDS: THIAMINE 100 MG TAB PO SCH (10:08)
[2022-07-13] MEDS: LACOSAMIDE 50 MG TABLET PO SCH ×2 (10:09→20:17)
[2022-07-13] MEDS: HEPARIN SODIUM,PORCINE/PF 5,000 UNIT/0.5 ML SYRINGE SQ SCH ×2 (10:11→20:17)
--- NOTE | 2022-07-13 10:55 | P.PN ---
Subjective Patient is seen for follow-up for hyponatremia. Patient was admitted with complaints of increased weakness. She did have episodes of diarrhea and decreased oral intake for about 3-4 days prior to admission. Sodium was 121 on admission and increased to 126 yesterday with IV saline. Urine osmolality was 368. Blood pressure was low with systolic in the 90s on initial admission. This morning patient denies any significant complaints. She feels quite well. Labs are pending from today. Objective - Vital Signs Vital signs: Vital Signs Temp 97.9 F 07/13/22 07:00 Pulse 58 L 07/13/22 07:00 Resp 16 07/13/22 07:00 BP 108/51 07/13/22 07:00 Pulse Ox 95 07/13/22 07:00 FiO2 Intake & Output 07/12/22 07/13/22 07/13/22 18:59 06:59 18:59 Intake Total 118 240 Output Total 400 350 Balance -282 -350 240 Intake: Oral 118 240 Output: Urine 400 350 Other: Voiding Method Diaper Incontinent # Voids 1 2 0 - Exam Patient is awake, comfortable, no acute distress Examination of the heart S1 and S2 Examination lungs bilateral breath sounds are heard Abdomen is soft nontender Examination of lower extremity shows no significant edema [employer] exam is grossly intact. Patient is quite hard of hearing - Labs CBC & Chem 7: 07/12/22 06:51 07/12/22 06:51 Labs: Abnormal Lab Results - Last 24 Hours (Table) 07/12/22 Range/Units 06:51 Sodium 126 L (135-145) mmol/L Chloride 93 L (96-109) mmol/L Est GFR (CKD-EPI)NonAf 58.3 L (60.0-200.0) BUN/Creatinine Ratio 25.78 H (12.00-20.00) Ratio TSH 6.800 H (0.350-5.500) uIU/mL Microbiology - Last 24 Hours (Table) 07/11/22 17:23 Urine Culture - Preliminary Urine,Voided Gram Neg Bacilli Assessment and Plan Assessment: 1. Hypovolemic hyponatremia currently improving with IV saline. TSH was elevated at 6.8. Patient is maintained on supplementation. 2. Diarrhea currently improved 3. History of hypertension currently with low blood pressure. Medications on hold 4. Pyuria rule out UTI 5. hypothyroidism 6. Mild acute kidney injury improved with IV hydration. Plan: Follow-up on labs from today Patient is encouraged to maintain adequate oral intake particularly protein Monitor sodium as outpatient. Continue treatment for hypothyroidism
[2022-07-13 11:09] LABS: Anion Gap 12.3 mmol/L (10.00-18.00); BUN/Creat Ratio 17.55 Ratio (12.00-20.00); Blood Urea Nitrogen 19.3 mg/dL (9.0-27.0); Calcium 9.3 mg/dL (8.7-10.3); Carbon Dioxide 20.7 mmol/L (20.0-27.5); Non-African American GFR(CKD) 45.7 (60.0-200.0); Potassium 4.9 mmol/L (3.5-5.5)
[2022-07-13] MEDS: SERTRALINE 100 MG TAB PO SCH (20:17)
[2022-07-13] MEDS: PRIMIDONE 25 MG TAB PO SCH (20:17)
--- NOTE | 2022-07-13 20:40 | P.PN ---
Subjective This is a pleasant 87 years old female with past medical history of Hearing Disorder / Deafness, Hyperlipidemia, Hypertension, Seizure Disorder, hyp othyroidism, R breast cancer with lumpectomy/radiation txs. The patient is hard of hearing Patient's presents because of dehydration, she states she had 3 bouts of diarrhea this week and had similar 3 episodes of diarrhea a week before, however her last area was 2 days ago and she is been constipated since then with no abdominal pain. She had low appetite but today she feels her appetite is much better. Also she's been complaining of from her urine with going often with little amount of urine but no red dysuria. She felt dizzy and about to pass out about one week or so. No chest pain or dyspnea or coughing. However on exam she has short systolic murmur. She denies headache dizziness weakness or numbness no smoking alcohol or illicit drugs Patient vitals are reviewed on admission, blood pressure is slightly elevated however she is afebrile Labs show an unremarkable CBC, INR. BMP showed sodium low at 121. Creatinine at baseline of 1.07. Previously level 0.7-1.0. Liver enzymes aren't elevated. Troponin is negative. Urine analysis is suspicious for infection or concentrated sample CT of the head and neck showing cerebral atrophy and chronic changes with no acute change and spondylotic changes in the cervical and C6-7 with no fracture and no significant change Chest x-ray showing there is mildinfiltrates at the lateral lung bases which are increased compared to the old exam. No heart failure in The emergency room patient received ceftriaxone and Zithromax And Received 1 L of Normal Saline Started on 50 ML/H 07/13/2022 Patient clinically improved and she is back to or close to baseline. Mentation is at baseline, generalized weakness improvement, urinary symptoms are minimal. Her blood pressure is improved. Sodium improved up to 132. She tolerates diet well Urine culture is growing E. coli and she is continued on ceftriaxone Also she's continued on normal saline 50 mL/h Patient informed that we increase the dose of levothyroxine 50 g of the 75 g, we think hypothyroidism on the top of nausea vomiting and UTI. The patient developed hypokalemia and hyponatremia, patient agrees with higher dose of levothyroxine. Possible discharge in 24-48 hours if she keeps improving Objective - Vital Signs Vital signs: Vital Signs Temp 97.9 F 07/13/22 07:00 Pulse 58 L 07/13/22 07:00 Resp 16 07/13/22 07:00 BP 108/51 07/13/22 07:00 Pulse Ox 95 07/13/22 07:00 FiO2 Intake & Output 07/12/22 07/13/22 07/13/22 18:59 06:59 18:59 Intake Total 118 240 Output Total 400 350 Balance -282 -350 240 Intake: Oral 118 240 Output: Urine 400 350 Other: Voiding Method Diaper Incontinent # Voids 1 2 0 - Labs CBC & Chem 7: 07/12/22 06:51 07/13/22 07:24 Labs: Abnormal Lab Results - Last 24 Hours (Table) 07/12/22 07/13/22 Range/Units 06:51 07:24 Sodium 126 L 132 L (135-145) mmol/L Chloride 93 L (96-109) mmol/L Est GFR (CKD-EPI)AfAm 53.0 L (60.0-200.0) Est GFR (CKD-EPI)NonAf 58.3 L 45.7 L (60.0-200.0) BUN/Creatinine Ratio 25.78 H (12.00-20.00) Ratio TSH 6.800 H (0.350-5.500) uIU/mL Microbiology - Last 24 Hours (Table) 07/11/22 17:23 Urine Culture - Preliminary Urine,Voided Gram Neg Bacilli Assessment and Plan Assessment: Frequent diarrhea and dehydration, present on admission, currently improving greatly viral gastroenteritis versus reactive gastroenteritis acute urinary tract infection secondary to UTI Hyperthyroidism while on treatment with high TSH, dose increased to 75 g of levothyroxine slightly worsening infiltrates in the chest x-ray versus atelectasis, however patient clinically does not behave like pneumonia. Follow-up as an outpatient Hypertension Hyperlipidemia Hearing difficulty History of seizure disorder. Hypothyroidism History of ESBL UTI, last culture of the system lumps 2019 History of right breast cancer with lumpectomy/radiation txs Anxiety, depression, not an active issue Plan: Continue gentle hydration, normal saline at 50 mL per hour Monitor sodium level Nephrology consult is appreciated Continue with ceftriaxone with the plan to switch to Ceftin upon discharge Increase dose of levothyroxine to 75 g repeat chest x-ray in the morning Labs and medication were reviewed.. Continue same treatment. Continue with symptomatic treatment. Resume home medication. Monitor labs and vitals. DVT and GI prophylaxis. Further recommendations as per clinical course of the patient DVT prophylaxis: Subcutaneous heparin GI Prophylaxis: Pepcid PT/OT: Pending Prognosis is guarded possible discharge in 24-48 hours Plan discussed with the patient and she is agreeable
[2022-07-14] MEDS: LEVOTHYROXINE 50 MCG TAB PO SCH (05:23)
--- NOTE | 2022-07-14 07:40 | XR ---
EXAMINATION TYPE: XR chest 2V DATE OF EXAM: 07/14/2022 COMPARISON: Chest x-ray July 11, 2022 HISTORY: Weakness. TECHNIQUE: Frontal and lateral views of the chest are obtained. FINDINGS: Persistent patchy bibasilar opacities. No pleural effusion or pneumothorax seen bilaterall y. Upper lungs remain clear. The cardiac silhouette size is stable and mildly enlarged. The osseous structures are intact. IMPRESSION: Mild cardiomegaly with patchy bibasilar acute infiltrate and/or atelectasis redemonstrat ed. No significant change from prior.
[2022-07-14] MEDS: HEPARIN SODIUM,PORCINE/PF 5,000 UNIT/0.5 ML SYRINGE SQ SCH ×2 (08:53→20:07)
[2022-07-14] MEDS: FAMOTIDINE 20 MG TAB PO SCH (08:53)
[2022-07-14] MEDS: LACOSAMIDE 50 MG TABLET PO SCH ×2 (08:53→20:06)
[2022-07-14] MEDS: ASPIRIN 81 MG PO SCH (08:53)
[2022-07-14] MEDS: THIAMINE 100 MG TAB PO SCH (08:53)
[2022-07-14] MEDS: PRAVASTATIN SODIUM 20 MG TAB PO SCH (08:53)
[2022-07-14] MEDS: lamoTRIgine 100 MG TAB PO SCH ×2 (08:53→20:06)
[2022-07-14] MEDS: SODIUM CHLORIDE 0.9% 1,000 ML IV SCH (08:54)
[2022-07-14 09:30] LABS: Anion Gap 10.4 mmol/L (10.00-18.00); Carbon Dioxide 23.6 mmol/L (20.0-27.5)
[2022-07-14] MEDS ORDERED: amLODIPine 5 MG TAB PO SCH (15:15)
[2022-07-14 15:17] LABS: MCHC 33.2 g/dL (31.0-37.0); MCV 87.5 fL (80.0-100.0); Mean Platelet Volume 8.7; Platelet Count 254 k/uL (150-450); RBC 3.78 m/uL (3.80-5.40); RDW 12.7 % (11.5-15.5); WBC 6.3 k/uL (3.8-10.6)
--- NOTE | 2022-07-14 15:53 | P.PN ---
Subjective Progress Note Date: 07/14/22 Follow-up for hyponatremia. Objective - Vital Signs Vital signs: Vital Signs Temp 97.9 F 07/14/22 14:17 Pulse 84 07/14/22 15:09 Resp 17 07/14/22 14:17 BP 156/64 07/14/22 15:09 Pulse Ox 100 07/14/22 14:17 FiO2 Intake & Output 07/13/22 07/14/22 07/14/22 18:59 06:59 18:59 Intake Total 640 Balance 640 Intake: Intake, IV Titration 400 Amount Sodium Chloride 0.9% 1, 400 000 ml @ 50 mls/hr IV . Q20H [facility] Rx#:[id number] Oral 240 Other: Voiding Method Toilet # Voids 2 3 1 - Exam No acute distress S1-S2 heard Lungs clear No edema - Labs CBC & Chem 7: 07/14/22 04:43 07/14/22 04:43 Labs: Abnormal Lab Results - Last 24 Hours (Table) 07/14/22 07/14/22 Range/Units 04:43 04:43 RBC 3.78 L (3.80-5.40) m/uL Hgb 11.0 L (11.4-16.0) gm/dL Hct 33.0 L (34.0-46.0) % Sodium 131 L (135-145) mmol/L Microbiology - Last 24 Hours (Table) 07/11/22 17:23 Urine Culture - Final Urine,Voided Escherichia coli Assessment and Plan Assessment: #1 hypotonic, hypovolemic hyponatremia #2 diarrhea resolved #3 hypothyroidism #4 acute kidney injury improved with hydration Plan: #1 renal function improved. #2 sodium improving, tolerating diet. #3 stable from nephrology for discharge to be followed up in the office in 1-2 weeks with repeat labs
[2022-07-14] MEDS: SERTRALINE 100 MG TAB PO SCH (20:06)
[2022-07-14] MEDS: PRIMIDONE 25 MG TAB PO SCH (20:06)
--- NOTE | 2022-07-14 23:29 | P.PN ---
Subjective This is a pleasant 87 years old female with past medical history of Hearing Disorder / Deafness, Hyperlipidemia, Hypertension, Seizure Disorder, hyp othyroidism, R breast cancer with lumpectomy/radiation txs. The patient is hard of hearing Patient's presents because of dehydration, she states she had 3 bouts of diarrhea this week and had similar 3 episodes of diarrhea a week before, however her last area was 2 days ago and she is been constipated since then with no abdominal pain. She had low appetite but today she feels her appetite is much better. Also she's been complaining of from her urine with going often with little amount of urine but no red dysuria. She felt dizzy and about to pass out about one week or so. No chest pain or dyspnea or coughing. However on exam she has short systolic murmur. She denies headache dizziness weakness or numbness no smoking alcohol or illicit drugs Patient vitals are reviewed on admission, blood pressure is slightly elevated however she is afebrile Labs show an unremarkable CBC, INR. BMP showed sodium low at 121. Creatinine at baseline of 1.07. Previously level 0.7-1.0. Liver enzymes aren't elevated. Troponin is negative. Urine analysis is suspicious for infection or concentrated sample CT of the head and neck showing cerebral atrophy and chronic changes with no acute change and spondylotic changes in the cervical and C6-7 with no fracture and no significant change Chest x-ray showing there is mildinfiltrates at the lateral lung bases which are increased compared to the old exam. No heart failure in The emergency room patient received ceftriaxone and Zithromax And Received 1 L of Normal Saline Started on 50 ML/H 07/13/2022 Patient clinically improved and she is back to or close to baseline. Mentation is at baseline, generalized weakness improvement, urinary symptoms are minimal. Her blood pressure is improved. Sodium improved up to 132. She tolerates diet well Urine culture is growing E. coli and she is continued on ceftriaxone Also she's continued on normal saline 50 mL/h Patient informed that we increase the dose of levothyroxine 50 g of the 75 g, we think hypothyroidism on the top of nausea vomiting and UTI. The patient developed hypokalemia and hyponatremia, patient agrees with higher dose of levothyroxine. Possible discharge in 24-48 hours if she keeps improving 07/14/2022 Patient today was doing well She's more energetic more awake and alert, her urinary symptoms improved, no abdominal pain, no dizziness, she's well-hydrated Blood pressure was on the high side and hydrochlorothiazide was stopped, patient started on Norvasc. Also will resume her lisinopril 10 mg daily tomorrow Repeat chest x-ray showing atelectasis, however he wants to focus likely but not entirely exclude it. Patient no chest pain or dyspnea although has occasional coughing Patient can be continued on ceftriaxone for her UTI and will cover pulmonary infection, patient will be discharged on Ceftin 5 days. Patient was allowed to be discharged today when she reported persistent loose bowel movement twice daily therefore it and The patient for another 24 hours and we will check for C. diff Possible discharge in 24-48 hours Objective - Vital Signs Vital signs: Vital Signs Temp 97.7 F 07/14/22 07:00 Pulse 61 07/14/22 07:00 Resp 18 07/14/22 07:00 BP 182/77 07/14/22 07:00 Pulse Ox 98 07/14/22 07:00 FiO2 Intake & Output 07/13/22 07/14/22 07/14/22 18:59 06:59 18:59 Intake Total 640 Balance 640 Intake: Intake, IV Titration 400 Amount Sodium Chloride 0.9% 1, 400 000 ml @ 50 mls/hr IV . Q20H [facility] Rx#:[id number] Oral 240 Other: Voiding Method Toilet # Voids 2 3 1 - Exam GENERAL: The patient is alert and oriented x3, not in any acute distress. Well developed, well nourished. HEENT: Pupils are round and equally reacting to light. EOMI. No scleral icterus. No conjunctival pallor. Normocephalic, atraumatic. No pharyngeal erythema. No thyromegaly. CARDIOVASCULAR: S1 and S2 present. No murmurs, rubs, or gallops. PULMONARY: Chest is clear to auscultation, no wheezing or crackles. ABDOMEN: Soft, nontender, nondistended, normoactive bowel sounds. No palpable organomegaly. MUSCULOSKELETAL: No joint swelling or deformity. EXTREMITIES: No cyanosis, clubbing, or pedal edema. NEUROLOGICAL: Gross neurological examination did not reveal any focal deficits. SKIN: No rashes. no petechiae. - Labs CBC & Chem 7: 07/14/22 04:43 07/14/22 04:43 Labs: Abnormal Lab Results - Last 24 Hours (Table) 07/14/22 Range/Units 04:43 Sodium 131 L (135-145) mmol/L Microbiology - Last 24 Hours (Table) 07/11/22 17:23 Urine Culture - Final Urine,Voided Escherichia coli Assessment and Plan Assessment: Frequent diarrhea and dehydration, present on admission, currently improving greatly viral gastroenteritis versus reactive gastroenteritis acute urinary tract infection secondary to UTI Hyperthyroidism while on treatment with high TSH, dose increased to 75 g of levothyroxine slightly worsening infiltrates in the chest x-ray versus atelectasis, however patient clinically does not behave like pneumonia. Follow-up as an outpatient Hypertension Hyperlipidemia Hearing difficulty History of seizure disorder. Hypothyroidism History of ESBL UTI, last culture of the system lumps 2019 History of right breast cancer with lumpectomy/radiation txs Anxiety, depression, not an active issue Plan: Discontinue IV fluid Continue with ceftriaxone and switched to Ceftin upon discharge 5 days Nephrology consult is appreciated has cleared the patient for discharge Increase dose of levothyroxine to 75 g repeat chest x-ray in the morning Check for C. diff Start Norvasc and lisinopril 10 mg. Discontinue hydrochlorothiazide for hyponatremia Sodium level is improved Labs and medication were reviewed.. Continue same treatment. Continue with symptomatic treatment. Resume home medication. Monitor labs and vitals. DVT and GI prophylaxis. Further recommendations as per clinical course of the patient DVT prophylaxis: Subcutaneous heparin GI Prophylaxis: Pepcid discharge in 24-48 hours Plan discussed with the patient and she is agreeable
[2022-07-15 04:11] VITALS: PULSE 55
[2022-07-15] MEDS: LEVOTHYROXINE 50 MCG TAB PO SCH (05:40)
[2022-07-15 07:37] VITALS: BP 143/67; RESP 14; TEMP 97.3
[2022-07-15] MEDS ORDERED: amLODIPine 10 MG TAB PO SCH (09:00)
[2022-07-15] MEDS ORDERED: lisinopriL 10 MG TAB PO SCH (09:00)
[2022-07-15] MEDS: HEPARIN SODIUM,PORCINE/PF 5,000 UNIT/0.5 ML SYRINGE SQ SCH (09:58)
[2022-07-15] MEDS: THIAMINE 100 MG TAB PO SCH (09:59)
[2022-07-15] MEDS: FAMOTIDINE 20 MG TAB PO SCH (09:59)
[2022-07-15] MEDS: lamoTRIgine 100 MG TAB PO SCH (09:59)
[2022-07-15] MEDS: PRAVASTATIN SODIUM 20 MG TAB PO SCH (09:59)
[2022-07-15] MEDS: ASPIRIN 81 MG PO SCH (09:59)
[2022-07-15] MEDS: LACOSAMIDE 50 MG TABLET PO SCH (09:59)
== END 2022-07-15 14:16 | disposition home health service (06) | DRG 641 ==
LOC: EC 15:28 → 6NMEDSUR 19:26 → OBSVTOIN 07-12 11:09
PROVIDERS: ADMIT Hospitalist; ATTEND Hospitalist
DX: E87.1 Hypo-osmolality and hyponatremia (principal); J98.11 Atelectasis; N17.9 Acute kidney failure, unspecified; N39.0 Urinary tract infection, site not specified; E86.0 Dehydration; B96.20 Unspecified Escherichia coli [E. coli] as the cause of diseases classified elsewhere; A08.4 Viral intestinal infection, unspecified; E03.9 Hypothyroidism, unspecified; E78.5 Hyperlipidemia, unspecified; E86.1 Hypovolemia; I95.9 Hypotension, unspecified; E87.6 Hypokalemia; F32.A Depression, unspecified; F41.9 Anxiety disorder, unspecified; I10 Essential (primary) hypertension; K52.9 Noninfective gastroenteritis and colitis, unspecified; Z79.82 Long term (current) use of aspirin; Z79.890 Hormone replacement therapy; Z85.3 Personal history of malignant neoplasm of breast; Z87.440 Personal history of urinary (tract) infections; Z92.3 Personal history of irradiation; Z28.311 Partially vaccinated for COVID-19; Z79.899 Other long term (current) drug therapy; H91.93 Unspecified hearing loss, bilateral
CPT/HCPCS: 36415; 70450; 71046; 72125; 80048; 80051; 80053; 81001; 83605; 83935; 84145; 84300; 84439; 84443; 84484; 85025; 85027; 85610; 87077; 87086; 87186; 87324; 93005; 96361; 96365; 96368; 96375; 99285

== ENCOUNTER 2022-07-23 19:43 | Inpatient (IN) | payer MEDICARE ==
--- NOTE | 2022-07-23 20:30 | ED ---
General Adult HPI - General Chief complaint: Seizure Stated complaint: Seizure Time Seen by Provider: 07/23/22 20:07 Source: patient, EMS Mode of arrival: EMS Limitations: no limitations - History of Present Illness Initial comments: 87 year-old female presents to the emergency department via ems following an unwitnessed seizure. patient is a poor historian. She states all she remembers is having diarrhea all day. She has a history of seizures for which she takes lamotrigine. She is unsure which other medications she takes. Denies headache, shortness, chest pain. - Related Data Home Medications Medication Instructions Recorded Confirmed Pravastatin Sodium [Pravachol] 20 mg PO DAILY 10/15/18 07/12/22 Cholecalciferol [Vitamin D3 (25 25 mcg PO DAILY 05/04/22 07/12/22 Mcg = 1000 Iu)] Sertraline [Zoloft] 100 mg PO HS 05/04/22 07/12/22 Thiamine [Vitamin B-1] 100 mg PO DAILY 05/04/22 07/12/22 Ascorbic Acid [Vitamin C] 500 mg PO DAILY 07/12/22 07/12/22 Primidone [Mysoline] 25 mg PO HS 07/12/22 07/12/22 lamoTRIgine [LaMICtal] 100 mg PO BID 07/12/22 07/12/22 Previous Rx's Medication Instructions Recorded Aspirin 81 mg PO DAILY #30 tab 05/12/22 Lacosamide [Vimpat] 100 mg PO BID #30 tab 05/12/22 Levothyroxine Sodium [Euthyrox] 75 mcg PO DAILY #30 tablet 07/14/22 cefUROXime axetiL [Ceftin] 500 mg PO BID 5 Days #10 tab 07/14/22 lisinopriL [Prinivil] 10 mg PO DAILY #30 tab 07/14/22 amLODIPine [Norvasc] 10 mg PO DAILY #30 tab 07/15/22 Allergies Allergy/AdvReac Type Severity Reaction Status Date / Time No Known Allergies Allergy Verified 07/12/22 07:41 Review of Systems ROS Statement: Those systems with pertinent positive or pertinent negative responses have been documented in the HPI. ROS Other: All systems not noted in ROS Statement are negative. Past Medical History Past Medical History: Cancer, Hearing Disorder / Deafness, Hyperlipidemia, Hypertension, Seizure Disorder, Thyroid Disorder Additional Past Medical History / Comment(s): Seizures/lifelong, daughter states pt takes 1-2 days after a seizure to "come around", R breast cancer with lumpectomy/radiation txs, very [place] bilaterally/has hearing aides, past L femur fracture/no surgery, UTI, thyroid disease. History of Any Multi-Drug Resistant Organisms: ESBL Date of last positivie culture/infection: 11/08/18-E. coli ESBL MDRO Source:: Urine Past Surgical History: Breast Surgery, Cholecystectomy Additional Past Surgical History / Comment(s): R breast lumpectomy Past Anesthesia/Blood Transfusion Reactions: No Reported Reaction Past Psychological History: Anxiety, Depression Smoking Status: Never smoker Past Alcohol Use History: None Reported Past Drug Use History: None Reported - Past Family History Mother Family Medical History: CVA/TIA Additional Family Medical History / Comment(s): Heart problems Sister(s) Family Medical History: Cancer Additional Family Medical History / Comment(s): of lung cancer General Exam Limitations: no limitations General appearance: alert, in no apparent distress Head exam: Present: atraumatic, normocephalic, normal inspection Eye exam: Present: normal appearance, PERRL, EOMI. Absent: scleral icterus, conjunctival injection, periorbital swelling ENT exam: Present: normal exam, mucous membranes moist Neck exam: Present: normal inspection. Absent: tenderness, meningismus, lymphadenopathy Respiratory exam: Present: normal lung sounds bilaterally. Absent: respiratory distress, wheezes, rales, rhonchi, stridor Cardiovascular Exam: Present: regular rate, normal rhythm, normal heart sounds. Absent: systolic murmur, diastolic murmur, rubs, gallop, clicks GI/Abdominal exam: Present: soft, normal bowel sounds. Absent: distended, tenderness, guarding, rebound, rigid Extremities exam: Present: normal inspection, full ROM, normal capillary refill. Absent: tenderness, pedal edema, joint swelling, calf tenderness Neurological exam: Present: alert, oriented X3, CN II-XII intact Skin exam: Present: warm, dry, intact, normal color. Absent: rash Course Vital Signs 07/23/22 07/23/22 07/23/22 20:01 21:22 22:00 Temperature 97.8 F Pulse Rate 89 93 Respiratory 18 18 Rate Blood Pressure 162/72 141/73 O2 Sat by Pulse 99 93 L 100 Oximetry 07/23/22 07/23/22 22:44 23:26 Temperature Pulse Rate 88 Respiratory 18 Rate Blood Pressure 147/68 O2 Sat by Pulse 96 96 Oximetry Medical Decision Making - Medical Decision Making Was pt. sent in by a medical professional or institution (INDER yAon, NARCOTICS AGENT, urgent care, hospital, or skilled nursing...) When possible be specific @ -No Did you speak to anyone other than the patient for history (EMS, parent, family, police, friend...)? What history was obtained from this source @ -History obtained from EMS, unwitnessed seizure] Did you review nursing and triage notes (agree or disagree)? Why? @ -I reviewed and agree with nursing and triage notes Were old charts reviewed (outside hosp., previous admission, EMS record, old EKG, old radiological studies, urgent care reports/EKG's, skilled nursing records)? Report findings @ -Charts from prior admission reviewed. Differential Diagnosis (chest pain, altered mental status, abdominal pain women, abdominal pain men, vaginal bleeding, weakness, fever, dyspnea, syncope, headache, dizziness, GI bleed, back pain, seizure, CVA, palpatations, mental health, musculoskeletal)? @ -Differential Seizure: Recurrent seizure disorder, febrile seizure, alcohol withdrawal, stimulants, meningitis, encephalitis, intercranial hemorrhage, intracranial tumor, stroke, eclampsia, thyrotoxicosis, hypocalcemia, hyponatremia, hypernatremia, hypomagnesemia, psychogenic, this is not meant to be an all-inclusive list. EKG interpreted by me (3pts min.). @ -EKG at 20:50 rate of 79, QRS 70, QTQTc [id number] X-rays interpreted by me (1pt min.). @ -X-ray chest shows no acute cardiopulmonary process CT interpreted by me (1pt min.). @ -CT brain shows chronic vessel disease with no acute process CT neck shows no acute fractures U/S interpreted by me (1pt. min.). @ -None done What testing was considered but not performed or refused? (CT, X-rays, U/S, labs)? Why? @ -None What meds were considered but not given or refused? Why? @ -None Did you discuss the management of the patient with other professionals (professionals i.e. Dr., PA, NARCOTICS AGENT, lab, RT, psych nurse, psychologist social, yarn dyer, teacher, precinct commanding officer, case liner)? Give summary @ -No Was smoking cessation discussed for >3mins.? @ -No Was critical care preformed (if so, how long)? @ -No Were there social determinants of health that impacted care today? How? (Homelessness, low income, unemployed, alcoholism, drug addiction, transportation, low edu. Level, literacy, decrease access to med. care, longterm, rehab)? @ -No Was there de-escalation of care discussed even if they declined (Discuss DNR or withdrawal of care, Hospice)? DNR status @ -No What co-morbidities impacted this encounter? (DM, HTN, Smoking, COPD, CAD, Cancer, CVA, ARF, Chemo, Hep., AIDS, mental health diagnosis, sleep apnea, morbid obesity)? @ -None Was patient admitted / discharged? Hospital course, mention meds given and route, prescriptions, significant lab abnormalities, going to OR and other pertinent info. @ -Discharged. Patient presented via EMS for an unwitnessed seizure. Patient has a history of seizures for which she takes lamotrigine. EKG was performed. CT brain and neck shows no acute findings. CBC and CMP remained stable prior admission. An O2 sat of 76 was reported by nurse. Patient had no symptoms at the time. Patient underwent chest xray which showed no acute findings. Patient was placed on 2L of oxygen and was satting at 100%. She was taken off O2 and her oxygen remained stable on room air at 96%. Reported hypoxic event was likely clinical error. She has no dyspnea. Patient is stable at time of discharge. Undiagnosed new problem with uncertain prognosis? @ -No Drug Therapy requiring intensive monitoring for toxicity (Heparin, Nitro, Insulin, Cardizem)? @ -No Were any procedures done? @ -No Diagnosis/symptom? @ -seizure Acute, or Chronic, or Acute on Chronic? @ -acute Uncomplicated (without systemic symptoms) or Complicated (systemic symptoms)? @ -uncomplicated Side effects of treatment? @ -No Exacerbation, Progression, or Severe Exacerbation? @ -No Poses a threat to life or bodily function? How? (Chest pain, [place], [place], pneumonia, PE, COPD, DKA, ARF, appy, cholecystitis, CVA, Diverticulitis, Homicidal, Suicidal, threat to staff... and all critical care pts) @ -No - Lab Data Result diagrams: 07/23/22 20:54 07/23/22 20:54 Lab Results 07/23/22 07/23/22 Range/Units 20:54 20:54 WBC 5.8 (3.8-10.6) k/uL RBC 3.81 (3.80-5.40) m/uL Hgb 11.2 L (11.4-16.0) gm/dL Hct 33.4 L (34.0-46.0) % MCV 87.6 (80.0-100.0) fL MCH 29.4 (25.0-35.0) pg MCHC 33.5 (31.0-37.0) g/dL RDW 13.3 (11.5-15.5) % Plt Count 211 (150-450) k/uL MPV 8.0 Neutrophils % 66 % Lymphocytes % 17 % Monocytes % 11 % Eosinophils % 2 % Basophils % 1 % Neutrophils # 3.8 (1.3-7.7) k/uL Lymphocytes # 1.0 (1.0-4.8) k/uL Monocytes # 0.7 (0-1.0) k/uL Eosinophils # 0.1 (0-0.7) k/uL Basophils # 0.1 (0-0.2) k/uL Manual Slide Review Performed Sodium 132 L (137-145) mmol/L Potassium 5.0 (3.5-5.1) mmol/L Chloride 98 (98-107) mmol/L Carbon Dioxide 26 (22-30) mmol/L Anion Gap 8 mmol/L BUN 21 H (7-17) mg/dL Creatinine 0.87 (0.52-1.04) mg/dL Est GFR (CKD-EPI)AfAm 70 (>60 ml/min/1.73 sqM) Est GFR (CKD-EPI)NonAf 61 (>60 ml/min/1.73 sqM) Glucose 128 H (74-99) mg/dL Calcium 8.9 (8.4-10.2) mg/dL Magnesium 1.9 (1.6-2.3) mg/dL Total Bilirubin 0.3 (0.2-1.3) mg/dL AST 24 (14-36) U/L ALT 18 (4-34) U/L Alkaline Phosphatase 57 (38-126) U/L Total Protein 7.0 (6.3-8.2) g/dL Albumin 4.3 (3.5-5.0) g/dL Disposition Clinical Impression: Seizure disorder, Seizure Disposition: HOME SELF-CARE Condition: Stable Instructions (If sedation given, give patient instructions): Recurrent Seizures in Adults (ED) Additional Instructions: Please return to the Emergency Department if symptoms worsen or any other concerns. Is patient prescribed a controlled substance at d/c from ED?: No Referrals: Tania Eagle MD [Primary Care Provider] - 1-2 days Time of Disposition: 23:59
[2022-07-23 21:20] LABS: Basophils # (A) 0.1 k/uL (0-0.2); Basophils % (A) 1 %; Eosinophils # (A) 0.1 k/uL (0-0.7); Eosinophils % (A) 2 %; HCT 33.4 % (34.0-46.0); HGB 11.2 gm/dL (11.4-16.0); Lymphocytes % (A) 17 %; MCH 29.4 pg (25.0-35.0); MCHC 33.5 g/dL (31.0-37.0); MCV 87.6 fL (80.0-100.0); Monocytes # (A) 0.7 k/uL (0-1.0); Monocytes % (A) 11 %; Neutrophils # (A) 3.8 k/uL (1.3-7.7); Neutrophils % (A) 66 %; Platelet Count 211 k/uL (150-450); RBC 3.81 m/uL (3.80-5.40); RDW 13.3 % (11.5-15.5); WBC 5.8 k/uL (3.8-10.6)
--- NOTE | 2022-07-23 21:27 | CT ---
EXAMINATION TYPE: CT brain david wo con DATE OF EXAM: 07/23/2022 COMPARISON: 07/11/2022 HISTORY: AMS, SEIZURE CT DLP: 1400.[address] of the brain was performed. The ventricles, basal cisterns and sulci overlying the cerebral convexities demonstrate mild enlargem ent. There is no evidence for intracranial hemorrhage or sulcal effacement. There is decreased attenuatio n about the periventricular white matter and deep white matter of both cerebral hemispheres, compatib le with chronic small vessel ischemia. No mass effects are seen. If symptoms persist consider MRI. Osseous calvarium is intact. IMPRESSION: 1. Age related atrophic and chronic small vessel ischemic change without acute intracranial process seen at this time. CT Cervical Spine: Unenhanced CT of the cervical spine was performed with bone and soft tissue window settings submitted . Coronal and sagittal reconstruction is obtained. There is normal alignment and prevertebral soft tissues. No evidence for acute cervical fracture . Scattered degenerative disc disease and spondylosis. Biapical scarring. IMPRESSION: 1. No evidence for acute fracture or subluxation of the cervical spine.
[2022-07-23 21:35] LABS: Albumin 4.3 g/dL (3.5-5.0); Calcium 8.9 mg/dL (8.4-10.2); Magnesium 1.9 mg/dL (1.6-2.3); Total Bilirubin 0.3 mg/dL (0.2-1.3)
--- NOTE | 2022-07-23 22:59 | XR ---
EXAMINATION TYPE: XR chest 2V DATE OF EXAM: 07/23/2022 COMPARISON: 07/14/22 HISTORY: Shortness of breath TECHNIQUE: Frontal and lateral views of the chest are obtained. FINDINGS: Scattered senescent parenchymal changes noted. Hyperinflation compatible with COPD. No evidence for infiltrate. No evidence for atelectasis. Heart size is stable. Mediastinal structures are stable and grossly unremarkable. No evidence for hilar prominence. Degenerative changes dorsal spine. IMPRESSION: 1. No evidence for acute pulmonary disease.
[2022-07-24] MEDS ORDERED: NALOXONE 0.4 MG/ML 1 ML VIAL IV PRN (00:52)
[2022-07-24] MEDS ORDERED: ONDANSETRON 4 MG/2 ML VIAL IVP PRN (00:52)
--- NOTE | 2022-07-24 00:52 | ED ---
Medical Decision Making - Medical Decision Making 87 female who presented today for seizure-like activity, patient was seen and evaluated here in emergency department deemed stable for discharge home upon discharge her discharge orders patient daughter did call who wasn't comfortable with patient being discharged home wanted patient's seizure medications to be evaluated here in our hospital and found out cause of patient's epileptic or emergent seizure - Lab Data Result diagrams: 07/23/22 20:54 07/23/22 20:54 Lab Results 07/23/22 07/23/22 Range/Units 20:54 20:54 WBC 5.8 (3.8-10.6) k/uL RBC 3.81 (3.80-5.40) m/uL Hgb 11.2 L (11.4-16.0) gm/dL Hct 33.4 L (34.0-46.0) % MCV 87.6 (80.0-100.0) fL MCH 29.4 (25.0-35.0) pg MCHC 33.5 (31.0-37.0) g/dL RDW 13.3 (11.5-15.5) % Plt Count 211 (150-450) k/uL MPV 8.0 Neutrophils % 66 % Lymphocytes % 17 % Monocytes % 11 % Eosinophils % 2 % Basophils % 1 % Neutrophils # 3.8 (1.3-7.7) k/uL Lymphocytes # 1.0 (1.0-4.8) k/uL Monocytes # 0.7 (0-1.0) k/uL Eosinophils # 0.1 (0-0.7) k/uL Basophils # 0.1 (0-0.2) k/uL Manual Slide Review Performed Sodium 132 L (137-145) mmol/L Potassium 5.0 (3.5-5.1) mmol/L Chloride 98 (98-107) mmol/L Carbon Dioxide 26 (22-30) mmol/L Anion Gap 8 mmol/L BUN 21 H (7-17) mg/dL Creatinine 0.87 (0.52-1.04) mg/dL Est GFR (CKD-EPI)AfAm 70 (>60 ml/min/1.73 sqM) Est GFR (CKD-EPI)NonAf 61 (>60 ml/min/1.73 sqM) Glucose 128 H (74-99) mg/dL Calcium 8.9 (8.4-10.2) mg/dL Magnesium 1.9 (1.6-2.3) mg/dL Total Bilirubin 0.3 (0.2-1.3) mg/dL AST 24 (14-36) U/L ALT 18 (4-34) U/L Alkaline Phosphatase 57 (38-126) U/L Total Protein 7.0 (6.3-8.2) g/dL Albumin 4.3 (3.5-5.0) g/dL Disposition Clinical Impression: Seizure disorder, Seizure, Epileptic seizure, generalized, Post-ictal state, Dehydration Disposition: ADMITTED IP TO THIS HOSP Condition: Fair Is patient prescribed a controlled substance at d/c from ED?: No
[2022-07-24 01:11] LABS: Appearance,Urine Clear (Clear); Bilirubin,Urine Negative (Negative); Blood,Urine Negative (Negative); Color,Urine Colorless; Glucose,Urine (UA) Negative (Negative); Ketones,Urine Negative (Negative); Leukocyte Esterase,Urine Negative (Negative); Nitrite,Urine Negative (Negative); Protein,Urine Negative (Negative); Specific Gravity,Urine 1.005 (1.001-1.035); Urobilinogen,Urine <2.0 mg/dL (<2.0)
[2022-07-24] MEDS: SODIUM CHLORIDE 0.9% 1,000 ML IV SCH ×3 (02:30→18:15)
[2022-07-24] MEDS ORDERED: LACOSAMIDE 50 MG TABLET PO SCH (11:00)
--- NOTE | 2022-07-24 11:19 | P.CNNES ---
History of Present Illness Consult date: 07/24/22 Requesting physician: Andres Chavez Reason for Consult: recurrent seizure History of Present Illness: This is an 7-year-old woman with history of epilepsy, deafness, hypertension who presented to the emergency department because of a witnessed seizure. She is a poor historian. She notified me that she had a seizure and that is why she is here. She stated she is compliant with her medications but could not tell me names. She is known to our neurology service because of the breakthrough seizures and was last seen by our team on 05/11/2022 and it seems that she remembers having diarrhea all day yesterday and unsure if she was taken her antiseizure medication or not according to the ED note. She is feeling better now. She has severe hard of hearing and her hearing aids are not working. Her last evaluation by our team (Dr. Montanez), recommended to continue the Lamictal 150 motor 1 tablet twice a day and the increased her Vimpat to 100 mg 1 tablet that twice a day. But upon reviewing the patient's home medication on EMR is seems the patient is on Lamictal 100 mg a tablet twice a day and the cause some eye 100 mg tablet twice a day. I'm not sure if the her Lamictal was weaned down prior to discharge or that was adjusted as an outpatient. Of note her most recent EEG in our facility was on 05/07/2022 which showed epileptiform activity involving predominantly right frontal region and sometimes synchronous involving bilateral frontal very involving left frontal region. This is suggestive of underlying cortical irritability and tendency for seizure. Most recent MRI of the brain on 05/12/2022 was reported as no change from 05/07/2022. No evidence of intracranial mass or acute/subacute infarct. Nonspecific white matter changes likely secondary to small vessel ischemic changes. Of note in the past she had CT of the head which the revealed the hypodensity over left cerebellar as well as bilateral frontal but she then she had MRI the brain which shows nonspecific white matter lesions. And no evidence of any acute or subacute stroke. Please refer to Dr. Montanez's note for further details. Some of the workup during his hospital visit consisted of: Sodium was 132, glucose 128, BUN is 21 and the rest of the cancer panel is unremarkable. CT of the head is reported as age-related atrophy and chronic small vessel ischemic change without acute intracranial process seen at this time. CT cervical spine is reported as no evidence for acute fracture or subluxation of the cervical spine. Review of Systems Review of system: The 12 point system was reviewed and apparent positive and negative per HPI. Past Medical History Past Medical History: Cancer, Hearing Disorder / Deafness, Hyperlipidemia, Hypertension, Seizure Disorder, Thyroid Disorder Additional Past Medical History / Comment(s): Seizures/lifelong, daughter states pt takes 1-2 days after a seizure to "come around", R breast cancer with lumpectomy/radiation txs, very [place] bilaterally/has hearing aides, past L femur fracture/no surgery, UTI, thyroid disease. History of Any Multi-Drug Resistant Organisms: ESBL Date of last positivie culture/infection: 11/08/18-E. coli ESBL MDRO Source:: Urine Past Surgical History: Breast Surgery, Cholecystectomy Additional Past Surgical History / Comment(s): R breast lumpectomy Past Anesthesia/Blood Transfusion Reactions: No Reported Reaction Past Psychological History: Anxiety, Depression Additional Psychological History / Comment(s): Pt resides with spouse at [facility] as sitive living. They moved here recently from [facility]. Kyra Darling, states pt has staff managing her medications. Phong states pt is normally AXOX2-3 but that her confusion is increasing. 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 Kyra states pt's spouse has heart problem/pacemaker but otherwise, is doing fairly well. Smoking Status: Never smoker Past Alcohol Use History: None Reported Past Drug Use History: None Reported - Past Family History Mother Family Medical History: CVA/TIA Additional Family Medical History / Comment(s): Heart problems Sister(s) Family Medical History: Cancer Additional Family Medical History / Comment(s): of lung cancer Medications and Allergies Home Medications Medication Instructions Recorded Confirmed Type Pravastatin Sodium [Pravachol] 20 mg PO DAILY 10/15/18 07/24/22 History Cholecalciferol [Vitamin D3 (25 25 mcg PO DAILY 05/04/22 07/24/22 History Mcg = 1000 Iu)] Sertraline [Zoloft] 100 mg PO HS 05/04/22 07/24/22 History Thiamine [Vitamin B-1] 100 mg PO DAILY 05/04/22 07/24/22 History Aspirin 81 mg PO DAILY #30 tab 05/12/22 07/24/22 Rx Lacosamide [Vimpat] 100 mg PO BID #30 tab 05/12/22 07/24/22 Rx Ascorbic Acid [Vitamin C] 500 mg PO DAILY 07/12/22 07/24/22 History Primidone [Mysoline] 25 mg PO HS 07/12/22 07/24/22 History lamoTRIgine [LaMICtal] 100 mg PO BID 07/12/22 07/24/22 History Levothyroxine Sodium [Euthyrox] 75 mcg PO DAILY #30 tablet 07/14/22 07/24/22 Rx lisinopriL [Prinivil] 10 mg PO DAILY #30 tab 07/14/22 07/24/22 Rx amLODIPine [Norvasc] 10 mg PO DAILY #30 tab 07/15/22 07/24/22 Rx Allergies Allergy/AdvReac Type Severity Reaction Status Date / Time No Known Allergies Allergy Verified 07/24/22 06:50 Physical Examination - Vital Signs Vital Signs: Vital Signs Temp Pulse Pulse Resp BP BP Pulse Ox 07/24/22 07:00 98.3 F 68 18 142/63 98 07/24/22 02:00 99 F 72 16 158/69 98 07/24/22 00:11 89 18 149/69 98 07/23/22 23:26 88 18 147/68 96 07/23/22 22:44 96 07/23/22 22:00 93 18 141/73 100 07/23/22 21:22 93 L 07/23/22 20:01 97.8 F 89 18 162/72 99 Intake and Output 07/23/22 07/24/22 07/24/22 22:59 06:59 14:59 Output Total 0 Balance 0 Output: Urine 0 Other: Voiding Method Diaper External Catheter Weight 57.153 kg 57.153 kg GENERAL: The patient is sitting in a recliner chair and is not in acute distress. CHEST: The heart rate is regular rate rhythm. No murmurs to auscultation. LUNG: Clear to auscultation bilaterally no wheezing noted throughout. Not labored breathing. ABDOMEN/GI: Bowel sounds present in all 4 quadrants. No tenderness to palpation throughout. NEUROLOGICAL: Limited because of cooperation. Higher mental function: The patient is awake, alert, oriented to self and place. Could not tell me date. For naming objects for watch stated time and for pen could not name it. Has some word finding difficulty. No neglect. Cranial nerves: The pupils are round, equal and reactive to light. Visual bunch are full to confrontation throughout. Extraocular movement is intact no nystagmus is noted. Facial sensation is normal to touch throughout. The facial strength is normal throughout. Hearing is severely decreased bilaterally. Tongue is midline and moved [id number] without any difficulty. No dysarthria is noted. Shoulder shrug is normal bilaterally. Has some tremor of head. Motor: The strength is 5 over 5 throughout. Normal tone and bulk. Cerebellum: Normal finger to nose bilaterally. Sensation: Sensation is normal to touch throughout. Reflexes (right/left): 1+ throughout. Plantars are mute bilaterally. Results - Laboratory Findings CBC and BMP: 07/23/22 20:54 07/23/22 20:54 Abnormal Lab Findings: Abnormal Labs 07/23/22 07/23/22 20:54 20:54 Hgb 11.2 L Hct 33.4 L Sodium 132 L BUN 21 H Glucose 128 H Assessment and Plan Assessment: Breakthrough seizure. Seems not on maximum therapeutic dose for antiseizure (in 04/2022 we recommended Lamictal of 150mg bid and Vimpat 100mg bid but per EMR home medication she is on Lamictal 100mg bid). 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 History of breast cancer Deafness Hypertension Hyperlipidemia Plan: I'll increase her Lamictal back to 150 mg 1 tablet twice a day as a recommended on the April 2022 recommendation. I will also go up on the the Vimpat, 100 mg 1 tablet twice a day 250 mg 1 tablet twice a day. Let Lamictal level is ordered by the ED team is pending I ordered lacosamide level as well. Placed on seizure precautions seizure pads. Patient had EEGs in the past in our facility and the most recent was in April 2022. Currently she is doing better so there is no need for a repeat EEG. I would recommend a prolonged EEG as an outpatient such as epilepsy monitoring unit and for the patient to be off of medication or to be weaned off of some of her medication while getting the testing to capture her seizures and localize the seizures. We'll defer the rest of the medical management to the primary team Recommend the patient to follow-up with a neurologist in outpatient within 1-2 weeks The plan is discussed with her nurse. Thank you for the consultation Time with Patient: Greater than 30
[2022-07-24] MEDS: LACOSAMIDE 50 MG TABLET PO SCH ×3 (12:40→21:47)
[2022-07-24] MEDS: lamoTRIgine 25 MG TAB PO SCH ×3 (12:40→21:47)
[2022-07-24] MEDS: lamoTRIgine 100 MG TAB PO SCH ×3 (12:41→21:47)
[2022-07-24] MEDS ORDERED: HYDROcodone/APAP 5-325MG 1 EACH TAB PO PRN (13:49)
[2022-07-24] MEDS ORDERED: SODIUM CHLORIDE 0.9% 1,000 ML IV SCH (23:45)
--- NOTE | 2022-07-24 23:48 | P.HPIM ---
History of Present Illness H&P Date: 07/24/22 Chief Complaint: Seizures Patient is a 87-year-old female with a known history of seizure disorder, hyperlipidemia, hypothyroidism, dementia, anxiety/depression was brought to the hospital from shelter facility due to witnessed seizure. Patient is awake alert but could not provide any history. Patient is also hard of hearing. Patient was previously admitted to the hospital due to breakthrough seizures. Currently on Vimpat and Lamictal. Daily medications will be provided by the facility. Otherwise patient has been afebrile. No nausea vomiting or diarrhea. Denies any recent illnesses. No complaints of chest pain or shortness of breath. CT head and cervical spine showed age-related atrophy and chronic small vessel ischemic change without acute intracranial process seen at this time. CT cervical spine showed no evidence of acute fracture or dislocation or subluxation of the cervical spine. EKG showed supple regular rhythm. Chest x-ray showed no acute pulmonary disease. Laboratory showed WBC 5.8 hemoglobin 11.2 and platelets 211 Sodium 132 potassium 5.0 chloride 98 bicarb is 26 BUN 21 and creatinine 0.87 and blood sugar is 128 liver enzymes are not elevated. Urinalysis is negative for infection. Review of Systems Constitutional: Patient denies any fever or chills . no Generalized weakness. Abdomen: Patient denied any nausea or vomiting or abd. pain Cardiovascular: Patient denies any chest pain or short of breath no palpitations. Respiratory: patient denied any cough . no sputum production. No shortness of breath Neurologic: Patient denied any numbness or tingling headache. Musculoskeletal: Patient denies any complaints of joint swelling or deformity. Skin: Negative Psychiatric: Negative Endocrine: No heat or cold intolerance. No recent weight gain. Genitourinary: No dysuria or hematuria. All other 14 point ROS negative except the above Past Medical History Past Medical History: Cancer, Hearing Disorder / Deafness, Hyperlipidemia, Hypertension, Seizure Disorder, Thyroid Disorder Additional Past Medical History / Comment(s): Seizures/lifelong, daughter states pt takes 1-2 days after a seizure to "come around", R breast cancer with l umpectomy/radiation txs, very [place] bilaterally/has hearing aides, past L femur fracture/no surgery, UTI, thyroid disease. History of Any Multi-Drug Resistant Organisms: ESBL Date of last positivie culture/infection: 11/08/18-E. coli ESBL MDRO Source:: Urine Past Surgical History: Breast Surgery, Cholecystectomy Additional Past Surgical History / Comment(s): R breast lumpectomy Past Anesthesia/Blood Transfusion Reactions: No Reported Reaction Past Psychological History: Anxiety, Depression Additional Psychological History / Comment(s): Pt resides with spouse at [facility]. They moved here recently from [facility]. Phong Kyra, states pt has staff managing her medications. Phong states pt is normally AXOX2-3 but that her confusion is increasing. 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 Kyra states pt's spouse has heart problem/pacemaker but otherwise, is doing fairly well. Smoking Status: Never smoker Past Alcohol Use History: None Reported Past Drug Use History: None Reported - Past Family History Mother Family Medical History: CVA/TIA Additional Family Medical History / Comment(s): Heart problems Sister(s) Family Medical History: Cancer Additional Family Medical History / Comment(s): of lung cancer Medications and Allergies Home Medications Medication Instructions Recorded Confirmed Type Pravastatin Sodium [Pravachol] 20 mg PO DAILY 10/15/18 07/24/22 History Cholecalciferol [Vitamin D3 (25 25 mcg PO DAILY 05/04/22 07/24/22 History Mcg = 1000 Iu)] Sertraline [Zoloft] 100 mg PO HS 05/04/22 07/24/22 History Thiamine [Vitamin B-1] 100 mg PO DAILY 05/04/22 07/24/22 History Aspirin 81 mg PO DAILY #30 tab 05/12/22 07/24/22 Rx Lacosamide [Vimpat] 100 mg PO BID #30 tab 05/12/22 07/24/22 Rx Ascorbic Acid [Vitamin C] 500 mg PO DAILY 07/12/22 07/24/22 History Primidone [Mysoline] 25 mg PO HS 07/12/22 07/24/22 History lamoTRIgine [LaMICtal] 100 mg PO BID 07/12/22 07/24/22 History Levothyroxine Sodium [Euthyrox] 75 mcg PO DAILY #30 tablet 07/14/22 07/24/22 Rx lisinopriL [Prinivil] 10 mg PO DAILY #30 tab 07/14/22 07/24/22 Rx amLODIPine [Norvasc] 10 mg PO DAILY #30 tab 07/15/22 07/24/22 Rx Allergies Allergy/AdvReac Type Severity Reaction Status Date / Time No Known Allergies Allergy Verified 07/24/22 06:50 Physical Exam Vitals: Vital Signs Temp Pulse Pulse Resp BP BP Pulse Ox 07/24/22 08:00 18 07/24/22 07:00 98.3 F 68 18 142/63 98 07/24/22 02:00 99 F 72 16 158/69 98 07/24/22 00:11 89 18 149/69 98 07/23/22 23:26 88 18 147/68 96 07/23/22 22:44 96 07/23/22 22:00 93 18 141/73 100 07/23/22 21:22 93 L 07/23/22 20:01 97.8 F 89 18 162/72 99 Intake and Output 07/23/22 07/24/22 07/24/22 22:59 06:59 14:59 Intake Total 118 Output Total 0 Balance 0 118 Intake: Oral 118 Output: Urine 0 Other: Voiding Method Diaper Diaper External Catheter External Catheter Weight 57.153 kg 57.153 kg PHYSICAL EXAMINATION: Patient is lying in the bed comfortably, no acute distress, awake alert and oriented x2.. Hard of hearing. HEENT: Normocephalic. Neck is supple. Pupils reactive. Nostrils clear. Oral cavity is moist. Neck reveals no JVD, carotid bruits, or thyromegaly. CHEST EXAMINATION: Trachea is central. Symmetrical expansion. Lung bunch clear to auscultation and percussion. CARDIAC: Normal S1, S2 with no gallops. No murmurs ABDOMEN: Soft. Bowel sounds present. Nontender. No organomegaly. No abdominal bruits. Extremities: reveal no edema. No clubbing or cyanosis Neurologically awake, alert, oriented x2 . Able to move all extremities. No gross focal neurological deficit. Skin: No rash or skin lesions. Psychiatric: Coperative. Nonsuicidal, Musculoskeletal: No joint swelling or deformity. Normal range of motion. Results CBC & Chem 7: 07/23/22 20:54 07/23/22 20:54 Labs: Abnormal Lab Results - Last 24 Hours (Table) 07/23/22 07/23/22 Range/Units 20:54 20:54 Hgb 11.2 L (11.4-16.0) gm/dL Hct 33.4 L (34.0-46.0) % Sodium 132 L (137-145) mmol/L BUN 21 H (7-17) mg/dL Glucose 128 H (74-99) mg/dL Thrombosis Risk Factor Assmnt - DVT/VTE Prophylaxis DVT/VTE Prophylaxis: Pharmacologic Prophylaxis ordered Assessment and Plan Assessment: Acute breakthrough seizures History of epilepsy since childhood. History of breast cancer Hypertension Hearing disorder/deafness Cognitive impairment Hyperlipidemia DVT prophylaxis with heparin subcu Plan: Patient was started back on antiepileptic medications Lamictal and Vimpat. Started on Lamictal 150 mg twice daily and Vimpat. Neurology is on board. Continue with seizure precautions and fall precautions. Lamictal level was ordered in the ER. Continue with home medications and follow-up closely. Neurology recommends prolonged EEG as an outpatient. Discussed with the patient and her daughter at bedside in detail. Time with Patient: Greater than 30
[2022-07-25] MEDS: HEPARIN SODIUM,PORCINE/PF 5,000 UNIT/0.5 ML SYRINGE SQ SCH ×4 (01:59→22:54)
[2022-07-25] MEDS: lisinopriL 10 MG TAB PO SCH ×2 (02:42→09:10)
[2022-07-25] MEDS ORDERED: MELATONIN 3 MG TABLET PO PRN (03:00)
[2022-07-25] MEDS: LEVOTHYROXINE 75 MCG TAB PO SCH (05:35)
[2022-07-25] MEDS: THIAMINE 100 MG TAB PO SCH (09:06)
[2022-07-25] MEDS: PRAVASTATIN SODIUM 20 MG TAB PO SCH (09:06)
[2022-07-25] MEDS: ASCORBIC ACID 500 MG TAB PO SCH (09:06)
[2022-07-25] MEDS: lamoTRIgine 25 MG TAB PO SCH ×2 (09:06→21:38)
[2022-07-25] MEDS: ASPIRIN 81 MG PO SCH (09:07)
[2022-07-25] MEDS: CHOLECALCIFEROL 25 MCG (1000 IU) TABLET PO SCH (09:07)
[2022-07-25] MEDS: lamoTRIgine 100 MG TAB PO SCH ×2 (09:07→21:37)
[2022-07-25] MEDS: amLODIPine 10 MG TAB PO SCH (09:07)
[2022-07-25] MEDS: LACOSAMIDE 50 MG TABLET PO SCH ×2 (09:10→21:37)
[2022-07-25 11:39] LABS: Basophils # (A) 0.1 k/uL (0-0.2); Basophils % (A) 1 %; Eosinophils # (A) 0.1 k/uL (0-0.7); Eosinophils % (A) 1 %; HCT 38.5 % (34.0-46.0); HGB 12.8 gm/dL (11.4-16.0); Lymphocytes # (A) 0.9 k/uL (1.0-4.8); Lymphocytes % (A) 11 %; MCH 28.9 pg (25.0-35.0); MCHC 33.1 g/dL (31.0-37.0); MCV 87.3 fL (80.0-100.0); Mean Platelet Volume 6.8; Monocytes # (A) 0.6 k/uL (0-1.0); Monocytes % (A) 7 %; Neutrophils # (A) 6.5 k/uL (1.3-7.7); Neutrophils % (A) 79 %; Platelet Count 283 k/uL (150-450); RBC 4.41 m/uL (3.80-5.40); RDW 13.2 % (11.5-15.5); WBC 8.3 k/uL (3.8-10.6)
[2022-07-25 12:10] LABS: ALT 21 U/L (4-34); AST 28 U/L (14-36); African American GFR (CKD) 73 (>60 ml/min/1.73 sqM); Albumin 4.4 g/dL (3.5-5.0); Albumin/Globulin Ratio 1.5; Alkaline Phosphatase 75 U/L (38-126); Anion Gap 11 mmol/L; Blood Urea Nitrogen 14 mg/dL (7-17); Calcium 9.5 mg/dL (8.4-10.2); Carbon Dioxide 23 mmol/L (22-30); Chloride 101 mmol/L (98-107); Glucose 165 mg/dL (74-99); Magnesium 1.8 mg/dL (1.6-2.3); Non-African American GFR(CKD) 63 (>60 ml/min/1.73 sqM); Phosphorus 3.4 mg/dL (2.5-4.5); Potassium 4.5 mmol/L (3.5-5.1); Sodium 135 mmol/L (137-145); Total Bilirubin 0.6 mg/dL (0.2-1.3); Total Protein 7.4 g/dL (6.3-8.2)
--- NOTE | 2022-07-25 14:05 | P.PN ---
Subjective Progress Note Date: 07/25/22 Patient seen at sitting in a recliner chair and feels doing well. Denies of any weakness, headaches. Objective - Vital Signs Vital signs: Vital Signs Temp 97.6 F 07/25/22 09:00 Pulse 86 07/25/22 11:14 Resp 18 07/25/22 09:00 BP 156/65 07/25/22 11:14 Pulse Ox 95 07/25/22 11:14 FiO2 21 07/24/22 08:20 Intake & Output 07/24/22 07/25/22 07/25/22 18:59 06:59 18:59 Intake Total 118 118 Balance 118 118 Intake: Oral 118 118 Other: Voiding Method Diaper Toilet Toilet External Catheter Diaper Diaper # Voids 2 1 # Bowel Movements 1 - Exam GENERAL: The patient is sitting in a recliner chair and is not in acute distress. NEUROLOGICAL: Limited because of cooperation. Higher mental function: The patient is awake, alert, oriented to self and place. Could not tell me date. Has minimal word finding difficulty. No neglect. Cranial nerves: The pupils are round, equal and reactive to light. Visual bunch are full to confrontation throughout. Extraocular movement is intact no nystagmus is noted. Facial sensation is normal to touch throughout. The facial strength is normal throughout. Hearing is severely decreased bilaterally. Tongue is midline and moved [id number] without any difficulty. No dysarthria is noted. Shoulder shrug is normal bilaterally. Has some tremor of head. Motor: The strength is 5 over 5 throughout. Normal tone and bulk. Cerebellum: Normal finger to nose bilaterally. Sensation: Sensation is normal to touch throughout. . Some of the workup during his hospital visit consisted of: Sodium was 132, glucose 128, BUN is 21 and the rest of the cancer panel is unremarkable. CT of the head is reported as age-related atrophy and chronic small vessel ischemic change without acute intracranial process seen at this time. CT cervical spine is reported as no evidence for acute fracture or subluxation of the cervical spine. - Labs CBC & Chem 7: 07/25/22 10:56 07/25/22 10:56 Labs: Abnormal Lab Results - Last 24 Hours (Table) 07/25/22 07/25/22 Range/Units 10:56 10:56 Lymphocytes # 0.9 L (1.0-4.8) k/uL Sodium 135 L (137-145) mmol/L Glucose 165 H (74-99) mg/dL Assessment and Plan Assessment: Breakthrough seizure. Seems not on maximum therapeutic dose for antiseizure (in 04/2022 we recommended Lamictal of 150mg bid and Vimpat 100mg bid but per EMR home medication she is on Lamictal 100mg bid). 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 History of breast cancer Deafness Hypertension Hyperlipidemia Plan: Continue Lamictal back to 150 mg 1 tablet twice a day and Vimpat 100mg bid (both increased during this visit). The daughter feels the patient's having some speech difficulties in repeating herself. I ordered a routine EEG to rule out any underlying seizure epilept iform discharges. The EEG as negative for any seizure suggestive of that and continues to have these symptoms then I'll pursue with MRI of the brain. Lamictal level is 3.1 (normal is 2-15). Pending lacosamide level. On seizure precautions seizure pads. Patient had EEGs in the past in our facility and the most recent was in April 2022. I would recommend a prolonged EEG as an outpatient such as epilepsy monitoring unit and for the patient to be off of medication or to be weaned off of some of her medication while getting the testing to capture her seizures and localize the seizures. We'll defer the rest of the medical management to the primary team Recommend the patient to follow-up with a neurologist in outpatient within 1-2 weeks The plan is discussed with her daughter via phone, N.P. from primary team and her nurse. Will continue to follow. UPDATE: The EEG was attempted but patient would cooperate for exam per tech. I will get repeat CT head. Unable to obtain MRI Brain because of cooperation. I will start her on seroquel 25mg qhs for agitation. Time with Patient: Less than 30
[2022-07-25] MEDS: QUEtiapine 25 MG TAB PO SCH (16:24)
--- NOTE | 2022-07-25 17:38 | CT ---
EXAMINATION TYPE: CT brain wo con DATE OF EXAM: 07/25/2022 COMPARISON: 07/23/22 HISTORY: AMS CT DLP: [address] of the brain was performed. The ventricles, basal cisterns and sulci overlying the cerebral convexities demonstrate mild enlargem ent. There is no evidence for intracranial hemorrhage or sulcal effacement. There is decreased attenuation about the periventricular white matter and deep white matter of both c erebral hemispheres, compatible with chronic small vessel ischemia. Differential diagnosis does inclu de demyelination. No mass effects are seen.No midline shift. Osseous calvarium is intact. If symptoms persist consider MRI. IMPRESSION: 1. Age related atrophic and chronic small vessel ischemic change without acute intracranial process s een at this time.
--- NOTE | 2022-07-25 20:16 | P.PN ---
Subjective Progress Note Date: 07/25/22 Patient is a 87-year-old female with a known history of seizure disorder, hyperlipidemia, hypothyroidism, dementia, anxiety/depression was brought to the hospital from [facility] facility due to witnessed seizure. Patient is awake alert but could not provide any history. Patient is also hard of hearing. Patient was previously admitted to the hospital due to breakthrough seizures. Currently on Vimpat and Lamictal. Daily medications will be provided by the facility. Otherwise patient has been afebrile. No nausea vomiting or diarrhea. Denies any recent illnesses. No complaints of chest pain or shortness of breath. CT head and cervical spine showed age-related atrophy and chronic small vessel ischemic change without acute intracranial process seen at this time. CT cervical spine showed no evidence of acute fracture or dislocation or subluxation of the cervical spine. EKG showed supple regular rhythm. Chest x-ray showed no acute pulmonary disease. Laboratory showed WBC 5.8 hemoglobin 11.2 and platelets 211 Sodium 132 potassium 5.0 chloride 98 bicarb is 26 BUN 21 and creatinine 0.87 and blood sugar is 128 liver enzymes are not elevated. Urinalysis is negative for infection. 07/25/2022 Patient is seen and evaluated in follow-up today continues to be somewhat agitated and restless calling out for her daughter in reporting she wants to go home. Patient is being followed by neurology with initially no plans to repeat EEG and has increased the dose of medications recommending close outpatient follow-up with neurology. Patient's daughter upset there are no EEGs being perf ormed and one has been ordered and pending. Patient is extremely anxious and not compliant with the testing and unable to complete the EEG. Neurology again recommending close outpatient follow-up and has increased the dosages. CT of the brain is ordered as well and pending. Seroquel has been added for at night and will continue. Review of systems: Constitutional: No reports of fatigue, fever, or chills Cardiovascular: No reports of chest pain or palpitations Respiratory: No reports of shortness of breath or cough GI: No reports of nausea, vomiting, or diarrhea : No reports of dysuria or retention Neurovascular: No reports of weakness or numbness All medications have been reviewed Active Medications Amlodipine Besylate (Amlodipine 10 Mg Tab) 10 mg PO DAILY [facility] Last Admin: 07/25/22 09:07 Dose: 10 mg Ascorbic Acid (Ascorbic Acid 500 Mg Tab) 500 mg PO DAILY [facility] Last Admin: 07/25/22 09:06 Dose: 500 mg Aspirin (Aspirin 81 Mg) 81 mg PO DAILY [facility] Last Admin: 07/25/22 09:07 Dose: 81 mg Cholecalciferol (Cholecalciferol 25 Mcg (1000 Iu) Tablet) 25 mcg PO DAILY [facility] Last Admin: 07/25/22 09:07 Dose: 25 mcg Heparin Sodium (Porcine) (Heparin Sodium,Porcine/Pf 5,000 Unit/0.5 Ml Syringe) 5,000 unit SQ Q8HR [facility] Last Admin: 07/25/22 09:07 Dose: 5,000 unit Sodium Chloride (Saline 0.9%) 1,000 mls @ 50 mls/hr IV .Q20H [facility] Last Admin: 07/25/22 00:26 Dose: 50 mls/hr Lacosamide (Lacosamide 50 Mg Tablet) 150 mg PO BID [facility] Last Admin: 07/25/22 09:10 Dose: 150 mg Lamotrigine (Lamotrigine 100 Mg Tab) 100 mg PO BID [facility] Last Admin: 07/25/22 09:07 Dose: 100 mg Lamotrigine (Lamotrigine 25 Mg Tab) 50 mg PO BID [facility] Last Admin: 07/25/22 09:06 Dose: 50 mg Levothyroxine Sodium (Levothyroxine 75 Mcg Tab) 75 mcg PO DAILY@0630 [facility] Last Admin: 07/25/22 05:35 Dose: 75 mcg Lisinopril (Lisinopril 10 Mg Tab) 10 mg PO DAILY [facility] Last Admin: 07/25/22 09:10 Dose: 10 mg Melatonin (Melatonin 3 Mg Tablet) 3 mg PO HS PRN PRN Reason: Insomnia Last Admin: 07/25/22 02:42 Dose: 3 mg Naloxone HCl (Naloxone 0.4 Mg/Ml 1 Ml Vial) 0.2 mg IV Q2M PRN PRN Reason: Opioid Reversal Ondansetron HCl (Ondansetron 4 Mg/2 Ml Vial) 4 mg IVP Q8HR PRN PRN Reason: Nausea And Vomiting Pravastatin Sodium (Pravastatin Sodium 20 Mg Tab) 20 mg PO DAILY [facility] Last Admin: 07/25/22 09:06 Dose: 20 mg Primidone (Primidone 25 Mg Tab) 25 mg PO HS [facility] Sertraline HCl (Sertraline 100 Mg Tab) 100 mg PO HS GI Thiamine HCl (Thiamine 100 Mg Tab) 100 mg PO DAILY [facility] Last Admin: 07/25/22 09:06 Dose: 100 mg PHYSICAL EXAMINATION: Patient is lying in the bed comfortably, no acute distress, awake alert and oriented x2.. Hard of hearing, anxious HEENT: Normocephalic. Neck is supple. Pupils reactive. Nostrils clear. Oral cavity is moist. Neck reveals no JVD, carotid bruits, or thyromegaly. CHEST EXAMINATION: Trachea is central. Symmetrical expansion. Lung bunch clear to auscultation and percussion. CARDIAC: Normal S1, S2 with no gallops. No murmurs ABDOMEN: Soft. Bowel sounds present. Nontender. No organomegaly. No abdominal bruits. Extremities: reveal no edema. No clubbing or cyanosis Neurologically awake, alert, oriented x2 . Able to move all extremities. No gross focal neurological deficit. Skin: No rash or skin lesions. Psychiatric: Cooperative. Non-suicidal, Musculoskeletal: No joint swelling or deformity. Normal range of motion. Assessment: Acute breakthrough seizures History of epilepsy since childhood. History of breast cancer Hypertension Hearing disorder/deafness Cognitive impairment Hyperlipidemia DVT prophylaxis with heparin subcu Full code Plan: Patient was started back on antiepileptic medications Lamictal and Vimpat. Started on Lamictal 150 mg twice daily and Vimpat and doses have been increased per neurology recommending outpatient follow-up. Daughter is persistent patient has further testing despite the fact she had significant neurological workup in April. EEG was attempted today again and patient was extremely agitated and anxious and not cooperative with the testing and repeat CT showing no acute changes. As Kus further with neurology about discharge planning in 24 hours. Continue with seizure precautions and fall precautions. Lamictal level was ordered in the ER and continues to be pending. Continue with home medications and follow-up closely. Neurology recommends prolonged EEG as an outpatient. Seroquel added at night and will continue as patient is experiencing increased agitation and anxiousness calling out her daughter in reporting she wants to go home. Probable discharge in 24 hours The impression and plan of care has been dictated by Taylor Gongora, Nurse Practitioner as directed. Dr. Ulices MD I have performed a history and examination and MDM of this patient, discussed the same with the dictator, and agree with the dictator's assessment and plan as written ,documented as a scribe. Based on total visit time, I have performed more than 50% of the visit. Objective - Vital Signs Vital signs: Vital Signs Temp 97.6 F 07/25/22 09:00 Pulse 86 07/25/22 11:14 Resp 18 07/25/22 09:00 BP 156/65 07/25/22 11:14 Pulse Ox 95 07/25/22 11:14 FiO2 21 07/24/22 08:20 Intake & Output 07/24/22 07/25/22 07/25/22 18:59 06:59 18:59 Intake Total 118 118 Balance 118 118 Intake: Oral 118 118 Other: Voiding Method Diaper Toilet Toilet External Catheter Diaper Diaper # Voids 2 1 # Bowel Movements 1 - Labs CBC & Chem 7: 07/25/22 10:56 07/25/22 10:56 Labs: Abnormal Lab Results - Last 24 Hours (Table) 07/25/22 07/25/22 Range/Units 10:56 10:56 Lymphocytes # 0.9 L (1.0-4.8) k/uL Sodium 135 L (137-145) mmol/L Glucose 165 H (74-99) mg/dL
[2022-07-25] MEDS ORDERED: PRIMIDONE 50 MG TAB PO SCH (21:00)
[2022-07-25] MEDS ORDERED: QUEtiapine 25 MG TAB PO ONE (21:00)
[2022-07-25] MEDS ORDERED: PRIMIDONE 25 MG TAB PO SCH (21:00)
[2022-07-25] MEDS: SERTRALINE 100 MG TAB PO SCH (21:38)
[2022-07-25 21:45] LABS: Glucose,Whole Blood 116 mg/dL (70-110)
[2022-07-26] MEDS: LEVOTHYROXINE 75 MCG TAB PO SCH (06:15)
[2022-07-26] MEDS: CHOLECALCIFEROL 25 MCG (1000 IU) TABLET PO SCH (08:47)
[2022-07-26] MEDS: ASCORBIC ACID 500 MG TAB PO SCH (08:47)
[2022-07-26] MEDS: HEPARIN SODIUM,PORCINE/PF 5,000 UNIT/0.5 ML SYRINGE SQ SCH ×2 (08:47→16:39)
[2022-07-26] MEDS: THIAMINE 100 MG TAB PO SCH (08:47)
[2022-07-26] MEDS: ASPIRIN 81 MG PO SCH (08:47)
[2022-07-26] MEDS: lisinopriL 10 MG TAB PO SCH (08:47)
[2022-07-26] MEDS: amLODIPine 10 MG TAB PO SCH (08:48)
[2022-07-26] MEDS: lamoTRIgine 100 MG TAB PO SCH ×2 (08:48→20:00)
[2022-07-26] MEDS: LACOSAMIDE 50 MG TABLET PO SCH ×2 (08:48→20:05)
[2022-07-26] MEDS: lamoTRIgine 25 MG TAB PO SCH (08:55)
[2022-07-26] MEDS: PRAVASTATIN SODIUM 20 MG TAB PO SCH (08:56)
[2022-07-26] MEDS ORDERED: HALOPERIDOL LACTATE 5 MG/ML 1 ML VIAL IM ONE (10:00)
[2022-07-26] MEDS ORDERED: VALPROATE SODIUM 750 MG in SODIUM CHLORIDE 0.9% 100 ML IVPB STA (13:21)
--- NOTE | 2022-07-26 13:29 | P.PN ---
Subjective Progress Note Date: 07/26/22 The patient is seen at bedside and per nurse, is taking non-sensical. No clinical seizures noted. Objective - Vital Signs Vital signs: Vital Signs Temp 97.8 F 07/26/22 07:18 Pulse 77 07/26/22 07:18 Resp 16 07/26/22 07:18 BP 126/64 07/26/22 07:18 Pulse Ox 96 07/26/22 08:41 FiO2 21 07/24/22 08:20 Intake & Output 07/25/22 07/26/22 07/26/22 18:59 06:59 18:59 Intake Total 236 Balance 236 Intake: Oral 236 Other: Voiding Method Toilet Toilet Diaper Diaper # Voids 5 1 # Bowel Movements 2 0 - Exam GENERAL: The patient is laying in bed and is not in acute distress. NEUROLOGICAL: Limited because of cooperation. Higher mental function: The patient is awake, alert, oriented to self and place (stated she was in the hospital) and year after multiple questioning. Patient was talking about random stuff and not related to examination and (talking about her personal stuff but things were just random) and had to be reoriented multiple times. . . Cranial nerves: The pupils are round, equal and reactive to light. Visual f ields are full to confrontation throughout. Extraocular movement is intact no nystagmus is noted. The facial strength is normal throughout. Hearing is severely decreased bilaterally. Tongue is midline and moved [id number] without any difficulty. No dysarthria is noted. Shoulder shrug is normal bilaterally. Has some tremor of head. Motor: The strength is 5 over 5 throughout. Normal tone and bulk. Cerebellum: Normal finger to nose bilaterally. Sensation: Sensation is normal to touch throughout. . Some of the workup during his hospital visit consisted of: Sodium was 132, glucose 128, BUN is 21 and the rest of the cancer panel is unremarkable. CT of the head is reported as age-related atrophy and chronic small vessel ischemic change without acute intracranial process seen at this time. CT cervical spine is reported as no evidence for acute fracture or subluxation of the cervical spine. Repeat CT head: Was reported as age-related atrophic and chronic small vessel i schemic change without acute intracranial process seen at this time. - Labs CBC & Chem 7: 07/25/22 10:56 07/25/22 10:56 Labs: Abnormal Lab Results - Last 24 Hours (Table) 07/25/22 Range/Units 21:40 POC Glucose (mg/dL) 116 H (70-110) mg/dL Assessment and Plan Assessment: Breakthrough seizure and continues to have random speech---still not back to baseline. 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 History of breast cancer Deafness Hypertension Hyperlipidemia Plan: * I spoke with the patient's daughter via phone and she stated she followed-up with Dr. Bain and was complaining of dizziness and so her felt there was possibly a side-effect of medication and so he decreased Lamictal from 150mg bid to 100mg bid. Daughter stated patient was on Dilantin which was helping initially then continued to have seizures. It seems she was different medications according to daughter but does not know and doseage was been adjusted. Daughter feels patient has underlying Dementia. * Therefore, since patient is having side-effect and continues to be not back to baseline even though repeat CT is negative. I will start her on Depakote 500mg 1 tab bid with loading 750mg once. There is interaction with Lamictal and will decrease Lamictal from 150mg bid to 50mg bid and down line will wean it further until stopped. I will go down on Vimpat from 150mg bid to 100mg bid (dose prior to presenting to our facility). No Keppra because of her mood. I notified about side-effect of Depakote. * Will reattempt to obtain routine EEG. * Lamictal level is 3.1 (normal is 2-15). * Pending lacosamide level. * On seizure precautions seizure pads. * I would recommend a prolonged EEG as an outpatient such as epilepsy monitoring unit if possible. Recommend during EMU, patient to be off of medication or to be weaned off of some of her medication while getting the testing to capture her seizures. * We'll defer the rest of the medical management to the primary team * Recommend the patient to follow-up with a neurologist in outpatient within 1-2 weeks The plan is discussed with her daughter via phone, N.P. from primary team and her nurse. Will continue to follow. Time with Patient: Less than 30
[2022-07-26] MEDS ORDERED: DIVALPROEX 500 MG TABLET.DR PO STA (15:20)
[2022-07-26] MEDS ORDERED: DIVALPROEX 250 MG TABLET.DR PO STA (15:31)
[2022-07-26] MEDS: SERTRALINE 100 MG TAB PO SCH (20:01)
[2022-07-26] MEDS: DIVALPROEX 500 MG TABLET.DR PO SCH (20:01)
[2022-07-26] MEDS: QUEtiapine 25 MG TAB PO SCH (20:01)
[2022-07-26] MEDS: PRIMIDONE 25 MG TAB PO SCH (20:02)
[2022-07-26] MEDS ORDERED: LACOSAMIDE 50 MG TABLET PO SCH (21:00)
--- NOTE | 2022-07-26 21:07 | EEG ---
ELECTROENCEPHALOGRAM REPORT RELEVANT MEDICATIONS: 1. Lamictal. 2. Vimpat. CLINICAL HISTORY: This is an 87-year-old woman with history of seizure, who presented because of breakthrough seizure. The video EEG is obtained to evaluate for seizure epileptiform activity. EEG TYPE: A routine 21-channel EEG is performed with video using the 10/20 electrode placement system. DESCRIPTION: The background consists of [id number] voltage of 6 to 7 hertz activity that is well modulated, well sustained. There is no focal slowing. Interictal and ictal, there is mild to moderate amount of spike and slow-wave over the right frontal region. There is no seizure noted during this study. ACTIVATION PROCEDURE: Photic stimulation and hyperventilation are not performed. CLINICAL INTERPRETATION: This is an abnormal routine EEG. The background slowing is suggestive of mild encephalopathy. There is epileptiform focus involving the right frontal region. The epileptiform discharge can increase risk of seizures and status. Otherwise, there is no seizure noted during the study. Upon reviewing prior EEGs, she continues to have the same right frontal discharges and it did not seem changed from prior studies. Clinical correlation is recommended. MMODL / IJN: [id number] / SOPHIA
[2022-07-27] MEDS: HEPARIN SODIUM,PORCINE/PF 5,000 UNIT/0.5 ML SYRINGE SQ SCH ×3 (02:09→15:11)
--- NOTE | 2022-07-27 05:33 | P.PN ---
Subjective Progress Note Date: 07/26/22 Patient is a 87-year-old female with a known history of seizure disorder, hyperlipidemia, hypothyroidism, dementia, anxiety/depression was brought to the hospital from half-way facility due to witnessed seizure. Patient is awake alert but could not provide any history. Patient is also hard of hearing. Patient was previously admitted to the hospital due to breakthrough seizures. Currently on Vimpat and Lamictal. Daily medications will be provided by the facility. Otherwise patient has been afebrile. No nausea vomiting or diarrhea. Denies any recent illnesses. No complaints of chest pain or shortness of breath. CT head and cervical spine showed age-related atrophy and chronic small vessel ischemic change without acute intracranial process seen at this time. CT cervical spine showed no evidence of acute fracture or dislocation or subluxation of the cervical spine. EKG showed supple regular rhythm. Chest x-ray showed no acute pulmonary disease. Laboratory showed WBC 5.8 hemoglobin 11.2 and platelets 211 Sodium 132 potassium 5.0 chloride 98 bicarb is 26 BUN 21 and creatinine 0.87 and blood sugar is 128 liver enzymes are not elevated. Urinalysis is negative for infection. 07/25/2022 Patient is seen and evaluated in follow-up today continues to be somewhat agitated and restless calling out for her daughter in reporting she wants to go home. Patient is being followed by neurology with initially no plans to repeat EEG and has increased the dose of medications recommending close outpatient follow-up with neurology. Patient's daughter upset there are no EEGs being perf ormed and one has been ordered and pending. Patient is extremely anxious and not compliant with the testing and unable to complete the EEG. Neurology again recommending close outpatient follow-up and has increased the dosages. CT of the brain is ordered as well and pending. Seroquel has been added for at night and will continue. 07/26/2022 Patient is seen and evaluated in follow-up today has recently received Haldol as patient was extremely agitated and repeat EEG was ordered and last attempt patient was uncooperative and agitated unable to perform the EEG. Repeat CT of the brain was done showing no acute process. Neurology following closely and making medication adjustments to seizure medications. Patient is confused. Patient is afebrile with no reported chest pain or shortness of breath. Review of systems: Constitutional: No reports of fatigue, fever, or chills Cardiovascular: No reports of chest pain or palpitations Respiratory: No reports of shortness of breath or cough GI: No reports of nausea, vomiting, or diarrhea : No reports of dysuria or retention Neurovascular: No reports of weakness or numbness All medications have been reviewed Active Medications Amlodipine Besylate (Amlodipine 10 Mg Tab) 10 mg PO DAILY [facility] Last Admin: 07/26/22 08:48 Dose: 10 mg Ascorbic Acid (Ascorbic Acid 500 Mg Tab) 500 mg PO DAILY [facility] Last Admin: 07/26/22 08:47 Dose: 500 mg Aspirin (Aspirin 81 Mg) 81 mg PO DAILY [facility] Last Admin: 07/26/22 08:47 Dose: 81 mg Cholecalciferol (Cholecalciferol 25 Mcg (1000 Iu) Tablet) 25 mcg PO DAILY [facility] Last Admin: 07/26/22 08:47 Dose: 25 mcg Divalproex Sodium (Divalproex 500 Mg Tablet.Dr) 500 mg PO BID [facility] Last Admin: 07/26/22 20:01 Dose: 500 mg Heparin Sodium (Porcine) (Heparin Sodium,Porcine/Pf 5,000 Unit/0.5 Ml Syringe) 5,000 unit SQ Q8HR [facility] Last Admin: 07/27/22 02:09 Dose: Not Given Lacosamide (Lacosamide 50 Mg Tablet) 50 mg PO BID [facility] Last Admin: 07/26/22 20:05 Dose: 50 mg Lamotrigine (Lamotrigine 100 Mg Tab) 100 mg PO BID [facility] Last Admin: 07/26/22 20:00 Dose: 100 mg Levothyroxine Sodium (Levothyroxine 75 Mcg Tab) 75 mcg PO DAILY@0630 [facility] Last Admin: 07/26/22 06:15 Dose: 75 mcg Lisinopril (Lisinopril 10 Mg Tab) 10 mg PO DAILY [facility] Last Admin: 07/26/22 08:47 Dose: 10 mg Melatonin (Melatonin 3 Mg Tablet) 3 mg PO HS PRN PRN Reason: Insomnia Last Admin: 07/25/22 02:42 Dose: 3 mg Naloxone HCl (Naloxone 0.4 Mg/Ml 1 Ml Vial) 0.2 mg IV Q2M PRN PRN Reason: Opioid Reversal Ondansetron HCl (Ondansetron 4 Mg/2 Ml Vial) 4 mg IVP Q8HR PRN PRN Reason: Nausea And Vomiting Pravastatin Sodium (Pravastatin Sodium 20 Mg Tab) 20 mg PO DAILY [facility] Last Admin: 07/26/22 08:56 Dose: 20 mg Primidone (Primidone 25 Mg Tab) 25 mg [address] [facility] Last Admin: 07/26/22 20:02 Dose: 25 mg Quetiapine Fumarate (Quetiapine 25 Mg Tab) 25 mg [address] [facility] Last Admin: 07/26/22 20:01 Dose: 25 mg Sertraline HCl (Sertraline 100 Mg Tab) 100 mg PO [facility] Last Admin: 07/26/22 20:01 Dose: 100 mg Thiamine HCl (Thiamine 100 Mg Tab) 100 mg PO DAILY [facility] Last Admin: 07/26/22 08:47 Dose: 100 mg PHYSICAL EXAMINATION: Patient is lying in the bed comfortably asleep currently, no acute distress, alert and oriented x1-2.. Hard of hearing, anxious HEENT: Normocephalic. Neck is supple. Pupils reactive. Nostrils clear. Oral cavity is moist. Neck reveals no JVD, carotid bruits, or thyromegaly. CHEST EXAMINATION: Trachea is central. Symmetrical expansion. Lung bunch clear to auscultation and percussion. CARDIAC: Normal S1, S2 with no gallops. No murmurs ABDOMEN: Soft. Bowel sounds present. Nontender. No organomegaly. No abdominal bruits. Extremities: reveal no edema. No clubbing or cyanosis Neurologically awake, alert, oriented x2 . Able to move all extremities. No gross focal neurological deficit. Skin: No rash or skin lesions. Psychiatric: Cooperative. Non-suicidal Musculoskeletal: No joint swelling or deformity. Normal range of motion. Assessment: Acute breakthrough seizures History of epilepsy since childhood. History of breast cancer Hypertension Hearing disorder/deafness Cognitive impairment Hyperlipidemia DVT prophylaxis with heparin subcu Full code Plan: Patient was started back on antiepileptic medications Lamictal and Vimpat and neurology following closely making adjustments. Patient was given Haldol today to undergo EEG as yesterday's attempt was unsuccessful due to increased agitation and noncompliance. Patient was able to do EEG today and will await report and discuss further with neurology. Continue with seizure precautions and fall precautions. Lamictal level was ordered in the ER and continues to be pending. Continue with home medications and follow-up closely. Neurology recommends prolonged EEG as an outpatient. Seroquel added at night and will continue as patient is experiencing increased agitation and anxiousness with continued confusion. Component of memory impairment and possible hospital-acquired delirium Due to multiple complex medical issues, prognosis is guarded Will await neurology clearance for possible discharge in 24-48 hours The impression and plan of care has been dictated by Taylor Gongora, Nurse Practitioner as directed. Dr. Ulices MD I have performed a history and examination and MDM of this patient, discussed the same with the dictator, and agree with the dictator's assessment and plan as written ,documented as a scribe. Based on total visit time, I have performed more than 50% of the visit. Objective - Vital Signs Vital signs: Vital Signs Temp 97.8 F 07/26/22 07:18 Pulse 77 07/26/22 07:18 Resp 16 07/26/22 07:18 BP 126/64 07/26/22 07:18 Pulse Ox 96 07/26/22 08:41 FiO2 21 07/24/22 08:20 Intake & Output 07/25/22 07/26/22 07/26/22 18:59 06:59 18:59 Intake Total 236 Balance 236 Intake: Oral 236 Other: Voiding Method Toilet Toilet Diaper Diaper # Voids 5 1 # Bowel Movements 2 0 - Labs CBC & Chem 7: 07/25/22 10:56 07/25/22 10:56 Labs: Abnormal Lab Results - Last 24 Hours (Table) 07/25/22 Range/Units 21:40 POC Glucose (mg/dL) 116 H (70-110) mg/dL
[2022-07-27] MEDS: amLODIPine 10 MG TAB PO SCH (07:48)
[2022-07-27] MEDS: lisinopriL 10 MG TAB PO SCH (07:48)
[2022-07-27] MEDS: lamoTRIgine 100 MG TAB PO SCH (07:51)
[2022-07-27] MEDS: ASPIRIN 81 MG PO SCH (07:51)
[2022-07-27] MEDS: THIAMINE 100 MG TAB PO SCH (07:51)
[2022-07-27] MEDS: LACOSAMIDE 50 MG TABLET PO SCH ×2 (07:51→21:01)
[2022-07-27] MEDS: PRAVASTATIN SODIUM 20 MG TAB PO SCH (07:51)
[2022-07-27] MEDS: CHOLECALCIFEROL 25 MCG (1000 IU) TABLET PO SCH (07:52)
[2022-07-27] MEDS: LEVOTHYROXINE 75 MCG TAB PO SCH (07:52)
[2022-07-27] MEDS: DIVALPROEX 500 MG TABLET.DR PO SCH ×2 (07:52→21:01)
[2022-07-27] MEDS: ASCORBIC ACID 500 MG TAB PO SCH (07:52)
--- NOTE | 2022-07-27 12:58 | P.PN ---
Subjective Progress Note Date: 07/27/22 The patient was seen at bedside and per nurse she was notified by overnight nurse that she was talking nonsensical. But in the morning today she was more cooperative and responding to questions according to primary team. Objective - Vital Signs Vital signs: Vital Signs Temp 98 F 07/27/22 07:00 Pulse 66 07/27/22 07:46 Resp 16 07/27/22 07:46 BP 94/53 07/27/22 07:46 Pulse Ox 95 07/27/22 07:46 FiO2 21 07/24/22 08:20 Intake & Output 07/26/22 07/27/22 07/27/22 18:59 06:59 18:59 Intake Total 100 Balance 100 Intake: Oral 100 Other: Voiding Method Diaper Diaper # Voids 1 # Bowel Movements 2 - Exam GENERAL: The patient is laying in bed and is not in acute distress. NEUROLOGICAL: Limited because of cooperation. Higher mental function: The patient is awake, alert, oriented to self, time and place (stated she was in the hospital) and year after multiple questioning. She has to be reoriented and has to be asked questions multiple times and will cooperate eventually and follows commands. She would taking nonsensical at times. No neglect. Cranial nerves: The pupils are round, equal and reactive to light. Visual f ields are full to confrontation throughout. Extraocular movement is intact no nystagmus is noted. The facial strength is normal throughout. Hearing is severely decreased bilaterally. Tongue is midline and moved [id number] without any difficulty. No dysarthria is noted. Shoulder shrug is normal bilaterally. Has some tremor of head. Motor: The strength is 5 over 5 throughout. Normal tone and bulk. Cerebellum: Normal finger to nose bilaterally. Sensation: Sensation is normal to touch throughout. . Some of the workup during his hospital visit consisted of: Sodium was 132, glucose 128, BUN is 21 and the rest of the cancer panel is unremarkable. CT of the head is reported as age-related atrophy and chronic small vessel ischemic change without acute intracranial process seen at this time. CT cervical spine is reported as no evidence for acute fracture or subluxation of the cervical spine. Repeat CT head: Was reported as age-related atrophic and chronic small vessel i schemic change without acute intracranial process seen at this time. Routine EEG is abnormal. The background slowing is suggestive of mild encephalopathy. The epidural focus involving the right frontal region increases risk for seizure and status. Otherwise there is no seizure noted during the st [facility]. Upon reviewing prior EEGs she considers to have the same right frontal discharges and does not seem change from prior studies. - Labs CBC & Chem 7: 07/25/22 10:56 04 10:56 Assessment and Plan Assessment: Breakthrough seizure and continues to have random speech---improving today. 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 History of breast cancer Deafness Hypertension Hyperlipidemia Plan: * I spoke with the patient's daughter via phone and she stated she followed-up with Dr. Bain and was complaining of dizziness and so her felt there was possibly a side-effect of medication and so he decreased Lamictal from 150mg bid to 100mg bid. Daughter stated patient was on Dilantin which was helping initially then continued to have seizures. It seems she was different medications according to daughter but does not know and doseage was been adjusted. Daughter feels patient has underlying Dementia. * Therefore, since patient is having side-effect and continues to be not back to baseline even though repeat CT is negative. I have stopped Lamictal (today was on 50mg bid). Continue Depakote 500mg bid (new during this admission) and her home dose of Vimpat 100mg bid. No Keppra because of her mood. I notified about side-effect of Depakote. * Lamictal level is 3.1 (normal is 2-15). * Pending lacosamide level. * On seizure precautions seizure pads. * On Seroquel 25mg 1 tab qhs for her agitation. * I would recommend a prolonged EEG as an outpatient such as epilepsy monitoring unit if possible. Recommend during EMU, patient to be off of medication or to be weaned off of some of her medication while getting the testing to capture her seizures. * We'll defer the rest of the medical management to the primary team * Recommend the patient to follow-up with a neurologist in outpatient within 1-2 weeks The plan is discussed with patient's nurse, and N.P. from primary team. I also had lengthy conversion with patient's daughter in person. Will continue to follow. Time with Patient: Greater than 30
--- NOTE | 2022-07-27 14:57 | P.PN ---
Subjective Progress Note Date: 07/27/22 Patient is a 87-year-old female with a known history of seizure disorder, hyperlipidemia, hypothyroidism, dementia, anxiety/depression was brought to the hospital from shelter facility due to witnessed seizure. Patient is awake alert but could not provide any history. Patient is also hard of hearing. Patient was previously admitted to the hospital due to breakthrough seizures. Currently on Vimpat and Lamictal. Daily medications will be provided by the facility. Otherwise patient has been afebrile. No nausea vomiting or diarrhea. Denies any recent illnesses. No complaints of chest pain or shortness of breath. CT head and cervical spine showed age-related atrophy and chronic small vessel ischemic change without acute intracranial process seen at this time. CT cervical spine showed no evidence of acute fracture or dislocation or subluxation of the cervical spine. EKG showed supple regular rhythm. Chest x-ray showed no acute pulmonary disease. Laboratory showed WBC 5.8 hemoglobin 11.2 and platelets 211 Sodium 132 potassium 5.0 chloride 98 bicarb is 26 BUN 21 and creatinine 0.87 and blood sugar is 128 liver enzymes are not elevated. Urinalysis is negative for infection. 07/25/2022 Patient is seen and evaluated in follow-up today continues to be somewhat agitated and restless calling out for her daughter in reporting she wants to go home. Patient is being followed by neurology with initially no plans to repeat EEG and has increased the dose of medications recommending close outpatient follow-up with neurology. Patient's daughter upset there are no EEGs being perf ormed and one has been ordered and pending. Patient is extremely anxious and not compliant with the testing and unable to complete the EEG. Neurology again recommending close outpatient follow-up and has increased the dosages. CT of the brain is ordered as well and pending. Seroquel has been added for at night and will continue. 07/26/2022 Patient is seen and evaluated in follow-up today has recently received Haldol as patient was extremely agitated and repeat EEG was ordered and last attempt patient was uncooperative and agitated unable to perform the EEG. Repeat CT of the brain was done showing no acute process. Neurology following closely and making medication adjustments to seizure medications. Patient is confused. Patient is afebrile with no reported chest pain or shortness of breath. 07/27/2022 Patient is seen and evaluated in follow-up with neurology following closely. Patient was able to cooperate for the EEG yesterday which showed mild encephalopathy and there are epileptiform focus involving the right frontal region otherwise no seizure activity noted but does continue to have some right frontal discharges although not changed from previous studies. Patient medications are being adjusted and patient is tolerating Seroquel well. Patient does have occasional nausea although reports did not have nausea or vomiting today. Not much of an appetite and encourage small frequent meals and preference foods. Patient seizure medications being adjusted and Lamictal being discontinued with neurology following closely. Patient initially this morning per nursing staff was confused although more into the morning patient was more alert, awake, having conversation and responding to questions and commands appropriately. Patient is extremely hard of hearing as well. Patient is drinking some juice and tolerating cinthia crackers and per nursing staff including the aid patient's behavior and mentation is improving. Patient is currently afebrile denies any chest pain or shortness of breath and no reports of vomiting noted. Recommend monitoring closely overnight due to recent medication changes and will continue on seizure precautions. No further seizure-like activity has been noted. Review of systems: Constitutional: No reports of fatigue, fever, or chills Cardiovascular: No reports of chest pain or palpitations Respiratory: No reports of shortness of breath or cough GI: No reports of nausea, vomiting, or diarrhea : No reports of dysuria or retention Neurovascular: No reports of weakness or numbness All medications have been reviewed Active Medications Amlodipine Besylate (Amlodipine 10 Mg Tab) 10 mg PO DAILY [facility] Last Admin: 07/27/22 07:48 Dose: Not Given Ascorbic Acid (Ascorbic Acid 500 Mg Tab) 500 mg PO DAILY [facility] Last Admin: 07/27/22 07:52 Dose: 500 mg Aspirin (Aspirin 81 Mg) 81 mg PO DAILY [facility] Last Admin: 07/27/22 07:51 Dose: 81 mg Cholecalciferol (Cholecalciferol 25 Mcg (1000 Iu) Tablet) 25 mcg PO DAILY [facility] Last Admin: 07/27/22 07:52 Dose: 25 mcg Divalproex Sodium (Divalproex 500 Mg Tablet.) 500 mg PO BID [facility] Last Admin: 07/27/22 07:52 Dose: 500 mg Heparin Sodium (Porcine) (Heparin Sodium,Porcine/Pf 5,000 Unit/0.5 Ml Syringe) 5,000 unit SQ Q8HR [facility] Last Admin: 07/27/22 07:52 Dose: 5,000 unit Lamotrigine (Lamotrigine 100 Mg Tab) 100 mg PO BID [facility] Last Admin: 07/27/22 07:51 Dose: 100 mg Levothyroxine Sodium (Levothyroxine 75 Mcg Tab) 75 mcg PO DAILY@0630 [facility] Last Admin: 07/27/22 07:52 Dose: 75 mcg Lisinopril (Lisinopril 10 Mg Tab) 10 mg PO DAILY [facility] Last Admin: 07/27/22 07:48 Dose: Not Given Melatonin (Melatonin 3 Mg Tablet) 3 mg PO HS PRN PRN Reason: Insomnia Last Admin: 07/25/22 02:42 Dose: 3 mg Naloxone HCl (Naloxone 0.4 Mg/Ml 1 Ml Vial) 0.2 mg IV Q2M PRN PRN Reason: Opioid Reversal Ondansetron HCl (Ondansetron 4 Mg/2 Ml Vial) 4 mg IVP Q8HR PRN PRN Reason: Nausea And Vomiting Pravastatin Sodium (Pravastatin Sodium 20 Mg Tab) 20 mg PO DAILY [facility] Last Admin: 07/27/22 07:51 Dose: 20 mg Primidone (Primidone 25 Mg Tab) 25 mg PO HS [facility] Last Admin: 07/26/22 20:02 Dose: 25 mg Quetiapine Fumarate (Quetiapine 25 Mg Tab) 25 mg PO HS [facility] Last Admin: 07/26/22 20:01 Dose: 25 mg Sertraline HCl (Sertraline 100 Mg Tab) 100 mg PO HS [facility] Last Admin: 07/26/22 20:01 Dose: 100 mg Thiamine HCl (Thiamine 100 Mg Tab) 100 mg PO DAILY [facility] Last Admin: 07/27/22 07:51 Dose: 100 mg PHYSICAL EXAMINATION: Patient is sitting up in the chair by the window comfortably, no acute distress, alert and oriented x2 awake.. Hard of hearing, anxious HEENT: Normocephalic. Neck is supple. Pupils reactive. Nostrils clear. Oral cavity is moist. Neck reveals no JVD, carotid bruits, or thyromegaly. CHEST EXAMINATION: Trachea is central. Symmetrical expansion. Lung bunch clear to auscultation and percussion. CARDIAC: Normal S1, S2 with no gallops. No murmurs ABDOMEN: Soft. Bowel sounds present. Nontender. No organomegaly. No abdominal bruits. Extremities: reveal no edema. No clubbing or cyanosis Neurologically awake, alert, oriented x2 . Able to move all extremities. No gross focal neurological deficit. Skin: No rash or skin lesions. Psychiatric: Cooperative. Non-suicidal Musculoskeletal: No joint swelling or deformity. Normal range of motion. Assessment: Acute breakthrough seizures History of epilepsy since childhood. History of breast cancer Hypertension Hearing disorder/deafness Cognitive impairment most likely underlying dementia Hyperlipidemia DVT prophylaxis with heparin subcu Full code Plan: Patient is being closely monitored with neurology following. Patient was able to be compliant with EEG yesterday continues to show some discharges in the frontal lobe and continues to be abnormal with no seizure-like activity noted. Patient has was not had any seizures noted while inpatient. Adjustments to medications being made including discontinuing Lamictal and neurology recommending closely monitoring overnight as mentation is slowly improving. Patient does continue with some confusion. Recommend continue Seroquel at night There is definitely some concerns for dementia and daughter feels the same. Continue with home medications and follow-up closely. Neurology recommends prolonged EEG as an outpatient. Recommend frequent reorientation with windows open during the day and up out of the bed more frequently Due to multiple complex medical issues, prognosis is guarded Will await neurology clearance for possible discharge in 24-48 hours The impression and plan of care has been dictated by Taylor Gongora, Nurse Practitioner as directed. Dr. Ulices MD I have performed a history and examination and MDM of this patient, discussed the same with the dictator, and agree with the dictator's assessment and plan as written ,documented as a scribe. Based on total visit time, I have performed more than 50% of the visit. Objective - Vital Signs Vital signs: Vital Signs Temp 98 F 07/27/22 07:00 Pulse 66 07/27/22 07:46 Resp 16 07/27/22 07:46 BP 94/53 07/27/22 07:46 Pulse Ox 95 07/27/22 07:46 FiO2 21 07/24/22 08:20 Intake & Output 07/26/22 07/27/22 07/27/22 18:59 06:59 18:59 Intake Total 100 Balance 100 Intake: Oral 100 Other: Voiding Method Diaper Diaper # Voids 1 # Bowel Movements 2 - Labs CBC & Chem 7: 07/25/22 10:56 07/25/22 10:56
[2022-07-27 19:27] VITALS: RESP 16
[2022-07-27] MEDS: PRIMIDONE 25 MG TAB PO SCH (21:01)
[2022-07-27] MEDS: QUEtiapine 25 MG TAB PO SCH (21:01)
[2022-07-27] MEDS: SERTRALINE 100 MG TAB PO SCH (21:01)
[2022-07-28] MEDS: HEPARIN SODIUM,PORCINE/PF 5,000 UNIT/0.5 ML SYRINGE SQ SCH ×2 (00:11→07:36)
[2022-07-28] MEDS: LEVOTHYROXINE 75 MCG TAB PO SCH (06:12)
[2022-07-28] MEDS: DIVALPROEX 500 MG TABLET.DR PO SCH (07:34)
[2022-07-28] MEDS: ASCORBIC ACID 500 MG TAB PO SCH (07:35)
[2022-07-28] MEDS: CHOLECALCIFEROL 25 MCG (1000 IU) TABLET PO SCH (07:35)
[2022-07-28] MEDS: ASPIRIN 81 MG PO SCH (07:35)
[2022-07-28] MEDS: LACOSAMIDE 50 MG TABLET PO SCH (07:35)
[2022-07-28] MEDS: lisinopriL 10 MG TAB PO SCH (07:36)
[2022-07-28] MEDS: THIAMINE 100 MG TAB PO SCH (07:36)
[2022-07-28] MEDS: PRAVASTATIN SODIUM 20 MG TAB PO SCH (07:36)
[2022-07-28] MEDS: amLODIPine 10 MG TAB PO SCH (07:37)
[2022-07-28 08:42] VITALS: BP 125/59; PULSE 69; TEMP 98
--- NOTE | 2022-07-28 13:03 | P.PN ---
Subjective Progress Note Date: 07/28/22 The patient is seen at bedside and feels drastically better today. Per her nurse she feels she also is doing better and not talking non-sensical like yesterday. Objective - Vital Signs Vital signs: Vital Signs Temp 98.0 F 07/28/22 08:00 Pulse 69 07/28/22 08:00 Resp 16 07/28/22 08:00 BP 125/59 07/28/22 08:00 Pulse Ox 97 07/28/22 08:00 FiO2 21 07/24/22 08:20 Intake & Output 07/27/22 07/28/22 07/28/22 18:59 06:59 18:59 Intake Total 330 Balance 330 Intake: Oral 330 Other: Voiding Method Diaper Diaper Diaper # Voids 1 1 1 - Exam GENERAL: The patient is laying in bed and is not in acute distress. NEUROLOGICAL: Higher mental function: The patient is awake, alert, oriented to self, place and time. She is able to name objects (pen and watch). Is following simple commands. No aphasia. No neglect. Cranial nerves: The pupils are round, equal and reactive to light. Visual bunch are full to confrontation throughout. Extraocular movement is intact no nystagmus is noted. The facial strength is normal throughout. No dysarthria is noted. Has some tremor of head. Motor: The strength is 5 over 5 throughout. Normal tone and bulk. Cerebellum: Normal finger to nose bilaterally. Sensation: Sensation is normal to touch throughout. . Some of the workup during his hospital visit consisted of: Sodium was 132, glucose 128, BUN is 21 and the rest of the cancer panel is unremarkable. CT of the head is reported as age-related atrophy and chronic small vessel ischemic change without acute intracranial process seen at this time. CT cervical spine is reported as no evidence for acute fracture or subluxation of the cervical spine. Repeat CT head: Was reported as age-related atrophic and chronic small vessel ischemic change without acute intracranial process seen at this time. Routine EEG is abnormal. The background slowing is suggestive of mild encephalopathy. The epidural focus involving the right frontal region increases risk for seizure and status. Otherwise there is no seizure noted during the study. Upon reviewing prior EEGs she considers to have the same right frontal discharges and does not seem change from prior studies. 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 Likely underlying dementia (per daughter possibly has been having memory loss for past 10 years) History of breast cancer Deafness Hypertension Hyperlipidemia Plan: * The patient is drastically better today compared to the past 4 days. * I spoke with the patient's daughter via phone and she stated she followed-up with Dr. Bain and was complaining of dizziness and so her felt there was possibly a side-effect of medication and so he decreased Lamictal from 150mg bid to 100mg bid. Daughter stated patient was on Dilantin which was helping initially then continued to have seizures. It seems she was different medications according to daughter but does not know and doseage was been adjusted. Daughter feels patient has underlying Dementia. * Therefore, since patient is having side-effect and continues to be not back to baseline even though repeat CT is negative. I have stopped Lamictal. Continue Depakote 500mg bid (new during this admission) and her home dose of Vimpat 100mg bid. No Keppra because of her mood. I notified about side-effect of Depakote. * Lamictal level is 3.1 (normal is 2-15). * lacosamide level: 3.0 * On seizure precautions seizure pads. * Agree with continuing Vitamin D3 1000IU daily especially since antiseizure medication can causes osteoperosis. Consider DEXA scan within 4-6 weeks as o utpatient. * On Seroquel 25mg 1 tab qhs for her agitation. * I would recommend a prolonged EEG as an outpatient such as epilepsy monitoring unit if possible. Recommend during EMU, patient to be off of medication or to be weaned off of some of her medication while getting the testing to capture her seizures. * We'll defer the rest of the medical management to the primary team * Recommend the patient to follow-up with a neurologist in outpatient within 1-2 weeks The plan is discussed with patient's nurse. Since the patient is doing drastically better, no further neurological work-up. Time with Patient: Less than 30
== END 2022-07-28 14:34 | disposition home or self-care (01) | DRG 101 ==
LOC: EC 19:43 → 6NMEDSUR 07-24 00:53 → OBSVTOIN 07-27 08:40
PROVIDERS: ADMIT Hospitalist; ATTEND Hospitalist
DX: G40.409 Other generalized epilepsy and epileptic syndromes, not intractable, without status epilepticus (principal); E87.1 Hypo-osmolality and hyponatremia; F03.93 Unspecified dementia, unspecified severity, with mood disturbance; F03.94 Unspecified dementia, unspecified severity, with anxiety; I10 Essential (primary) hypertension; E03.9 Hypothyroidism, unspecified; E78.5 Hyperlipidemia, unspecified; E83.42 Hypomagnesemia; E83.51 Hypocalcemia; E86.0 Dehydration; Z28.310 Unvaccinated for COVID-19; Z28.21 Immunization not carried out because of patient refusal; H91.93 Unspecified hearing loss, bilateral; Z97.4 Presence of external hearing-aid; I73.9 Peripheral vascular disease, unspecified; Z87.440 Personal history of urinary (tract) infections; Z85.3 Personal history of malignant neoplasm of breast; Z86.73 Personal history of transient ischemic attack (TIA), and cerebral infarction without residual deficits; Z79.82 Long term (current) use of aspirin; Z79.890 Hormone replacement therapy; Z79.899 Other long term (current) drug therapy; Z82.3 Family history of stroke; Z82.49 Family history of ischemic heart disease and other diseases of the circulatory system
CPT/HCPCS: 36415; 70450; 71046; 72125; 80053; 80175; 80235; 81003; 83735; 84100; 85025; 93005; 94760; 95816; 99285

== ENCOUNTER 2022-09-15 15:21 | Emergency (ER) | payer MEDICARE, OTHER ==
[2022-09-15] MEDS ORDERED: SODIUM CHLORIDE 0.9% 1,000 ML IV STA (15:28)
[2022-09-15 15:50] LABS: Basophils # (A) 0.1 k/uL (0-0.2); Basophils % (A) 1 %; Eosinophils # (A) 0.2 k/uL (0-0.7); Eosinophils % (A) 4 %; HCT 34.2 % (34.0-46.0); HGB 11.4 gm/dL (11.4-16.0); Lymphocytes # (A) 1.5 k/uL (1.0-4.8); Lymphocytes % (A) 26 %; MCH 29.7 pg (25.0-35.0); MCHC 33.2 g/dL (31.0-37.0); MCV 89.5 fL (80.0-100.0); Mean Platelet Volume 7.7; Monocytes # (A) 0.5 k/uL (0-1.0); Monocytes % (A) 9 %; Neutrophils # (A) 3.3 k/uL (1.3-7.7); Neutrophils % (A) 57 %; Platelet Count 246 k/uL (150-450); RBC 3.82 m/uL (3.80-5.40); RDW 13.5 % (11.5-15.5); WBC 5.8 k/uL (3.8-10.6)
--- NOTE | 2022-09-15 16:00 | ED ---
General Adult HPI - General Chief complaint: Syncope Stated complaint: Syncope Time Seen by Provider: 09/15/22 15:35 Source: patient, EMS Mode of arrival: EMS Limitations: no limitations, altered mental status - History of Present Illness Initial comments: 87-year-old female with past history of epilepsy, hypertension, hyperlipidemia who presents to the emergency department from [facility] for syncope. EMS provided the history. States the patient had a syncopal episode which was witnessed by other residents at the facility. They deny seizure-like activity. Patient was only out for a couple of seconds. No trauma from the episode. Julio Cesar guajardo remembers waking up and feeling like she had a have a bowel movement. She was able to go to the bathroom before EMS brought her to the hospital. States that she had an episode of loose stools without black or bloody stools. She reports that she has a hard time eating and drinking water due to lack of appetite. This has been chronic for her. She denies any chest pain or shortness of breath. IV was established and the patient was given fluids due to low blood pressure on scene. Patient arrives with improved vitals and states she feels improved at this time. Patient requesting to go home. No other alleviating, precipitating monitoring factors - Related Data Home Medications Medication Instructions Recorded Confirmed Pravastatin Sodium [Pravachol] 20 mg PO DAILY 10/15/18 07/24/22 Cholecalciferol [Vitamin D3 (25 25 mcg PO DAILY 05/04/22 07/24/22 Mcg = 1000 Iu)] Sertraline [Zoloft] 100 mg PO HS 05/04/22 07/24/22 Thiamine [Vitamin B-1] 100 mg PO DAILY 05/04/22 07/24/22 Ascorbic Acid [Vitamin C] 500 mg PO DAILY 07/12/22 07/24/22 Primidone [Mysoline] 25 mg PO HS 07/12/22 07/24/22 Previous Rx's Medication Instructions Recorded Aspirin 81 mg PO DAILY #30 tab 05/12/22 Levothyroxine Sodium [Euthyrox] 75 mcg PO DAILY #30 tablet 07/14/22 lisinopriL [Prinivil] 10 mg PO DAILY #30 tab 07/14/22 amLODIPine [Norvasc] 10 mg PO DAILY #30 tab 07/15/22 Divalproex [Depakote] 500 mg PO BID #60 tab 07/28/22 Lacosamide [Vimpat] 100 mg PO BID #60 tab 07/28/22 QUEtiapine [SEROquel] 25 mg PO HS #30 tab 07/28/22 Allergies Allergy/AdvReac Type Severity Reaction Status Date / Time No Known Allergies Allergy Verified 09/15/22 15:38 Review of Systems ROS Statement: Those systems with pertinent positive or pertinent negative responses have been documented in the HPI. ROS Other: All systems not noted in ROS Statement are negative. Past Medical History Past Medical History: Cancer, Hearing Disorder / Deafness, Hyperlipidemia, Hypertension, Seizure Disorder, Thyroid Disorder Additional Past Medical History / Comment(s): Seizures/lifelong, daughter states pt takes 1-2 days after a seizure to "come around", R breast cancer with lumpectomy/radiation txs, very TEJON bilaterally/has hearing aides, past L femur fracture/no surgery, UTI, thyroid disease. History of Any Multi-Drug Resistant Organisms: ESBL Date of last positivie culture/infection: 11/08/18-E. coli ESBL MDRO Source:: Urine Past Surgical History: Breast Surgery, Cholecystectomy Additional Past Surgical History / Comment(s): R breast lumpectomy Past Anesthesia/Blood Transfusion Reactions: No Reported Reaction Past Psychological History: Anxiety, Depression Smoking Status: Never smoker Past Alcohol Use History: None Reported Past Drug Use History: None Reported - Past Family History Mother Family Medical History: CVA/TIA Additional Family Medical History / Comment(s): Heart problems Sister(s) Family Medical History: Cancer Additional Family Medical History / Comment(s): of lung cancer General Exam Limitations: no limitations, altered mental status General appearance: alert, in no apparent distress Head exam: Present: atraumatic, normocephalic, normal inspection Eye exam: Present: normal appearance, PERRL, EOMI. Absent: scleral icterus, co njunctival injection, periorbital swelling ENT exam: Present: normal exam, mucous membranes moist Neck exam: Present: normal inspection. Absent: tenderness, meningismus, lymphadenopathy Respiratory exam: Present: normal lung sounds bilaterally. Absent: respiratory distress, wheezes, rales, rhonchi, stridor Cardiovascular Exam: Present: regular rate, normal rhythm, normal heart sounds. Absent: systolic murmur, diastolic murmur, rubs, gallop, clicks GI/Abdominal exam: Present: soft, normal bowel sounds. Absent: distended, tenderness, guarding, rebound, rigid Extremities exam: Present: normal inspection, full ROM, normal capillary refill. Absent: tenderness, pedal edema, joint swelling, calf tenderness Back exam: Present: normal inspection Neurological exam: Present: alert, oriented X3, CN II-XII intact Psychiatric exam: Present: normal affect, normal mood Skin exam: Present: warm, dry, intact, normal color. Absent: rash Course Vital Signs 09/15/22 09/15/22 15:31 18:48 Temperature 97.5 F L 97.6 F Pulse Rate 55 L 63 Respiratory 16 18 Rate Blood Pressure 118/43 141/64 O2 Sat by Pulse 98 100 Oximetry Medical Decision Making - Medical Decision Making Was pt. sent in by a medical professional or institution (JULIO CESAR Ayon, [facility]AM[facility]KER, urgent care, hospital, or residential...) When possible be specific @ -No Did you speak to anyone other than the patient for history (EMS, parent, family, police, friend...)? What history was obtained from this source @ -EMS Did you review nursing and triage notes (agree or disagree)? Why? @ -I reviewed and agree with nursing and triage notes Were old charts reviewed (outside hosp., previous admission, EMS record, old EKG, old radiological studies, urgent care reports/EKG's, residential records)? Report findings @ -Patient was recently hospitalized for seizures. This discharge summary was reviewed Differential Diagnosis (chest pain, altered mental status, abdominal pain women, abdominal pain men, vaginal bleeding, weakness, fever, dyspnea, syncope, headache, dizziness, GI bleed, back pain, seizure, CVA, palpatations, mental health, musculoskeletal)? @ -Differential Syncope: Valvular disease, hypertrophic cardiomyopathy, pulmonary embolism, tamponade, tachycardia, bradycardia, SD, hypovolemia, hemorrhage, dissection, anemia, intracranial hemorrhage, seizure, hypoglycemia, carbon monoxide poisoning, this is not meant to be an all-inclusive list. EKG interpreted by me (3pts min.). @ -EKG interpreted by me as a sinus bradycardia with a rate of 56. FL interval 312. QRS 82. QTC 428. First-degree AV block. No acute ST segment elevati ons. No high degree block X-rays interpreted by me (1pt min.). @ -yes and demonstrates no acute process CT interpreted by me (1pt min.). @ -None done U/S interpreted by me (1pt. min.). @ -None done What testing was considered but not performed or refused? (CT, X-rays, U/S, labs)? Why? @ -None What meds were considered but not given or refused? Why? @ -None Did you discuss the management of the patient with other professionals (professionals i.e. , PA, CARAM[facility] CAND[facility] MAKER, lab, RT, psych nurse, social work manager, applications coordinator, teacher, public health officer, case mgr)? Give summary @ -No Was smoking cessation discussed for >3mins.? @ -No Was critical care preformed (if so, how long)? @ -No Were there social determinants of health that impacted care today? How? (Homelessness, low income, unemployed, alcoholism, drug addiction, transportation, low edu. Level, literacy, decrease access to med. care, shelter, rehab)? @ -No Was there de-escalation of care discussed even if they declined (Discuss DNR or withdrawal of care, Hospice)? DNR status @ -No What co-morbidities impacted this encounter? (DM, HTN, Smoking, COPD, CAD, Cancer, CVA, ARF, Chemo, Hep., AIDS, mental health diagnosis, sleep apnea, morbid obesity)? @ -Seizure disorder Was patient admitted / discharged? Hospital course, mention meds given and route, prescriptions, significant lab abnormalities, going to OR and other pertinent info. @ -On arrival patient was placed into room 5. Thorough history and physical exam was performed. IV had been established by EMS. We did give the patient a liter bolus of normal saline. Laboratory studies are conducted. She does go for a chest x-ray. Patient reevaluated and states she feels much improved and wants to go home. We did call the patient's daughter was agreeable to come pick her up. Patient needs to see her doctor in 2-4 days or return for any new or worsening symptoms. Recommended increasing fluid intake. Undiagnosed new problem with uncertain prognosis? @ -Yes Drug Therapy requiring intensive monitoring for toxicity (Heparin, Nitro, Insulin, Cardizem)? @ -No Were any procedures done? @ -No Diagnosis/symptom? @ -Acute syncope, acute transient hypotension, acute dehydration Acute, or Chronic, or Acute on Chronic? @ -Acute Uncomplicated (without systemic symptoms) or Complicated (systemic symptoms)? @ -Complicated Side effects of treatment? @ -No Exacerbation, Progression, or Severe Exacerbation? @ -No Poses a threat to life or bodily function? How? (Chest pain, USA, SD, pneumonia, PE, COPD, DKA, ARF, appy, cholecystitis, CVA, Diverticulitis, Homicidal, Suicidal, threat to staff... and all critical care pts) @ -No - Lab Data Result diagrams: 09/15/22 Unknown 09/15/22 Unknown Lab Results 09/15/22 09/15/22 09/15/22 Range/Units Unknown Unknown Unknown WBC 5.8 (3.8-10.6) k/uL RBC 3.82 (3.80-5.40) m/uL Hgb 11.4 (11.4-16.0) gm/dL Hct 34.2 (34.0-46.0) % MCV 89.5 (80.0-100.0) fL MCH 29.7 (25.0-35.0) pg MCHC 33.2 (31.0-37.0) g/dL RDW 13.5 (11.5-15.5) % Plt Count 246 (150-450) k/uL MPV 7.7 Neutrophils % 57 % Lymphocytes % 26 % Monocytes % 9 % Eosinophils % 4 % Basophils % 1 % Neutrophils # 3.3 (1.3-7.7) k/uL Lymphocytes # 1.5 (1.0-4.8) k/uL Monocytes # 0.5 (0-1.0) k/uL Eosinophils # 0.2 (0-0.7) k/uL Basophils # 0.1 (0-0.2) k/uL PT 11.0 (9.0-12.0) sec INR 1.1 (<1.2) APTT 22.0 (22.0-30.0) sec Sodium 138 (137-145) mmol/L Potassium 5.0 (3.5-5.1) mmol/L Chloride 103 (98-107) mmol/L Carbon Dioxide 23 (22-30) mmol/L Anion Gap 12 mmol/L BUN 24 H (7-17) mg/dL Creatinine 1.11 H (0.52-1.04) mg/dL Est GFR (CKD-EPI)AfAm 53 (>60 ml/min/1.73 sqM) Est GFR (CKD-EPI)NonAf 46 (>60 ml/min/1.73 sqM) Glucose 131 H (74-99) mg/dL Calcium 8.6 (8.4-10.2) mg/dL Total Bilirubin 0.3 (0.2-1.3) mg/dL AST 21 (14-36) U/L ALT 12 (4-34) U/L Alkaline Phosphatase 53 (38-126) U/L Troponin I (0.000-0.034) ng/mL Total Protein 6.8 (6.3-8.2) g/dL Albumin 4.0 (3.5-5.0) g/dL Valproic Acid 64.6 ug/mL 09/15/22 Range/Units Unknown WBC (3.8-10.6) k/uL RBC (3.80-5.40) m/uL Hgb (11.4-16.0) gm/dL Hct (34.0-46.0) % MCV (80.0-100.0) fL MCH (25.0-35.0) pg MCHC (31.0-37.0) g/dL RDW (11.5-15.5) % Plt Count (150-450) k/uL MPV Neutrophils % % Lymphocytes % % Monocytes % % Eosinophils % % Basophils % % Neutrophils # (1.3-7.7) k/uL Lymphocytes # (1.0-4.8) k/uL Monocytes # (0-1.0) k/uL Eosinophils # (0-0.7) k/uL Basophils # (0-0.2) k/uL PT (9.0-12.0) sec INR (<1.2) APTT (22.0-30.0) sec Sodium (137-145) mmol/L Potassium (3.5-5.1) mmol/L Chloride (98-107) mmol/L Carbon Dioxide (22-30) mmol/L Anion Gap mmol/L BUN (7-17) mg/dL Creatinine (0.52-1.04) mg/dL Est GFR (CKD-EPI)AfAm (>60 ml/min/1.73 sqM) Est GFR (CKD-EPI)NonAf (>60 ml/min/1.73 sqM) Glucose (74-99) mg/dL Calcium (8.4-10.2) mg/dL Total Bilirubin (0.2-1.3) mg/dL AST (14-36) U/L ALT (4-34) U/L Alkaline Phosphatase (38-126) U/L Troponin I <0.012 (0.000-0.034) ng/mL Total Protein (6.3-8.2) g/dL Albumin (3.5-5.0) g/dL Valproic Acid ug/mL Disposition Clinical Impression: Dehydration, Syncope Disposition: HOME SELF-CARE Condition: Stable Instructions (If sedation given, give patient instructions): Dehydration (ED) Additional Instructions: Please drink plenty of fluid. Follow up with your doctor and return for any new or worsening symptoms Is patient prescribed a controlled substance at d/c from ED?: No Referrals: Tania Eagle MD [REFERRING] - 1-2 days Time of Disposition: 17:53
[2022-09-15 16:08] LABS: INR 1.1 (<1.2)
--- NOTE | 2022-09-15 16:08 | XR ---
EXAMINATION TYPE: XR chest 2V DATE OF EXAM: 09/15/2022 COMPARISON: 07/23/2022 HISTORY: Shortness of breath TECHNIQUE: Frontal and lateral views of the chest are obtained. FINDINGS: Scattered senescent parenchymal changes noted. Hyperinflation compatible with COPD. No evidence for infiltrate. No evidence for atelectasis. Heart size is stable. Mediastinal structures are stable and grossly unremarkable. No evidence for hilar prominence. Degenerative changes dorsal spine. IMPRESSION: 1. No evidence for acute pulmonary disease.
[2022-09-15 17:01] LABS: Calcium 8.6 mg/dL (8.4-10.2); Total Bilirubin 0.3 mg/dL (0.2-1.3); Total Protein 6.8 g/dL (6.3-8.2)
[2022-09-15 18:49] VITALS: BP 141/64; PULSE 63; RESP 18; TEMP 97.6
[2022-09-15 19:11] LABS: Valproic Acid (Depakene) 64.6 ug/mL
== END 2022-09-15 18:54 | disposition home or self-care (01) ==
LOC: EC 15:21
DX: E86.0 Dehydration (principal); I95.89 Other hypotension; I10 Essential (primary) hypertension; E78.5 Hyperlipidemia, unspecified; G40.909 Epilepsy, unspecified, not intractable, without status epilepticus; F41.9 Anxiety disorder, unspecified; F32.A Depression, unspecified; Z79.899 Other long term (current) drug therapy
CPT/HCPCS: 36415; 71046; 80053; 80164; 84484; 85025; 85610; 85730; 93005; 96360; 99285

== ENCOUNTER 2022-12-11 00:48 | Emergency (ER) | payer MEDICARE, OTHER ==
[2022-12-11 00:56] VITALS: RESP 18; TEMP 98
[2022-12-11] MEDS ORDERED: levETIRAcetam IV 500 MG/5 ML VIAL IVP STA (00:56)
[2022-12-11] MEDS ORDERED: SODIUM CHLORIDE 0.9% 1,000 ML IV STA (00:56)
[2022-12-11 01:36] LABS: ALT 11 U/L (4-34); AST 21 U/L (14-36); African American GFR (CKD) 53 (>60 ml/min/1.73 sqM); Albumin 3.9 g/dL (3.5-5.0); Alcohol <10 mg/dL; Alkaline Phosphatase 60 U/L (38-126); Anion Gap 10 mmol/L; Basophils % (A) 0 %; Blood Urea Nitrogen 26 mg/dL (7-17); Calcium 8.6 mg/dL (8.4-10.2); Carbon Dioxide 23 mmol/L (22-30); Chloride 104 mmol/L (98-107); Eosinophils # (A) 0.2 k/uL (0-0.7); Eosinophils % (A) 2 %; Glucose 98 mg/dL (74-99); HCT 32.4 % (34.0-46.0); HGB 10.9 gm/dL (11.4-16.0); Lymphocytes # (A) 2.3 k/uL (1.0-4.8); Lymphocytes % (A) 23 %; MCH 30.6 pg (25.0-35.0); MCHC 33.7 g/dL (31.0-37.0); MCV 90.8 fL (80.0-100.0); Monocytes # (A) 0.8 k/uL (0-1.0); Monocytes % (A) 8 %; Neutrophils # (A) 6.1 k/uL (1.3-7.7); Neutrophils % (A) 62 %; Non-African American GFR(CKD) 46 (>60 ml/min/1.73 sqM); Platelet Count 210 k/uL (150-450); Potassium 4.5 mmol/L (3.5-5.1); RBC 3.57 m/uL (3.80-5.40); RDW 12.6 % (11.5-15.5); Sodium 137 mmol/L (137-145); Total Bilirubin 0.3 mg/dL (0.2-1.3); WBC 9.7 k/uL (3.8-10.6)
[2022-12-11 01:41] LABS: Valproic Acid (Depakene) 63.7 ug/mL
--- NOTE | 2022-12-11 01:49 | ED ---
General Adult HPI - General Chief complaint: Seizure Stated complaint: Seizure Time Seen by Provider: 12/11/22 00:56 Source: patient, EMS, RN notes reviewed, old records reviewed Mode of arrival: EMS - History of Present Illness Initial comments: Patient is an 87-year-old female with history of epilepsy on Depakote and Vimpat who presents emergency Department with a breakthrough seizure. Patient was postictal for EMS. Seizure occurred their facility. She seems to be coming around in terms of her mental status. She currently is alert and oriented 4. Patient is not on blood thinners. Declines any acute injuries at this time. States she believes she had a seizure. Denies any chest pain, shortness of breath, fevers, chills, cough. States she has been compliant with her medications as the staff at her assisted living facility helps her with them. His no other acute complaints at this time. Presents for further evaluation for breakthrough seizure. Per EMS, last known seizure was approximately one month ago. - Related Data Home Medications Medication Instructions Recorded Confirmed Pravastatin Sodium [Pravachol] 20 mg PO DAILY 10/15/18 07/24/22 Cholecalciferol [Vitamin D3 (25 25 mcg PO DAILY 05/04/22 07/24/22 Mcg = 1000 Iu)] Sertraline [Zoloft] 100 mg PO HS 05/04/22 07/24/22 Thiamine [Vitamin B-1] 100 mg PO DAILY 05/04/22 07/24/22 Ascorbic Acid [Vitamin C] 500 mg PO DAILY 07/12/22 07/24/22 Primidone [Mysoline] 25 mg PO HS 07/12/22 07/24/22 Previous Rx's Medication Instructions Recorded Aspirin 81 mg PO DAILY #30 tab 05/12/22 Levothyroxine Sodium [Euthyrox] 75 mcg PO DAILY #30 tablet 07/14/22 lisinopriL [Prinivil] 10 mg PO DAILY #30 tab 07/14/22 amLODIPine [Norvasc] 10 mg PO DAILY #30 tab 07/15/22 Divalproex [Depakote] 500 mg PO BID #60 tab 07/28/22 Lacosamide [Vimpat] 100 mg PO BID #60 tab 07/28/22 QUEtiapine [SEROquel] 25 mg PO HS #30 tab 07/28/22 Sulfamethox-Tmp 800-160Mg [Bactrim 1 tab PO Q12HR 7 Days #14 tab 12/11/22 DS 800-160 mg] Allergies Allergy/AdvReac Type Severity Reaction Status Date / Time No Known Allergies Allergy Verified 12/11/22 00:56 Review of Systems ROS Statement: Those systems with pertinent positive or pertinent negative responses have been documented in the HPI. Review of Systems: CONST: Denies fever EYES: Denies blurry vision ENT: Denies nasal congestion C/V: Denies Chest pain RESP: Denies shortness of breath GI: Denies abdominal pain : Denies dysuria SKIN: Denies rash. MSK: Denies joint pain. NEURO: Denies headache ROS Other: All systems not noted in ROS Statement are negative. Past Medical History Past Medical History: Cancer, Hearing Disorder / Deafness, Hyperlipidemia, Hypertension, Seizure Disorder, Thyroid Disorder Additional Past Medical History / Comment(s): Seizures/lifelong, R breast cancer with lumpectomy/radiation txs, very INAJA bilaterally/has hearing aides, past L femur fracture/no surgery, UTI, thyroid disease. History of Any Multi-Drug Resistant Organisms: ESBL Date of last positivie culture/infection: 11/08/18-E. coli ESBL MDRO Source:: Urine Past Surgical History: Breast Surgery, Cholecystectomy Additional Past Surgical History / Comment(s): R breast lumpectomy Past Anesthesia/Blood Transfusion Reactions: No Reported Reaction Past Psychological History: Anxiety, Depression Smoking Status: Never smoker Past Alcohol Use History: None Reported Past Drug Use History: None Reported - Past Family History Mother Family Medical History: CVA/TIA Additional Family Medical History / Comment(s): Heart problems Sister(s) Family Medical History: Cancer Additional Family Medical History / Comment(s): of lung cancer General Exam - General Exam Comments Initial Comments: General: Appears in no acute distress. HEAD: Normal with no signs of head trauma. Negative cesar sign. Negative raccoon eyes. EYES: PERRLA, EOMI, conjunctiva normal, no discharge. 3 mm and equal bilaterally. ENT: Hearing grossly intact, normal oropharynx. Patient is hard of hearing. Bilateral tympanic membranes within normal limits. RESPIRATORY: Clear breath sounds bilaterally. No wheezes, rales, or rhonchi. C/V: Regular rate and rhythm. S1 and S2 auscultated, no edema, peripheral pulses 2+ and intact throughout ABD: Abd is soft, nontender, nondistended EXT: Normal range of motion, no obvious deformity SKIN: No rashes or lesions observed on exposed skin. NEURO: Alert and oriented x 4. Cranial nerves II-XII intact. No focal sensory or strength deficits. Course Vital Signs 12/11/22 12/11/22 00:51 01:52 Temperature 98 F Pulse Rate 94 75 Respiratory 18 18 Rate Blood Pressure 147/99 138/63 O2 Sat by Pulse 98 96 Oximetry Medical Decision Making - Medical Decision Making Was pt. sent in by a medical professional or institution (, PA, INTERACTIVE MEDIA SPECIALIST, urgent care, hospital, or assisted...) When possible be specific @ -No Did you speak to anyone other than the patient for history (EMS, parent, family, police, friend...)? What history was obtained from this source @ -No Did you review nursing and triage notes (agree or disagree)? Why? @ -I reviewed and agree with nursing and triage notes Were old charts reviewed (outside hosp., previous admission, EMS record, old EKG, old radiological studies, urgent care reports/EKG's, assisted records)? Report findings @ -Old charts reviewed. Differential Diagnosis (chest pain, altered mental status, abdominal pain women, abdominal pain men, vaginal bleeding, weakness, fever, dyspnea, syncope, headache, dizziness, GI bleed, back pain, seizure, CVA, palpatations, mental health, musculoskeletal)? @ -Differential Seizure: Recurrent seizure disorder, febrile seizure, alcohol withdrawal, stimulants, meningitis, encephalitis, intercranial hemorrhage, intracranial tumor, stroke, eclampsia, thyrotoxicosis, hypocalcemia, hyponatremia, hypernatremia, hypomagnesemia, psychogenic, this is not meant to be an all-inclusive list. EKG interpreted by me (3pts min.). @ -As above X-rays interpreted by me (1pt min.). @ -None done CT interpreted by me (1pt min.). @ -None done U/S interpreted by me (1pt. min.). @ -None done What testing was considered but not performed or refused? (CT, X-rays, U/S, labs)? Why? @ -None What meds were considered but not given or refused? Why? @ -None Did you discuss the management of the patient with other professionals (professionals i.e. , PA, INTERACTIVE MEDIA SPECIALIST, lab, RT, psych nurse, social media marketing specialist, solar electric installer, teacher, community chest officer, rn case mgr)? Give summary @ -No Was smoking cessation discussed for >3mins.? @ -No Was critical care preformed (if so, how long)? @ -No Were there social determinants of health that impacted care today? How? (Homelessness, low income, unemployed, alcoholism, drug addiction, transportation, low edu. Level, literacy, decrease access to med. care, shelter, rehab)? @ -No Was there de-escalation of care discussed even if they declined (Discuss DNR or withdrawal of care, Hospice)? DNR status @ -No What co-morbidities impacted this encounter? (DM, HTN, Smoking, COPD, CAD, Cancer, CVA, ARF, Chemo, Hep., AIDS, mental health diagnosis, sleep apnea, morbid obesity)? @ -Seizure Was patient admitted / discharged? Hospital course, mention meds given and route, prescriptions, significant lab abnormalities, going to OR and other pertinent info. @ -Based on the patient's presentation and physical exam, presents with breakthrough seizure. One seizure this evening. States she has been compliant with medications. Currently her postictal state has resolved and she is alert and oriented 4 at her current baseline. Presents for further evaluation at this time via EMS. He'll obtain seizure labs, EKG. I do not believe that imaging is required at this time she has had a baseline. Patient will be fussy monitored. Seizure percussions and pads were placed. Vital signs of septal limits. She was in agreement this plan. She'll receive a 1 L fluid bolus as well as a dose of IV Keppra. EKG showed no signs of acute ischemia. Patient has chronic anemia which is stable at her baseline. Urinalysis reveals a UTI. Depakote level is therapeutic. Remainder the labs within acceptable limits. On reevaluation, patient remains at her baseline. Alert and oriented 4. No complaints. She was observed for over 2 hours in the department. No breakthrough seizures. I updated her that she has a UTI. She expressed understanding. She'll be given a dose of Rocephin and Bactrim as well as prescription for Bactrim. Patient's family member was called to get the patient back to her living facility. Patient expressed understanding was in agreement with the plan. Strict return precautions discussed. I believe it is safer to be discharged home at this time. Discussed she is not allowed to drive for at least 6 months.Patient's UTI is likely what caused her to have a breakthrough seizure. I will provide the patient with a prescription for Bactrim. I instructed the patient to follow up with their PCP in the next 1-3 days. I explained that the patient should return to the emergency department if they experience any worsening symptoms. Strict return precautions were discussed with the patient. The patient expressed understanding of these instructions. I answered all questions that the patient had. The patient was discharged home in good condition with their prescriptions and follow up information. Undiagnosed new problem with uncertain prognosis? @ -No Drug Therapy requiring intensive monitoring for toxicity (Heparin, Nitro, Insulin, Cardizem)? @ -No Were any procedures done? @ -No Diagnosis/symptom? @ -Breakthrough seizure Acute, or Chronic, or Acute on Chronic? @ -Acute on chronic Uncomplicated (without systemic symptoms) or Complicated (systemic symptoms)? @ -complicated Side effects of treatment? @ -No Exacerbation, Progression, or Severe Exacerbation? @ -No Poses a threat to life or bodily function? How? (Chest pain, USA, SC, pneumonia, PE, COPD, DKA, ARF, appy, cholecystitis, CVA, Diverticulitis, Homicidal, Suicidal, threat to staff... and all critical care pts) @ -Unlikely Diagnosis/symptom? @ -UTI Acute, or Chronic, or Acute on Chronic? @ -Acute Uncomplicated (without systemic symptoms) or Complicated (systemic symptoms)? @ -Complicated Side effects of treatment? @ -none Exacerbation, Progression, or Severe Exacerbation] @ -no Poses a threat to life or bodily function? @ -no - Lab Data Result diagrams: 12/11/22 01:04 12/11/22 01:04 Lab Results 12/11/22 12/11/22 12/11/22 Range/Units 01:04 01:04 01:51 WBC 9.7 (3.8-10.6) k/uL RBC 3.57 L (3.80-5.40) m/uL Hgb 10.9 L (11.4-16.0) gm/dL Hct 32.4 L (34.0-46.0) % MCV 90.8 (80.0-100.0) fL MCH 30.6 (25.0-35.0) pg MCHC 33.7 (31.0-37.0) g/dL RDW 12.6 (11.5-15.5) % Plt Count 210 (150-450) k/uL MPV 8.0 Neutrophils % 62 % Lymphocytes % 23 % Monocytes % 8 % Eosinophils % 2 % Basophils % 0 % Neutrophils # 6.1 (1.3-7.7) k/uL Lymphocytes # 2.3 (1.0-4.8) k/uL Monocytes # 0.8 (0-1.0) k/uL Eosinophils # 0.2 (0-0.7) k/uL Basophils # 0.0 (0-0.2) k/uL Sodium 137 (137-145) mmol/L Potassium 4.5 (3.5-5.1) mmol/L Chloride 104 (98-107) mmol/L Carbon Dioxide 23 (22-30) mmol/L Anion Gap 10 mmol/L BUN 26 H (7-17) mg/dL Creatinine 1.11 H (0.52-1.04) mg/dL Est GFR (CKD-EPI)AfAm 53 (>60 ml/min/1.73 sqM) Est GFR (CKD-EPI)NonAf 46 (>60 ml/min/1.73 sqM) Glucose 98 (74-99) mg/dL Calcium 8.6 (8.4-10.2) mg/dL Magnesium 2.0 (1.6-2.3) mg/dL Total Bilirubin 0.3 (0.2-1.3) mg/dL AST 21 (14-36) U/L ALT 11 (4-34) U/L Alkaline Phosphatase 60 (38-126) U/L Total Protein 7.0 (6.3-8.2) g/dL Albumin 3.9 (3.5-5.0) g/dL Urine Color Colorless Urine Appearance Cloudy H (Clear) Urine pH 5.5 (5.0-8.0) Ur Specific May 1.013 (1.001-1.035) Urine Protein Negative (Negative) Urine Glucose (UA) Negative (Negative) Urine Ketones Negative (Negative) Urine Blood Trace H (Negative) Urine Nitrite Negative (Negative) Urine Bilirubin Negative (Negative) Urine Urobilinogen <2.0 (<2.0) mg/dL Ur Leukocyte Esterase Large H (Negative) Urine RBC 8 H (0-5) /hpf Urine WBC 52 H (0-5) /hpf Ur Squamous Epith Cells 2 (0-4) /hpf Amorphous Sediment Rare H (None) /hpf Urine Bacteria Many H (None) /hpf Hyaline Casts 48 H (0-2) /lpf Urine Mucus Rare H (None) /hpf Urine Opiates Screen Not Detected (NotDetected) Ur Oxycodone Screen Not Detected (NotDetected) Urine Methadone Screen Not Detected (NotDetected) Ur Propoxyphene Screen Not Detected (NotDetected) Ur Barbiturates Screen Detected H (NotDetected) Valproic Acid 63.7 ug/mL U Tricyclic Antidepress Detected H (NotDetected) Ur Phencyclidine Scrn Not Detected (NotDetected) Ur Amphetamines Screen Not Detected (NotDetected) U Methamphetamines Scrn Not Detected (NotDetected) U Benzodiazepines Scrn Not Detected (NotDetected) Urine Cocaine Screen Not Detected (NotDetected) U Marijuana (THC) Screen Not Detected (NotDetected) Serum Alcohol <10 mg/dL - EKG Data -: EKG Interpreted by Me EKG Comments: 12-lead Electrocardiogram Interpretation Note EKG was reviewed and interpreted by myself. 12-lead ECG performed at 0051 is interpreted by me as revealing normal sinus rhythm with first-degree AV block at a rate of 91 beats per minute. Mild left axis deviation. DC interval is 305 ms and prolonged, QRS duration is 85 ms, QTc is 393 ms.. There were no ST or T wave abnormalities to suggest myocardial ischemia or injury. R wave progression across the precordium was satisfactory. By my interpretation this EKG is non- diagnostic for acute ischemia. Disposition Clinical Impression: Breakthrough seizure, UTI (urinary tract infection) Disposition: HOME SELF-CARE Condition: Good Instructions (If sedation given, give patient instructions): Seizure/Epilepsy Discharge Instructions & Follow-Up, Urinary Tract Infection in Women (ED), Recurrent Seizures in Adults (ED) Prescriptions: Sulfamethox-Tmp 800-160Mg [Bactrim DS 800-160 mg] 1 tab PO Q12HR 7 Days #14 tab Is patient prescribed a controlled substance at d/c from ED?: No Referrals: Peg Vuong, NPC [Primary Care Provider] - 1-2 days Time of Disposition: 02:35
[2022-12-11 02:26] LABS: Amorphous Sediment,Urine Rare /hpf; Appearance,Urine Cloudy (Clear); Bacteria,Urine Many /hpf; Bilirubin,Urine Negative (Negative); Blood,Urine Trace (Negative); Color,Urine Colorless; Glucose,Urine (UA) Negative (Negative); Hyaline Casts,Urine 48 /lpf (0-2); Ketones,Urine Negative (Negative); Leukocyte Esterase,Urine Large (Negative); Mucus,Urine Rare /hpf; Nitrite,Urine Negative (Negative); PH, Urine 5.5 (5.0-8.0); Protein,Urine Negative (Negative); RBC,Urine 8 /hpf (0-5); Specific Gravity,Urine 1.013 (1.001-1.035); Squamous Epithelial Cell,Urine 2 /hpf (0-4); Urobilinogen,Urine <2.0 mg/dL (<2.0); WBC,Urine 52 /hpf (0-5)
[2022-12-11 02:27] LABS: Amphetamine Screen,Urine Not Detected (NotDetected); Barbiturate Screen,Urine Detected (NotDetected); Benzodiazepines Screen,Urine Not Detected (NotDetected); Cocaine Screen,Urine Not Detected (NotDetected); Methadone Screen, Urine Not Detected (NotDetected); Opiate Screen,Urine Not Detected (NotDetected); Oxycodone Screen, Urine Not Detected (NotDetected); Phencyclidine Screen,Urine Not Detected (NotDetected); Tricyclic Antidepressant,Urine Detected (NotDetected); Urn Cannabinoid Scrn Not Detected (NotDetected)
[2022-12-11] MEDS ORDERED: SULFAMETHOX-TMP 800-160MG 1 EACH TAB PO STA (02:35)
[2022-12-11] MEDS ORDERED: cefTRIAXone IN SWFI 1,000 MG/10 ML SYRINGE IVP STA (02:35)
[2022-12-11 04:43] VITALS: BP 140/53; PULSE 80
== END 2022-12-11 04:45 | disposition home or self-care (01) ==
LOC: EC 00:48
DX: G40.909 Epilepsy, unspecified, not intractable, without status epilepticus (principal); N39.0 Urinary tract infection, site not specified; B96.20 Unspecified Escherichia coli [E. coli] as the cause of diseases classified elsewhere; I10 Essential (primary) hypertension; E78.5 Hyperlipidemia, unspecified; F32.A Depression, unspecified; F41.9 Anxiety disorder, unspecified; Z79.899 Other long term (current) drug therapy; Z90.49 Acquired absence of other specified parts of digestive tract
CPT/HCPCS: 36415; 93005; 80164; 80053; 83735; 85025; 81001; 80306; 87086; 87077; 87186; 99285; 96374; 96375; 96361; G0480; J0696; J1953; 80320

== ENCOUNTER 2022-12-25 15:08 | Inpatient (IN) | payer MEDICARE ==
[2022-12-25] MEDS ORDERED: SODIUM CHLORIDE 0.9% 500 ML 500 ML IV STA (15:30)
--- NOTE | 2022-12-25 15:31 | ED ---
Syncope HPI - General Chief Complaint: Syncope Stated Complaint: Syncope Time Seen by Provider: 12/25/22 15:29 Source: patient, EMS, RN notes reviewed, old records reviewed Mode of arrival: EMS Limitations: no limitations - History of Present Illness Initial Comments: This 87-year-old female to the ER for evaluation. Patient is presenting to the ED today for evaluation regards to near syncopal event with a fall and a Right ankle fracture. Patient continues to feel weak here in the emergency room. Lightheaded dizzy and presents by EMS for right ankle pain. MD Complaint: felt faint, almost passed out -: days(s) Prodromal Symptoms: lightheaded, palpitations, shortness of breath -: second(s) Witnessed: yes - by bystander Injuries Sustained Associated with Event: None Current Symptoms: weakness History: previous syncopal episode Treatments Prior to Arrival: none - Related Data Home Medications Medication Instructions Recorded Confirmed Pravastatin Sodium [Pravachol] 20 mg PO HS 10/15/18 12/25/22 Cholecalciferol [Vitamin D3 (25 25 mcg PO DAILY 05/04/22 12/25/22 Mcg = 1000 Iu)] Sertraline [Zoloft] 100 mg PO HS 05/04/22 12/25/22 Thiamine [Vitamin B-1] 100 mg PO DAILY 05/04/22 12/25/22 Ascorbic Acid [Vitamin C] 500 mg PO DAILY 07/12/22 12/25/22 Primidone [Mysoline] 25 mg PO HS 07/12/22 12/25/22 Divalproex [Depakote] 250 mg PO BID 12/25/22 12/25/22 Lacosamide [Vimpat] 100 mg PO BID 12/25/22 12/25/22 Levothyroxine Sodium 100 mcg PO AC-BRKFST 12/25/22 12/25/22 Previous Rx's Medication Instructions Recorded Aspirin 81 mg PO DAILY #30 tab 05/12/22 QUEtiapine [SEROquel] 25 mg PO HS #30 tab 07/28/22 Acetaminophen Tab [Tylenol] 650 mg PO Q6HR PRN tab 12/27/22 Pantoprazole [Protonix] 40 mg PO AC-BRKFST #30 tab 12/27/22 lisinopriL [Prinivil] 5 mg PO DAILY #30 tab 12/27/22 Allergies Allergy/AdvReac Type Severity Reaction Status Date / Time No Known Allergies Allergy Verified 12/25/22 17:37 Review of Systems ROS Statement: Those systems with pertinent positive or pertinent negative responses have been documented in the HPI. ROS Other: All systems not noted in ROS Statement are negative. Past Medical History Past Medical History: Cancer, Hearing Disorder / Deafness, Hyperlipidemia, Hypertension, Seizure Disorder, Thyroid Disorder Additional Past Medical History / Comment(s): Seizures/lifelong, R breast cancer with lumpectomy/radiation txs, very [place] bilaterally/has hearing aides, past L femur fracture/no surgery, UTI, thyroid disease. History of Any Multi-Drug Resistant Organisms: ESBL Date of last positivie culture/infection: 12/11/22 ESBL-E.coli MDRO Source:: Urine Past Surgical History: Breast Surgery, Cholecystectomy Additional Past Surgical History / Comment(s): R breast lumpectomy Past Anesthesia/Blood Transfusion Reactions: No Reported Reaction Past Psychological History: Anxiety, Depression Smoking Status: Never smoker Past Alcohol Use History: None Reported Past Drug Use History: None Reported - Past Family History Mother Family Medical History: CVA/TIA Additional Family Medical History / Comment(s): Heart problems Sister(s) Family Medical History: Cancer Additional Family Medical History / Comment(s): of lung cancer General Exam Limitations: no limitations General appearance: alert, in no apparent distress Head exam: Present: atraumatic, normocephalic, normal inspection Eye exam: Present: normal appearance, PERRL, EOMI. Absent: scleral icterus, conjunctival injection, periorbital swelling ENT exam: Present: normal exam, mucous membranes moist Neck exam: Present: normal inspection. Absent: tenderness, meningismus, lymphadenopathy Respiratory exam: Present: normal lung sounds bilaterally. Absent: respiratory distress, wheezes, rales, rhonchi, stridor Cardiovascular Exam: Present: regular rate, normal rhythm, normal heart sounds. Absent: systolic murmur, diastolic murmur, rubs, gallop, clicks GI/Abdominal exam: Present: soft, normal bowel sounds. Absent: distended, tenderness, guarding, rebound, rigid Extremities exam: Present: normal inspection, full ROM, normal capillary refill. Absent: tenderness, pedal edema, joint swelling, calf tenderness Back exam: Present: normal inspection Neurological exam: Present: alert, oriented X3, CN II-XII intact Psychiatric exam: Present: normal affect, normal mood Skin exam: Present: warm, dry, intact, normal color. Absent: rash Course Vital Signs 12/25/22 12/25/22 12/25/22 15:24 17:42 18:33 Temperature 97.7 F Pulse Rate 60 58 L 62 Respiratory 18 18 18 Rate Blood Pressure 124/70 124/51 114/56 O2 Sat by Pulse 98 97 97 Oximetry 12/25/22 12/25/22 12/26/22 20:04 21:39 00:00 Temperature Pulse Rate 67 59 L 55 L Respiratory 17 Rate Blood Pressure 143/55 137/57 O2 Sat by Pulse 98 Oximetry 12/26/22 12/26/22 12/26/22 01:00 03:15 04:05 Temperature Pulse Rate 56 L 51 L 57 L Respiratory 17 19 19 Rate Blood Pressure 129/55 135/54 O2 Sat by Pulse Oximetry - Reevaluation(s) Reevaluation #1: 12/25/22 16:16 medical record is reviewed Reevaluation #2: 12/25/22 17:52 Patient is no real change in symptoms here in the ER Reevaluation #3: 12/25/22 17:52 Patient informed results and questions answered Reevaluation #4: 12/25/22 16:16 Was pt. sent in by a medical professional or institution (, PA, METEOROLOGICAL AIDE, urgent care, hospital, or senior care...) When possible be specific @ -no Did you speak to anyone other than the patient for history (EMS, parent, family, police, friend...)? What history was obtained from this source @ -no Did you review nursing and triage notes (agree or disagree)? Why? @ -agree Are old charts reviewed (outside hosp., previous admission, EMS record, old EKG, old radiological studies, urgent care reports/EKG's, senior care records)? Report findings @ -yes Differential Diagnosis (chest pain, altered mental status, abdominal pain women, abdominal pain men, vaginal bleeding, weakness, fever, dyspnea, syncope, headache, dizziness, GI bleed, back pain, seizure, CVA, palpatations, mental health, musculoskeletal)? @ -prior EKG interpreted by me (3pts min.). @ -yes X-rays interpreted by me (1pt min.). @ -yes CT interpreted by me (1pt min.). @ -no U/S interpreted by me (1pt. min.). @ -no What testing was considered but not performed or refused? (CT, X-rays, U/S, labs)? Why? @ -none What meds were considered but not given or refused? Why? @ -none Did you discuss the management of the patient with other professionals (professionals i.e. Dr., PA, METEOROLOGICAL AIDE, lab, RT, psych nurse, high school social studies tutor, coding clerks supervisor, teacher, intelligence officer, pillowcase cleaner)? Give summary @ -no Was smoking cessation discussed for >3mins.? @ -no Was critical care preformed (if so, how long)? @ -no Were there social determinants of health that impacted care today? How? (Homelessness, low income, unemployed, alcoholism, drug addiction, transportation, low edu. Level, literacy, decrease access to med. care, [facility], rehab)? @ -none Was there de-escalation of care discussed even if they declined (Discuss DNR or withdrawal of care, Hospice)? DNR status @ -no What co-morbidities impacted this encounter? (DM, HTN, Smoking, COPD, CAD, Cancer, CVA, ARF, Chemo, Hep., AIDS, mental health diagnosis, sleep apnea, morbid obesity)? @ -none Was patient admitted / discharged? Hospital course, mention meds given and route, prescriptions, significant lab abnormalities, going to OR and other pertinent info. @ - 87 female to the Emergency Department for evaluation of a near syncopal event and a fall right ankle pain and is found here in the ER to have a significantly elevated potassium. Patient will be treated for the elevated p otassium and admitted for monitoring of potassium and renal failure, dehydration having a syncopal event Minute Undiagnosed new problem with uncertain prognosis? @ -no Drug Therapy requiring intensive monitoring for toxicity (Heparin, Nitro, Insulin, Cardizem)? @ -no Were any procedures done? @ -no Diagnosis/symptom? @ -Syncope, ankle pain, fall Acute, or Chronic, or Acute on Chronic? @ -Acute Uncomplicated (without systemic symptoms) or Complicated (systemic symptoms)? @ -Complicated Side effects of treatment? @ -no Exacerbation, Progression, or Severe Exacerbation? @ -exacerbation Poses a threat to life or bodily function? How? (Chest pain, USA, MT, pneumonia, PE, COPD, DKA, ARF, appy, cholecystitis, CVA, Diverticulitis, Homicidal, Suicidal, threat to staff... and all critical care pts) @ -yes with syncopal event leading to debilitating. The mortality Reevaluation #5: 12/25/22 17:52 Differential Syncope: Valvular disease, hypertrophic cardiomyopathy, pulmonary embolism, tamponade, tachycardia, bradycardia, MT, hypovolemia, hemorrhage, dissection, anemia, intracranial hemorrhage, seizure, hypoglycemia, carbon monoxide poisoning, this is not meant to be an all-inclusive list. - Consultations Consultation #1: Spoke with [facility] who agree to admit this patient EKG Findings - EKG Comments: EKG Findings:: EKG is sinus bradycardia 58 IN 338 QRS 79 QTc 402 Medical Decision Making - Medical Decision Making 87 female to the Emergency Department for evaluation of a near syncopal event and a fall right ankle pain and is found here in the ER to have a significantly elevated potassium. Patient will be treated for the elevated potassium and admitted for monitoring of potassium and renal failure, dehydration having a syncopal event - Lab Data Result diagrams: 12/26/22 04:39 12/27/22 05:43 Lab Results 12/25/22 12/25/22 12/25/22 Range/Units 16:02 16:02 16:02 WBC 6.8 (3.8-10.6) k/uL RBC 3.86 (3.80-5.40) m/uL Hgb 11.5 (11.4-16.0) gm/dL Hct 34.2 (34.0-46.0) % MCV 88.5 (80.0-100.0) fL MCH 29.8 (25.0-35.0) pg MCHC 33.7 (31.0-37.0) g/dL RDW 12.1 (11.5-15.5) % Plt Count 280 (150-450) k/uL MPV 7.5 Neutrophils % 66 % Lymphocytes % 19 % Monocytes % 9 % Eosinophils % 2 % Basophils % 1 % Neutrophils # 4.5 (1.3-7.7) k/uL Lymphocytes # 1.3 (1.0-4.8) k/uL Monocytes # 0.6 (0-1.0) k/uL Eosinophils # 0.2 (0-0.7) k/uL Basophils # 0.0 (0-0.2) k/uL PT 10.8 (9.0-12.0) sec INR 1.0 (<1.2) APTT 23.6 (22.0-30.0) sec Sodium 128 L (137-145) mmol/L Potassium 6.4 H* (3.5-5.1) mmol/L Chloride 97 L (98-107) mmol/L Carbon Dioxide 23 (22-30) mmol/L Anion Gap 8 mmol/L BUN 25 H (7-17) mg/dL Creatinine 1.03 (0.52-1.04) mg/dL Est GFR (CKD-EPI)AfAm 57 (>60 ml/min/1.73 sqM) Est GFR (CKD-EPI)NonAf 50 (>60 ml/min/1.73 sqM) Glucose 88 (74-99) mg/dL Calcium 9.3 (8.4-10.2) mg/dL Phosphorus 5.1 H (2.5-4.5) mg/dL Magnesium 2.0 (1.6-2.3) mg/dL Total Bilirubin 0.3 (0.2-1.3) mg/dL AST 21 (14-36) U/L ALT 12 (4-34) U/L Alkaline Phosphatase 54 (38-126) U/L Troponin I (0.000-0.034) ng/mL NT-Pro-B Natriuret Pep 327 pg/mL Total Protein 7.2 (6.3-8.2) g/dL Albumin 4.1 (3.5-5.0) g/dL 12/25/22 Range/Units 16:02 WBC (3.8-10.6) k/uL RBC (3.80-5.40) m/uL Hgb (11.4-16.0) gm/dL Hct (34.0-46.0) % MCV (80.0-100.0) fL MCH (25.0-35.0) pg MCHC (31.0-37.0) g/dL RDW (11.5-15.5) % Plt Count (150-450) k/uL MPV Neutrophils % % Lymphocytes % % Monocytes % % Eosinophils % % Basophils % % Neutrophils # (1.3-7.7) k/uL Lymphocytes # (1.0-4.8) k/uL Monocytes # (0-1.0) k/uL Eosinophils # (0-0.7) k/uL Basophils # (0-0.2) k/uL PT (9.0-12.0) sec INR (<1.2) APTT (22.0-30.0) sec Sodium (137-145) mmol/L Potassium (3.5-5.1) mmol/L Chloride (98-107) mmol/L Carbon Dioxide (22-30) mmol/L Anion Gap mmol/L BUN (7-17) mg/dL Creatinine (0.52-1.04) mg/dL Est GFR (CKD-EPI)AfAm (>60 ml/min/1.73 sqM) Est GFR (CKD-EPI)NonAf (>60 ml/min/1.73 sqM) Glucose (74-99) mg/dL Calcium (8.4-10.2) mg/dL Phosphorus (2.5-4.5) mg/dL Magnesium (1.6-2.3) mg/dL Total Bilirubin (0.2-1.3) mg/dL AST (14-36) U/L ALT (4-34) U/L Alkaline Phosphatase (38-126) U/L Troponin I <0.012 (0.000-0.034) ng/mL NT-Pro-B Natriuret Pep pg/mL Total Protein (6.3-8.2) g/dL Albumin (3.5-5.0) g/dL - Radiology Data Radiology results: report reviewed (Aydee ankle negative for acute disease interpreted by me), image reviewed Critical Care Time Critical Care Time: Yes Total Critical Care Time: 31 Disposition Clinical Impression: Dehydration, Hyponatremia, Fall, Right ankle pain, Hyperkalemia Disposition: ADMITTED IP TO THIS [facility] Condition: Fair Is patient prescribed a controlled substance at d/c from ED?: No Time of Disposition: 17:50
[2022-12-25 16:27] LABS: ALT 12 U/L (4-34); AST 21 U/L (14-36); African American GFR (CKD) 57 (>60 ml/min/1.73 sqM); Albumin 4.1 g/dL (3.5-5.0); Alkaline Phosphatase 54 U/L (38-126); Anion Gap 8 mmol/L; Blood Urea Nitrogen 25 mg/dL (7-17); Calcium 9.3 mg/dL (8.4-10.2); Carbon Dioxide 23 mmol/L (22-30); Chloride 97 mmol/L (98-107); Glucose 88 mg/dL (74-99); Non-African American GFR(CKD) 50 (>60 ml/min/1.73 sqM); Phosphorus 5.1 mg/dL (2.5-4.5); Sodium 128 mmol/L (137-145); Total Bilirubin 0.3 mg/dL (0.2-1.3); Total Protein 7.2 g/dL (6.3-8.2)
[2022-12-25 16:28] LABS: Potassium 6.4 mmol/L (3.5-5.1)
[2022-12-25 16:34] LABS: NT-Pro-B-Type Natriuretic Pept 327 pg/mL
[2022-12-25 16:46] LABS: Partial Thromboplastin Time 23.6 sec (22.0-30.0); Prothrombin Time 10.8 sec (9.0-12.0)
[2022-12-25 16:54] LABS: Basophils % (A) 1 %; Eosinophils # (A) 0.2 k/uL (0-0.7); Eosinophils % (A) 2 %; HCT 34.2 % (34.0-46.0); HGB 11.5 gm/dL (11.4-16.0); Lymphocytes # (A) 1.3 k/uL (1.0-4.8); Lymphocytes % (A) 19 %; MCH 29.8 pg (25.0-35.0); MCHC 33.7 g/dL (31.0-37.0); MCV 88.5 fL (80.0-100.0); Mean Platelet Volume 7.5; Monocytes # (A) 0.6 k/uL (0-1.0); Monocytes % (A) 9 %; Neutrophils # (A) 4.5 k/uL (1.3-7.7); Neutrophils % (A) 66 %; Platelet Count 280 k/uL (150-450); RBC 3.86 m/uL (3.80-5.40); RDW 12.1 % (11.5-15.5); WBC 6.8 k/uL (3.8-10.6)
--- NOTE | 2022-12-25 17:02 | XR ---
EXAMINATION TYPE: XR ankle complete RT DATE OF EXAM: 12/25/2022 4:37 PM CLINICAL INDICATION:Female, 87 years old with history of pain; COMPARISON: None TECHNIQUE: The right ankle is imaged in frontal, lateral and oblique projections. FINDINGS: There is no evidence of acute osseous pathology. The joint spaces are well-preserved without evidenc e of subluxation or dislocation. Kager's fat pad is intact. Mild soft tissue swelling around the ankl e. No radiopaque foreign bodies are identified. Calcaneal plantar spurring. IMPRESSION: 1. No evidence of acute fracture. 2. Subcutaneous swelling around the ankle likely secondary to underlying soft tissue injury.
[2022-12-25] MEDS ORDERED: INSULIN REGULAR 100 UNIT/ML VIAL (IV) IV ONE (17:12)
[2022-12-25] MEDS ORDERED: SODIUM CHLORIDE 0.9% 1,000 ML IV STA (17:12)
[2022-12-25] MEDS ORDERED: DEXTROSE 50% SYRINGE 50 ML IVP STA (17:12)
[2022-12-25] MEDS ORDERED: SODIUM BICARB 8.4% 50 ML SYR (1 MEQ/ML) IV STA (17:12)
[2022-12-25] MEDS ORDERED: CALCIUM GLUCONATE IN NACL 1 GM in SALINE 1 100ML.BAG IVPB ONE (17:30)
[2022-12-25] MEDS ORDERED: NALOXONE 0.4 MG/ML 1 ML VIAL IV PRN (17:45)
[2022-12-25] MEDS ORDERED: MORPHINE SULFATE 4 MG/ML SYRINGE IV PRN (17:45)
[2022-12-25] MEDS ORDERED: ONDANSETRON 4 MG/2 ML VIAL IVP PRN (17:45)
[2022-12-25] MEDS: SODIUM CHLORIDE 0.9% 1,000 ML IV SCH (20:06)
[2022-12-25] MEDS: amLODIPine 10 MG TAB PO SCH (20:47)
[2022-12-25] MEDS: SERTRALINE 100 MG TAB PO SCH (21:14)
[2022-12-25] MEDS: PRAVASTATIN SODIUM 20 MG TAB PO SCH (21:14)
[2022-12-25] MEDS: QUEtiapine 25 MG TAB PO SCH (21:15)
[2022-12-25] MEDS: PRIMIDONE 25 MG TAB PO SCH (21:15)
[2022-12-25] MEDS: DIVALPROEX 250 MG TABLET.DR PO SCH (21:15)
[2022-12-25] MEDS: LACOSAMIDE 50 MG TABLET PO SCH (21:16)
[2022-12-26] MEDS: amLODIPine 10 MG TAB PO SCH (08:49)
[2022-12-26] MEDS: ASPIRIN 81 MG PO SCH (08:49)
[2022-12-26] MEDS: LEVOTHYROXINE 100 MCG TAB PO SCH (08:49)
[2022-12-26] MEDS: LACOSAMIDE 50 MG TABLET PO SCH ×2 (08:49→21:40)
[2022-12-26] MEDS: SODIUM CHLORIDE 0.9% 1,000 ML IV SCH ×2 (08:52→21:54)
[2022-12-26] MEDS ORDERED: ACETAMINOPHEN TAB 325 MG TAB PO PRN (08:53)
[2022-12-26] MEDS ORDERED: HYDROcodone/APAP 5-325MG 1 EACH TAB PO PRN (08:53)
[2022-12-26 08:58] LABS: Basophils % (A) 1.1 %; Eosinophils # (A) 0.18 X 10*3/uL (0.04-0.35); Eosinophils % (A) 1.9 %; HCT 33.5 % (37.2-46.3); HGB 11.4 d/dL (12.0-15.0); Lymphocytes # (A) 2.79 X 10*3/uL (0.90-5.00); Lymphocytes % (A) 29.6 %; MCH 30.9 pg (27.0-32.0); MCV 90.8 FL (80.0-97.0); Mean Platelet Volume 10.3 FL (9.5-12.2); Monocytes # (A) 1.18 X 10*3/uL (0.20-1.00); Monocytes % (A) 12.5 %; NRBC Per 100 WBC 0 X 10*3/uL (0.00-0.01); Neutrophils # (A) 5.12 X 10*3/uL (1.80-7.70); Neutrophils % (A) 54.3 %; Platelet Count 301 X 10*3/uL (140-440); RBC 3.69 X 10*6/uL (4.10-5.20); RDW 12.4 % (11.5-14.5); WBC 9.43 X 10*3/uL (4.50-10.00)
[2022-12-26 09:22] LABS: ALT 8 U/L (8-44); AST 18 U/L (13-35); Albumin 4.2 d/dL (3.8-4.9); Albumin/Globulin Ratio 1.62 Ratio (1.60-3.17); Alkaline Phosphatase 61 U/L (41-126); Blood Urea Nitrogen 20.3 mg/dL (9.0-27.0); Calcium 9.9 mg/dL (8.7-10.3); Carbon Dioxide 25.2 mmol/L (21.6-31.8); Chloride 97 mmol/L (96-109); Globulin 2.6 d/dL (1.6-3.3); Glucose 81 mg/dL (70-110); Magnesium 2.1 mg/dL (1.5-2.4); Phosphorus 4.5 mg/dL (2.4-5.1); Potassium 5.3 mmol/L (3.5-5.5); Sodium 133 mmol/L (135-145); Total Bilirubin 0.3 mg/dL (0.3-1.2); Total Protein 6.8 d/dL (6.2-8.2)
[2022-12-26] MEDS: PANTOPRAZOLE 40 MG TABLET PO SCH (10:08)
[2022-12-26] MEDS: DIVALPROEX 250 MG TABLET.DR PO SCH ×2 (10:08→21:45)
--- NOTE | 2022-12-26 18:24 | P.HPIM ---
History of Present Illness H&P Date: 12/26/22 This is an 87 year old female with medical history of hypertension, hyperlipidemia, thyroid disorder, seizure disorder with grand mal seizures, right breast cancer with radiation and lumpectomy. Patient was recently hospitalized for an Acute UTI with cultures showing ESBL was treated with antibiotics. Has felt week at home and reporting some urinary frequency also. Patient did have a fall with pre-syncope. Patient reported feeling dizzy and weak while standing up in the kitchen and went down. She denied hitting her head and also denied loosing consciousness. No chest pain no shortness of breath. Currently no dizziness or lightheadedness. Reports right ankle pain and swelling and came in to the ER for evaluation. Ankle xray completed shows no acute fracture there is subcu swelling around the ankle likely due to a soft tissue injury. EKG shows sinus bradycardia with first degree AV block. Patient has normal WBC, sodium was low at 128, potassium at 6.4. BUN 25, creatinine 1.03. Troponin negative. Admitted to the hospital for hyperkalemia and weakness. REVIEW OF SYSTEMS: CONSTITUTIONAL: No fever, no malaise. Reports fatigue and weakness. HEENT: No recent visual problems or hearing problems. Denied any sore throat. CARDIOVASCULAR: No chest pain, orthopnea, PND, no palpitations, no syncope. PULMONARY: No shortness of breath, no cough, no hemoptysis. GASTROINTESTINAL: No diarrhea, no nausea, no vomiting, no abdominal pain. NEUROLOGICAL: No headaches, no weakness, no numbness. HEMATOLOGICAL: Denies any bleeding or petechiae. GENITOURINARY: Denies any burning micturition, frequency, or urgency. MUSCULOSKELETAL/RHEUMATOLOGICAL: Reports right ankle pain. ENDOCRINE: Denies any polyuria or polydipsia. The rest of the 14-point review of systems is negative. PHYSICAL EXAMINATION: GENERAL: The patient is alert and oriented x3, not in any acute distress. Well developed, well nourished. HEENT: Pupils are round and equally reacting to light. EOMI. No scleral icterus. No conjunctival pallor. Normocephalic, atraumatic. No pharyngeal erythema. No thyromegaly. CARDIOVASCULAR: S1 and S2 present. No murmurs, rubs, or gallops. PULMONARY: Chest is clear to auscultation, no wheezing or crackles. ABDOMEN: Soft, nontender, nondistended, normoactive bowel sounds. No palpable organomegaly. MUSCULOSKELETAL: Right ankle swollen and tender to palpation. EXTREMITIES: No cyanosis, clubbing, or pedal edema. NEUROLOGICAL: Gross neurological examination did not reveal any focal deficits. SKIN: No rashes. Assessment and Plan Presyncope and fall likely due to acute dehydration and orthostatic changes, patient will by hydrated and amlodipine being held. Medical debility likely due to recent hospital stay PT/OT will be consulted for discharge planning Trauma with soft tissue injury to the right ankle due to fall recommending to elevate and apply tova as tolerated. Also wrap with otva bandage for compression. Hyperkalemia treated and improved down to 5.3 recommend to continue with renal diet. Mild MADAI likely due to poor oral intake since discharge home from hospital Hyponatremia hypovolemic improving with IV fluids GI prophylaxis DVT prophylaxis Full Code The impression and plan of care has been dictated by Sierra Garcia Nurse Practitioner as directed. Dr. Abelardo MD I have performed a history and physical examination and medical decision making of this patient, discussed the same with the dictator, and agree with the dictators assessment and plan as written, documented as a scribe. Based on total visit time, I have performed more than 50% of this visit. Past Medical History Past Medical History: Cancer, Hearing Disorder / Deafness, Hyperlipidemia, Hypertension, Seizure Disorder, Thyroid Disorder Additional Past Medical History / Comment(s): Seizures/lifelong, R breast cancer with lumpectomy/radiation txs, very [place] bilaterally/has hearing aides, past L femur fracture/no surgery, UTI, thyroid disease. History of Any Multi-Drug Resistant Organisms: ESBL Date of last positivie culture/infection: 12/11/22 ESBL-E.coli MDRO Source:: Urine Past Surgical History: Breast Surgery, Cholecystectomy Additional Past Surgical History / Comment(s): R breast lumpectomy Past Anesthesia/Blood Transfusion Reactions: No Reported Reaction Past Psychological History: Anxiety, Depression Additional Psychological History / Comment(s): Pt resides with spouse at [facility]. They moved here recently from [facility]. Kyra Darling, states pt has staff managing her medications. Phong states pt is normally AXOX2-3 but that her confusion is increasing. Kyra is the driver's education instructor. Kyra states pt's spouse has heart problem/pacemaker but otherwise, is doing fairly well. Smoking Status: Never smoker Past Alcohol Use History: None Reported Past Drug Use History: None Reported - Past Family History Mother Family Medical History: CVA/TIA Additional Family Medical History / Comment(s): Heart problems Sister(s) Family Medical History: Cancer Additional Family Medical History / Comment(s): of lung cancer Medications and Allergies Home Medications Medication Instructions Recorded Confirmed Type Pravastatin Sodium [Pravachol] 20 mg PO HS 10/15/18 12/25/22 History Cholecalciferol [Vitamin D3 (25 25 mcg PO DAILY 05/04/22 12/25/22 History Mcg = 1000 Iu)] Sertraline [Zoloft] 100 mg PO HS 05/04/22 12/25/22 History Thiamine [Vitamin B-1] 100 mg PO DAILY 05/04/22 12/25/22 History Aspirin 81 mg PO DAILY #30 tab 05/12/22 12/25/22 Rx Ascorbic Acid [Vitamin C] 500 mg PO DAILY 07/12/22 12/25/22 History Primidone [Mysoline] 25 mg PO HS 07/12/22 12/25/22 History lisinopriL [Prinivil] 10 mg PO DAILY #30 tab 07/14/22 12/25/22 Rx amLODIPine [Norvasc] 10 mg PO DAILY #30 tab 07/15/22 12/25/22 Rx QUEtiapine [SEROquel] 25 mg PO HS #30 tab 07/28/22 12/25/22 Rx Divalproex [Depakote] 250 mg PO BID 12/25/22 12/25/22 History Lacosamide [Vimpat] 100 mg PO BID 12/25/22 12/25/22 History Levothyroxine Sodium 100 mcg PO AC-BRKFST 12/25/22 12/25/22 History Allergies Allergy/AdvReac Type Severity Reaction Status Date / Time No Known Allergies Allergy Verified 12/25/22 17:37 Physical Exam Vitals: Vital Signs Temp Pulse Pulse Resp BP BP Pulse Ox 12/26/22 06:58 98.5 F 55 L 17 121/63 96 12/26/22 04:27 98.5 F 56 L 18 178/69 97 12/26/22 04:05 57 L 19 12/26/22 03:15 51 L 19 135/54 12/26/22 01:00 56 L 17 129/55 12/26/22 00:00 55 L 12/25/22 21:39 59 L 137/57 12/25/22 20:04 67 17 143/55 98 12/25/22 18:33 62 18 114/56 97 12/25/22 17:42 58 L 18 124/51 97 12/25/22 15:24 97.7 F 60 18 124/70 98 Intake and Output 12/25/22 12/26/22 12/26/22 22:59 06:59 14:59 Intake Total 300 Balance 300 Intake: Intake, IV Titration 300 Amount Sodium Chloride 0.9% 1, 300 000 ml @ 75 mls/hr IV . [id number] [facility] Rx#:[id number] Other: Weight 58.513 kg 58.513 kg Results CBC & Chem 7: 12/26/22 04:39 12/26/22 04:39 Labs: Abnormal Lab Results - Last 24 Hours (Table) 12/25/22 Range/Units 16:02 Sodium 128 L (137-145) mmol/L Potassium 6.4 H* (3.5-5.1) mmol/L Chloride 97 L (98-107) mmol/L BUN 25 H (7-17) mg/dL Phosphorus 5.1 H (2.5-4.5) mg/dL Thrombosis Risk Factor Assmnt - Choose All That Apply Other Risk Factors: Yes Each Risk Factor Represents 3 Points: Age 75 years or older Thrombosis Risk Factor Assessment Total Risk Factor Score: 3 Thrombosis Risk Factor Assessment Level: Moderate Risk Assessment and Plan Time with Patient: Less than 30
[2022-12-26] MEDS: QUEtiapine 25 MG TAB PO SCH (21:41)
[2022-12-26] MEDS: SERTRALINE 100 MG TAB PO SCH (21:41)
[2022-12-26] MEDS: PRIMIDONE 25 MG TAB PO SCH (21:45)
[2022-12-26] MEDS: PRAVASTATIN SODIUM 20 MG TAB PO SCH (21:45)
[2022-12-27 09:11] LABS: Calcium 8.8 mg/dL (8.7-10.3); Carbon Dioxide 25.8 mmol/L (21.6-31.8); Chloride 99 mmol/L (96-109); Glucose 83 mg/dL (70-110); Magnesium 1.7 mg/dL (1.5-2.4); Sodium 133 mmol/L (135-145)
[2022-12-27] MEDS: DIVALPROEX 250 MG TABLET.DR PO SCH (09:20)
[2022-12-27] MEDS: PANTOPRAZOLE 40 MG TABLET PO SCH (09:20)
[2022-12-27] MEDS: LACOSAMIDE 50 MG TABLET PO SCH (09:20)
[2022-12-27] MEDS: ASPIRIN 81 MG PO SCH (09:21)
[2022-12-27] MEDS: LEVOTHYROXINE 100 MCG TAB PO SCH (09:21)
[2022-12-27] MEDS: SODIUM CHLORIDE 0.9% 1,000 ML IV SCH (11:39)
[2022-12-27] MEDS: MAGNESIUM SULFATE-D5W PMX 1 GM in DEXTROSE/WATER 1 100ML.BAG IVPB SCH ×2 (11:42→13:46)
--- NOTE | 2022-12-27 15:47 | XR ---
EXAMINATION TYPE: XR chest 2V DATE OF EXAM: 12/27/2022 COMPARISON: 09/15/2022 HISTORY: Shortness of breath TECHNIQUE: Frontal and lateral views of the chest are obtained. FINDINGS: Scattered senescent parenchymal changes noted. Hyperinflation compatible with COPD. No evidence for infiltrate. No evidence for atelectasis. Heart size is stable. Mediastinal structures are stable and grossly unremarkable. No evidence for hilar prominence. Degenerative changes dorsal spine. IMPRESSION: 1. No evidence for acute pulmonary disease.
[2022-12-27 15:49] VITALS: BP 147/72; PULSE 59; RESP 18; TEMP 99.3
--- NOTE | 2022-12-30 16:55 | P.DS ---
Providers Date of admission: 12/25/22 17:46 Attending physician: Bekah Contreras Primary care physician: SHIRA Durbin Hospital Course: Final Diagnosis Presyncope and fall likely due to acute dehydration and orthostatic changes, patient will by hydrated and amlodipine being held. Medical debility likely due to recent hospital stay PT/OT will be consulted for discharge planning Trauma with soft tissue injury to the right ankle due to fall recommending to el evate and apply michael as tolerated. Also wrap with michael bandage for compression. Hyperkalemia treated and improved down to 5.3 recommend to continue with renal diet. Potassium down to 5.0 Mild MADAI likely due to poor oral intake since discharge home from hospital this has improved. Hyponatremia hypovolemic improving with IV fluids GI prophylaxis DVT prophylaxis Full Code Discharge Disposition Patient is stable for discharge home. Ankle pain has improve and patient is recommended to continue with Michael wrap elevation and alternating heat and ice. Patients potassium improved and recommending renal diet on discharge. Amlodipine has been discontinued on discharge. Patient to follow up with Dr. Astorga on discharge if needed for the right ankle if pain is not improving. 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 Patient was recently hospitalized for an Acute UTI with cultures showing ESBL was treated with antibiotics. Has felt week at home and reporting some urinary frequency also. Patient did have a fall with pre-syncope. Patient reported feeling dizzy and weak while standing up in the kitchen and went down. She denied hitting her head and also denied loosing consciousness. No chest pain no shortness of breath. Currently no dizziness or lightheadedness. Reports right ankle pain and swelling and came in to the ER for evaluation. Ankle xray completed shows no acute fracture there is subcu swelling around the ankle likely due to a soft tissue injury. EKG shows sinus bradycardia with first degree AV block. Patient has normal WBC, sodium was low at 128, potassium at 6.4. BUN 25, creatinine 1.03. Troponin negative. Admitted to the hospital for hyperkalemia and weakness. Patient was hydrated with normal saline. Chest xray was done due to the low sodium and fluids was negative for acute pulmonary disease. Sodium up to 131. Patient had improvement in ankle pain with conservative measures with elevation icing and compression. Ankle swelling has improved. Potassium is 5.0. Renal diet should be continued on discharge. Patient was seen by PT.OT and ok for discharge home with 24/ supervision. Denying chest pain, denying shortness of breath. Denying nausea vomiting or diarrhea. Patient is alert x3 and focal n eurological exam is negative. Patients lungs are clear S1 S2 auscultated abdomen is soft and nontender cleared for DC home. Please see medication reconciliation for a list of current medications. Thank you for allowing us to participate in the care of this patient. The impression and plan of care has been dictated by Sierra Garcia, Nurse Practitioner as directed. Dr. Abelardo MD I have performed a history and physical examination and medical decision making of this patient, discussed the same with the dictator, and agree with the dictators assessment and plan as written, documented as a scribe. Based on total visit time, I have performed more than 50% of this visit. Patient Condition at Discharge: Stable Plan - Discharge Summary Discharge Rx Participant: No New Discharge Prescriptions: New Pantoprazole [Protonix] 40 mg PO AC-BRKFST #30 tab Acetaminophen Tab [Tylenol] 650 mg PO Q6HR PRN tab PRN Reason: Fever And/ Or Pain Continue Pravastatin Sodium [Pravachol] 20 mg PO HS Thiamine [Vitamin B-1] 100 mg PO DAILY Sertraline [Zoloft] 100 mg PO HS Aspirin 81 mg PO DAILY #30 tab Ascorbic Acid [Vitamin C] 500 mg PO DAILY Lacosamide [Vimpat] 100 mg PO BID Cholecalciferol [Vitamin D3 (25 Mcg = 1000 Iu)] 25 mcg PO DAILY Primidone [Mysoline] 25 mg PO HS QUEtiapine [SEROquel] 25 mg PO HS #30 tab Divalproex [Depakote] 250 mg PO BID Levothyroxine Sodium 100 mcg PO AC-BRKFST Changed lisinopriL [Prinivil] 5 mg PO DAILY #30 tab Discontinued amLODIPine [Norvasc] 10 mg PO DAILY #30 tab Discharge Medication List Pravastatin Sodium [Pravachol] 20 mg PO HS 10/15/18 [History] Cholecalciferol [Vitamin D3 (25 Mcg = 1000 Iu)] 25 mcg PO DAILY 05/04/22 [History] Sertraline [Zoloft] 100 mg PO HS 05/04/22 [History] Thiamine [Vitamin B-1] 100 mg PO DAILY 05/04/22 [History] Aspirin 81 mg PO DAILY #30 tab 05/12/22 [Rx] Ascorbic Acid [Vitamin C] 500 mg PO DAILY 07/12/22 [History] Primidone [Mysoline] 25 mg PO HS 07/12/22 [History] QUEtiapine [SEROquel] 25 mg PO HS #30 tab 07/28/22 [Rx] Divalproex [Depakote] 250 mg PO BID 12/25/22 [History] Lacosamide [Vimpat] 100 mg PO BID 12/25/22 [History] Levothyroxine Sodium 100 mcg PO AC-BRKFST 12/25/22 [History] Acetaminophen Tab [Tylenol] 650 mg PO Q6HR PRN tab 12/27/22 [Rx] Pantoprazole [Protonix] 40 mg PO AC-BRKFST #30 tab 12/27/22 [Rx] lisinopriL [Prinivil] 5 mg PO DAILY #30 tab 12/27/22 [Rx] Follow up Appointment(s)/Referral(s): Peg Vuong, SHIRA [Primary Care Provider] - 1-2 days [facility], [NON-STAFF] - 1 Week Steve Astorga MD [Medical Doctor] - As Needed Ambulatory/Diagnostic Orders: Basic Metabolic Panel [LAB.AMB] Time Frame: 3 Days, Location: None Selected Magnesium [LAB.AMB] Time Frame: 3 Days, Location: None Selected Patient Instructions/Handouts: Pantoprazole (By mouth), Dehydration (DC), Hyponatremia (DC), Hyperkalemia (DC), Fall Prevention (DC) Activity/Diet/Wound Care/Special Instructions: Continue on low potassium diet Repeat labs in 2 to 3 days Continue to rest, elevate and ice lower extremity can alternate with heat Continue with compression. Follow up with orthopedics on discharge if worsening pain or mobility issues for the right ankle injury Monitor blood pressure at home for f/u with PCP Stop amlodipine and decrease lisinopril to 5 mg daily if BP remains elevated about 140s systolic than can increase back up to 10 mg daily. Discharge Disposition: HOME WITH HOME HEALTH SERVICES
== END 2022-12-27 19:50 | disposition home health service (06) | DRG 641 ==
LOC: EC 15:08 → 5NMEDONC 17:46
PROVIDERS: ADMIT Hospitalist; ATTEND Hospitalist
DX: E86.0 Dehydration (principal); N17.9 Acute kidney failure, unspecified; G40.409 Other generalized epilepsy and epileptic syndromes, not intractable, without status epilepticus; E78.5 Hyperlipidemia, unspecified; I95.1 Orthostatic hypotension; I44.0 Atrioventricular block, first degree; E87.1 Hypo-osmolality and hyponatremia; E87.5 Hyperkalemia; E86.1 Hypovolemia; I10 Essential (primary) hypertension; F41.9 Anxiety disorder, unspecified; F32.A Depression, unspecified; R00.1 Bradycardia, unspecified; R35.0 Frequency of micturition; S99.811A Other specified injuries of right ankle, initial encounter; E07.9 Disorder of thyroid, unspecified; H91.90 Unspecified hearing loss, unspecified ear; Z79.82 Long term (current) use of aspirin; Z79.890 Hormone replacement therapy; Z79.899 Other long term (current) drug therapy; Z85.3 Personal history of malignant neoplasm of breast; Z86.19 Personal history of other infectious and parasitic diseases; Z87.440 Personal history of urinary (tract) infections; Z92.3 Personal history of irradiation; W19.XXXA Unspecified fall, initial encounter
CPT/HCPCS: 36415; 71046; 80048; 80053; 83735; 83880; 84100; 84439; 84443; 84484; 85025; 85610; 85730; 93005; 94760; 96361; 96374; 96375; 99291

== ENCOUNTER 2023-01-25 10:15 | Inpatient (IN) | payer MEDICARE, OTHER ==
[2023-01-25 11:00] LABS: Basophils % (A) 1 %; Eosinophils # (A) 0.2 k/uL (0-0.7); Eosinophils % (A) 3 %; HCT 34.2 % (34.0-46.0); HGB 11.6 gm/dL (11.4-16.0); Lymphocytes # (A) 1.7 k/uL (1.0-4.8); Lymphocytes % (A) 28 %; MCHC 33.8 g/dL (31.0-37.0); MCV 88.8 fL (80.0-100.0); Mean Platelet Volume 7.3; Monocytes # (A) 0.6 k/uL (0-1.0); Monocytes % (A) 11 %; Neutrophils # (A) 3.2 k/uL (1.3-7.7); Neutrophils % (A) 54 %; Platelet Count 257 k/uL (150-450); RBC 3.85 m/uL (3.80-5.40); RDW 12.5 % (11.5-15.5)
--- NOTE | 2023-01-25 11:01 | ED ---
General Adult HPI - General Chief complaint: Syncope Stated complaint: syncope Time Seen by Provider: 01/25/23 10:18 Source: patient, EMS Mode of arrival: EMS Limitations: no limitations - History of Present Illness Initial comments: Dictation was produced using [employer] dictation software. please excuse any grammatical, word or spelling errors. Chief Complaint: 87-year-old female presents to the ER after weakness and syncopal episode History of Present Illness: Is 87-year-old female she has past medical history debility, seizure disorder hypertension. She is a poor historian however states that she has been discharged from a neurological last week she's been at home with her . According to nurse receive report from EMS she had episode of syncope and was found on the floor. Patient denies any pain complaints. States that she is having diarrhea for the last 2 days. Denies any history of C. diff. Denies any recent travel or food poisoning. Denies any constitutional symptoms. The ROS documented in this emergency department record has been reviewed and confirmed by me. Those systems with pertinent positive or negative responses have been documented in the HPI. All other systems are other negative and/or noncontributory. - Related Data Home Medications Medication Instructions Recorded Confirmed Pravastatin Sodium [Pravachol] 20 mg PO HS 10/15/18 01/25/23 Cholecalciferol [Vitamin D3 (25 25 mcg PO DAILY 05/04/22 01/25/23 Mcg = 1000 Iu)] Sertraline [Zoloft] 100 mg PO HS 05/04/22 01/25/23 Thiamine [Vitamin B-1] 100 mg PO DAILY 05/04/22 01/25/23 Ascorbic Acid [Vitamin C] 500 mg PO DAILY 07/12/22 01/25/23 Primidone [Mysoline] 25 mg PO HS 07/12/22 01/25/23 Divalproex [Depakote] 250 mg PO BID 12/25/22 01/25/23 Levothyroxine Sodium 100 mcg PO AC-BRKFST 12/25/22 01/25/23 amLODIPine [Norvasc] 10 mg PO DAILY 01/04/23 01/25/23 lisinopriL [Prinivil] 10 mg PO DAILY 01/04/23 01/25/23 Previous Rx's Medication Instructions Recorded Aspirin 81 mg PO DAILY #30 tab 05/12/22 QUEtiapine [SEROquel] 25 mg PO HS #30 tab 07/28/22 Lacosamide [Vimpat] 100 mg PO BID #6 tab 01/08/23 Allergies Allergy/AdvReac Type Severity Reaction Status Date / Time No Known Allergies Allergy Verified 01/25/23 11:41 Review of Systems ROS Statement: Those systems with pertinent positive or pertinent negative responses have been documented in the HPI. ROS Other: All systems not noted in ROS Statement are negative. Past Medical History Past Medical History: Cancer, Hearing Disorder / Deafness, Hyperlipidemia, Hypertension, Seizure Disorder, Thyroid Disorder Additional Past Medical History / Comment(s): Seizures/lifelong, R breast cancer with lumpectomy/radiation txs, very [place] bilaterally/has hearing aides, past L femur fracture/no surgery, UTI, thyroid disease. History of Any Multi-Drug Resistant Organisms: ESBL Date of last positivie culture/infection: 12/11/22 ESBL-E.coli MDRO Source:: Urine Past Surgical History: Breast Surgery, Cholecystectomy Additional Past Surgical History / Comment(s): R breast lumpectomy Past Anesthesia/Blood Transfusion Reactions: No Reported Reaction Past Psychological History: Anxiety, Depression Smoking Status: Never smoker Past Alcohol Use History: None Reported Past Drug Use History: None Reported - Past Family History Mother Family Medical History: CVA/TIA Additional Family Medical History / Comment(s): Heart problems Sister(s) Family Medical History: Cancer Additional Family Medical History / Comment(s): of lung cancer General Exam - General Exam Comments Initial Comments: PHYSICAL EXAM: General Impression: Alert and oriented x3, not in acute distress HEENT: Normocephalic atraumatic, extra-ocular movements intact, pupils equal and reactive to light bilaterally, dry mucous membranes Cardiovascular: Heart regular rate and rhythm Chest: Able to complete full sentences, no retractions, no tachypnea Abdomen: abdomen soft, non-tender, non-distended, no organomegaly Musculoskeletal: Pulses present and equal in all extremities, no peripheral edema Motor: no focal deficits noted Neurological: CN II-XII grossly intact, no focal motor or sensory deficits noted Skin: Intact with no visualized rashes Psych: Normal affect and mood Limitations: no limitations Course Vital Signs 01/25/23 01/25/23 01/25/23 10:17 10:25 10:30 Temperature 97.6 F Pulse Rate 61 Respiratory 18 18 Rate Blood Pressure 123/82 113/103 O2 Sat by Pulse 95 Oximetry 01/25/23 01/25/23 01/25/23 11:00 11:30 12:45 Temperature 97.9 F Pulse Rate 63 62 Respiratory 16 18 Rate Blood Pressure 132/65 149/65 140/67 O2 Sat by Pulse 95 95 Oximetry - Reevaluation(s) Reevaluation #1: 01/25/23 13:02 More history was obtained from a seated report from EMS. Patient had multiple episodes of syncope at home. She is recently hospitalized for syncope. EKG Findings - EKG Comments: EKG Findings:: My EKG interpretation: Ventricular rate 60, sinus rhythm with prolonged IN, no evidence of high-grade heart block and QRS 92, QTC 423. No IN prolongation, no QTC prolongation, no ST or T-wave changes noted. Overall, this EKG is unremarkable Medical Decision Making - Medical Decision Making Was pt. sent in by a medical professional or institution (, PA, DELI SLICER, urgent care, hospital, or half-way...) When possible be specific @ -No Did you speak to anyone other than the patient for history (EMS, parent, family, police, friend...)? What history was obtained from this source @ -No Did you review nursing and triage notes (agree or disagree)? Why? @ -I reviewed and agree with nursing and triage notes Were old charts reviewed (outside hosp., previous admission, EMS record, old EKG, old radiological studies, urgent care reports/EKG's, half-way records)? Report findings @ -No old charts were reviewed Differential Diagnosis (chest pain, altered mental status, abdominal pain women, abdominal pain men, vaginal bleeding, musculoskeletal, weakness, fever, dyspnea, syncope, headache, dizziness, GI bleed, back pain, seizure, CVA, palpatations, mental health)? @ -Differential Weakness: Hypoglycemia, shock, sepsis, hyponatremia, anemia, infection, TN, ETOH, adverse medicine reaction, overdose, stroke, this is not meant to be an all-inclusive list. EKG interpreted by me (3pts min.). @ -See above X-rays interpreted by me (1pt min.). @ -None done CT interpreted by me (1pt min.). @ -Computed tomography scan of the head and C-spine shows no acute processes there is incidental finding of soft tissue nodule which may represent neoplasm U/S interpreted by me (1pt. min.). @ -None done What testing was considered but not performed or refused? (CT, X-rays, U/S, labs)? Why? @ -None What meds were considered but not given or refused? Why? @ -None Did you discuss the management of the patient with other professionals (professionals i.e. , PA, DELI SLICER, lab, RT, psych nurse, secondary social studies teacher, supervisor gas meter repair, teacher, ship's electronic warfare officer, senior case manager)? Give summary @ -Discussed with hospitalist for admission Was smoking cessation discussed for >3mins.? @ -No Was critical care preformed (if so, how long)? @ -No Were there social determinants of health that impacted care today? How? (Homelessness, low income, unemployed, alcoholism, drug addiction, transportation, low edu. Level, literacy, decrease access to med. care, fpc, rehab)? @ -No Was there de-escalation of care discussed even if they declined (Discuss DNR or withdrawal of care, Hospice)? DNR status @ -No What co-morbidities impacted this encounter? (DM, HTN, Smoking, COPD, CAD, Cancer, CVA, ARF, Chemo, Hep., AIDS, mental health diagnosis, sleep apnea, morbid obesity)? @ -None Was patient admitted / discharged? Hospital course, mention meds given and route, prescriptions, significant lab abnormalities, going to OR and other pertinent info. @ -77-year-old female presents to emergency by for multiple episodes of syncope and fall. Patient well-appearing at bedside. Laboratory evaluation obtained. CBC, coag panel, metabolic panel obtained. Mild hyponatremia. Urinalysis slightly suspicious for UTI. CT imaging negative. At this point doesn't appear the patient has a safe disposition home will be admitted. hops farmworker consulted. Drug Therapy requiring intensive monitoring for toxicity (Heparin, Nitro, Insulin, Cardizem)? @ -No Were any procedures done? @ -No Diagnosis/symptom? Acute, or Chronic, or Acute on Chronic? Uncomplicated (without systemic symptoms) or Complicated (systemic symptoms)? @ -weakness Side effects of treatment? @ -No Exacerbation, Progression, or Severe Exacerbation? @ -No Poses a threat to life or bodily function? How? (Chest pain, [place], TN, pneumonia, PE, COPD, DKA, ARF, appy, cholecystitis, CVA, Diverticulitis, Homicidal, Suicidal, threat to staff... and all critical care pts) @ -yes - Lab Data Result diagrams: 01/25/23 10:49 01/25/23 10:49 Lab Results 01/25/23 01/25/23 01/25/23 Range/Units 10:49 10:49 10:49 WBC 6.0 (3.8-10.6) k/uL RBC 3.85 (3.80-5.40) m/uL Hgb 11.6 (11.4-16.0) gm/dL Hct 34.2 (34.0-46.0) % MCV 88.8 (80.0-100.0) fL MCH 30.0 (25.0-35.0) pg MCHC 33.8 (31.0-37.0) g/dL RDW 12.5 (11.5-15.5) % Plt Count 257 (150-450) k/uL MPV 7.3 Neutrophils % 54 % Lymphocytes % 28 % Monocytes % 11 % Eosinophils % 3 % Basophils % 1 % Neutrophils # 3.2 (1.3-7.7) k/uL Lymphocytes # 1.7 (1.0-4.8) k/uL Monocytes # 0.6 (0-1.0) k/uL Eosinophils # 0.2 (0-0.7) k/uL Basophils # 0.0 (0-0.2) k/uL PT 10.4 (9.0-12.0) sec INR 1.0 (<1.2) APTT 23.0 (22.0-30.0) sec Sodium (137-145) mmol/L Potassium (3.5-5.1) mmol/L Chloride (98-107) mmol/L Carbon Dioxide (22-30) mmol/L Anion Gap mmol/L BUN (7-17) mg/dL Creatinine (0.52-1.04) mg/dL Est GFR (CKD-EPI)AfAm (>60 ml/min/1.73 sqM) Est GFR (CKD-EPI)NonAf (>60 ml/min/1.73 sqM) Glucose (74-99) mg/dL Plasma Lactic Acid Edgar (0.7-2.0) mmol/L Calcium (8.4-10.2) mg/dL Magnesium (1.6-2.3) mg/dL Total Bilirubin (0.2-1.3) mg/dL AST (14-36) U/L ALT (4-34) U/L Alkaline Phosphatase (38-126) U/L Creatine Kinase (30-135) U/L Troponin I (0.000-0.034) ng/mL Total Protein (6.3-8.2) g/dL Albumin (3.5-5.0) g/dL Urine Color Colorless Urine Appearance Cloudy H (Clear) Urine pH 6.0 (5.0-8.0) Ur Specific Butler 1.006 (1.001-1.035) Urine Protein Negative (Negative) Urine Glucose (UA) Negative (Negative) Urine Ketones Negative (Negative) Urine Blood Negative (Negative) Urine Nitrite Negative (Negative) Urine Bilirubin Negative (Negative) Urine Urobilinogen <2.0 (<2.0) mg/dL Ur Leukocyte Esterase Negative (Negative) Urine RBC 3 (0-5) /hpf Urine WBC 7 H (0-5) /hpf Urine WBC Clumps Rare H (None) /hpf Amorphous Sediment Rare H (None) /hpf Urine Bacteria Occasional H (None) /hpf Hyaline Casts 1 (0-2) /lpf 01/25/23 01/25/23 01/25/23 Range/Units 10:49 10:49 10:49 WBC (3.8-10.6) k/uL RBC (3.80-5.40) m/uL Hgb (11.4-16.0) gm/dL Hct (34.0-46.0) % MCV (80.0-100.0) fL MCH (25.0-35.0) pg MCHC (31.0-37.0) g/dL RDW (11.5-15.5) % Plt Count (150-450) k/uL MPV Neutrophils % % Lymphocytes % % Monocytes % % Eosinophils % % Basophils % % Neutrophils # (1.3-7.7) k/uL Lymphocytes # (1.0-4.8) k/uL Monocytes # (0-1.0) k/uL Eosinophils # (0-0.7) k/uL Basophils # (0-0.2) k/uL PT (9.0-12.0) sec INR (<1.2) APTT (22.0-30.0) sec Sodium 127 L (137-145) mmol/L Potassium 4.5 (3.5-5.1) mmol/L Chloride 92 L (98-107) mmol/L Carbon Dioxide 23 (22-30) mmol/L Anion Gap 12 mmol/L BUN 21 H (7-17) mg/dL Creatinine 0.92 (0.52-1.04) mg/dL Est GFR (CKD-EPI)AfAm 66 (>60 ml/min/1.73 sqM) Est GFR (CKD-EPI)NonAf 57 (>60 ml/min/1.73 sqM) Glucose 106 H (74-99) mg/dL Plasma Lactic Acid Edgar 1.6 (0.7-2.0) mmol/L Calcium 9.1 (8.4-10.2) mg/dL Magnesium 1.9 (1.6-2.3) mg/dL Total Bilirubin 0.4 (0.2-1.3) mg/dL AST 23 (14-36) U/L ALT 11 (4-34) U/L Alkaline Phosphatase 48 (38-126) U/L Creatine Kinase 38 (30-135) U/L Troponin I <0.012 (0.000-0.034) ng/mL Total Protein 7.3 (6.3-8.2) g/dL Albumin 4.1 (3.5-5.0) g/dL Urine Color Urine Appearance (Clear) Urine pH (5.0-8.0) Ur Specific Butler (1.001-1.035) Urine Protein (Negative) Urine Glucose (UA) (Negative) Urine Ketones (Negative) Urine Blood (Negative) Urine Nitrite (Negative) Urine Bilirubin (Negative) Urine Urobilinogen (<2.0) mg/dL Ur Leukocyte Esterase (Negative) Urine RBC (0-5) /hpf Urine WBC (0-5) /hpf Urine WBC Clumps (None) /hpf Amorphous Sediment (None) /hpf Urine Bacteria (None) /hpf Hyaline Casts (0-2) /lpf Disposition Clinical Impression: Syncope Disposition: ADMITTED IP TO THIS HOSP Condition: Fair Referrals: None,Stated [REFERRING] - 1-2 days Decision Time: 13:30
[2023-01-25 11:13] LABS: Prothrombin Time 10.4 sec (9.0-12.0)
[2023-01-25 11:15] LABS: ALT 11 U/L (4-34); African American GFR (CKD) 66 (>60 ml/min/1.73 sqM); Albumin 4.1 g/dL (3.5-5.0); Anion Gap 12 mmol/L; Blood Urea Nitrogen 21 mg/dL (7-17); Calcium 9.1 mg/dL (8.4-10.2); Carbon Dioxide 23 mmol/L (22-30); Chloride 92 mmol/L (98-107); Creatine Kinase 38 U/L (30-135); Glucose 106 mg/dL (74-99); Non-African American GFR(CKD) 57 (>60 ml/min/1.73 sqM); Sodium 127 mmol/L (137-145); Total Bilirubin 0.4 mg/dL (0.2-1.3); Total Protein 7.3 g/dL (6.3-8.2)
[2023-01-25 11:19] LABS: Magnesium 1.9 mg/dL (1.6-2.3); Potassium 4.5 mmol/L (3.5-5.1)
[2023-01-25 11:20] LABS: AST 23 U/L (14-36); Alkaline Phosphatase 48 U/L (38-126)
--- NOTE | 2023-01-25 12:11 | CT ---
EXAMINATION TYPE: CT brain david wo con DATE OF EXAM: 01/25/2023 COMPARISON: 01/05/2023 HISTORY: 87-year-old female with pain after Fall, found down. CT DLP: 1224.6 mGycm Automated exposure control for dose reduction was used. Technique: Examination of the head was done in axial plane without intravenous contrast. Coronal and sagittal reconstructions performed. CT of the cervical spine was obtained in axial plane without intravenous injection of contrast mater ial. Coronal and sagittal reformatted images were obtained from the axial views for evaluation of f ractures, spinal alignment and canal. FINDINGS: Head: There is no evidence of acute intracranial hemorrhage, acute ischemic changes, mass, mass-effect, or extra-axial fluid collection. There is no effacement of cerebral sulci or basal subarachnoid cister ns. There is no hydrocephalus. There is no midline shift. De La Cruz-white matter distinction is preserv ed. Atherosclerotic calcifications within the carotid siphons. Mild age-related cerebral cortical volume loss. Patchy deep white matter hypodensities. Paranasal sinuses and mastoid air cells well pneumatized. Cervical spine: Soft tissue nodule measuring 9 mm right vallecular space for which direct visualization is recommende d. Moderate spondylotic change mid to lower cervical spine. Degenerative grade 1 retrolisthesis C5-C6 and grade 1 anterolisthesis is T1-T2. Discussed by complex and ligamentum flavum thickening contribute to mild narrowing of the spinal buzz l at C5-C6. No craniocervical junction of the body, predental space widening, or prevertebral soft tissue swellin g. Degenerative change C1 dens articulation. Scattered facet and uncovertebral joint arthropathy. No acute fracture of the cervical spine. Sagittal and coronal reformatted images confirm above findings. COMBINED IMPRESSION: 1. No acute intracranial abnormality seen. 2. No acute fracture of the cervical spine. Moderate spondylotic change mid to lower cervical spine w ith degenerative grade 1 spondylolisthesis C5-C6 and T1-T2. 3. A 9 mm soft tissue nodule in the right vallecular space. Recommend outpatient ENT referral to excl ude neoplasm.
[2023-01-25 12:35] LABS: Amorphous Sediment,Urine Rare /hpf; Appearance,Urine Cloudy (Clear); Bacteria,Urine Occasional /hpf; Bilirubin,Urine Negative (Negative); Blood,Urine Negative (Negative); Color,Urine Colorless; Glucose,Urine (UA) Negative (Negative); Hyaline Casts,Urine 1 /lpf (0-2); Ketones,Urine Negative (Negative); Leukocyte Esterase,Urine Negative (Negative); Nitrite,Urine Negative (Negative); Protein,Urine Negative (Negative); RBC,Urine 3 /hpf (0-5); Specific Gravity,Urine 1.006 (1.001-1.035); Urobilinogen,Urine <2.0 mg/dL (<2.0); WBC,Urine 7 /hpf (0-5)
[2023-01-25] MEDS ORDERED: NALOXONE 0.4 MG/ML 1 ML VIAL IV PRN (13:40)
[2023-01-25] MEDS: SODIUM CHLORIDE 0.9% 1,000 ML IV SCH ×2 (19:31→21:45)
[2023-01-25] MEDS: LACOSAMIDE 50 MG TABLET PO SCH (20:28)
[2023-01-25] MEDS: DIVALPROEX 250 MG TABLET.DR PO SCH (20:28)
[2023-01-25] MEDS: PRIMIDONE 25 MG TAB PO SCH (20:28)
[2023-01-25] MEDS: PRAVASTATIN SODIUM 20 MG TAB PO SCH (20:28)
[2023-01-25] MEDS: SERTRALINE 100 MG TAB PO SCH (20:28)
[2023-01-25] MEDS: QUEtiapine 25 MG TAB PO SCH (20:28)
--- NOTE | 2023-01-25 21:34 | P.HPIM ---
History of Present Illness H&P Date: 01/25/23 Chief Complaint: Acute syncope 87-year-old female she has past medical history debility, seizure disorder hypertension. She is a poor historian however states that she has been discharged from a neurological last week she's been at home with her . According to nurse receive report from EMS she had episode of syncope and was found on the floor. Patient denies any pain complaints. States that she is having diarrhea for the last 2 days. Denies any history of C. diff. Denies any recent travel or food poisoning. Denies any constitutional symptoms. EKG Findings:: Ventricular rate 60, sinus rhythm with prolonged VA, no evidence of high-grade heart block and QRS 92, QTC 423. No VA prolongation, no QTC prolongation, no ST or T-wave changes noted. Overall, this EKG is unremarkable CBC, coag panel, metabolic panel obtained. Mild hyponatremia. Urinalysis slightly suspicious for UTI. CT imaging negative. Review of Systems REVIEW OF SYSTEMS: CONSTITUTIONAL: No fever, no malaise, no fatigue. HEENT: No recent visual problems or hearing problems. Denied any sore throat. CARDIOVASCULAR: No chest pain, orthopnea, PND, no palpitations, no syncope. PULMONARY: No shortness of breath, no cough, no hemoptysis. GASTROINTESTINAL: No diarrhea, no nausea, no vomiting, no abdominal pain. NEUROLOGICAL: No headaches, no weakness, no numbness. HEMATOLOGICAL: Denies any bleeding or petechiae. GENITOURINARY: Denies any burning micturition, frequency, or urgency. MUSCULOSKELETAL/RHEUMATOLOGICAL: Denies any joint pain, swelling, or any muscle pain. ENDOCRINE: Denies any polyuria or polydipsia. The rest of the 14-point review of systems is negative. Past Medical History Past Medical History: Cancer, Hearing Disorder / Deafness, Hyperlipidemia, Hypertension, Seizure Disorder, Thyroid Disorder Additional Past Medical History / Comment(s): Seizures/lifelong, R breast cancer with lumpectomy/radiation txs, very [place] bilaterally/has hearing aides, past L femur fracture/no surgery, UTI, thyroid disease. History of Any Multi-Drug Resistant Organisms: ESBL Date of last positivie culture/infection: 12/11/22 ESBL-E.coli MDRO Source:: Urine Past Surgical History: Breast Surgery, Cholecystectomy Additional Past Surgical History / Comment(s): R breast lumpectomy Past Anesthesia/Blood Transfusion Reactions: No Reported Reaction Past Psychological History: Anxiety, Depression Smoking Status: Never smoker Past Alcohol Use History: None Reported Past Drug Use History: None Reported - Past Family History Mother Family Medical History: CVA/TIA Additional Family Medical History / Comment(s): Heart problems Sister(s) Family Medical History: Cancer Additional Family Medical History / Comment(s): of lung cancer Medications and Allergies Home Medications Medication Instructions Recorded Confirmed Type Pravastatin Sodium [Pravachol] 20 mg PO HS 10/15/18 01/25/23 History Cholecalciferol [Vitamin D3 (25 25 mcg PO DAILY 05/04/22 01/25/23 History Mcg = 1000 Iu)] Sertraline [Zoloft] 100 mg PO HS 05/04/22 01/25/23 History Thiamine [Vitamin B-1] 100 mg PO DAILY 05/04/22 01/25/23 History Aspirin 81 mg PO DAILY #30 tab 05/12/22 01/25/23 Rx Ascorbic Acid [Vitamin C] 500 mg PO DAILY 07/12/22 01/25/23 History Primidone [Mysoline] 25 mg PO HS 07/12/22 01/25/23 History QUEtiapine [SEROquel] 25 mg PO HS #30 tab 07/28/22 01/25/23 Rx Divalproex [Depakote] 250 mg PO BID 12/25/22 01/25/23 History Levothyroxine Sodium 100 mcg PO AC-BRKFST 12/25/22 01/25/23 History amLODIPine [Norvasc] 10 mg PO DAILY 01/04/23 01/25/23 History lisinopriL [Prinivil] 10 mg PO DAILY 01/04/23 01/25/23 History Lacosamide [Vimpat] 100 mg PO BID #6 tab 01/08/23 01/25/23 Rx Allergies Allergy/AdvReac Type Severity Reaction Status Date / Time No Known Allergies Allergy Verified 01/25/23 11:41 Physical Exam Vitals: Vital Signs Temp Pulse Resp BP Pulse Ox 01/25/23 14:30 60 18 123/55 95 01/25/23 14:00 58 L 18 112/50 01/25/23 13:30 62 18 126/49 95 01/25/23 13:00 62 16 140/57 97 01/25/23 12:45 97.9 F 62 18 140/67 95 01/25/23 12:30 66 18 141/61 97 01/25/23 11:30 149/65 01/25/23 11:00 63 16 132/65 95 01/25/23 10:30 61 18 113/103 95 01/25/23 10:25 123/82 01/25/23 10:17 97.6 F 18 Intake and Output 01/25/23 01/25/23 01/25/23 06:59 14:59 22:59 Other: Weight 59.874 kg PHYSICAL EXAMINATION: GENERAL: The patient is alert and oriented x3, not in any acute distress. Well developed, well nourished. HEENT: Pupils are round and equally reacting to light. EOMI. No scleral icterus. No conjunctival pallor. Normocephalic, atraumatic. No pharyngeal erythema. No thyromegaly. CARDIOVASCULAR: S1 and S2 present. No murmurs, rubs, or gallops. PULMONARY: Chest is clear to auscultation, no wheezing or crackles. ABDOMEN: Soft, nontender, nondistended, normoactive bowel sounds. No palpable o rganomegaly. MUSCULOSKELETAL: No joint swelling or deformity. EXTREMITIES: No cyanosis, clubbing, or pedal edema. NEUROLOGICAL: Gross neurological examination did not reveal any focal deficits. SKIN: No rashes. Results CBC & Chem 7: 01/25/23 10:49 01/25/23 10:49 Labs: Abnormal Lab Results - Last 24 Hours (Table) 01/25/23 01/25/23 Range/Units 10:49 10:49 Sodium 127 L (137-145) mmol/L Chloride 92 L (98-107) mmol/L BUN 21 H (7-17) mg/dL Glucose 106 H (74-99) mg/dL Urine Appearance Cloudy H (Clear) Urine WBC 7 H (0-5) /hpf Urine WBC Clumps Rare H (None) /hpf Amorphous Sediment Rare H (None) /hpf Urine Bacteria Occasional H (None) /hpf Assessment and Plan Assessment: 1. Acute syncope; rule out cardiac dysrhythmias versus seizures versus TIA - Patient will be admitted to telemetry; monitor EKG and trend troponin - Monitor neuro checks per protocol; orthostatic vital signs every shift - Consult cardiology and neurology 2. Hyponatremia; patient is placed on slow IV fluid hydration with normal saline; sodium level at 127 upon arrival to ED; we will monitor levels closely; we will order serum and urine osmolality and urine sodium levels if no improvement in sodium levels 3. UTI; UA shows occasional bacteria with rare WBCs; leukocyte esterase and nitrates negative; we will hold off on antibiotic therapy at this time; we will monitor CBC and pro-calcitonin; further recommendations pending clinical course 4. History of seizure disorder; continue with home dose of Vimpat 100 mg twice a day, primidone 25 mg by mouth daily at bedtime; Depakote 250 mg twice a day 5. Hypertension; lisinopril 10 mg daily; Norvasc 10 mg daily 6. Hyperlipidemia; Pravachol 20 mg by mouth daily at bedtime 7. Hypothyroidism; levothyroxin 100 MCG daily 8. Depression; Zoloft 100 mg by mouth daily at bedtime DVT prophylaxis; SCDs/subcu heparin CODE STATUS; full code
[2023-01-26] MEDS: LEVOTHYROXINE 100 MCG TAB PO SCH (06:17)
[2023-01-26 09:44] LABS: BUN/Creat Ratio 23.11 Ratio (12.00-20.00); Blood Urea Nitrogen 20.8 mg/dL (9.0-27.0); Calcium 9.3 mg/dL (8.7-10.3); Carbon Dioxide 23.5 mmol/L (21.6-31.8); Chloride 97 mmol/L (96-109); Glucose 84 mg/dL (70-110); Sodium 131 mmol/L (135-145)
[2023-01-26 09:52] LABS: Basophils # (A) 0.09 X 10*3/uL (0.00-0.10); Basophils % (A) 1.2 %; Eosinophils # (A) 0.18 X 10*3/uL (0.04-0.35); Eosinophils % (A) 2.5 %; HCT 33.1 % (37.2-46.3); HGB 11.1 d/dL (12.0-15.0); Lymphocytes # (A) 2.22 X 10*3/uL (0.90-5.00); Lymphocytes % (A) 30.8 %; MCH 30.1 pg (27.0-32.0); MCHC 33.5 d/dL (32.0-37.0); MCV 89.7 FL (80.0-97.0); Mean Platelet Volume 10.5 FL (9.5-12.2); Monocytes # (A) 0.97 X 10*3/uL (0.20-1.00); Monocytes % (A) 13.5 %; NRBC Per 100 WBC 0 X 10*3/uL (0.00-0.01); Neutrophils # (A) 3.73 X 10*3/uL (1.80-7.70); Neutrophils % (A) 51.7 %; Platelet Count 284 X 10*3/uL (140-440); RBC 3.69 X 10*6/uL (4.10-5.20); RDW 12.6 % (11.5-14.5); WBC 7.21 X 10*3/uL (4.50-10.00)
[2023-01-26] MEDS: ASCORBIC ACID 500 MG TAB PO SCH (11:11)
[2023-01-26] MEDS: THIAMINE 100 MG TAB PO SCH (11:11)
[2023-01-26] MEDS: HEPARIN SODIUM,PORCINE 5,000 UNIT/ML 1 ML VIAL SQ SCH ×2 (11:11→20:05)
[2023-01-26] MEDS: ASPIRIN 81 MG PO SCH (11:11)
[2023-01-26] MEDS: CHOLECALCIFEROL 25 MCG (1000 IU) TABLET PO SCH (11:11)
[2023-01-26] MEDS: DIVALPROEX 250 MG TABLET.DR PO SCH ×2 (11:12→20:05)
[2023-01-26] MEDS: LACOSAMIDE 50 MG TABLET PO SCH ×2 (12:17→20:05)
--- NOTE | 2023-01-26 15:22 | P.CRDCN ---
History of Present Illness Consult date: 01/26/23 History of present illness: HISTORY OF PRESENTING ILLNESS 87-year-old female with past medical history of debility, seizure disorder, hypertension. She is a poor historian because of difficulty in hearing. She presented to the hospital with the complaints of lightheadedness and dizziness. Apparently patient was in the bathroom having a bowel movement and during that she had a syncopal episode. Apparently patient has a history of C. diff colitis with recurrent diarrhea. Cardiology was consulted for syncope evaluation REVIEW OF SYSTEMS 14 point review of system is negative except what is mentioned above in HPI. PHYSICAL EXAMINATION Vital signs reviewed. Head: Normocephalic. Eyes: Sclerae nonicteric. Neck: Brisk carotid upstroke, no jugular venous distention. Lungs: Clear to auscultation. Heart: Regular rate and rhythm, S1-S2, no S3, no murmur or rub. Abdomen: Soft nontender, positive bowel sounds no organomegaly. Extremities: No edema, intact distal pulses. ASSESSMENT Syncope likely noncardiac. Most likely related to dehydration from prior diarrhea and suspected UTI History of seizure disorder PLAN There were no murmurs on cardiac examination and I do not anticipate any LVOT or outflow tract obstructions. Her prior echo did show mild LVH with preserved EF. We will get a Limited echo to see if there is any new changes No arrhythmias noticed on cardiac telemetry. His EKG shows sinus rhythm with no concerns of ST segment elevations or ST segment changes suggestive of ischemia. Troponins are not elevated Patient has explicitly mentioned that she does not want to be resuscitated and does not want to be defibrillated. She was DNR/DNI status Cardiology team will sign off. Primary team to manage her other cardiac comorbidities. Continue her current antihypertensives and and cholesterol medications. Past Medical History Past Medical History: Cancer, Hearing Disorder / Deafness, Hyperlipidemia, Hypertension, Seizure Disorder, Thyroid Disorder Additional Past Medical History / Comment(s): Seizures/lifelong, R breast cancer with lumpectomy/radiation txs, very [place] bilaterally/has hearing aides, past L femur fracture/no surgery, UTI, thyroid disease. History of Any Multi-Drug Resistant Organisms: ESBL Date of last positivie culture/infection: 12/11/22 ESBL-E.coli MDRO Source:: Urine Past Surgical History: Breast Surgery, Cholecystectomy Additional Past Surgical History / Comment(s): R breast lumpectomy Past Anesthesia/Blood Transfusion Reactions: No Reported Reaction Past Psychological History: Anxiety, Depression Smoking Status: Never smoker Past Alcohol Use History: None Reported Past Drug Use History: None Reported - Past Family History Mother Family Medical History: CVA/TIA Additional Family Medical History / Comment(s): Heart problems Sister(s) Family Medical History: Cancer Additional Family Medical History / Comment(s): of lung cancer Medications and Allergies Home Medications Medication Instructions Recorded Confirmed Type Pravastatin Sodium [Pravachol] 20 mg PO HS 10/15/18 01/25/23 History Cholecalciferol [Vitamin D3 (25 25 mcg PO DAILY 05/04/22 01/25/23 History Mcg = 1000 Iu)] Sertraline [Zoloft] 100 mg PO HS 05/04/22 01/25/23 History Thiamine [Vitamin B-1] 100 mg PO DAILY 05/04/22 01/25/23 History Aspirin 81 mg PO DAILY #30 tab 05/12/22 01/25/23 Rx Ascorbic Acid [Vitamin C] 500 mg PO DAILY 07/12/22 01/25/23 History Primidone [Mysoline] 25 mg PO HS 07/12/22 01/25/23 History QUEtiapine [SEROquel] 25 mg PO HS #30 tab 07/28/22 01/25/23 Rx Divalproex [Depakote] 250 mg PO BID 12/25/22 01/25/23 History Levothyroxine Sodium 100 mcg PO AC-BRKFST 12/25/22 01/25/23 History amLODIPine [Norvasc] 10 mg PO DAILY 01/04/23 01/25/23 History lisinopriL [Prinivil] 10 mg PO DAILY 01/04/23 01/25/23 History Lacosamide [Vimpat] 100 mg PO BID #6 tab 01/08/23 01/25/23 Rx Allergies Allergy/AdvReac Type Severity Reaction Status Date / Time No Known Allergies Allergy Verified 01/25/23 11:41 Physical Exam Vitals: Vital Signs Temp Pulse Pulse Pulse Pulse Resp BP 01/26/23 14:42 98.3 F 62 66 77 16 01/26/23 07:00 97.8 F 58 L 16 01/26/23 02:00 98.4 F 59 L 20 01/25/23 23:00 97.9 F 64 20 01/25/23 22:00 98.7 F 64 16 134/57 01/25/23 20:00 66 16 142/60 01/25/23 18:00 59 L 18 137/57 01/25/23 16:00 60 18 132/58 01/25/23 15:30 60 17 132/58 BP BP BP BP Pulse Ox 01/26/23 14:42 153/71 138/69 129/66 98 01/26/23 07:00 108/62 93 L 01/26/23 02:00 99/62 95 01/25/23 23:00 129/59 97 01/25/23 22:00 95 01/25/23 20:00 95 01/25/23 18:00 95 01/25/23 16:00 97 01/25/23 15:30 97 Intake and Output 01/26/23 01/26/23 01/26/23 06:59 14:59 22:59 Output Total 600 Balance -600 Output: Urine 600 Other: Voiding Method External Catheter External Catheter # Voids 2 # Bowel Movements 0 Results 01/26/23 05:22 01/26/23 05:22 CBC 01/26/23 Range/Units 05:22 WBC 7.21 (4.50-10.00) X 10*3/uL RBC 3.69 L (4.10-5.20) X 10*6/uL Hgb 11.1 L (12.0-15.0) d/dL Hct 33.1 L (37.2-46.3) % Plt Count 284 (140-440) X 10*3/uL Comprehensive Metabolic Panel 01/26/23 Range/Units 05:22 Sodium 131 L (135-145) mmol/L Potassium 5.0 (3.5-5.5) mmol/L Chloride 97 (96-109) mmol/L Carbon Dioxide 23.5 (21.6-31.8) mmol/L BUN 20.8 (9.0-27.0) mg/dL Creatinine 0.9 (0.6-1.5) mg/dL Glucose 84 (70-110) mg/dL Calcium 9.3 (8.7-10.3) mg/dL Current Medications Generic Name Dose Route Start Last Admin Trade Name Freq PRN Reason Stop Dose Admin Amlodipine Besylate 10 mg 01/26/23 09:00 Amlodipine 10 Mg Tab PO DAILY GI Ascorbic Acid 500 mg 01/26/23 09:00 01/26/23 11:11 Ascorbic Acid 500 Mg Tab PO 500 mg DAILY GI Administration Aspirin 81 mg 01/26/23 09:00 01/26/23 11:11 Aspirin 81 Mg PO 81 mg DAILY GI Administration Cholecalciferol 25 mcg 01/26/23 09:00 01/26/23 11:11 Cholecalciferol 25 Mcg (1000 Iu) Tablet PO 25 mcg DAILY GI Administration Divalproex Sodium 250 mg 01/25/23 21:00 01/26/23 11:12 Divalproex 250 Mg Tablet.Dr PO 250 mg BID GI Administration Heparin Sodium (Porcine) 5,000 unit 01/26/23 09:00 01/26/23 11:11 Heparin Sodium,Porcine 5,000 Unit/Ml 1 Ml Vial SQ 5,000 unit Q12HR GI Administration Sodium Chloride 1,000 mls @ 20 mls/hr 01/25/23 13:45 01/25/23 19:31 Saline 0.9% IV 20 mls/hr .Q24H GI Administration Sodium Chloride 1,000 mls @ 75 mls/hr 01/25/23 21:45 01/25/23 21:45 Saline 0.9% IV 75 mls/hr .[id number] GI Administration Lacosamide 100 mg 01/25/23 21:00 01/26/23 12:17 Lacosamide 50 Mg Tablet PO 100 mg BID GI Administration Levothyroxine Sodium 100 mcg 01/26/23 07:30 01/26/23 06:17 Levothyroxine 100 Mcg Tab PO 100 mcg AC-BRKFST GI Administration Lisinopril 10 mg 01/26/23 09:00 Lisinopril 10 Mg Tab PO DAILY GI Naloxone HCl 0.2 mg 01/25/23 13:40 Naloxone 0.4 Mg/Ml 1 Ml Vial IV Q2M PRN Opioid Reversal Pravastatin Sodium 20 mg 01/25/23 21:00 01/25/23 20:28 Pravastatin Sodium 20 Mg Tab PO 20 mg HS GI Administration Primidone 25 mg 01/25/23 21:00 01/25/23 20:28 Primidone 25 Mg Tab PO 25 mg HS GI Administration Quetiapine Fumarate 25 mg 01/25/23 21:00 01/25/23 20:28 Quetiapine 25 Mg Tab PO 25 mg HS GI Administration Sertraline HCl 100 mg 01/25/23 21:00 01/25/23 20:28 Sertraline 100 Mg Tab PO 100 mg HS GI Administration Thiamine HCl 100 mg 01/26/23 09:00 01/26/23 11:11 Thiamine 100 Mg Tab PO 100 mg DAILY GI Administration Intake and Output 01/26/23 01/26/23 01/26/23 06:59 14:59 22:59 Output Total 600 Balance -600 Output: Urine 600 Other: Voiding Method External Catheter External Catheter # Voids 2 # Bowel Movements 0 01/26/23 05:22 01/26/23 05:22
[2023-01-26] MEDS: SODIUM CHLORIDE 0.9% 1,000 ML IV SCH ×3 (17:22→23:11)
[2023-01-26] MEDS: lisinopriL 10 MG TAB PO SCH (17:23)
[2023-01-26] MEDS: amLODIPine 10 MG TAB PO SCH (17:23)
[2023-01-26] MEDS: PRIMIDONE 25 MG TAB PO SCH (20:05)
[2023-01-26] MEDS: SERTRALINE 100 MG TAB PO SCH (20:05)
[2023-01-26] MEDS: PRAVASTATIN SODIUM 20 MG TAB PO SCH (20:05)
[2023-01-26] MEDS: QUEtiapine 25 MG TAB PO SCH (20:06)
--- NOTE | 2023-01-26 20:21 | P.PN ---
Subjective Progress Note Date: 01/26/23 87-year-old female she has past medical history debility, seizure disorder hypertension. She is a poor historian however states that she has been discharged from a neurological last week she's been at home with her . According to nurse receive report from EMS she had episode of syncope and was fo und on the floor. Patient denies any pain complaints. States that she is having diarrhea for the last 2 days. Denies any history of C. diff. Denies any recent travel or food poisoning. Denies any constitutional symptoms. EKG Findings:: Ventricular rate 60, sinus rhythm with prolonged NC, no evidence of high-grade heart block and QRS 92, QTC 423. No NC prolongation, no QTC prolongation, no ST or T-wave changes noted. Overall, this EKG is unremarkable CBC, coag panel, metabolic panel obtained. Mild hyponatremia. Urinalysis slightly suspicious for UTI. CT imaging negative Objective - Vital Signs Vital signs: Vital Signs Temp 98.3 F 01/26/23 14:42 Pulse 62 01/26/23 14:42 Resp 16 01/26/23 14:42 BP 129/66 01/26/23 14:42 Pulse Ox 98 01/26/23 14:42 FiO2 Intake & Output 01/25/23 01/26/23 01/26/23 18:59 06:59 18:59 Output Total 600 Balance -600 Weight 59.874 kg Output: Urine 600 Other: Voiding Method External Catheter External Catheter # Voids 2 # Bowel Movements 0 - Exam GENERAL: The patient is alert and oriented x3, not in any acute distress. Well developed, well nourished. HEENT: Pupils are round and equally reacting to light. EOMI. No scleral icterus. No conjunctival pallor. Normocephalic, atraumatic. No pharyngeal erythema. No thyromegaly. CARDIOVASCULAR: S1 and S2 present. No murmurs, rubs, or gallops. PULMONARY: Chest is clear to auscultation, no wheezing or crackles. ABDOMEN: Soft, nontender, nondistended, normoactive bowel sounds. No palpable organomegaly. MUSCULOSKELETAL: No joint swelling or deformity. EXTREMITIES: No cyanosis, clubbing, or pedal edema. NEUROLOGICAL: Gross neurological examination did not reveal any focal deficits. SKIN: No rashes. - Labs CBC & Chem 7: 01/26/23 05:22 01/26/23 05:22 Labs: Abnormal Lab Results - Last 24 Hours (Table) 01/26/23 01/26/23 Range/Units 05:22 05:22 RBC 3.69 L (4.10-5.20) X 10*6/uL Hgb 11.1 L (12.0-15.0) d/dL Hct 33.1 L (37.2-46.3) % Sodium 131 L (135-145) mmol/L BUN/Creatinine Ratio 23.11 H (12.00-20.00) Ratio Assessment and Plan Assessment: 1. Acute syncope; rule out cardiac dysrhythmias versus seizures versus TIA - Patient will be admitted to telemetry; monitor EKG and trend troponin - Monitor neuro checks per protocol; orthostatic vital signs every shift - Consult cardiology and neurology 2. Hyponatremia; patient is placed on slow IV fluid hydration with normal saline; sodium level at 127 upon arrival to ED; we will monitor levels closely; we will order serum and urine osmolality and urine sodium levels if no improvement in sodium levels 3. UTI; UA shows occasional bacteria with rare WBCs; leukocyte esterase and nitrates negative; we will hold off on antibiotic therapy at this time; we will monitor CBC and pro-calcitonin; further recommendations pending clinical course 4. History of seizure disorder; continue with home dose of Vimpat 100 mg twice a day, primidone 25 mg by mouth daily at bedtime; Depakote 250 mg twice a day 5. Hypertension; lisinopril 10 mg daily; Norvasc 10 mg daily 6. Hyperlipidemia; Pravachol 20 mg by mouth daily at bedtime 7. Hypothyroidism; levothyroxin 100 MCG daily 8. Depression; Zoloft 100 mg by mouth daily at bedtime DVT prophylaxis; SCDs/subcu heparin CODE STATUS; full code
[2023-01-27] MEDS: LEVOTHYROXINE 100 MCG TAB PO SCH (05:57)
--- NOTE | 2023-01-27 08:43 | P.CNNES ---
History of Present Illness Consult date: 01/19/23 History of Present Illness: The patient is an 87y/o female who is seen in neurologic consultation on 2022, in collaboration with Nella Wills, via teleneurology. History is obtained from the chart and discussion with the nurse. The pt is able to provide some history. The pt reported came into the hospital because of syncope and several days of diarrhea. The pt has some difficulty answering questions regarding events leading to admission. The pt does report falling and feeling as if she was passing out. The pt was reportedly sitting on the toilet, having diarrhea, when she passed out. The pt denies tongue biting. The pt denies confusion upon awakening from this event. She does have a history of seizures. She states that this episode did not feel like her usual seizures. She does however, state that her seizures are oc curring more frequently. She is unable to state when her most recent seizure occurred. She does reportedly follow with Dr. Bain of [facility], for her seizures. In addition, the pt reports that she began to experience a tremor (or worsening), 3-4 wks ago. The pt is poor historian, secondary to marked hearing loss. CT scan of the brain was performed in the ER. There was no indication of acute hemorrhage or ischemia. Lab findings indicate hyponatremia. Past Medical History Past Medical History: Cancer, Hearing Disorder / Deafness, Hyperlipidemia, Hypertension, Seizure Disorder, Thyroid Disorder Additional Past Medical History / Comment(s): Seizures/lifelong, R breast cancer with lumpectomy/radiation txs, very NULATO bilaterally/has hearing aides, past L femur fracture/no surgery, UTI, thyroid disease. History of Any Multi-Drug Resistant Organisms: ESBL Date of last positivie culture/infection: 12/11/22 ESBL-E.coli MDRO Source:: Urine Past Surgical History: Breast Surgery, Cholecystectomy Additional Past Surgical History / Comment(s): R breast lumpectomy Past Anesthesia/Blood Transfusion Reactions: No Reported Reaction Past Psychological History: Anxiety, Depression Smoking Status: Never smoker Past Alcohol Use History: None Reported Past Drug Use History: None Reported - Past Family History Mother Family Medical History: CVA/TIA Additional Family Medical History / Comment(s): Heart problems Sister(s) Family Medical History: Cancer Additional Family Medical History / Comment(s): of lung cancer Medications and Allergies Home Medications Medication Instructions Recorded Confirmed Type Pravastatin Sodium [Pravachol] 20 mg PO HS 10/15/18 01/25/23 History Cholecalciferol [Vitamin D3 (25 25 mcg PO DAILY 05/04/22 01/25/23 History Mcg = 1000 Iu)] Sertraline [Zoloft] 100 mg PO HS 05/04/22 01/25/23 History Thiamine [Vitamin B-1] 100 mg PO DAILY 05/04/22 01/25/23 History Aspirin 81 mg PO DAILY #30 tab 05/12/22 01/25/23 Rx Ascorbic Acid [Vitamin C] 500 mg PO DAILY 07/12/22 01/25/23 History Primidone [Mysoline] 25 mg PO HS 07/12/22 01/25/23 History QUEtiapine [SEROquel] 25 mg PO HS #30 tab 07/28/22 01/25/23 Rx Divalproex [Depakote] 250 mg PO BID 12/25/22 01/25/23 History Levothyroxine Sodium 100 mcg PO AC-BRKFST 12/25/22 01/25/23 History amLODIPine [Norvasc] 10 mg PO DAILY 01/04/23 01/25/23 History lisinopriL [Prinivil] 10 mg PO DAILY 01/04/23 01/25/23 History Lacosamide [Vimpat] 100 mg PO BID #6 tab 01/08/23 01/25/23 Rx Allergies Allergy/AdvReac Type Severity Reaction Status Date / Time No Known Allergies Allergy Verified 01/25/23 11:41 Physical Examination - Vital Signs Vital Signs: Vital Signs Temp Pulse Pulse Pulse Resp BP BP 01/27/23 07:00 98.0 F 51 L 14 01/27/23 02:06 98.1 F 64 15 01/26/23 19:07 98.3 F 61 15 01/26/23 17:17 01/26/23 14:42 98.3 F 62 66 77 16 153/71 138/69 BP BP Pulse Ox 01/27/23 07:00 147/73 97 01/27/23 02:06 127/64 98 01/26/23 19:07 122/70 96 01/26/23 17:17 156/76 01/26/23 14:42 129/66 98 Intake and Output 01/26/23 01/27/23 01/27/23 22:59 06:59 14:59 Output Total 500 Balance -500 Output: Urine 500 Other: Voiding Method External Catheter # Voids 1 # Bowel Movements 0 0 General: The pt is reclining in the bed. She well-nourished and in no acute distress HEENT: Head is atraumatic, normocephalic. Fundus not visualized. There is no scleral icterus. Mucous membranes moist. Neck: Supple, without carotid bruits. Heart: Regular rate and rhythm, without murmur Lungs: Essentially clear to ausculation Extremities: Without edema Neurological Examination Mental status: The pt is awake, alert and oriented x3. Speech is clear, without dysarthria. There is no anomia. The pt is able to repeat phrases Cranial Nerves: Pupils are equal at 2mm and reactive. Visual bunch are full. Extraocular movements intact. There was occular overshoot. No nystagmus. Facial sensation intact. No facial asymmetry. Hearing markedly diminished. Uvula and palate midline. Shoulder shrug symmetric. Tongue protrudes midline, with tremor. No bite. Motor: Strength (right listed 1st) Claims Service Representative 5/4, biceps 5/4, triceps 4/4, hip flexors 5/4, ankle plantar flexors 4/3 Sensation: Grossly intact to light touch throughout. There is no extinction with double simultaneous stimulation Coordination: The pt had a diffuse tremor, involving all 4 extremities, head, tongue, trunk. The tremor was worse with movement. There was bilateral dysmetria with finger to nose testing. Rapid alternating movements intact. Deep tendon reflexes: Absent throughout. The pt was unable to relax her extremities. Gait: Not assessed Results - Laboratory Findings CBC and BMP: 01/26/23 05:22 01/26/23 05:22 Abnormal Lab Findings: Abnormal Labs 01/25/23 01/25/23 01/26/23 10:49 10:49 05:22 RBC 3.69 L Hgb 11.1 L Hct 33.1 L Sodium 127 L Chloride 92 L BUN 21 H BUN/Creatinine Ratio Glucose 106 H Urine Appearance Cloudy H Urine WBC 7 H Urine WBC Clumps Rare H Amorphous Sediment Rare H Urine Bacteria Occasional H 01/26/23 05:22 RBC Hgb Hct Sodium 131 L Chloride BUN BUN/Creatinine Ratio 23.11 H Glucose Urine Appearance Urine WBC Urine WBC Clumps Amorphous Sediment Urine Bacteria - Diagnostic Findings Comments: CT brain images have been personally reviewed Assessment and Plan Assessment: 1. Syncope, likely secondary to dehydration and defication. In review of the chart, the pt has had other similar episodes. This does not sound consistent with seizure. 2. Generalized essential tremor 3. History of seizure disorder 4. Reported history of anxiety 5. Thyroid disorder Plan: 1. I agree with cardiology consultation 2. Check orthostatic vitals 3. Check TSH, for possible over treatment of hypothyroidism Time with Patient: Greater than 30 (45 minutes spent caring for this pt)
[2023-01-27 09:10] LABS: Basophils # (A) 0.12 X 10*3/uL (0.00-0.10); Basophils % (A) 1.7 %; Eosinophils # (A) 0.24 X 10*3/uL (0.04-0.35); Eosinophils % (A) 3.3 %; HCT 33.8 % (37.2-46.3); HGB 11.2 d/dL (12.0-15.0); Lymphocytes # (A) 3.01 X 10*3/uL (0.90-5.00); Lymphocytes % (A) 41.5 %; MCH 29.9 pg (27.0-32.0); MCHC 33.1 d/dL (32.0-37.0); MCV 90.4 FL (80.0-97.0); Mean Platelet Volume 10.2 FL (9.5-12.2); Monocytes # (A) 1.01 X 10*3/uL (0.20-1.00); Monocytes % (A) 13.9 %; NRBC Per 100 WBC 0 X 10*3/uL (0.00-0.01); Neutrophils # (A) 2.86 X 10*3/uL (1.80-7.70); Neutrophils % (A) 39.3 %; Platelet Count 300 X 10*3/uL (140-440); RBC 3.74 X 10*6/uL (4.10-5.20); RDW 12.8 % (11.5-14.5); WBC 7.26 X 10*3/uL (4.50-10.00)
[2023-01-27 09:15] LABS: Calcium 9.3 mg/dL (8.7-10.3); Carbon Dioxide 23.8 mmol/L (21.6-31.8); Chloride 98 mmol/L (96-109); Glucose 82 mg/dL (70-110); Potassium 5.5 mmol/L (3.5-5.5); Sodium 133 mmol/L (135-145)
[2023-01-27] MEDS: lisinopriL 10 MG TAB PO SCH (09:16)
[2023-01-27] MEDS: HEPARIN SODIUM,PORCINE 5,000 UNIT/ML 1 ML VIAL SQ SCH ×2 (09:16→21:02)
[2023-01-27] MEDS: ASPIRIN 81 MG PO SCH (09:16)
[2023-01-27] MEDS: ASCORBIC ACID 500 MG TAB PO SCH (09:17)
[2023-01-27] MEDS: amLODIPine 10 MG TAB PO SCH (09:17)
[2023-01-27] MEDS: CHOLECALCIFEROL 25 MCG (1000 IU) TABLET PO SCH (09:17)
[2023-01-27] MEDS: THIAMINE 100 MG TAB PO SCH (09:17)
[2023-01-27] MEDS: DIVALPROEX 250 MG TABLET.DR PO SCH ×2 (09:17→21:02)
[2023-01-27] MEDS: LACOSAMIDE 50 MG TABLET PO SCH ×2 (09:29→21:02)
[2023-01-27] MEDS: SODIUM CHLORIDE 0.9% 1,000 ML IV SCH ×2 (15:20)
--- NOTE | 2023-01-27 18:20 | P.PN ---
Subjective Progress Note Date: 01/27/23 87-year-old female she has past medical history debility, seizure disorder hypertension. She is a poor historian however states that she has been discharged from a neurological last week she's been at home with her . According to nurse receive report from EMS she had episode of syncope and was fo und on the floor. Patient denies any pain complaints. States that she is having diarrhea for the last 2 days. Denies any history of C. diff. Denies any recent travel or food poisoning. Denies any constitutional symptoms. EKG Findings:: Ventricular rate 60, sinus rhythm with prolonged MN, no evidence of high-grade heart block and QRS 92, QTC 423. No MN prolongation, no QTC prolongation, no ST or T-wave changes noted. Overall, this EKG is unremarkable CBC, coag panel, metabolic panel obtained. Mild hyponatremia. Urinalysis slightly suspicious for UTI. CT imaging negative 01/27/2023 Patient is seen and evaluated in room at bedside; neurology consulted for episodes of syncope We will signs are reviewed and remained stable Patient has been evaluated by cardiology naming syncopal episode non-cardiac and likely related to dehydration resulting from diarrhea; previous echocardiogram shows mild LVF with preserved EF; cardiology recommending limited echo to rule out any outflow tract obstruction -- Neurology increase with repeating Echocardiogram; monitor orthostatic vital signs; TSH Objective - Vital Signs Vital signs: Vital Signs Temp 98.0 F 01/27/23 07:00 Pulse 51 L 01/27/23 07:00 Resp 16 01/27/23 08:00 BP 147/73 01/27/23 07:00 Pulse Ox 97 01/27/23 07:00 FiO2 Intake & Output 01/26/23 01/27/23 01/27/23 18:59 06:59 18:59 Output Total 600 500 Balance -600 -500 Output: Urine 600 500 Other: Voiding Method External Catheter External Catheter External Catheter # Voids 1 # Bowel Movements 0 0 - Exam GENERAL: The patient is alert and oriented x3, not in any acute distress. Well developed, well nourished. HEENT: Pupils are round and equally reacting to light. EOMI. No scleral icterus. No conjunctival pallor. Normocephalic, atraumatic. No pharyngeal erythema. No thyromegaly. CARDIOVASCULAR: S1 and S2 present. No murmurs, rubs, or gallops. PULMONARY: Chest is clear to auscultation, no wheezing or crackles. ABDOMEN: Soft, nontender, nondistended, normoactive bowel sounds. No palpable organomegaly. MUSCULOSKELETAL: No joint swelling or deformity. EXTREMITIES: No cyanosis, clubbing, or pedal edema. NEUROLOGICAL: Gross neurological examination did not reveal any focal deficits. SKIN: No rashes. - Labs CBC & Chem 7: 01/27/23 05:37 01/27/23 05:37 Labs: Abnormal Lab Results - Last 24 Hours (Table) 01/27/23 01/27/23 Range/Units 05:37 05:37 RBC 3.74 L (4.10-5.20) X 10*6/uL Hgb 11.2 L (12.0-15.0) d/dL Hct 33.8 L (37.2-46.3) % Monocytes # 1.01 H (0.20-1.00) X 10*3/uL Basophils # 0.12 H (0.00-0.10) X 10*3/uL Sodium 133 L (135-145) mmol/L Est GFR (CKD-EPI) 55 L (>=60) Assessment and Plan Assessment: 1. Acute syncope; rule out cardiac dysrhythmias versus seizures versus TIA - Patient will be admitted to telemetry; monitor EKG and trend troponin - Monitor neuro checks per protocol; orthostatic vital signs every shift - Consult cardiology and neurology 2. Hyponatremia; patient is placed on slow IV fluid hydration with normal salin e; sodium level at 127 upon arrival to ED; we will monitor levels closely; we will order serum and urine osmolality and urine sodium levels if no improvement in sodium levels 3. UTI; UA shows occasional bacteria with rare WBCs; leukocyte esterase and nitrates negative; we will hold off on antibiotic therapy at this time; we will monitor CBC and pro-calcitonin; further recommendations pending clinical course 4. History of seizure disorder; continue with home dose of Vimpat 100 mg twice a day, primidone 25 mg by mouth daily at bedtime; Depakote 250 mg twice a day 5. Hypertension; lisinopril 10 mg daily; Norvasc 10 mg daily 6. Hyperlipidemia; Pravachol 20 mg by mouth daily at bedtime 7. Hypothyroidism; levothyroxin 100 MCG daily 8. Depression; Zoloft 100 mg by mouth daily at bedtime DVT prophylaxis; SCDs/subcu heparin CODE STATUS; full code
[2023-01-27] MEDS: PRIMIDONE 25 MG TAB PO SCH (21:02)
[2023-01-27] MEDS: SERTRALINE 100 MG TAB PO SCH (21:02)
[2023-01-27] MEDS: PRAVASTATIN SODIUM 20 MG TAB PO SCH (21:02)
[2023-01-27] MEDS: QUEtiapine 25 MG TAB PO SCH (21:02)
[2023-01-28] MEDS: SODIUM CHLORIDE 0.9% 1,000 ML IV SCH ×2 (04:12→14:47)
[2023-01-28] MEDS: LEVOTHYROXINE 100 MCG TAB PO SCH (06:12)
[2023-01-28] MEDS: THIAMINE 100 MG TAB PO SCH (09:50)
[2023-01-28] MEDS: LACOSAMIDE 50 MG TABLET PO SCH ×2 (09:50→21:18)
[2023-01-28] MEDS: HEPARIN SODIUM,PORCINE 5,000 UNIT/ML 1 ML VIAL SQ SCH ×2 (09:50→21:18)
[2023-01-28] MEDS: amLODIPine 10 MG TAB PO SCH (09:50)
[2023-01-28] MEDS: ASPIRIN 81 MG PO SCH (09:50)
[2023-01-28] MEDS: ASCORBIC ACID 500 MG TAB PO SCH (09:50)
[2023-01-28] MEDS: DIVALPROEX 250 MG TABLET.DR PO SCH ×2 (09:50→21:19)
[2023-01-28] MEDS: lisinopriL 10 MG TAB PO SCH (09:50)
[2023-01-28] MEDS: CHOLECALCIFEROL 25 MCG (1000 IU) TABLET PO SCH (09:50)
--- NOTE | 2023-01-28 16:45 | CA ---
Transthoracic Echo Report Name: Racheal Grace Age: 87 Gender: F : 1935 Exam Date: 01/28/2023 09:58 Exam Location: [facility] Ht (in): 63 Wt (lb): 132 Ordering Physician: Wesley Ricketts MD ([id number]) Attending/Referring Phys: Cloth Finishing Range Back Tender Za Myers [facility] Procedure CPT: Indications: Syncope Cardiac Hx: Technical Quality: Fair Contrast 1: Total Dose (mL): Contrast 2: Total Dose (mL): MEASUREMENTS (Male / Female) Normal Values 2D ECHO LV Diastolic Diameter PLAX 3.5 cm 4.2 - 5.9 / 3.9 - 5.3 cm LV Systolic Diameter PLAX 2.1 cm IVS Diastolic Thickness 1.2 cm 0.6 - 1.0 / 0.6 - 0.9 cm LVPW Diastolic Thickness 1.2 cm 0.6 - 1.0 / 0.6 - 0.9 cm LV Relative Wall Thickness 0.7 DOPPLER AV Peak Velocity 128.4 cm/s AV Peak Gradient 6.6 mmHg AV Mean Velocity 100.5 cm/s AV Mean Gradient 4.3 mmHg AV Velocity Time Integral 34.3 cm LVOT Peak Velocity 93.1 cm/s LVOT Peak Gradient 3.5 mmHg LVOT Velocity Time Integral 26.4 cm Mitral E Point Velocity 71.0 cm/s Mitral A Point Velocity 80.2 cm/s Mitral E to A Ratio 0.9 MV Deceleration Time 168.5 ms LV E' Lateral Velocity 6.3 cm/s Mitral E to LV E' Lateral Ratio 11.2 LV E' Septal Velocity 7.2 cm/s Mitral E to LV E' Septal Ratio 9.9 FINDINGS Left Ventricle Mildly increased left ventricular wall thickness. Mild concentric left ventricular hypertrophy. Small left ventricular cavity. Normal left ventricular systolic function with no obvious regional wall motion abnormalities. Left ventricular ejection fraction is estimated at 60-65%. Right Ventricle Right Atrium Left Atrium Mitral Valve Aortic Valve No aortic stenosis. Trace aortic regurgitation. Normal LVOT gradients. Tricuspid Valve Pulmonic Valve Pericardium No pericardial effusion. Echo free space anterior to the right ventricle likely represents a fat pad. Aorta CONCLUSIONS Limited for EF and LVOT gradients. LVH with preserved systolic function No LVOT gradient of any significance Previewed by: Dr. Irving Tompkins MD (Electronically Signed) Final Date: 28 January 2023 16:44
--- NOTE | 2023-01-28 17:21 | P.PN ---
Subjective Progress Note Date: 01/28/23 Patient initially seen by Dr. Dexter. Please refer to her note for detail. Patient came with lightheadedness, dizziness and a syncopal spell. Patient states she came to the hospital for diarrhea. Patient at present denies any headache or dizziness. She states she feels okay. No further syncopal spells. Objective - Vital Signs Vital signs: Vital Signs Temp 97.9 F 01/28/23 15:00 Pulse 68 01/28/23 15:00 Resp 16 01/28/23 15:00 BP 115/68 01/28/23 15:00 Pulse Ox 96 01/28/23 15:00 FiO2 Intake & Output 01/27/23 01/28/23 01/28/23 18:59 06:59 18:59 Intake Total 59 Output Total 600 300 Balance -600 -300 59 Intake: Oral 59 Output: Urine 600 300 Other: Voiding Method External Catheter External Catheter External Catheter # Voids 1 - Exam Mental status, speech and language functions are normal. Patient is hard of he aring. - Labs CBC & Chem 7: 01/27/23 05:37 01/27/23 05:37 Labs: Abnormal Lab Results - Last 24 Hours (Table) 01/26/23 Range/Units 05:22 TSH 0.046 L (0.350-5.500) UIU/ML Assessment and Plan Assessment: 1. Syncope, likely secondary to dehydration and defication. In review of the chart, the pt has had other similar episodes. This does not sound consistent with seizure. 2. Generalized essential tremor 3. History of seizure disorder 4. Reported history of anxiety 5. Thyroid disorder 6. Hard of hearing. Plan: 1. Patient is doing fine. No further syncopal spells. She offers no complaints. 2. Orthostatic vitals were checked. Patient's supine blood pressure 129/70, sitting blood pressure 137/64 and on standing blood pressure was 125/72. This was negative. However repeat orthostatics checked were positive with supine blood pressure 133/48, sitting 160/71 and standing 102/41. Cardiology on board to address orthostatic hypotension. Patient's syncope could be related to dehydration from diarrhea. Recommend staying well hydrated. 3. TSH was normal 1.41, with decreased free T4 0.046 (0.35-5.5). This is suggestive of possible over treatment of hypothyroidism. IM to address. 4. 2-D echo revealed preserved systolic function 60-65% with mild concentric LVH. No LVOT gradient. No aortic stenosis. 5, Continue her seizure medications including Vimpat 100 mg twice a day and Depakote 250 mg twice a day. Neurologically no other workup indicated.
[2023-01-28] MEDS: QUEtiapine 25 MG TAB PO SCH (21:19)
[2023-01-28] MEDS: SERTRALINE 100 MG TAB PO SCH (21:19)
[2023-01-28] MEDS: PRAVASTATIN SODIUM 20 MG TAB PO SCH (21:19)
[2023-01-28] MEDS: PRIMIDONE 25 MG TAB PO SCH (21:19)
[2023-01-29] MEDS: LEVOTHYROXINE 100 MCG TAB PO SCH (05:34)
[2023-01-29] MEDS: lisinopriL 10 MG TAB PO SCH (09:03)
[2023-01-29] MEDS: DIVALPROEX 250 MG TABLET.DR PO SCH ×2 (09:03→19:51)
[2023-01-29] MEDS: CHOLECALCIFEROL 25 MCG (1000 IU) TABLET PO SCH (09:03)
[2023-01-29] MEDS: ASPIRIN 81 MG PO SCH (09:03)
[2023-01-29] MEDS: LACOSAMIDE 50 MG TABLET PO SCH ×2 (09:03→19:50)
[2023-01-29] MEDS: HEPARIN SODIUM,PORCINE 5,000 UNIT/ML 1 ML VIAL SQ SCH ×2 (09:03→19:51)
[2023-01-29] MEDS: ASCORBIC ACID 500 MG TAB PO SCH (09:03)
[2023-01-29] MEDS: amLODIPine 10 MG TAB PO SCH (09:03)
[2023-01-29] MEDS: THIAMINE 100 MG TAB PO SCH (09:03)
--- NOTE | 2023-01-29 09:35 | P.PN ---
Subjective Progress Note Date: 01/28/23 Patient evaluated today sitting up in chair. [place] that the presyncopal episode at home was not related to a seizure. Neurology is following. Patient had limited echocardiogram done showing preserved systolic function. Sodium is improving was up to 133. Orthostatic blood pressure is negative. Patient has de cided to pursue [facility] on discharge does not feel she has enough care at the assisted living she is at. She is worried about returning home and falling. Review of Systems Constitutional: Denied any fatigue denied any fever. Cardio vascular: denied any chest pain, palpitations Gastrointestinal: denied any nausea, vomiting, diarrhea Pulmonary: Denied any shortness of breath cough Neurologic denied any new focal deficits All inpatient medications were reviewed and appropriate changes in these medications as dictated in the interval history and assessment and plan. PHYSICAL EXAMINATION: GENERAL: The patient is alert and oriented x3, not in any acute distress. Well developed, well nourished. HEENT: Pupils are round and equally reacting to light. EOMI. No scleral icterus. No conjunctival pallor. Normocephalic, atraumatic. No pharyngeal erythema. No thyromegaly. CARDIOVASCULAR: S1 and S2 present. No murmurs, rubs, or gallops. PULMONARY: Chest is clear to auscultation, no wheezing or crackles. ABDOMEN: Soft, nontender, nondistended, normoactive bowel sounds. No palpable organomegaly. MUSCULOSKELETAL: No joint swelling or deformity. EXTREMITIES: No cyanosis, clubbing, or pedal edema. NEUROLOGICAL: Gross neurological examination did not reveal any focal deficits. SKIN: No rashes. Assessment -Acute syncope; rule out cardiac dysrhythmias versus seizures versus TIA -Hyponatremia hypovolemic improving with IV hydration -Abnormal urinalysis not suggestive of an acute UTI likely related to dehydration -Mild MADAI prerenal from dehydration due to loose stools -History of seizure disorder and essential tremor -Hypertension and borderline orthostatic changes -Hyperlipidemia -Hypothyroidism -Depression -Hard of hearing with use of hearing aids. DVT prophylaxis; SCDs/subcu heparin CODE STATUS; full code Plan Continue to monitor orthostatic BPs Qshift Sodium is improving recommend to continue Check C.Dif sample Cleared by neurology Pending social work evaluation and discharge planning to [facility]. Medically patient can be discharged when there is an accepting facility. The impression and plan of care has been dictated by Sierra Garcia, Nurse Practitioner as directed. Dr. Abelardo MD I have performed a history and physical examination and medical decision making of this patient, discussed the same with the dictator, and agree with the dictators assessment and plan as written, documented as a scribe. Based on total visit time, I have performed more than 50% of this visit. Objective - Vital Signs Vital signs: Vital Signs Temp 97.5 F L 01/29/23 07:00 Pulse 54 L 01/29/23 07:00 Resp 20 01/29/23 07:00 BP 125/73 01/29/23 07:00 Pulse Ox 95 01/29/23 07:00 FiO2 Intake & Output 01/28/23 01/29/23 01/29/23 18:59 06:59 18:59 Intake Total 59 Output Total 450 Balance -391 Intake: Oral 59 Output: Urine 450 Other: Voiding Method External Catheter External Catheter # Voids 3 1 - Labs CBC & Chem 7: 01/27/23 05:37 01/27/23 05:37 Labs: Abnormal Lab Results - Last 24 Hours (Table) 01/26/23 Range/Units 05:22 TSH 0.046 L (0.350-5.500) UIU/ML Assessment and Plan Time with Patient: Less than 30
[2023-01-29 11:21] LABS: African American GFR (CKD) 87 (>60 ml/min/1.73 sqM); Anion Gap 10 mmol/L; Blood Urea Nitrogen 24 mg/dL (7-17); Calcium 9.1 mg/dL (8.4-10.2); Carbon Dioxide 23 mmol/L (22-30); Chloride 94 mmol/L (98-107); Glucose 84 mg/dL (74-99); Non-African American GFR(CKD) 76 (>60 ml/min/1.73 sqM); Potassium 4.9 mmol/L (3.5-5.1); Sodium 127 mmol/L (137-145)
[2023-01-29] MEDS: SODIUM CHLORIDE 0.9% 1,000 ML IV SCH (13:04)
--- NOTE | 2023-01-29 14:42 | P.PN ---
Subjective Progress Note Date: 01/29/23 01/29/2023: Patient was seen for a follow-up. Patient is laying comfortably in the bed. Offers no complaints. No further seizures, or any syncopal spells. 01/28/2023: Patient initially seen by Dr. Dexter. Please refer to her note for detail. Patient came with lightheadedness, dizziness and a syncopal spell. Patient states she came to the hospital for diarrhea. Patient at present denies any headache or dizziness. She states she feels okay. No further syncopal spells. Objective - Vital Signs Vital signs: Vital Signs Temp 97.5 F L 01/29/23 07:00 Pulse 54 L 01/29/23 14:00 Resp 20 01/29/23 14:00 BP 166/76 01/29/23 10:19 Pulse Ox 96 01/29/23 10:19 FiO2 Intake & Output 01/28/23 01/29/23 01/29/23 18:59 06:59 18:59 Intake Total 59 Output Total 450 800 Balance -391 -800 Intake: Oral 59 Output: Urine 450 800 Other: Voiding Method External Catheter External Catheter External Catheter # Voids 3 1 - Exam Mental status, speech and language functions are normal. Patient is very hard of hearing. She does not do lipreading either. - Labs CBC & Chem 7: 01/27/23 05:37 01/29/23 10:15 Labs: Abnormal Lab Results - Last 24 Hours (Table) 01/29/23 Range/Units 10:15 Sodium 127 L (137-145) mmol/L Chloride 94 L (98-107) mmol/L BUN 24 H (7-17) mg/dL Assessment and Plan Assessment: 1. Syncope, likely secondary to dehydration. Patient had diarrhea, which may have contributed to the dehydration and syncope. In review of the chart, the pt has had other similar episodes. This does not sound consistent with seizure. 2. Generalized essential tremor 3. History of seizure disorder 4. Reported history of anxiety 5. Thyroid disorder 6. Hard of hearing. Plan: * Patient is doing fine. No further syncopal spells. She offers no complaints. * Orthostatic vitals were checked multiple times as below: * 7:12 PM last night with supine blood pressure 122/69, sitting 114/61, and standing 124/71 (negative). * 10:19 AM this morning was supine blood pressure 166/76, sitting 172/74 and standing 138/76 (positive) * 7 AM yesterday morning with supine blood pressure 133/48, sitting 160/71 and standing 102/41 (positive) * 2 PM yesterday afternoon was negative. * It appears her orthostatics are positive in the morning, but negative in the afternoon and evening. Probably related to medication issues. Cardiology on board to address orthostatic hypotension. Patient's syncope could be related to dehydration from diarrhea. Recommend staying well hydrated. * TSH was normal 1.41, with decreased free T4 0.046 (0.35-5.5). This is suggestive of possible over treatment of hypothyroidism. IM to address. * 2-D echo revealed preserved systolic function 60-65% with mild concentric LVH. No LVOT gradient. No aortic stenosis. * Continue her seizure medications including Vimpat 100 mg twice a day and Depakote 250 mg twice a day. Neurologically no other workup indicated.
[2023-01-29] MEDS: QUEtiapine 25 MG TAB PO SCH (19:51)
[2023-01-29] MEDS: PRIMIDONE 25 MG TAB PO SCH (19:51)
[2023-01-29] MEDS: SERTRALINE 100 MG TAB PO SCH (19:51)
[2023-01-29] MEDS: PRAVASTATIN SODIUM 20 MG TAB PO SCH (19:51)
[2023-01-29] MEDS ORDERED: SODIUM CHLORIDE 0.9% 1,000 ML IV SCH (23:45)
--- NOTE | 2023-01-29 23:59 | P.PN ---
Subjective Progress Note Date: 01/29/23 Patient evaluated today sitting up in chair. Thayer that the presyncopal episode at home was not related to a seizure. Neurology is following. Patient had limited echocardiogram done showing preserved systolic function. Sodium is improving was up to 133. Orthostatic blood pressure is negative. Patient has de cided to pursue [facility] on discharge does not feel she has enough care at the assisted living she is at. She is worried about returning home and falling. 01/29/2023 Patient is evaluated today resting in bed. Feels tired today. Patient is pending rehab placement at this time. Orthostatic blood pressure was positive this AM. No further reports of dizziness and no syncopal episodes noted. Patient has not had a stool in 2 days unable to test for C.Dif. Review of Systems Constitutional: Denied any fatigue denied any fever. Cardio vascular: denied any chest pain, palpitations Gastrointestinal: denied any nausea, vomiting, diarrhea Pulmonary: Denied any shortness of breath cough Neurologic denied any new focal deficits All inpatient medications were reviewed and appropriate changes in these medications as dictated in the interval history and assessment and plan. PHYSICAL EXAMINATION: GENERAL: The patient is alert and oriented x3, not in any acute distress. Well developed, well nourished. HEENT: Pupils are round and equally reacting to light. EOMI. No scleral icterus. No conjunctival pallor. Normocephalic, atraumatic. No pharyngeal erythema. No thyromegaly. CARDIOVASCULAR: S1 and S2 present. No murmurs, rubs, or gallops. PULMONARY: Chest is clear to auscultation, no wheezing or crackles. ABDOMEN: Soft, nontender, nondistended, normoactive bowel sounds. No palpable organomegaly. MUSCULOSKELETAL: No joint swelling or deformity. EXTREMITIES: No cyanosis, clubbing, or pedal edema. NEUROLOGICAL: Gross neurological examination did not reveal any focal deficits. SKIN: No rashes. Assessment -Acute syncope felt due to dehydration, no seizure noted on EEG and neurology fe lt stroke unlikely. -Hyponatremia hypovolemic improved with hydration and than worsened. -Abnormal urinalysis not suggestive of an acute UTI likely related to dehydration -Mild MADAI prerenal from dehydration due to loose stools -History of seizure disorder and essential tremor -Hypertension and borderline orthostatic changes -Hyperlipidemia -Hypothyroidism -Depression -Hard of hearing with use of hearing aids. DVT prophylaxis; SCDs/subcu heparin CODE STATUS; full code Plan Continue to monitor orthostatic BPs Qshift Continue hydration Nephrology consultation for the hyponatremia Pending social work evaluation and discharge planning to [facility]. Medically patient can be discharged when there is an accepting facility. The impression and plan of care has been dictated by Sierra Garcia Nurse Practitioner as directed. Dr. Abelardo MD I have performed a history and physical examination and medical decision making of this patient, discussed the same with the dictator, and agree with the dictators assessment and plan as written, documented as a scribe. Based on total visit time, I have performed more than 50% of this visit. Objective - Vital Signs Vital signs: Vital Signs Temp 98.1 F 01/29/23 18:35 Pulse 66 01/29/23 18:35 Resp 16 01/29/23 18:35 BP 132/73 01/29/23 18:35 Pulse Ox 97 01/29/23 18:35 FiO2 Intake & Output 01/29/23 01/29/23 01/30/23 06:59 18:59 06:59 Intake Total 118 Output Total 1200 550 Balance -1082 -550 Intake: Oral 118 Output: Urine 1200 550 Other: Voiding Method External Catheter External Catheter External Catheter # Voids 1 # Bowel Movements 1 - Labs CBC & Chem 7: 01/27/23 05:37 01/29/23 10:15 Labs: Abnormal Lab Results - Last 24 Hours (Table) 01/29/23 Range/Units 10:15 Sodium 127 L (137-145) mmol/L Chloride 94 L (98-107) mmol/L BUN 24 H (7-17) mg/dL Assessment and Plan Time with Patient: Less than 30
[2023-01-30] MEDS: LEVOTHYROXINE 100 MCG TAB PO SCH (06:07)
[2023-01-30] MEDS: CHOLECALCIFEROL 25 MCG (1000 IU) TABLET PO SCH (09:40)
[2023-01-30] MEDS: ASPIRIN 81 MG PO SCH (09:40)
[2023-01-30] MEDS: LACOSAMIDE 50 MG TABLET PO SCH ×2 (09:40→19:47)
[2023-01-30] MEDS: ASCORBIC ACID 500 MG TAB PO SCH (09:40)
[2023-01-30] MEDS: THIAMINE 100 MG TAB PO SCH (09:40)
[2023-01-30] MEDS: amLODIPine 10 MG TAB PO SCH (09:40)
[2023-01-30] MEDS: DIVALPROEX 250 MG TABLET.DR PO SCH ×2 (09:40→19:47)
[2023-01-30] MEDS: lisinopriL 10 MG TAB PO SCH (09:40)
[2023-01-30] MEDS: HEPARIN SODIUM,PORCINE 5,000 UNIT/ML 1 ML VIAL SQ SCH ×2 (09:40→19:48)
[2023-01-30 11:11] LABS: BUN/Creat Ratio 29.22 Ratio (12.00-20.00); Blood Urea Nitrogen 26.3 mg/dL (9.0-27.0); Calcium 9.5 mg/dL (8.7-10.3); Carbon Dioxide 22.2 mmol/L (21.6-31.8); Chloride 90 mmol/L (96-109); Glucose 81 mg/dL (70-110); Sodium 126 mmol/L (135-145)
--- NOTE | 2023-01-30 11:57 | P.NPCON ---
History of Present Illness - Reason for Consult hyponatremia - History of Present Illness Reason for consultation: Hyponatremia History of present illness: Patient is a 87-year-old female seen in renal consultation for hyponatremia. Patient's sodium level this admission was 127 and was up to 133 dated . It is 126 today. Patient is currently receiving IV fluids. Patient came to the hospital on 01/25/2023 due to generalized weakness and syncopal episode. Patient has history of seizures and is maintained on Depakote. She was found on the floor and was brought to the hospital. She is currently awake and alert. Denies chest pain or shortness of breath. GFR is at baseline. No history of kidney disease. UA benign. She denies history of malignancy. She is not on any diuretics. Denies vomiting or diarrhea. Oral intake is fair. She has been drinking quite a bit of fluids. Vital signs are stable. General: No acute distress. HEENT: Head exam is unremarkable. LUNGS: No audible rhonchi or wheezes. HEART: Rate and Rhythm are regular. ABDOMEN: Nontender. EXTREMITITES: No edema. Past Medical History Past Medical History: Cancer, Hearing Disorder / Deafness, Hyperlipidemia, Hypertension, Seizure Disorder, Thyroid Disorder Additional Past Medical History / Comment(s): Seizures/lifelong, R breast cancer with lumpectomy/radiation txs, very [place] bilaterally/has hearing aides, past L femur fracture/no surgery, UTI, thyroid disease. History of Any Multi-Drug Resistant Organisms: ESBL Date of last positivie culture/infection: 12/11/22 ESBL-E.coli MDRO Source:: Urine Past Surgical History: Breast Surgery, Cholecystectomy Additional Past Surgical History / Comment(s): R breast lumpectomy Past Anesthesia/Blood Transfusion Reactions: No Reported Reaction Past Psychological History: Anxiety, Depression Smoking Status: Never smoker Past Alcohol Use History: None Reported Past Drug Use History: None Reported - Past Family History Mother Family Medical History: CVA/TIA Additional Family Medical History / Comment(s): Heart problems Sister(s) Family Medical History: Cancer Additional Family Medical History / Comment(s): of lung cancer Medications and Allergies Home Medications Medication Instructions Recorded Confirmed Type Pravastatin Sodium [Pravachol] 20 mg PO HS 10/15/18 01/25/23 History Cholecalciferol [Vitamin D3 (25 25 mcg PO DAILY 05/04/22 01/25/23 History Mcg = 1000 Iu)] Sertraline [Zoloft] 100 mg PO HS 05/04/22 01/25/23 History Thiamine [Vitamin B-1] 100 mg PO DAILY 05/04/22 01/25/23 History Aspirin 81 mg PO DAILY #30 tab 05/12/22 01/25/23 Rx Ascorbic Acid [Vitamin C] 500 mg PO DAILY 07/12/22 01/25/23 History Primidone [Mysoline] 25 mg PO HS 07/12/22 01/25/23 History QUEtiapine [SEROquel] 25 mg PO HS #30 tab 07/28/22 01/25/23 Rx Divalproex [Depakote] 250 mg PO BID 12/25/22 01/25/23 History Levothyroxine Sodium 100 mcg PO AC-BRKFST 12/25/22 01/25/23 History amLODIPine [Norvasc] 10 mg PO DAILY 01/04/23 01/25/23 History lisinopriL [Prinivil] 10 mg PO DAILY 01/04/23 01/25/23 History Lacosamide [Vimpat] 100 mg PO BID #6 tab 01/08/23 01/25/23 Rx Allergies Allergy/AdvReac Type Severity Reaction Status Date / Time No Known Allergies Allergy Verified 01/25/23 11:41 Physical Exam Vitals: Vital Signs Temp Pulse Pulse Pulse Pulse Pulse Pulse 01/30/23 07:43 98.4 F 54 L 60 71 54 L 01/30/23 02:00 98.2 F 62 63 53 L 01/29/23 18:35 98.1 F 66 01/29/23 14:34 97.8 F 66 01/29/23 14:00 54 L 64 72 61 74 Pulse Resp BP BP BP BP BP 01/30/23 07:43 14 109/65 84/49 106/62 01/30/23 02:00 17 132/72 01/29/23 18:35 16 132/73 01/29/23 14:34 16 126/72 01/29/23 14:00 77 20 BP BP Pulse Ox 01/30/23 07:43 95 01/30/23 02:00 144/69 123/71 96 01/29/23 18:35 97 01/29/23 14:34 97 01/29/23 14:00 Intake and Output 01/29/23 01/30/23 01/30/23 22:59 06:59 14:59 Intake Total 240 Output Total 950 Balance -950 240 Intake: Oral 240 Output: Urine 950 Other: Voiding Method External Catheter External Catheter # Voids 1 # Bowel Movements 1 1 Results - Lab Results Most recent lab results Calcium 9.5 mg/dL (8.7-10.3) 01/30/23 05:28 Magnesium 1.9 mg/dL (1.6-2.3) 01/25/23 10:49 01/27/23 05:37 01/30/23 05:28 Assessment and Plan Plan: Assessment: 1. 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 Patient is on sertraline and Depakote which can induce SIADH. Sodium level 126 today. TSH 0.046 dated 01/26/2023. Free T4 normal. 2. Syncope. Being followed by neurology. Standing blood pressure noted to be low at 84/49. Antihypertensives discontinued. 3. History of seizures. Plan: Add 1200 mL fluid restriction. Encourage oral intake. Check serum and urine osmolality and urine sodium level. Check a.m. cortisol level. Repeat labs in the morning. Thank you for the consultation. I will continue to follow the patient with you during her hospital stay.
--- NOTE | 2023-01-30 16:26 | P.PN ---
Subjective Progress Note Date: 01/30/23 Patient evaluated today sitting up in chair. Eugene that the presyncopal episode at home was not related to a seizure. Neurology is following. Patient had limited echocardiogram done showing preserved systolic function. Sodium is improving was up to 133. Orthostatic blood pressure is negative. Patient has de cided to pursue [facility] on discharge does not feel she has enough care at the assisted living she is at. She is worried about returning home and falling. 01/29/2023 Patient is evaluated today resting in bed. Feels tired today. Patient is pending rehab placement at this time. Orthostatic blood pressure was positive this AM. No further reports of dizziness and no syncopal episodes noted. Patient has not had a stool in 2 days unable to test for C.Dif. 01/30/2023 Patient is evaluated today sitting up on edge of bed plans to get in the shower today. Patient overall has no acute complaints. Sodium had dropped to 127 from 133 and nephrology consultation requested. Patient is on multiple psychiatric medications including depakote than can cause hyponatremia. 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 Blood pressure on the lower side today, amlodipine and lisinopril have been stopped. Pending Auth for insurance to [facility]. Review of Systems Constitutional: Denied any fatigue denied any fever. Cardio vascular: denied any chest pain, palpitations Gastrointestinal: denied any nausea, vomiting, diarrhea Pulmonary: Denied any shortness of breath cough Neurologic denied any new focal deficits All inpatient medications were reviewed and appropriate changes in these medications as dictated in the interval history and assessment and plan. PHYSICAL EXAMINATION: GENERAL: The patient is alert and oriented x3, not in any acute distress. Well developed, well nourished. HEENT: Pupils are round and equally reacting to light. EOMI. No scleral icterus. No conjunctival pallor. Normocephalic, atraumatic. No pharyngeal erythema. No thyromegaly. CARDIOVASCULAR: S1 and S2 present. No murmurs, rubs, or gallops. PULMONARY: Chest is clear to auscultation, no wheezing or crackles. ABDOMEN: Soft, nontender, nondistended, normoactive bowel sounds. No palpable organomegaly. MUSCULOSKELETAL: No joint swelling or deformity. EXTREMITIES: No cyanosis, clubbing, or pedal edema. NEUROLOGICAL: Gross neurological examination did not reveal any focal deficits. SKIN: No rashes. Assessment -Acute syncope felt due to dehydration, no seizure noted on EEG and neurology felt stroke unlikely. -Hyponatremia hypovolemic improved with hydration and than worsened. Hyponatremia possible from SIADH, and medication affect depakote can contribute to this. -Abnormal urinalysis not suggestive of an acute UTI likely related to dehydration -Mild MADAI prerenal from dehydration due to loose stools -History of seizure disorder and essential tremor -Hypertension and borderline orthostatic changes -Hyperlipidemia -Hypothyroidism -Depression -Hard of hearing with use of hearing aids. DVT prophylaxis; SCDs/subcu heparin CODE STATUS; full code Plan Continue to monitor orthostatic BPs Qshift 1200 mL fluid restriction, nephrology consultation, IV fluids stopped Lisinopril and amlodipine being held. Pending social work evaluation and discharge planning to [facility]. Patient is pending insurance auth. The impression and plan of care has been dictated by Sierra Garcia, Nurse Practitioner as directed. Dr. Abelardo MD I have performed a history and physical examination and medical decision making of this patient, discussed the same with the dictator, and agree with the dictators assessment and plan as written, documented as a scribe. Based on total visit time, I have performed more than 50% of this visit. Objective - Vital Signs Vital signs: Vital Signs Temp 98.3 F 01/30/23 14:37 Pulse 62 01/30/23 14:37 Resp 14 01/30/23 14:37 BP 118/68 01/30/23 14:37 Pulse Ox 99 01/30/23 14:37 FiO2 Intake & Output 01/29/23 01/30/23 01/30/23 18:59 06:59 18:59 Intake Total 118 240 Output Total 1200 550 Balance -1082 -550 240 Intake: Oral 118 240 Output: Urine 1200 550 Other: Voiding Method External Catheter External Catheter External Catheter # Voids 1 # Bowel Movements 1 1 - Labs CBC & Chem 7: 01/27/23 05:37 01/30/23 05:28 Labs: Abnormal Lab Results - Last 24 Hours (Table) 01/30/23 01/30/23 Range/Units 05:28 05:28 Sodium 126 L (135-145) mmol/L Chloride 90 L (96-109) mmol/L Anion Gap 13.80 H (4.00-12.00) mmol/L BUN/Creatinine Ratio 29.22 H (12.00-20.00) Ratio Osmolality 272 L (280-301) mosm/kg Assessment and Plan Time with Patient: Less than 30
--- NOTE | 2023-01-30 18:10 | P.PN ---
Subjective Progress Note Date: 01/30/23 01/30/2023: Patient was seen for a follow-up. Patient is asleep at this time. Did not wake her up. Spoke to the nurse. No further syncopal spells. Patient has developed hyponatremia for which nephrology has been consulted. They have stopped IV fluids as well as some blood pressure medications including lisinopril and Norvasc. 01/29/2023: Patient was seen for a follow-up. Patient is laying comfortably in the bed. Offers no complaints. No further seizures, or any syncopal spells. 01/28/2023: Patient initially seen by Dr. Dexter. Please refer to her note for detail. Patient came with lightheadedness, dizziness and a syncopal spell. Patient states she came to the hospital for diarrhea. Patient at present denies any headache or dizziness. She states she feels okay. No further syncopal spells. Objective - Vital Signs Vital signs: Vital Signs Temp 98.3 F 01/30/23 14:37 Pulse 62 01/30/23 14:37 Resp 14 01/30/23 14:37 BP 118/68 01/30/23 14:37 Pulse Ox 99 01/30/23 14:37 FiO2 Intake & Output 01/29/23 01/30/23 01/30/23 18:59 06:59 18:59 Intake Total 118 240 Output Total 1200 550 Balance -1082 -550 240 Intake: Oral 118 240 Output: Urine 1200 550 Other: Voiding Method External Catheter External Catheter External Catheter # Voids 1 # Bowel Movements 1 1 - Exam Patient asleep at this time. Did not wake her up. - Labs CBC & Chem 7: 01/27/23 05:37 01/30/23 05:28 Labs: Abnormal Lab Results - Last 24 Hours (Table) 01/30/23 01/30/23 Range/Units 05:28 05:28 Sodium 126 L (135-145) mmol/L Chloride 90 L (96-109) mmol/L Anion Gap 13.80 H (4.00-12.00) mmol/L BUN/Creatinine Ratio 29.22 H (12.00-20.00) Ratio Osmolality 272 L (280-301) mosm/kg Assessment and Plan Assessment: 1. Syncope, likely secondary to dehydration. Patient had diarrhea, which may have contributed to the dehydration and syncope. In review of the chart, the pt has had other similar episodes. This does not sound consistent with seizure. 2. Generalized essential tremor 3. History of seizure disorder 4. Reported history of anxiety 5. Thyroid disorder 6. Hard of hearing. Plan: * Patient is doing fine. No further syncopal spells. She offers no complaints. * Orthostatic vitals were checked multiple times as below: * 01/28/2023 at 7 AM AM with supine blood pressure 133/48, sitting 160/71 and standing 102/41 (positive) * 01/28/2023 at 2 PM orthostatics negative. * 01/28/2023 at 7:12 PM with supine blood pressure 122/69, sitting 114/61, and standing 124/71 (negative). * 01/29/2023 at 10:19 AM was supine blood pressure 166/76, sitting 172/74 and standing 138/76 (positive) * 01/30/2023 at 2 AM supine blood pressure 123/71, sitting 132/72 and standing 144/69 (negative) * 01/30/2023 at 7:43 AM supine blood pressure 106/62, sitting 109/65 and standing 84/49 (positive) * It appears her orthostatics are positive in the morning, but negative in the afternoon and evening. Probably related to medication issues. However it appears that the orthostasis is positive before she receives her blood pressure medication. Patient's a.m. cortisol level was 7 which is normal on 01/06/2023. * Patient has developed hyponatremia for which nephrology has discontinued blood pressure medication and IV fluids with fluid restriction. Patient's syncope could be related to dehydration from diarrhea. Recommend staying well hydrated. * TSH was normal 1.41, with decreased free T4 0.046 (0.35-5.5). This is suggestive of possible over treatment of hypothyroidism. IM to address. * 2-D echo revealed preserved systolic function 60-65% with mild concentric LVH. No LVOT gradient. No aortic stenosis. * Continue her seizure medications including Vimpat 100 mg twice a day and Depakote 250 mg twice a day. Neurologically no other workup indicated.
[2023-01-30] MEDS: PRAVASTATIN SODIUM 20 MG TAB PO SCH (19:47)
[2023-01-30] MEDS: PRIMIDONE 25 MG TAB PO SCH (19:47)
[2023-01-30] MEDS: QUEtiapine 25 MG TAB PO SCH (19:47)
[2023-01-30] MEDS: SERTRALINE 100 MG TAB PO SCH (19:47)
[2023-01-31] MEDS: LEVOTHYROXINE 100 MCG TAB PO SCH (06:22)
[2023-01-31 06:34] LABS: African American GFR (CKD) 80 (>60 ml/min/1.73 sqM); Anion Gap 12 mmol/L; Blood Urea Nitrogen 22 mg/dL (7-17); Calcium 9.3 mg/dL (8.4-10.2); Carbon Dioxide 22 mmol/L (22-30); Chloride 93 mmol/L (98-107); Glucose 81 mg/dL (74-99); Magnesium 1.9 mg/dL (1.6-2.3); Non-African American GFR(CKD) 69 (>60 ml/min/1.73 sqM); Potassium 4.8 mmol/L (3.5-5.1); Sodium 127 mmol/L (137-145)
[2023-01-31] MEDS: THIAMINE 100 MG TAB PO SCH (09:51)
[2023-01-31] MEDS: HEPARIN SODIUM,PORCINE 5,000 UNIT/ML 1 ML VIAL SQ SCH ×2 (09:51→20:33)
[2023-01-31] MEDS: ASCORBIC ACID 500 MG TAB PO SCH (09:51)
[2023-01-31] MEDS: LACOSAMIDE 50 MG TABLET PO SCH ×2 (09:51→20:32)
[2023-01-31] MEDS: DIVALPROEX 250 MG TABLET.DR PO SCH ×2 (09:51→20:32)
[2023-01-31] MEDS: ASPIRIN 81 MG PO SCH (09:51)
[2023-01-31] MEDS: CHOLECALCIFEROL 25 MCG (1000 IU) TABLET PO SCH (09:51)
--- NOTE | 2023-01-31 12:19 | P.PN ---
Subjective Patient is seen in follow-up for hyponatremia. Sodium level 127 this morning. Resting in bed. Denies chest pain or shortness of breath. Oral intake fair. Vital signs are stable. General: No acute distress. HEENT: Head exam is unremarkable. LUNGS: No audible rhonchi or wheezes. HEART: Rate and Rhythm are regular. ABDOMEN: Nontender. EXTREMITITES: No edema. Objective - Vital Signs Vital signs: Vital Signs Temp 98.0 F 01/31/23 08:00 Pulse 50 L 01/31/23 08:00 Resp 14 01/31/23 08:00 BP 151/67 01/31/23 08:00 Pulse Ox 96 01/31/23 08:00 FiO2 Intake & Output 01/30/23 01/31/23 01/31/23 18:59 06:59 18:59 Intake Total 240 200 Balance 240 200 Intake: Oral 240 200 Other: Voiding Method External Catheter Bedside Commode # Voids 1 3 # Bowel Movements 1 - Labs CBC & Chem 7: 01/27/23 05:37 01/31/23 05:25 Labs: Abnormal Lab Results - Last 24 Hours (Table) 01/30/23 01/31/23 Range/Units 05:28 05:25 Sodium 127 L (137-145) mmol/L Chloride 93 L (98-107) mmol/L BUN 22 H (7-17) mg/dL Osmolality 272 L (280-301) mosm/kg Assessment and Plan Plan: Assessment: 1. 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 Patient is on sertraline and Depakote which can induce SIADH. Sodium level 127 today. TSH 0.046 dated 01/26/2023. Free T4 normal. Urine sodium 48 and urine osmolality 307. Cortisol level XI. 2. Syncope. Being followed by neurology. Standing blood pressure 127/60 this morning. Antihypertensives discontinued. 3. History of seizures. Plan: Maintain 1200 mL fluid restriction. Encourage oral intake. Samsca 7.5 mg once today.
[2023-01-31] MEDS ORDERED: TOLVAPTAN 15 MG TABLET PO ONE (12:30)
--- NOTE | 2023-01-31 15:17 | P.PN ---
Subjective Progress Note Date: 01/31/23 Patient evaluated today sitting up in chair. [place] that the presyncopal episode at home was not related to a seizure. Neurology is following. Patient had limited echocardiogram done showing preserved systolic function. Sodium is improving was up to 133. Orthostatic blood pressure is negative. Patient has de cided to pursue [facility] on discharge does not feel she has enough care at the assisted living she is at. She is worried about returning home and falling. 01/29/2023 Patient is evaluated today resting in bed. Feels tired today. Patient is pending rehab placement at this time. Orthostatic blood pressure was positive this AM. No further reports of dizziness and no syncopal episodes noted. Patient has not had a stool in 2 days unable to test for C.Dif. 01/30/2023 Patient is evaluated today sitting up on edge of bed plans to get in the shower today. Patient overall has no acute complaints. Sodium had dropped to 127 from 133 and nephrology consultation requested. Patient is on multiple psychiatric medications including depakote than can cause hyponatremia. 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 Blood pressure on the lower side today, amlodipine and lisinopril have been stopped. Pending Auth for insurance to [facility]. 01/31/2023 Patient doing well today mostly resting in bed today. No acute complaints. Sodium 127 today patient will be given a dose of samsca. Nephrology following. Discussed with Neuro and he felt depakote and vimpat not contributing to the low sodium. Discussed with patients daughter than she has been having only loose stools no formed stools and also having some fecal incontinence and an explosive like diarrhea which then she is having these syncopal episodes while up in the bathroom, possibly due to vasovagal or straining with BMs. Patients dtr states t his has been a progressive issue over the last few months and patient continues to have these syncopal episodes. GI has been consulted for evaluation. Additionally an abdominal xray has been completed to assess for any constipation or blockage cause some leakage and diarrhea. Blood pressure medications have been stopped and orthostatics are negative. AM cortisol normal at 11. Review of Systems Constitutional: Denied any fatigue denied any fever. Cardio vascular: denied any chest pain, palpitations Gastrointestinal: denied any nausea, vomiting, diarrhea Pulmonary: Denied any shortness of breath cough Neurologic denied any new focal deficits All inpatient medications were reviewed and appropriate changes in these medications as dictated in the interval history and assessment and plan. PHYSICAL EXAMINATION: GENERAL: The patient is alert and oriented x3, not in any acute distress. Well developed, well nourished. HEENT: Pupils are round and equally reacting to light. EOMI. No scleral icterus. No conjunctival pallor. Normocephalic, atraumatic. No pharyngeal erythema. No thyromegaly. CARDIOVASCULAR: S1 and S2 present. No murmurs, rubs, or gallops. PULMONARY: Chest is clear to auscultation, no wheezing or crackles. ABDOMEN: Soft, nontender, nondistended, normoactive bowel sounds. No palpable organomegaly. MUSCULOSKELETAL: No joint swelling or deformity. EXTREMITIES: No cyanosis, clubbing, or pedal edema. NEUROLOGICAL: Gross neurological examination did not reveal any focal deficits. SKIN: No rashes. Assessment -Acute syncope felt due to dehydration, no seizure noted on EEG and neurology felt stroke unlikely. -Hyponatremia hypovolemic improved with hydration and than worsened. 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 DVT prophylaxis; SCDs/subcu heparin CODE STATUS; full code Plan Continue to monitor orthostatic BPs Qshift 1200 mL fluid restriction, nephrology consultation, IV fluids stopped Lisinopril and amlodipine being held. Pending social work evaluation and discharge planning to [facility]. Patient is pending insurance auth. Abdominal xray and GI consultation. The impression and plan of care has been dictated by Sierra Garcia Nurse Practitioner as directed. Dr. Abelardo MD I have performed a history and physical examination and medical decision making of this patient, discussed the same with the dictator, and agree with the d ictators assessment and plan as written, documented as a scribe. Based on total visit time, I have performed more than 50% of this visit. Objective - Vital Signs Vital signs: Vital Signs Temp 97.8 F 01/31/23 14:00 Pulse 62 01/31/23 14:00 Resp 14 01/31/23 14:00 BP 118/58 01/31/23 14:00 Pulse Ox 97 01/31/23 14:00 FiO2 Intake & Output 01/30/23 01/31/23 01/31/23 18:59 06:59 18:59 Intake Total 240 200 Balance 240 200 Intake: Oral 240 200 Other: Voiding Method External Catheter Bedside Commode # Voids 1 3 # Bowel Movements 1 - Labs CBC & Chem 7: 01/27/23 05:37 01/31/23 05:25 Labs: Abnormal Lab Results - Last 24 Hours (Table) 01/31/23 Range/Units 05:25 Sodium 127 L (137-145) mmol/L Chloride 93 L (98-107) mmol/L BUN 22 H (7-17) mg/dL Assessment and Plan Time with Patient: Less than 30
--- NOTE | 2023-01-31 15:43 | XR ---
EXAMINATION TYPE: XR abdomen 2V DATE OF EXAM: 01/31/2023 COMPARISON: NONE HISTORY: Pain TECHNIQUE: Single supine KUB image of the abdomen is obtained FINDINGS: Small bowel demonstrates no evidence for dilatation or air fluid levels. Gas and fecal material is seen in non-distended colon. No convincing evidence for pneumoperitoneum. No unusual calcifications. The lung bases are clear. The osseous structures are intact. IMPRESSION: 1. Overall nonobstructive bowel gas pattern.
--- NOTE | 2023-01-31 18:02 | P.PN ---
Subjective Progress Note Date: 01/31/23 01/31/2023: Patient was seen for a follow-up. Patient is watching TV. She states that she feels okay. She is concerned about incontinence of urine. Patient states that she gets constipated and when the constipation release, then she gets diarrhea that she cannot stop. GI has been consulted. Patient denies any significant back issues. 01/30/2023: Patient was seen for a follow-up. Patient is asleep at this time. Did not wake her up. Spoke to the nurse. No further syncopal spells. Patient has developed hyponatremia for which nephrology has been consulted. They have stopped IV fluids as well as some blood pressure medications including lisinopril and Norvasc. 01/29/2023: Patient was seen for a follow-up. Patient is laying comfortably in the bed. Offers no complaints. No further seizures, or any syncopal spells. 01/28/2023: Patient initially seen by Dr. Dexter. Please refer to her note for detail. Patient came with lightheadedness, dizziness and a syncopal spell. Patient states she came to the hospital for diarrhea. Patient at present denies any headache or dizziness. She states she feels okay. No further syncopal spells. Objective - Vital Signs Vital signs: Vital Signs Temp 97.8 F 01/31/23 14:00 Pulse 62 01/31/23 14:00 Resp 14 01/31/23 14:00 BP 118/58 01/31/23 14:00 Pulse Ox 97 01/31/23 14:00 FiO2 Intake & Output 01/30/23 01/31/23 01/31/23 18:59 06:59 18:59 Intake Total 240 259 Balance 240 259 Intake: Oral 240 259 Other: Voiding Method External Catheter Bedside Commode # Voids 1 3 # Bowel Movements 1 - Exam Patient is alert and awake. Speech and language functions are normal. Cranial nerves significant for severely decreased hearing. On muscle strength testing, the strength is normal in arms and legs distally and proximally except hip flexion which is 5-bilaterally. There is no ataxia for [id number]-ad-[id number] testing although she is slightly shaky. There is no ataxia for hhhu-nh-iiis testing bilaterally. Sensory to touch is equal with no neglect. No loss of sensation distally in the hands or feet. Reflexes are somewhat diminished and plantars are questionably up. - Labs CBC & Chem 7: 01/27/23 05:37 01/31/23 05:25 Labs: Abnormal Lab Results - Last 24 Hours (Table) 01/31/23 Range/Units 05:25 Sodium 127 L (137-145) mmol/L Chloride 93 L (98-107) mmol/L BUN 22 H (7-17) mg/dL Assessment and Plan Assessment: 1. Syncope, likely secondary to dehydration. Patient had diarrhea, which may have contributed to the dehydration and syncope. On review of the chart, the pt has had other similar episodes. This does not sound consistent with seizure. 2. Generalized essential tremor 3. History of seizure disorder 4. Reported history of anxiety 5. Thyroid disorder 6. Hard of hearing. Plan: * Patient is doing fine. No further syncopal spells. She offers no complaints. Patient's neurological examination is normal. * Orthostatic vitals were checked multiple times as below: * 01/28/2023 at 7 AM AM with supine blood pressure 133/48, sitting 160/71 and standing 102/41 (positive) * 01/28/2023 at 2 PM orthostatics negative. * 01/28/2023 at 7:12 PM with supine blood pressure 122/69, sitting 114/61, and standing 124/71 (negative). * 01/29/2023 at 10:19 AM was supine blood pressure 166/76, sitting 172/74 and standing 138/76 (positive) * 01/30/2023 at 2 AM supine blood pressure 123/71, sitting 132/72 and standing 144/69 (negative) * 01/30/2023 at 7:43 AM supine blood pressure 106/62, sitting 109/65 and standing 84/49 (positive) * 01/31/2023 at 5:35 AM, supine blood pressure 112/50, sitting 135/65 and standing 121/71 (negative) * 01/31/2023 at 8 AM, supine blood pressure 151/67, sitting 129/67, standing 127/60 (positive) * It appears her orthostatics are positive in the morning around 7-8 AM, but negative in the afternoon and evening. Probably related to medication issues. However it appears that the orthostasis is positive before she receives her blood pressure medication. * Patient has developed hyponatremia for which nephrology has discontinued blood pressure medication and IV fluids with fluid restriction. Patient's syncope could be related to dehydration from diarrhea. Recommend staying well hydrated. Patient's a.m. cortisol level is 11, which is normal. Nephrology on board. * TSH was normal 1.41, with decreased free T4 0.046 (0.35-5.5). This is suggestive of possible over treatment of hypothyroidism. IM to address. * 2-D echo revealed preserved systolic function 60-65% with mild concentric LVH. No LVOT gradient. No aortic stenosis. * Continue her seizure medications including Vimpat 100 mg twice a day and Depakote 250 mg twice a day. I do not believe Vimpat or Depakote is associated with hyponatremia. Neurologically no other workup indicated.
[2023-01-31] MEDS: PRAVASTATIN SODIUM 20 MG TAB PO SCH (20:32)
[2023-01-31] MEDS: SERTRALINE 100 MG TAB PO SCH (20:32)
[2023-01-31] MEDS: QUEtiapine 25 MG TAB PO SCH (20:32)
[2023-01-31] MEDS: PRIMIDONE 25 MG TAB PO SCH (20:33)
[2023-02-01 05:17] VITALS: RESP 16
[2023-02-01] MEDS: LEVOTHYROXINE 100 MCG TAB PO SCH (06:00)
[2023-02-01] MEDS: THIAMINE 100 MG TAB PO SCH (08:20)
[2023-02-01] MEDS: ASCORBIC ACID 500 MG TAB PO SCH (08:20)
[2023-02-01] MEDS: LACOSAMIDE 50 MG TABLET PO SCH (08:20)
[2023-02-01] MEDS: DIVALPROEX 250 MG TABLET.DR PO SCH (08:20)
[2023-02-01] MEDS: ASPIRIN 81 MG PO SCH (08:20)
[2023-02-01] MEDS: CHOLECALCIFEROL 25 MCG (1000 IU) TABLET PO SCH (08:21)
[2023-02-01] MEDS: HEPARIN SODIUM,PORCINE 5,000 UNIT/ML 1 ML VIAL SQ SCH (08:21)
[2023-02-01 09:21] LABS: BUN/Creat Ratio 23.91 Ratio (12.00-20.00); Blood Urea Nitrogen 26.3 mg/dL (9.0-27.0); Calcium 9.8 mg/dL (8.7-10.3); Chloride 98 mmol/L (96-109); Glucose 82 mg/dL (70-110); Potassium 5.2 mmol/L (3.5-5.5); Sodium 135 mmol/L (135-145)
--- NOTE | 2023-02-01 10:59 | P.CONS ---
History of Present Illness - Reason for Consult Consult date: 02/01/23 Diarrhea and fecal incontinence Requesting physician: Sierra Garcia - Chief Complaint Syncope - History of Present Illness This is an 87-year-old female with past medical history of hearing disorder, hyperlipidemia, hypertension, seizure disorder, thyroid disorder and breast cancer who came in 7 days ago for syncope and fall. Apparently on admission she had reported diarrhea for 2 days duration prior to admission. She has had multiple consultants including cardiology, neurology, and nephrology. Cardiology do not believe his syncopal episode was cardiac related likely related for possible dehydration and suspected UTI and has signed off. Neurology as well believes it could've been secondary to diarrhea that was present prior to admission. Patient was noted to be hyponatremic on admission however has resolved today. Gastroenterology was consulted for diarrhea and stool incontinence. Patient seen resting comfortably. She denies any abdominal pain, nausea or vomiting. She denies any regular diarrhea and denies any stool incontinence. She states that she has urinary incontinence but not stool. She states that she only has occasional diarrhea. She denies any blood in her stool or blood per rectum. C. diff has been ordered but not collected patient has had no reported diarrhea since she has been here and no stool incontinence per nursing. Abdominal x-ray reports overall nonobstructive bowel gas pattern Review of Systems REVIEW OF SYSTEMS: CARDIOPULMONARY: No chest pain or shortness of breath. Gastrointestinal: No abdominal pain. Had diarrhea prior to hospital admission a week ago. Otherwise states only occasional diarrhea and no fecal incontinence. No nausea or vomiting. No hematemesis, coffee-ground emesis. No rectal bleeding, or melena. GENITOURINARY: Reports urinary incontinence. MUSCULOSKELETAL: Reports normal range of motion., Joint pain. SKIN: No rashes. No jaundice. ENDOCRINE: No chills, fevers. No excessive weight gain or loss. No polydipsia or polyuria. PSYCHIATRIC: Unremarkable. NEUROLOGY: No change in mental status. Patient had syncopal episode and fall prior to admission. No reported further dizziness. ENT: Vision unremarkable. CONSTITUTIONAL: No recent weight loss. No fever, chills, night sweats. Past Medical History Past Medical History: Cancer, Hearing Disorder / Deafness, Hyperlipidemia, Hypertension, Seizure Disorder, Thyroid Disorder Additional Past Medical History / Comment(s): Seizures/lifelong, R breast cancer with lumpectomy/radiation txs, very [place] bilaterally/has hearing aides, past L femur fracture/no surgery, UTI, thyroid disease. 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 Past Surgical History: Breast Surgery, Cholecystectomy Additional Past Surgical History / Comment(s): R breast lumpectomy Past Anesthesia/Blood Transfusion Reactions: No Reported Reaction Past Psychological History: Anxiety, Depression Smoking Status: Never smoker Past Alcohol Use History: None Reported Past Drug Use History: None Reported - Past Family History Mother Family Medical History: CVA/TIA Additional Family Medical History / Comment(s): Heart problems Sister(s) Family Medical History: Cancer Additional Family Medical History / Comment(s): of lung cancer Medications and Allergies Home Medications Medication Instructions Recorded Confirmed Type Pravastatin Sodium [Pravachol] 20 mg PO HS 10/15/18 01/25/23 History Cholecalciferol [Vitamin D3 (25 25 mcg PO DAILY 05/04/22 01/25/23 History Mcg = 1000 Iu)] Sertraline [Zoloft] 100 mg PO HS 05/04/22 01/25/23 History Thiamine [Vitamin B-1] 100 mg PO DAILY 05/04/22 01/25/23 History Aspirin 81 mg PO DAILY #30 tab 05/12/22 01/25/23 Rx Ascorbic Acid [Vitamin C] 500 mg PO DAILY 07/12/22 01/25/23 History Primidone [Mysoline] 25 mg PO HS 07/12/22 01/25/23 History QUEtiapine [SEROquel] 25 mg PO HS #30 tab 07/28/22 01/25/23 Rx Divalproex [Depakote] 250 mg PO BID 12/25/22 01/25/23 History Levothyroxine Sodium 100 mcg PO AC-BRKFST 12/25/22 01/25/23 History amLODIPine [Norvasc] 10 mg PO DAILY 01/04/23 01/25/23 History lisinopriL [Prinivil] 10 mg PO DAILY 01/04/23 01/25/23 History Lacosamide [Vimpat] 100 mg PO BID #6 tab 01/08/23 01/25/23 Rx Allergies Allergy/AdvReac Type Severity Reaction Status Date / Time No Known Allergies Allergy Verified 01/25/23 11:41 Physical Exam Vitals: Vital Signs Temp Pulse Pulse Pulse Pulse Resp BP 02/01/23 02:00 97.8 F 57 L 16 01/31/23 20:00 97.7 F 72 82 65 17 124/61 01/31/23 14:00 97.8 F 62 14 01/31/23 08:00 98.0 F 61 65 50 L 14 129/67 BP BP BP Pulse Ox 02/01/23 02:00 120/60 96 01/31/23 20:00 119/62 126/67 96 01/31/23 14:00 118/58 97 01/31/23 08:00 127/60 151/67 96 Intake and Output 01/31/23 02/01/23 02/01/23 22:59 06:59 14:59 Other: Voiding Method Bedside Commode Diaper # Voids 1 3 General appearance: The patient is alert, oriented, appears in no acute distress. Hard of hearing. HET: Head is normocephalic and atraumatic. Conjunctiva pink. Sclera anicteric. Neck: Supple without lymphadenopathy. Trachea midline. Heart: Regular. Lungs: Equal expansion, normal respiratory effort. Abdomen: Soft, nontender, nondistended with bowel sounds. No guarding or rigidity. Skin: No rashes. No jaundice. Extremities: Normal skin color and turgor. No pedal edema. Neurological: No focal deficits. Alert and oriented. Results CBC & Chem 7: 01/27/23 05:37 02/01/23 05:48 Assessment and Plan (1) Diarrhea Narrative/Plan: 87-year-old female with multiple comorbidities presenting about a week ago for syncopal and fall episode. Patient reportedly had diarrhea 2 days prior to admission. She reports other than that she only has occasional diarrhea, she does not have stool incontinence only urinary incontinence. Nursing confirms patient is not having any diarrhea or stool incontinence while hospitalized over the last week duration. There is no further workup indicated at this time. If patient should have recurrent diarrhea she is more than welcome to follow-up with gastroenterology on an outpatient basis. Current Visit: Yes Status: Acute Code(s): R19.7 - DIARRHEA, UNSPECIFIED SNOMED Code(s): 03286051 (2) Syncope Current Visit: Yes Status: Acute Code(s): R55 - SYNCOPE AND COLLAPSE SNOMED Code(s): 935214331 (3) Hyponatremia Current Visit: No Status: Acute Code(s): E87.1 - HYPO-OSMOLALITY AND HYPONATREMIA SNOMED Code(s): 76757674 Plan: 1. Continue symptomatic and supportive care 2. Diabetes tolerated 3. No plans on any gastroenterology workup. Patient denies any recurrent/consistent diarrhea. No diarrhea or stool incontinence while hospitalized according to nursing. 4. Continue medical management per primary medical team Thank you for this consultation, we will sign off at this time. Patient is more than welcome to follow-up as an outpatient if diarrhea should return.
[2023-02-01 14:23] VITALS: BP 146/72; PULSE 68; TEMP 98.2
--- NOTE | 2023-02-01 17:05 | P.PN ---
Subjective Progress Note Date: 02/01/23 02/01/2023: Patient was seen for a follow-up. Patient offers no complaints. Patient is laying comfortably in the bed. 01/31/2023: Patient was seen for a follow-up. Patient is watching TV. She states that she feels okay. She is concerned about incontinence of urine. Patient states that she gets constipated and when the constipation release, then she gets diarrhea that she cannot stop. GI has been consulted. Patient denies any significant back issues. 01/30/2023: Patient was seen for a follow-up. Patient is asleep at this time. Did not wake her up. Spoke to the nurse. No further syncopal spells. Patient has developed hyponatremia for which nephrology has been consulted. They have stopped IV fluids as well as some blood pressure medications including lisinopril and Norvasc. 01/29/2023: Patient was seen for a follow-up. Patient is laying comfortably in the bed. Offers no complaints. No further seizures, or any syncopal spells. 01/28/2023: Patient initially seen by Dr. Dexter. Please refer to her note for detail. Patient came with lightheadedness, dizziness and a syncopal spell. Patient states she came to the hospital for diarrhea. Patient at present denies any headache or dizziness. She states she feels okay. No further syncopal spells. Objective - Vital Signs Vital signs: Vital Signs Temp 98.1 F 02/01/23 08:00 Pulse 56 L 02/01/23 08:00 Resp 16 02/01/23 08:00 BP 123/57 02/01/23 08:00 Pulse Ox 96 02/01/23 08:00 FiO2 Intake & Output 01/31/23 02/01/23 02/01/23 18:59 06:59 18:59 Intake Total 259 236 Balance 259 236 Intake: Oral 259 236 Other: Voiding Method Bedside Commode Bedside Commode Bedside Commode Diaper Diaper Diaper # Voids 1 3 - Exam Patient is alert and awake. Speech and language functions are normal. Cranial nerves significant for severely decreased hearing. On muscle strength testing, the strength is normal in arms and legs distally and proximally except hip flexion which is 5-bilaterally. There is no ataxia for [id number] testing although she is slightly shaky. There is no ataxia for [id number] testing bilaterally. Sensory to touch is equal with no neglect. No loss of sensation distally in the hands or feet. Reflexes are somewhat diminished and plantars are questionably up. - Labs CBC & Chem 7: 01/27/23 05:37 02/01/23 05:48 Labs: Abnormal Lab Results - Last 24 Hours (Table) 02/01/23 Range/Units 05:48 Est GFR (CKD-EPI) 49 L (>=60) BUN/Creatinine Ratio 23.91 H (12.00-20.00) Ratio Assessment and Plan Assessment: 1. Syncope, likely secondary to dehydration. Patient had diarrhea, which may have contributed to the dehydration and syncope. On review of the chart, the pt has had other similar episodes. This does not sound consistent with seizure. 2. Generalized essential tremor 3. History of seizure disorder 4. Reported history of anxiety 5. Thyroid disorder 6. Hard of hearing. Plan: * Patient is doing fine. No further syncopal spells. She offers no complaints. Patient's neurological examination is normal. * Orthostatic vitals were checked multiple times as below: * 01/28/2023 at 7 AM AM with supine blood pressure 133/48, sitting 160/71 and standing 102/41 (positive) * 01/28/2023 at 2 PM orthostatics negative. * 01/28/2023 at 7:12 PM with supine blood pressure 122/69, sitting 114/61, and standing 124/71 (negative). * 01/29/2023 at 10:19 AM was supine blood pressure 166/76, sitting 172/74 and standing 138/76 (positive) * 01/30/2023 at 2 AM supine blood pressure 123/71, sitting 132/72 and standing 144/69 (negative) * 01/30/2023 at 7:43 AM supine blood pressure 106/62, sitting 109/65 and standing 84/49 (positive) * 01/31/2023 at 5:35 AM, supine blood pressure 112/50, sitting 135/65 and standing 121/71 (negative) * 01/31/2023 at 8 AM, supine blood pressure 151/67, sitting 129/67, standing 127/60 (positive) * 01/31/2023 at 8 PM, supine blood pressure 126/67, sitting 124/67, standing 119/62 (negative) * 02/01/2023 at 8 AM, supine blood pressure 123/57, sitting 129/71, standing 132/68 (negative) * Patient's orthostatic hypotension has resolved. Sodium is 135. Neurolo gically clear for discharge. * Patient has developed hyponatremia for which nephrology has discontinued blood pressure medication and IV fluids with fluid restriction. Patient's syncope could be related to dehydration from diarrhea. Recommend staying well hydrated. Patient's a.m. cortisol level is 11, which is normal. sodium is now normal 135. Nephrology on board. * TSH was normal 1.41, with decreased free T4 0.046 (0.35-5.5). This is suggestive of possible over treatment of hypothyroidism. IM to address. * 2-D echo revealed preserved systolic function 60-65% with mild concentric LVH. No LVOT gradient. No aortic stenosis. * Continue her seizure medications including Vimpat 100 mg twice a day and Depakote 250 mg twice a day. I do not believe Vimpat or Depakote is associated with hyponatremia. Neurologically no other workup indicated. We w ill sign off. Please reconsult if any other concerns.
--- NOTE | 2023-02-01 18:20 | P.PN ---
Subjective Patient is seen for f/u for hyponatremia. Sodium 135 today. S/p samsca yesterday. No complaints. Objective - Vital Signs Vital signs: Vital Signs Temp 98.2 F 02/01/23 13:55 Pulse 68 02/01/23 13:55 Resp 16 02/01/23 13:55 BP 146/72 02/01/23 13:55 Pulse Ox 97 02/01/23 13:55 FiO2 Intake & Output 01/31/23 02/01/23 02/01/23 18:59 06:59 18:59 Intake Total 259 236 Balance 259 236 Intake: Oral 259 236 Other: Voiding Method Bedside Commode Bedside Commode Bedside Commode Diaper Diaper Diaper # Voids 1 3 1 - Exam Comfortable, no acute distress. Lungs are clear CVS S1 and S2 Abdomen is soft, nontender Extremities show no edema. - Labs CBC & Chem 7: 01/27/23 05:37 02/01/23 05:48 Labs: Abnormal Lab Results - Last 24 Hours (Table) 02/01/23 Range/Units 05:48 Est GFR (CKD-EPI) 49 L (>=60) BUN/Creatinine Ratio 23.91 H (12.00-20.00) Ratio Assessment and Plan Assessment: 1. 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 Sodium improved to 135 post samsca. TSH 0.046 dated 01/26/2023. Free T4 normal. Urine sodium 48 and urine osmolality 307. Cortisol level 11. 2. Syncope. Being followed by neurology. Standing blood pressure 127/60 this morning. Antihypertensives discontinued. 3. History of seizures. Plan: Continue fluid restriction.
== END 2023-02-01 19:17 | DRG 644 ==
LOC: EC 10:15 → 6NMEDSUR 13:40 → OBSVTOIN 01-28 10:45
PROVIDERS: ADMIT Hospitalist; ATTEND Hospitalist
DX: E22.2 Syndrome of inappropriate secretion of antidiuretic hormone (principal); N17.9 Acute kidney failure, unspecified; E03.9 Hypothyroidism, unspecified; E78.5 Hyperlipidemia, unspecified; E86.0 Dehydration; E86.1 Hypovolemia; F32.A Depression, unspecified; F41.9 Anxiety disorder, unspecified; G40.909 Epilepsy, unspecified, not intractable, without status epilepticus; H91.93 Unspecified hearing loss, bilateral; Z97.4 Presence of external hearing-aid; I10 Essential (primary) hypertension; R32 Unspecified urinary incontinence; K59.00 Constipation, unspecified; R15.9 Full incontinence of feces; I95.1 Orthostatic hypotension; Z66 Do not resuscitate; Z92.3 Personal history of irradiation; Z85.3 Personal history of malignant neoplasm of breast; Z75.1 Person awaiting admission to adequate facility elsewhere; Z79.82 Long term (current) use of aspirin; Z79.890 Hormone replacement therapy; Z79.899 Other long term (current) drug therapy; Z86.19 Personal history of other infectious and parasitic diseases
CPT/HCPCS: 36415; 70450; 72125; 74019; 80048; 80053; 81001; 82533; 82550; 83605; 83735; 83930; 83935; 84300; 84439; 84443; 84484; 85025; 85610; 85730; 93005; 93308; 99285

== ENCOUNTER 2023-03-19 16:34 | Emergency (ER) | payer MEDICARE, OTHER ==
[2023-03-19] MEDS ORDERED: ACETAMINOPHEN TAB 500 MG TAB PO STA (17:00)
--- NOTE | 2023-03-19 17:34 | ED ---
Seizure HPI - General Chief Complaint: Seizure Stated Complaint: Seizure Time Seen by Provider: 03/19/23 16:51 Source: patient Mode of arrival: EMS - History of Present Illness Initial Comments: This 87-year-old female presents by EMS from the [facility]. She apparently had a seizure at the [facility]. This lasted several minutes. The patient cannot remember the event and apparently was unconscious. She does have a history of seizure disorder. She normally will have a seizure about once per month. She also relates that she has been feeling weak recently. She's had multiple falls. She states that she fell earlier today and hit her head. She denies any nausea or vomiting. She complains of some bruising and tenderness over her left lateral ribs. She denies any other injury or trauma. There is no chest pain, shortness of breath, abdominal pain, back pain, neck pain, fevers, or chills. She is on antiseizure medications currently. No other complaints or modifying factors. - Related Data Home Medications Medication Instructions Recorded Confirmed Pravastatin Sodium [Pravachol] 20 mg PO HS 10/15/18 01/25/23 Cholecalciferol [Vitamin D3 (25 25 mcg PO DAILY 05/04/22 01/25/23 Mcg = 1000 Iu)] Sertraline [Zoloft] 100 mg PO HS 05/04/22 01/25/23 Thiamine [Vitamin B-1] 100 mg PO DAILY 05/04/22 01/25/23 Ascorbic Acid [Vitamin C] 500 mg PO DAILY 07/12/22 01/25/23 Primidone [Mysoline] 25 mg PO HS 07/12/22 01/25/23 Divalproex [Depakote] 250 mg PO BID 12/25/22 01/25/23 Levothyroxine Sodium 100 mcg PO AC-BRKFST 12/25/22 01/25/23 Previous Rx's Medication Instructions Recorded Aspirin 81 mg PO DAILY #30 tab 05/12/22 QUEtiapine [SEROquel] 25 mg PO HS #30 tab 07/28/22 Lacosamide [Vimpat] 100 mg PO BID #6 tab 02/01/23 Loperamide [Imodium] 2 mg PO QID PRN #30 capsule 02/01/23 Allergies Allergy/AdvReac Type Severity Reaction Status Date / Time No Known Allergies Allergy Verified 03/19/23 16:57 Review of Systems ROS Statement: Those systems with pertinent positive or pertinent negative responses have been documented in the HPI. ROS Other: All systems not noted in ROS Statement are negative. Past Medical History Past Medical History: Cancer, Hearing Disorder / Deafness, Hyperlipidemia, Hypertension, Seizure Disorder, Thyroid Disorder Additional Past Medical History / Comment(s): Seizures/lifelong, R breast cancer with lumpectomy/radiation txs, very [place] bilaterally/has hearing aides, past L femur fracture/no surgery, UTI, thyroid disease. History of Any Multi-Drug Resistant Organisms: ESBL Date of last positivie culture/infection: 12/11/22 ESBL-E.coli MDRO Source:: Urine Past Surgical History: Breast Surgery, Cholecystectomy Additional Past Surgical History / Comment(s): R breast lumpectomy Past Anesthesia/Blood Transfusion Reactions: No Reported Reaction Past Psychological History: Anxiety, Depression Smoking Status: Never smoker Past Alcohol Use History: None Reported Past Drug Use History: None Reported - Past Family History Mother Family Medical History: CVA/TIA Additional Family Medical History / Comment(s): Heart problems Sister(s) Family Medical History: Cancer Additional Family Medical History / Comment(s): of lung cancer General Exam - General Exam Comments Initial Comments: GENERAL: The patient is well nourished and well hydrated. VITAL SIGNS: Heart rate, blood pressure, respiratory rate reviewed as recorded in nurse's notes. EYES: Pupils are round and reactive. Extraocular movements are intact. No conjunctival / lid redness or swelling. ENT: No external evidence of injury, swelling, or ecchymosis. Airway is patent. Throat is clear. NECK: Nontender. No swelling or evidence of injury. No subcutaneous emphysema. Trachea is midline. No thyroid mass. HEART: Regular rate and rhythm. Good peripheral pulses. LUNGS/CHEST: Breath sounds clear and equal bilaterally. No rales, rhonchi, or wheezes. There is some slight ecchymosis and tenderness over the left mid lateral ribs. There is no subcutaneous emphysema. ABDOMEN: Abdomen soft without tenderness. No palpable masses or organomegaly. No peritoneal signs. No abdominal wall swelling or ecchymosis. EXTREMITIES: No extremity tenderness. Normal muscle tone and function. No thoracolumbar tenderness. NEUROLOGIC: Sensation is grossly intact. Cranial nerve exam reveals face is symmetrical, tongue is midline, speech is clear. SKIN: No abrasions or ecchymosis is noted. No induration or masses noted. PSYCHIATRIC: Alert and oriented. Appropriate behavior and judgment. Course Vital Signs 03/19/23 03/19/23 16:43 18:44 Temperature 97.9 F 98.0 F Pulse Rate 60 60 Respiratory 18 18 Rate Blood Pressure 125/68 156/71 O2 Sat by Pulse 95 95 Oximetry Medical Decision Making - Medical Decision Making The patient was seen and examined. All diagnostics are reviewed. An EKG was done which shows a normal sinus rhythm at a rate of 62. There is evidence of a first-degree AV block per my interpretation. There is no acute ST or T-wave c hanges otherwise noted per my interpretation. The intervals are essentially within normal limits except for a prolonged NV interval at 319. The laboratory does not show any overt significant abnormalities with a mild hyperkalemia. The Depakote level is therapeutic. Computed tomography scan of the brain does not show any acute process per my interpretation. Chest x-ray and left rib x-ray does not show any evidence of fracture or acute osseous abnormality per my interpretation and radiologist interpretation. Patient appears to be doing well on recheck. It is felt as though she stable for discharge home. The exact cause of her weakness is not definitively determined. Close follow-up with primary care recommended. Return parameters are discussed. - Lab Data Result diagrams: 03/19/23 17:25 03/19/23 17:25 Lab Results 03/19/23 03/19/23 Range/Units 17:25 17:25 WBC 6.9 (3.8-10.6) k/uL RBC 4.23 (3.80-5.40) m/uL Hgb 12.5 (11.4-16.0) gm/dL Hct 37.6 (34.0-46.0) % MCV 88.7 (80.0-100.0) fL MCH 29.6 (25.0-35.0) pg MCHC 33.4 (31.0-37.0) g/dL RDW 12.2 (11.5-15.5) % Plt Count 288 (150-450) k/uL MPV 7.5 Neutrophils % 67 % Lymphocytes % 15 % Monocytes % 11 % Eosinophils % 4 % Basophils % 1 % Neutrophils # 4.6 (1.3-7.7) k/uL Lymphocytes # 1.0 (1.0-4.8) k/uL Monocytes # 0.7 (0-1.0) k/uL Eosinophils # 0.3 (0-0.7) k/uL Basophils # 0.1 (0-0.2) k/uL Sodium 136 L (137-145) mmol/L Potassium 5.3 H (3.5-5.1) mmol/L Chloride 97 L (98-107) mmol/L Carbon Dioxide 29 (22-30) mmol/L Anion Gap 10 mmol/L BUN 18 H (7-17) mg/dL Creatinine 1.03 (0.52-1.04) mg/dL Est GFR (CKD-EPI)AfAm 57 (>60 ml/min/1.73 sqM) Est GFR (CKD-EPI)NonAf 50 (>60 ml/min/1.73 sqM) Glucose 108 H (74-99) mg/dL Calcium 9.5 (8.4-10.2) mg/dL Phosphorus 4.9 H (2.5-4.5) mg/dL Magnesium 2.4 H (1.6-2.3) mg/dL Total Bilirubin 0.4 (0.2-1.3) mg/dL AST 21 (14-36) U/L ALT 9 (4-34) U/L Alkaline Phosphatase 58 (38-126) U/L Total Protein 7.3 (6.3-8.2) g/dL Albumin 4.2 (3.5-5.0) g/dL Valproic Acid 82.2 ug/mL Disposition Clinical Impression: Generalized seizure, Weakness, Recurrent falls, Rib contusion, Head injury Disposition: HOME SELF-CARE Instructions (If sedation given, give patient instructions): Seizure/Epilepsy Discharge Instructions & Follow-Up, Rib Contusion (ED), Fall Prevention (ED), Weakness (ED) Is patient prescribed a controlled substance at d/c from ED?: No Referrals: Tania Eagle MD [Primary Care Provider] - 1-2 days Time of Disposition: 19:00
[2023-03-19 17:46] LABS: Basophils # (A) 0.1 k/uL (0-0.2); Basophils % (A) 1 %; Eosinophils # (A) 0.3 k/uL (0-0.7); Eosinophils % (A) 4 %; HCT 37.6 % (34.0-46.0); HGB 12.5 gm/dL (11.4-16.0); Lymphocytes % (A) 15 %; MCH 29.6 pg (25.0-35.0); MCHC 33.4 g/dL (31.0-37.0); MCV 88.7 fL (80.0-100.0); Mean Platelet Volume 7.5; Monocytes # (A) 0.7 k/uL (0-1.0); Monocytes % (A) 11 %; Neutrophils # (A) 4.6 k/uL (1.3-7.7); Neutrophils % (A) 67 %; Platelet Count 288 k/uL (150-450); RBC 4.23 m/uL (3.80-5.40); RDW 12.2 % (11.5-15.5); WBC 6.9 k/uL (3.8-10.6)
--- NOTE | 2023-03-19 18:13 | XR ---
EXAMINATION TYPE: XR ribs LT w pa chest xray DATE OF EXAM: 03/19/2023 5:54 PM CLINICAL INDICATION:Female, 87 years old with history of trauma; COMPARISON: 01/04/2023. TECHNIQUE: XR ribs LT w pa chest xray; Frontal and oblique views of the ribs with frontal chest radio graph. FINDINGS: The ribs have a normal appearance. No evidence of fracture. Overall, the lungs are clear. The cardiac silhouette is normal in size. The remaining osseous structures are intact. IMPRESSION: No acute osseous pathology.
[2023-03-19 18:15] LABS: ALT 9 U/L (4-34); AST 21 U/L (14-36); African American GFR (CKD) 57 (>60 ml/min/1.73 sqM); Albumin 4.2 g/dL (3.5-5.0); Alkaline Phosphatase 58 U/L (38-126); Anion Gap 10 mmol/L; Blood Urea Nitrogen 18 mg/dL (7-17); Calcium 9.5 mg/dL (8.4-10.2); Carbon Dioxide 29 mmol/L (22-30); Chloride 97 mmol/L (98-107); Glucose 108 mg/dL (74-99); Magnesium 2.4 mg/dL (1.6-2.3); Non-African American GFR(CKD) 50 (>60 ml/min/1.73 sqM); Phosphorus 4.9 mg/dL (2.5-4.5); Potassium 5.3 mmol/L (3.5-5.1); Sodium 136 mmol/L (137-145); Total Bilirubin 0.4 mg/dL (0.2-1.3); Total Protein 7.3 g/dL (6.3-8.2)
--- NOTE | 2023-03-19 18:19 | CT ---
EXAMINATION TYPE: CT brain wo con CT DLP: 1079.4 mGycm, Automated exposure control for dose reduction was used. DATE OF EXAM: 03/19/2023 5:47 PM COMPARISON: 01/25/2023. CLINICAL INDICATION:Female, 87 years old with history of seizure activity, seizure TECHNIQUE: Brain: Axial CT images of the brain were obtained with coronal and sagittal reformats created and rev iewed. Contrast used: None. Oral contrast used: None. FINDINGS: Brain: Extra-axial spaces: No abnormal extra-axial fluid collections. Ventricular system: Dilatation in proportion to cerebral atrophy. Cerebral parenchyma: Cerebral atrophy. No acute intraparenchymal hemorrhage or mass effect. The tse -white junction is well differentiated. Scattered hypoattenuating areas are seen within the white mat ter. Cerebellum: Unremarkable. Mass effect: No evidence of midline shift. Intracranial vasculature: Atherosclerotic calcifications of the intracranial vessels. Soft tissues: Normal. Calvarium/osseous structures: No depressed skull fracture. Paranasal sinuses and mastoid air cells: Mild scattered paranasal sinus disease. Visualized orbits: Bilateral aphakia IMPRESSION: 1. No acute intracranial process. 2. Nonspecific white matter changes, likely secondary to chronic small vessel ischemic disease.
[2023-03-19 18:20] LABS: Valproic Acid (Depakene) 82.2 ug/mL
[2023-03-19] MEDS ORDERED: PRIMIDONE 25 MG TAB PO SCH (22:00)
[2023-03-19] MEDS ORDERED: PRAVASTATIN SODIUM 20 MG TAB PO SCH (22:00)
[2023-03-19] MEDS ORDERED: SERTRALINE 100 MG TAB PO SCH (22:00)
[2023-03-19] MEDS ORDERED: DIVALPROEX 250 MG TABLET.DR PO SCH (22:00)
[2023-03-19] MEDS ORDERED: QUEtiapine 25 MG TAB PO SCH (22:00)
[2023-03-19] MEDS ORDERED: LACOSAMIDE 50 MG TABLET PO SCH (22:00)
[2023-03-19 22:01] LABS: Appearance,Urine Cloudy (Clear); Bilirubin,Urine Negative (Negative); Blood,Urine Negative (Negative); Color,Urine Yellow; Glucose,Urine (UA) Negative (Negative); Ketones,Urine Negative (Negative); Leukocyte Esterase,Urine Negative (Negative); Nitrite,Urine Negative (Negative); PH, Urine 6.5 (5.0-8.0); Protein,Urine Negative (Negative); Urobilinogen,Urine <2.0 mg/dL (<2.0)
[2023-03-19 22:04] LABS: Hyaline Casts,Urine 8 /lpf (0-2); Mucus,Urine Rare /hpf; RBC,Urine 6 /hpf (0-5); WBC,Urine 1 /hpf (0-5)
[2023-03-19 22:05] LABS: Specific Gravity,Urine 1.016 (1.001-1.035)
[2023-03-19 22:40] VITALS: TEMP 97.9
[2023-03-20 00:40] VITALS: BP 166/73; PULSE 56; RESP 17
== END 2023-03-20 00:16 | disposition home or self-care (01) ==
LOC: EC 16:34
DX: S20.219A Contusion of unspecified front wall of thorax, initial encounter (principal); S09.90XA Unspecified injury of head, initial encounter; G40.409 Other generalized epilepsy and epileptic syndromes, not intractable, without status epilepticus; I10 Essential (primary) hypertension; E78.5 Hyperlipidemia, unspecified; E07.9 Disorder of thyroid, unspecified; F41.9 Anxiety disorder, unspecified; F32.A Depression, unspecified; Z79.890 Hormone replacement therapy; Z79.899 Other long term (current) drug therapy; Z90.49 Acquired absence of other specified parts of digestive tract; W18.30XA Fall on same level, unspecified, initial encounter
CPT/HCPCS: 36415; 70450; 80053; 80164; 81001; 83735; 84100; 85025; 93005; 99285

== ENCOUNTER 2023-11-04 07:59 | Emergency (ER) | payer MEDICARE, OTHER ==
[2023-11-04 08:16] VITALS: RESP 16; TEMP 98.6
--- NOTE | 2023-11-04 08:19 | ED ---
General Adult HPI - General Chief complaint: Seizure Stated complaint: Seizure Time Seen by Provider: 11/04/23 08:06 Source: EMS Mode of arrival: EMS Limitations: no limitations - History of Present Illness Initial comments: Dictation was produced using [employer] dictation software. please excuse any grammatical, word or spelling errors. Chief Complaint: 88-year-old female past medical history of seizure disorder presents emergency department after seizure History of Present Illness: Patient is 88-year-old female she is a poor historian. She lives at a detention. She has history of seizure disorder and psychiatric illness. Patient allegedly was seen this morning having a seizure. Apparently the detention staff had been going around to make the rounds check on residence. States that they noticed that when they went to check on her she was having a seizure from when they noticed a seizure to when the seizure stopped was approximately 3 minutes. Patient is extremely hard of hearing. History of present illness limited due to hard of hearing and also mental status. Patient denies any complaints. The ROS documented in this emergency department record has been reviewed and confirmed by me. Those systems with pertinent positive or negative responses have been documented in the HPI. All other systems are other negative and/or noncontributory. - Related Data Home Medications Medication Instructions Recorded Confirmed Pravastatin Sodium [Pravachol] 20 mg PO HS 10/15/18 03/19/23 Cholecalciferol [Vitamin D3 (25 25 mcg PO DAILY 05/04/22 03/19/23 Mcg = 1000 Iu)] Sertraline [Zoloft] 100 mg PO HS 05/04/22 03/19/23 Thiamine [Vitamin B-1] 100 mg PO DAILY 05/04/22 03/19/23 Ascorbic Acid [Vitamin C] 500 mg PO DAILY 07/12/22 03/19/23 Primidone [Mysoline] 25 mg PO HS 07/12/22 03/19/23 Divalproex [Depakote] 250 mg PO BID 12/25/22 03/19/23 Cephalexin [Keflex] 500 mg PO Q12HR 03/19/23 03/19/23 Levothyroxine Sodium [Synthroid] 75 mcg PO DAILY 03/19/23 03/19/23 Magnesium Oxide [Mag-Ox] 400 mg PO BID 03/19/23 03/19/23 Previous Rx's Medication Instructions Recorded Aspirin 81 mg PO DAILY #30 tab 05/12/22 QUEtiapine [SEROquel] 25 mg PO HS #30 tab 07/28/22 Lacosamide [Vimpat] 100 mg PO BID #6 tab 02/01/23 Loperamide [Imodium] 2 mg PO QID PRN #30 capsule 02/01/23 Allergies Allergy/AdvReac Type Severity Reaction Status Date / Time No Known Allergies Allergy Verified 03/19/23 22:38 Review of Systems ROS Statement: Those systems with pertinent positive or pertinent negative responses have been documented in the HPI. ROS Other: All systems not noted in ROS Statement are negative. Past Medical History Past Medical History: Cancer, Hearing Disorder / Deafness, Hyperlipidemia, Hypertension, Seizure Disorder, Thyroid Disorder Additional Past Medical History / Comment(s): Seizures/lifelong, R breast cancer with lumpectomy/radiation txs, very [place] bilaterally/has hearing aides, past L femur fracture/no surgery, UTI, thyroid disease. History of Any Multi-Drug Resistant Organisms: ESBL Date of last positivie culture/infection: 12/11/22 ESBL-E.coli MDRO Source:: Urine Past Surgical History: Breast Surgery, Cholecystectomy Additional Past Surgical History / Comment(s): R breast lumpectomy Past Anesthesia/Blood Transfusion Reactions: No Reported Reaction Past Psychological History: Anxiety, Depression Smoking Status: Never smoker Past Alcohol Use History: None Reported Past Drug Use History: None Reported - Past Family History Mother Family Medical History: CVA/TIA Additional Family Medical History / Comment(s): Heart problems Sister(s) Family Medical History: Cancer Additional Family Medical History / Comment(s): of lung cancer General Exam - General Exam Comments Initial Comments: PHYSICAL EXAM: General Impression: Alert and oriented x3, not in acute distress HEENT: Normocephalic atraumatic, extra-ocular movements intact, pupils equal and reactive to light bilaterally, mucous membranes moist. Cardiovascular: Heart regular rate and rhythm Chest: Able to complete full sentences, no retractions, no tachypnea Abdomen: abdomen soft, non-tender, non-distended, no organomegaly Musculoskeletal: Pulses present and equal in all extremities, no peripheral edema Motor: no focal deficits noted Neurological: CN II-XII grossly intact, no focal motor or sensory deficits noted Skin: Intact with no visualized rashes Psych: Normal affect and mood Limitations: no limitations Course Vital Signs 11/04/23 08:12 Temperature 98.6 F Pulse Rate 89 Respiratory 16 Rate Blood Pressure 178/77 O2 Sat by Pulse 96 Oximetry - Reevaluation(s) Reevaluation #1: 11/04/23 08:19 History of present illness obtained solely from EMS. She did get transported wi th a list of her home medications which included Depakote and lacosamide. Reevaluation #2: 11/04/23 10:10 I did speak with patient's daughter, Kyra Grace over the phone that patient has baseline history of confusion. She allegedly has been followed up with neuro logist and has dementia. More history was obtained from [place], medical staff at patient's detention states that patient did have a seizure. States that also that patient does have history of baseline confusion. EKG Findings - EKG Comments: EKG Findings:: My EKG interpretation: Ventricular rate 85, sinus rhythm,. Oval to 23, cures 79, QTc 394. No HI prolongation, no QTC prolongation, no ST or T- wave changes noted. EKG compared to March 19, 2023 showing no changes. Overall, this EKG is unremarkable Medical Decision Making - Medical Decision Making Was pt. sent in by a medical professional or institution (, PA, [employer], urgent care, hospital, or longterm...) When possible be specific @ -No Did you speak to anyone other than the patient for history (EMS, parent, family, police, friend...)? What history was obtained from this source @ -See above Did you review nursing and triage notes (agree or disagree)? Why? @ -I reviewed and agree with nursing and triage notes Were old charts reviewed (outside hosp., previous admission, EMS record, old EK G, old radiological studies, urgent care reports/EKG's, longterm records)? Report findings @ -No old charts were reviewed Differential Diagnosis (chest pain, altered mental status, abdominal pain women, abdominal pain men, vaginal bleeding, musculoskeletal, weakness, fever, dyspnea, syncope, headache, dizziness, GI bleed, back pain, seizure, CVA, palpatations, mental health)? @ -Differential Seizure: Recurrent seizure disorder, febrile seizure, alcohol withdrawal, stimulants, meningitis, encephalitis, intercranial hemorrhage, intracranial tumor, stroke, eclampsia, thyrotoxicosis, hypocalcemia, hyponatremia, hypernatremia, hypomagnesemia, psychogenic, this is not meant to be an all-inclusive list. EKG interpreted by me (3pts min.). @ -None done X-rays interpreted by me (1pt min.). @ -None done CT interpreted by me (1pt min.). @ -None done U/S interpreted by me (1pt. min.). @ -None done What testing was considered but not performed or refused? (CT, X-rays, U/S, labs)? Why? @ -None What meds were considered but not given or refused? Why? @ -None Was smoking cessation discussed for >3mins.? @ -No Were there social determinants of health that impacted care today? How? ( Homelessness, low income, unemployed, alcoholism, drug addiction, transportation, low edu. Level, literacy, decrease access to med. care, snf, rehab)? @ -Debility Was there de-escalation of care discussed even if they declined (Discuss DNR or withdrawal of care, Hospice)? DNR status @ -No What co-morbidities impacted this encounter? (DM, HTN, Smoking, COPD, CAD, Cancer, CVA, ARF, Chemo, Hep., AIDS, mental health diagnosis, sleep apnea, morbid obesity)? @ -Seizure history Was patient admitted / discharged? Hospital course, mention meds given and route, prescriptions, significant lab abnormalities, going to OR and other pertinent info. @ -88-year-old female presents emergency department for seizure. She has a history of seizure disorder takes multiple seizure medications. Vital signs upon arrival are within acceptable limits. No clear description of patient being postictal however EMS did report that she did seem to be incontinent. Patient confused upon initial evaluation. Patient's mental status was discussed with the detention along with daughter states that she has chronic confusion. Laboratory evaluation unremarkable. Patient's labs are negative. Patient observed the emergency department for 2 hours with no recurrence of seizure. Patient be discharged w and advised to follow-up with neurologist. Did you discuss the management of the patient with other professionals (professionals i.e. , PA, [employer], lab, RT, psych nurse, geriatric social work professor, machine clipper, teacher, disability liaison officer, clinical case manager)? Give summary @ -No Was critical care preformed (if so, how long)? @ -No Undiagnosed new problem with uncertain prognosis? @ -No Drug Therapy requiring intensive monitoring for toxicity (Heparin, Nitro, Insulin, Cardizem)? @ -No Were any procedures done? @ -No Diagnosis/symptom? Acute, or Chronic, or Acute on Chronic? Uncomplicated (without systemic symptoms) or Complicated (systemic symptoms)? @ -Breakthrough seizure Side effects of treatment? @ -No Exacerbation, Progression, or Severe Exacerbation? @ -No Poses a threat to life or bodily function? How? (Chest pain, [place], [place], pneumonia, PE, COPD, DKA, ARF, appy, cholecystitis, CVA, Diverticulitis, Homicidal, [place] icidal, threat to staff... and all critical care pts) @ -No - Lab Data Result diagrams: 11/04/23 09:22 11/04/23 09:22 Lab Results 11/04/23 11/04/23 Range/Units 09:22 09:22 WBC 7.0 (3.8-10.6) k/uL RBC 4.58 (3.80-5.40) m/uL Hgb 13.4 (11.4-16.0) gm/dL Hct 40.6 (34.0-46.0) % MCV 88.7 (80.0-100.0) fL MCH 29.2 (25.0-35.0) pg MCHC 32.9 (31.0-37.0) g/dL RDW 13.0 (11.5-15.5) % Plt Count 267 (150-450) k/uL MPV 7.3 Neutrophils % 57 % Lymphocytes % 28 % Monocytes % 8 % Eosinophils % 3 % Basophils % 1 % Neutrophils # 4.0 (1.3-7.7) k/uL Lymphocytes # 1.9 (1.0-4.8) k/uL Monocytes # 0.6 (0-1.0) k/uL Eosinophils # 0.2 (0-0.7) k/uL Basophils # 0.1 (0-0.2) k/uL Sodium 140 (137-145) mmol/L Potassium 4.7 (3.5-5.1) mmol/L Chloride 104 (98-107) mmol/L Carbon Dioxide 28 (22-30) mmol/L Anion Gap 8 mmol/L BUN 22 H (7-17) mg/dL Creatinine 0.85 (0.52-1.04) mg/dL Est GFR (CKD-EPI)AfAm 72 (>60 ml/min/1.73 sqM) Est GFR (CKD-EPI)NonAf 63 (>60 ml/min/1.73 sqM) Glucose 97 (74-99) mg/dL Calcium 9.5 (8.4-10.2) mg/dL Magnesium 2.2 (1.6-2.3) mg/dL Total Bilirubin 0.4 (0.2-1.3) mg/dL AST 24 (14-36) U/L ALT 10 (4-34) U/L Alkaline Phosphatase 70 (38-126) U/L Total Protein 7.6 (6.3-8.2) g/dL Albumin 4.4 (3.5-5.0) g/dL Disposition Clinical Impression: Seizure Disposition: HOME SELF-CARE Condition: Good Instructions (If sedation given, give patient instructions): Recurrent Seizures in Adults (ED) Is patient prescribed a controlled substance at d/c from ED?: No Referrals: Tania Eagle MD [Primary Care Provider] - 1-2 days Time of Disposition: 10:12
[2023-11-04 09:32] LABS: Basophils # (A) 0.1 k/uL (0-0.2); Basophils % (A) 1 %; Eosinophils # (A) 0.2 k/uL (0-0.7); Eosinophils % (A) 3 %; HCT 40.6 % (34.0-46.0); HGB 13.4 gm/dL (11.4-16.0); Lymphocytes # (A) 1.9 k/uL (1.0-4.8); Lymphocytes % (A) 28 %; MCH 29.2 pg (25.0-35.0); MCHC 32.9 g/dL (31.0-37.0); MCV 88.7 fL (80.0-100.0); Mean Platelet Volume 7.3; Monocytes # (A) 0.6 k/uL (0-1.0); Monocytes % (A) 8 %; Neutrophils % (A) 57 %; Platelet Count 267 k/uL (150-450); RBC 4.58 m/uL (3.80-5.40)
[2023-11-04 09:43] LABS: ALT 10 U/L (4-34); AST 24 U/L (14-36); African American GFR (CKD) 72 (>60 ml/min/1.73 sqM); Albumin 4.4 g/dL (3.5-5.0); Alkaline Phosphatase 70 U/L (38-126); Anion Gap 8 mmol/L; Blood Urea Nitrogen 22 mg/dL (7-17); Calcium 9.5 mg/dL (8.4-10.2); Carbon Dioxide 28 mmol/L (22-30); Chloride 104 mmol/L (98-107); Glucose 97 mg/dL (74-99); Magnesium 2.2 mg/dL (1.6-2.3); Non-African American GFR(CKD) 63 (>60 ml/min/1.73 sqM); Potassium 4.7 mmol/L (3.5-5.1); Sodium 140 mmol/L (137-145); Total Bilirubin 0.4 mg/dL (0.2-1.3); Total Protein 7.6 g/dL (6.3-8.2)
[2023-11-04 11:04] VITALS: BP 153/67; PULSE 79
== END 2023-11-04 11:40 | disposition home or self-care (01) ==
LOC: EC 07:59
DX: G40.909 Epilepsy, unspecified, not intractable, without status epilepticus (principal)
CPT/HCPCS: 36415; 80053; 83735; 85025; 93005; 99284

== ENCOUNTER 2024-03-31 11:52 | Emergency (ER) | payer MEDICARE, OTHER ==
[2024-03-31] MEDS: LORazepam 2 MG/ML INJ IV STA (11:59)
--- NOTE | 2024-03-31 12:00 | ED ---
General Adult HPI - General Stated complaint: Seizure Time Seen by Provider: 03/31/24 11:57 - History of Present Illness Initial comments: Dictation was produced using PowerCard dictation software. please excuse any grammatical, word or spelling errors. Chief Complaint: 88-year-old female brought to the emergency department for fall History of Present Illness: 88-year-old female brought in by EMS for fall. She was last seen normal by home physical therapy. She lives at assisted living facility. She was seen last normal at around 8:30 AM. 11:30 AM was when physical therapy team came back found her to foot of her bed. She has a history of seizures. EMS states that en route patient had a seizure that lasted for couple minutes. She had a normal blood sugar. Patient unresponsive unable to provide history of present illness at this time. Unable to obtain ROS secondary to mental status - Related Data Home Medications Medication Instructions Recorded Confirmed Pravastatin Sodium [Pravachol] 20 mg PO HS 10/15/18 03/31/24 Cholecalciferol [Vitamin D3 (25 25 mcg PO DAILY 05/04/22 03/31/24 Mcg = 1000 Iu)] Sertraline [Zoloft] 100 mg PO HS 05/04/22 03/31/24 Thiamine [Vitamin B-1] 100 mg PO DAILY 05/04/22 03/31/24 Ascorbic Acid [Vitamin C] 500 mg PO DAILY 07/12/22 03/31/24 Primidone [Mysoline] 25 mg PO HS 07/12/22 03/31/24 Divalproex [Depakote] 250 mg PO BID 12/25/22 03/31/24 Levothyroxine Sodium [Synthroid] 75 mcg PO DAILY 03/19/23 03/31/24 Magnesium Oxide [Mag-Ox] 400 mg PO BID 03/19/23 03/31/24 Amoxicillin/Potassium Clav 1 tab PO Q8H 03/31/24 03/31/24 [Amox-Clav 500-125 mg Tablet] Celecoxib [CeleBREX] 200 mg PO DAILY 03/31/24 03/31/24 Lacosamide [Vimpat] 100 mg PO DAILY 03/31/24 03/31/24 Vitamin B Complex 1 cap PO DAILY 03/31/24 03/31/24 Previous Rx's Medication Instructions Recorded Aspirin 81 mg PO DAILY #30 tab 05/12/22 QUEtiapine [SEROquel] 25 mg PO HS #30 tab 07/28/22 Loperamide [Imodium] 2 mg PO QID PRN #30 capsule 02/01/23 Allergies Allergy/AdvReac Type Severity Reaction Status Date / Time No Known Allergies Allergy Verified 03/31/24 13:22 Review of Systems ROS Statement: Those systems with pertinent positive or pertinent negative responses have been documented in the HPI. ROS Other: All systems not noted in ROS Statement are negative. Past Medical History Past Medical History: Cancer, Hearing Disorder / Deafness, Hyperlipidemia, Hypertension, Seizure Disorder, Thyroid Disorder Additional Past Medical History / Comment(s): Seizures/lifelong, R breast cancer with lumpectomy/radiation txs, very [place] bilaterally/has hearing aides, past L femur fracture/no surgery, UTI, thyroid disease. History of Any Multi-Drug Resistant Organisms: ESBL Date of last positivie culture/infection: 12/11/22 ESBL-E.coli MDRO Source:: Urine Past Surgical History: Breast Surgery, Cholecystectomy Additional Past Surgical History / Comment(s): R breast lumpectomy Past Anesthesia/Blood Transfusion Reactions: No Reported Reaction Past Psychological History: Anxiety, Depression Smoking Status: Never smoker Past Alcohol Use History: None Reported Past Drug Use History: None Reported - Past Family History Mother Family Medical History: CVA/TIA Additional Family Medical History / Comment(s): Heart problems Sister(s) Family Medical History: Cancer Additional Family Medical History / Comment(s): of lung cancer General Exam - General Exam Comments Initial Comments: PHYSICAL EXAM: General Impression: Unresponsive, tended HEENT: Normocephalic atraumatic, extra-ocular movements intact, pupils equal and reactive to light bilaterally, mucous membranes moist. Cardiovascular: Heart regular rate and rhythm Chest: no retractions, no tachypnea, sonorous respirations Abdomen: abdomen soft, non-tender, non-distended, no organomegaly Musculoskeletal: Pulses present and equal in all extremities, no peripheral edema Motor: Not tested Neurological: Rightward gaze, slight left facial droop. right arm, right leg and left leg withdraw to nailbed pressure. No withdrawal of extremity to left nailbed pressure, positive gag reflex. Does not follow commands NIH score 22 Skin: Intact with no visualized rashes Psych: Normal affect and mood Course Vital Signs 03/31/24 03/31/24 03/31/24 12:04 12:12 12:28 Temperature 98.7 F Pulse Rate 81 79 72 Respiratory 16 18 16 Rate Blood Pressure 180/89 186/93 168/74 O2 Sat by Pulse 94 L 99 100 Oximetry Fraction of Inspired Oxygen (FIO2) 03/31/24 03/31/24 03/31/24 12:30 13:00 13:13 Temperature Pulse Rate 72 81 Respiratory 16 Rate Blood Pressure 176/82 O2 Sat by Pulse 99 100 Oximetry Fraction of 100 Inspired Oxygen (FIO2) 03/31/24 03/31/24 13:19 13:53 Temperature Pulse Rate Respiratory Rate Blood Pressure O2 Sat by Pulse Oximetry Fraction of 100 50 Inspired Oxygen (FIO2) - Reevaluation(s) Reevaluation #1: 03/31/24 12:00 Patient seen and evaluated the bedside. There are no signs of trauma. Patient having right beating nystagmus with a gaze deficit to the right concerning for ongoing subclinical seizures. Code stroke page for concerns of perhaps posterior stroke. Reevaluation #2: 03/31/24 12:46 Dr. Ramirez had called him back after reviewing the films. States that patient should received thrombolytics due to intracranial arterial stenosis. Reevaluation #3: 03/31/24 13:07 Patient intubated at the bedside for protection of airway Reevaluation #4: 03/31/24 13:33 Case was discussed with daughter at approximately 1:30 PM. Daughter states that patient has extensive history of seizure and over the last week she had run out of her medications. There was according to daughter difficulty with refilling them. She takes Vimpat. Daughter also states that patient has history of prolonged postictal state when she gets grand mal seizures. Reevaluation #5: 03/31/24 13:[address] Britt, on-call neurologist states that patient is not appropriate to be admitted to hospital due to lack of 24-hour EEG. Recommends patient be transferred. He does also recommend giving patient 1500 mg total of IV Keppra. EKG Findings - EKG Comments: EKG Findings:: My EKG interpretation: Ventricular rate 80, sinus rhythm with prolonged NM. QRS 91, QTc 402,. No QTC prolongation, no ST or T-wave changes noted. Overall, this EKG is unremarkable Medical Decision Making - Medical Decision Making Was pt. sent in by a medical professional or institution (, PA, TRIAL MGR, urgent care, hospital, or detention...) When possible be specific @ -No Did you speak to anyone other than the patient for history (EMS, parent, family, police, friend...)? What history was obtained from this source @ -EMS and family as described above Did you review nursing and triage notes (agree or disagree)? Why? @ -I reviewed and agree with nursing and triage notes Were old charts reviewed (outside hosp., previous admission, EMS record, old EKG, old radiological studies, urgent care reports/EKG's, detention records)? Report findings @ -No old charts were reviewed Differential Diagnosis (chest pain, altered mental status, abdominal pain women, abdominal pain men, vaginal bleeding, musculoskeletal, weakness, fever, dyspnea, syncope, headache, dizziness, GI bleed, back pain, seizure, CVA, palpatations, mental health)? @ - Differential CVA: Ischemic stroke, hemorrhagic stroke, brain tumor, atypical migraine, Wernicke's encephalopathy, seizure, multiple sclerosis, meningitis, encephalitis, hypoglycemia, Guillain-Cha, electrolytes disturbance, myasthenia gravis.... This is not meant to be an all-inclusive list EKG interpreted by me (3pts min.). @ -My EKG interpretation: Ventricular rate 85, sinus rhythm, QRS 70, QTc 32. No NM prolongation, no QTC prolongation, no ST or T-wave changes noted. Overall, this EKG is unremarkable X-rays interpreted by me (1pt min.). @ -Chest x-ray shows no acute processes. CT interpreted by me (1pt min.). @ -CT brain shows no acute processes. CT angiography shows no large vessel occlusion U/S interpreted by me (1pt. min.). @ -None done What testing was considered but not performed or refused? (CT, X-rays, U/S, labs)? Why? @ -None What meds were considered but not given or refused? Why? @ -None Was smoking cessation discussed for >3mins.? @ -No Were there social determinants of health that impacted care today? How? (Homelessness, low income, unemployed, alcoholism, drug addiction, transportation, low edu. Level, literacy, decrease access to med. care, shelter, rehab)? @ -No Was there de-escalation of care discussed even if they declined (Discuss DNR or withdrawal of care, Hospice)? DNR status @ -No What co-morbidities impacted this encounter? (DM, HTN, Smoking, COPD, CAD, Cancer, CVA, ARF, Chemo, Hep., AIDS, mental health diagnosis, sleep apnea, morbid obesity)? @ -Seizure disorder Was patient admitted / discharged? Hospital course, mention meds given and route, prescriptions, significant lab abnormalities, going to OR and other per tinent info. @ -88-year-old female presents to the emergency department after being found unresponsive. Vital signs upon arrival showed findings within acceptable limits. She did have focal neurologic deficits and initial NIH of 22. Code stroke was paged. CT imaging showed no acute processes. Case was discussed with stroke neurologist, Dr. Ramirez who recommended giving thrombolytic medications. Patient was hypertensive given some labetalol for blood pressure control prior to thrombolytic administration. She ended up being intubated due to airway protection. More history was obtained from family and was later revealed that patient has history of seizure disorder and has been without her seizure medications for almost a week. Laboratory evaluation obtained. Labs within acceptable limits. Chest x-ray shows no acute processes with adequate placement of endotracheal tube along with gastric tube. Patient initially requested transfer to [facility] however there was a delay in response for accepting of patient for transfer. Case was discussed with [facility] who is accepting of transfer. Accepting physician is Dr. Moreland. Did you discuss the management of the patient with other professionals (professionals i.e. , PA, TRIAL MGR, lab, RT, psych nurse, web content & social media manager, turbine room attendant, teacher, senior administrative services officer, foster care case manager)? Give summary @ -See above Was critical care preformed (if so, how long)? @ -Yes, 77 minutes Undiagnosed new problem with uncertain prognosis? @ -No Drug Therapy requiring intensive monitoring for toxicity (Heparin, Nitro, Insulin, Cardizem)? @ -No Were any procedures done? @ -No Diagnosis/symptom? Acute, or Chronic, or Acute on Chronic? Uncomplicated (without systemic symptoms) or Complicated (systemic symptoms)? @ -CVA versus status epilepticus Side effects of treatment? @ -No Exacerbation, Progression, or Severe Exacerbation? @ -No Poses a threat to life or bodily function? How? (Chest pain, USA, MD, pneumonia, PE, COPD, DKA, ARF, appy, cholecystitis, CVA, Diverticulitis, Homicidal, Suicidal, threat to staff... and all critical care pts) @ -yes - Lab Data Result diagrams: 03/31/24 12:03/31/24 12: Lab Results 03/31/24 03/31/24 03/31/24 Range/Units 12: 12: 12: WBC 12.1 H (3.8-10.6) k/uL RBC 4.62 (3.80-5.40) m/uL Hgb 13.4 (11.4-16.0) gm/dL Hct 41.6 (34.0-46.0) % MCV 90.2 (80.0-100.0) fL MCH 29.0 (25.0-35.0) pg MCHC 32.1 (31.0-37.0) g/dL RDW 13.0 (11.5-15.5) % Plt Count 200 (150-450) k/uL MPV 7.6 Neutrophils % 71 % Lymphocytes % 18 % Monocytes % 7 % Eosinophils % 1 % Basophils % 1 % Neutrophils # 8.6 H (1.3-7.7) k/uL Lymphocytes # 2.1 (1.0-4.8) k/uL Monocytes # 0.9 (0-1.0) k/uL Eosinophils # 0.1 (0-0.7) k/uL Basophils # 0.1 (0-0.2) k/uL PT 10.8 (10.0-12.5) sec INR 1.0 (<1.2) APTT 24.0 (22.0-30.0) sec Sample Site ABG pH (7.35-7.45) ABG pCO2 (35-45) mmHg ABG pO2 (83-108) mmHg ABG HCO3 (21-25) mmol/L ABG Total CO2 (19-24) mmol/L ABG O2 Saturation (94-97) % ABG Base Excess mmol/L Reyes Test Hemoglobin (11.4-16.0) gm/dL FiO2 % Sodium 140 (137-145) mmol/L Potassium 5.0 (3.5-5.1) mmol/L Chloride 103 (98-107) mmol/L Carbon Dioxide 25 (22-30) mmol/L Anion Gap 12 mmol/L BUN 32 H (7-17) mg/dL Creatinine 1.06 H (0.52-1.04) mg/dL Est GFR (CKD-EPI)AfAm 55 (>60 ml/min/1.73 sqM) Est GFR (CKD-EPI)NonAf 48 (>60 ml/min/1.73 sqM) Glucose 118 H (74-99) mg/dL Calcium 9.3 (8.4-10.2) mg/dL Total Bilirubin 0.4 (0.2-1.3) mg/dL AST 24 (14-36) U/L ALT 12 (4-34) U/L Alkaline Phosphatase 68 (38-126) U/L Creatine Kinase 151 H (30-135) U/L Troponin I (0.000-0.034) ng/mL Total Protein 7.7 (6.3-8.2) g/dL Albumin 4.7 (3.5-5.0) g/dL 03/31/24 03/31/24 Range/Units 12:01 13:37 WBC (3.8-10.6) k/uL RBC (3.80-5.40) m/uL Hgb (11.4-16.0) gm/dL Hct (34.0-46.0) % MCV (80.0-100.0) fL MCH (25.0-35.0) pg MCHC (31.0-37.0) g/dL RDW (11.5-15.5) % Plt Count (150-450) k/uL MPV Neutrophils % % Lymphocytes % % Monocytes % % Eosinophils % % Basophils % % Neutrophils # (1.3-7.7) k/uL Lymphocytes # (1.0-4.8) k/uL Monocytes # (0-1.0) k/uL Eosinophils # (0-0.7) k/uL Basophils # (0-0.2) k/uL PT (10.0-12.5) sec INR (<1.2) APTT (22.0-30.0) sec Sample Site LBRAC ABG pH 7.49 H (7.35-7.45) ABG pCO2 30 L (35-45) mmHg ABG pO2 388 H (83-108) mmHg ABG HCO3 23 (21-25) mmol/L ABG Total CO2 24 (19-24) mmol/L ABG O2 Saturation >100.0 H (94-97) % ABG Base Excess 0.2 mmol/L Reyes Test Yes Hemoglobin 13.8 (11.4-16.0) gm/dL FiO2 100 % Sodium (137-145) mmol/L Potassium (3.5-5.1) mmol/L Chloride (98-107) mmol/L Carbon Dioxide (22-30) mmol/L Anion Gap mmol/L BUN (7-17) mg/dL Creatinine (0.52-1.04) mg/dL Est GFR (CKD-EPI)AfAm (>60 ml/min/1.73 sqM) Est GFR (CKD-EPI)NonAf (>60 ml/min/1.73 sqM) Glucose (74-99) mg/dL Calcium (8.4-10.2) mg/dL Total Bilirubin (0.2-1.3) mg/dL AST (14-36) U/L ALT (4-34) U/L Alkaline Phosphatase (38-126) U/L Creatine Kinase (30-135) U/L Troponin I <0.012 (0.000-0.034) ng/mL Total Protein (6.3-8.2) g/dL Albumin (3.5-5.0) g/dL Disposition Clinical Impression: Status epilepticus Disposition: OTHER INSTITUTION NOT DEFINED Condition: Critical Instructions (If sedation given, give patient instructions): Seizure/Epilepsy Discharge Instructions & Follow-Up Referrals: Peg Vuong, SHIRA [REFERRING] - 1-2 days Time of Disposition: 14:20 - Out of Hospital Transfer - Req. Specs Out of Hospital Transfer - Requested Specifics: Other Emergency Center ([facility])
[2024-03-31 12:08] LABS: Basophils # (A) 0.1 k/uL (0-0.2); Basophils % (A) 1 %; Eosinophils # (A) 0.1 k/uL (0-0.7); Eosinophils % (A) 1 %; HCT 41.6 % (34.0-46.0); HGB 13.4 gm/dL (11.4-16.0); Lymphocytes # (A) 2.1 k/uL (1.0-4.8); Lymphocytes % (A) 18 %; MCHC 32.1 g/dL (31.0-37.0); MCV 90.2 fL (80.0-100.0); Mean Platelet Volume 7.6; Monocytes # (A) 0.9 k/uL (0-1.0); Monocytes % (A) 7 %; Neutrophils # (A) 8.6 k/uL (1.3-7.7); Neutrophils % (A) 71 %; Platelet Count 200 k/uL (150-450); RBC 4.62 m/uL (3.80-5.40); WBC 12.1 k/uL (3.8-10.6)
[2024-03-31 12:17] LABS: ALT 12 U/L (4-34); AST 24 U/L (14-36); African American GFR (CKD) 55 (>60 ml/min/1.73 sqM); Albumin 4.7 g/dL (3.5-5.0); Alkaline Phosphatase 68 U/L (38-126); Anion Gap 12 mmol/L; Blood Urea Nitrogen 32 mg/dL (7-17); Calcium 9.3 mg/dL (8.4-10.2); Carbon Dioxide 25 mmol/L (22-30); Chloride 103 mmol/L (98-107); Creatine Kinase 151 U/L (30-135); Glucose 118 mg/dL (74-99); Non-African American GFR(CKD) 48 (>60 ml/min/1.73 sqM); Sodium 140 mmol/L (137-145); Total Bilirubin 0.4 mg/dL (0.2-1.3); Total Protein 7.7 g/dL (6.3-8.2)
[2024-03-31 12:23] LABS: Prothrombin Time 10.8 sec (10.0-12.5)
--- NOTE | 2024-03-31 12:23 | CT ---
EXAMINATION TYPE: CT brain wo con CT DLP: 1100.1 mGycm, Automated exposure control for dose reduction was used. DATE OF EXAM: 03/31/2024 12:17 PM COMPARISON: Prior CT Brain from 03/19/2023, 07/25/2022, CT brain C-spine 01/25/2023. CLINICAL INDICATION:Female, 88 years old with history of Neuro deficit, acute, stroke suspected, STRO KE TECHNIQUE: Brain: Multiple axial CT images of the brain were obtained without IV contrast. . Coronal and sagitta l reformats reviewed. FINDINGS: Brain: Extra-axial spaces: No abnormal extra-axial fluid collections. Ventricular system: Within normal limits Cerebral parenchyma: Cerebral atrophy. No acute intraparenchymal hemorrhage or mass effect. The tse -white junction is well differentiated. Scattered hypoattenuating areas are seen within the periventr icular and subcortical white matter. Cerebellum: Unremarkable. Mass effect: No evidence of midline shift. Intracranial vasculature: Atherosclerotic calcifications of the intracranial vessels. Soft tissues: Normal. Calvarium/osseous structures: No depressed skull fracture. Paranasal sinuses and mastoid air cells: Clear Visualized orbits: Senile calcific scleral plaques are present. Bilateral aphakia. IMPRESSION: 1. No acute intracranial process. 2. Nonspecific white matter changes, likely secondary to chronic small vessel ischemic disease. [facility], , 03/31/2024 12:21 PM
[2024-03-31 12:29] VITALS: RESP 16
[2024-03-31] MEDS: SODIUM CHLORIDE 0.9% 1,000 ML IV STA (12:34)
--- NOTE | 2024-03-31 12:38 | CT ---
EXAMINATION TYPE: CT angio head neck CT DLP: 336.7 mGycm, Automated exposure control for dose reduction was used. DATE OF EXAM: 03/31/2024 12:30 PM COMPARISON: CTA head and neck 12/24/2018. CLINICAL INDICATION:Female, 88 years old with history of Neuro deficit, acute, stroke suspected; PHH, STROKE VS SEIZURE TECHNIQUE: Axially acquired helical CT angiogram of the head and neck was obtained with contrast util izing 75 cc of Isovue-370 administered intravenously. Axial images are supplemented with 3D reconstru ctions which were post-processed at an independent workstation. NASCET criteria used. FINDINGS: CTA HEAD: No evidence of acute intracranial hemorrhage, mass effect, or midline shift. The ventricles, sulci, a nd cisterns are unremarkable. The visualized portions of the internal carotid arteries, middle cerebral arteries, anterior cerebral arteries, and posterior cerebral arteries are patent. The basilar and vertebral arteries are patent. CTA NECK: Right Carotid System: The common carotid artery and external carotid artery are patent. Mild atherosclerotic plaque at the carotid bifurcation. Approximately 10% stenosis involving the proximal right internal carotid artery. The remaining portions of the internal carotid artery demonstrate normal size without significant na rrowing. Left Carotid System: The common carotid artery and external carotid artery are patent. Minimal atherosclerotic plaque at t he carotid bifurcation. The carotid bifurcation demonstrates no evidence of hemodynamically significa nt stenosis. The remaining portions of the internal carotid artery demonstrate normal size without si gnificant narrowing. Vertebral arteries are patent without evidence hemodynamically significant stenosis. Left vertebral a rtery is dominant. There is a bovine aortic arch. The origins of the great vessels are patent. No evidence of hemodynami angelique significant stenosis. Stable 8 mm nodule within the right aspect of the vallecular space dating back to 2018. IMPRESSION: 1. No evidence of dissection of the cervical internal carotid arteries or vertebral arteries or any e vidence of significant stenosis at the carotid bifurcations. 2. No evidence of high-grade stenosis or intracranial aneurysm. [facility], , 03/31/2024 12:35 PM
[2024-03-31] MEDS: LABETALOL 5 MG/ML VIAL MDV IVP STA (12:56)
[2024-03-31] MEDS: T.ENECTEPLASE 5 MG/ML VIAL IVP STA (12:58)
[2024-03-31] MEDS: ROCURONIUM 10 MG/ML (5 ML VIAL) IV STA (13:00)
[2024-03-31] MEDS: ETOMIDATE 2 MG/ML 10 ML VIAL IVP STA (13:00)
--- NOTE | 2024-03-31 13:31 | XR ---
EXAMINATION TYPE: XR chest 1V portable DATE OF EXAM: 03/31/2024 1:22 PM COMPARISON: Chest radiographs from 03/19/2023 TECHNIQUE: XR chest 1V portable Portable AP radiograph of the chest. CLINICAL INDICATION:Female, 88 years old with history of tube placement; FINDINGS: Lungs/Pleura: Prominent interstitial lung markings are seen scattered throughout the lungs. No eviden ce of focal consolidation, pneumothorax or pleural effusion. Pulmonary vascularity: Unremarkable. Heart/mediastinum: Cardiomediastinal silhouette is enlarged. Atherosclerotic calcifications are seen in the aorta. Musculoskeletal: No acute osseous pathology. Other findings: None Lines/Tubes: Endotracheal tube with distal tip 3.6 cm above the fidel Nasogastric tube with its distal tip and side-port projecting under the diaphragm and projecting over the gastric lumen. IMPRESSION: Appropriate position of NG and endotracheal tubes. [facility], , 03/31/2024 1:28 PM
[2024-03-31] MEDS: LABETALOL 200 MG in SODIUM CHLORIDE 0.9% 160 ML IV ONE (13:32)
[2024-03-31 13:39] LABS: ABG Base Excess 0.2 mmol/L; ABG HCO3 23 mmol/L (21-25); ABG Oxygen Saturation >100.0 % (94-97); ABG PCO2 30 mmHg (35-45); ABG PH 7.49 (7.35-7.45); ABG PO2 388 mmHg (83-108); ABG TCO2 24 mmol/L (19-24); Allen Test Performed? Yes
[2024-03-31] MEDS: levETIRAcetam IV 500 MG/5 ML VIAL IVP STA ×2 (13:45→13:49)
[2024-03-31 14:36] VITALS: TEMP 97.8
[2024-03-31] MEDS: PROPOFOL 10 MG/ML 20 ML VIAL IV ONE (14:38)
[2024-03-31 15:38] VITALS: BP 133/62; PULSE 66
== END 2024-03-31 15:40 | disposition other institution (70) ==
LOC: EC 11:52 → SUPCPDRO 11:52 → EC 15:40
DX: G40.901 Epilepsy, unspecified, not intractable, with status epilepticus (principal)
CPT/HCPCS: 31500; 99291; 96365; 96375 ×3; 96361; 36415; 36600; 94002; 93005; 80053; 82550; 82805; 84484; 85025; 85610; 85730; 71045; 70496; 70450; 70498; J2060; J1953; J2704 ×2; J3101; Q9967; J1920

== ENCOUNTER 2024-05-08 10:36 | Inpatient (IN) | payer MEDICARE, OTHER ==
--- NOTE | 2024-05-08 11:24 | ED ---
General Adult HPI - General Source: EMS Mode of arrival: EMS Limitations: altered mental status <[place] - Last Filed: 05/08/24 14:32> <Lorne Escobedo - Last Filed: 05/08/24 17:04> - General Chief complaint: Altered Mental Status Stated complaint: increase confusion Time Seen by Provider: 05/08/24 11:05 - History of Present Illness Initial comments: Dictation was produced using Bloggerce dictation software. please excuse any grammatical, word or spelling errors. Chief Complaint: 88-year-old male mental health evaluation History of Present Illness: Patient is 88-year-old female history of of seizure disorder presents to the emergency department for increasing paranoia and medication noncompliance she currently lives at assisted living facility. Patient states that she does not like people coming in and out of her room. She denies any pain complaints. No fever chills or night sweats. According EMS patient was brought here for refusing medications and having increased paranoia. EMS also reports that patient has been displaying aggressive behavior. The ROS documented in this emergency department record has been reviewed and confirmed by me. Those systems with pertinent positive or negative responses have been documented in the HPI. All other systems are other negative and/or noncontributory. ([place]) - Related Data Home Medications Medication Instructions Recorded Confirmed Levothyroxine Sodium [Synthroid] 75 mcg PO DAILY 03/19/23 05/08/24 Magnesium Oxide [Mag-Ox] 400 mg PO BID 03/19/23 05/08/24 Celecoxib [CeleBREX] 200 mg PO DAILY 03/31/24 05/08/24 Lacosamide [Vimpat] 100 mg PO BID 03/31/24 05/08/24 Acetaminophen Tab [Tylenol] 650 mg PO Q4H PRN 05/08/24 05/08/24 Atorvastatin Calcium [Lipitor] 40 mg PO HS 05/08/24 05/08/24 Cefuroxime [Ceftin] 250 mg PO BID 05/08/24 05/08/24 Lactose-Reduced Food [Ensure Plus] 1 can PO DAILY 05/08/24 05/08/24 Multivitamins, Thera [Multivitamin 1 tab PO DAILY 05/08/24 05/08/24 (formulary)] Omeprazole 20 mg PO DAILY 05/08/24 05/08/24 hydrALAZINE HCL [Apresoline] 10 mg PO Q8H PRN 05/08/24 05/08/24 levETIRAcetam [Keppra] 1,000 mg PO Q12HR 05/08/24 05/08/24 lisinopriL [Zestril] 20 mg PO DAILY 05/08/24 05/08/24 Previous Rx's Medication Instructions Recorded Aspirin 81 mg PO DAILY #30 tab 05/12/22 Allergies Allergy/AdvReac Type Severity Reaction Status Date / Time No Known Allergies Allergy Verified 05/08/24 12:13 Review of Systems ROS Other: All systems not noted in ROS Statement are negative. <[place] - Last Filed: 05/08/24 14:32> ROS Other: All systems not noted in ROS Statement are negative. <Lorne Escobedo - Last Filed: 05/08/24 17:04> ROS Statement: Those systems with pertinent positive or pertinent negative responses have been documented in the HPI. Past Medical History Past Medical History: Cancer, Hearing Disorder / Deafness, Hyperlipidemia, Hypertension, Seizure Disorder, Thyroid Disorder Additional Past Medical History / Comment(s): Seizures/lifelong, R breast cancer with lumpectomy/radiation txs, very [place] bilaterally/has hearing aides, past L femur fracture/no surgery, UTI, thyroid disease. History of Any Multi-Drug Resistant Organisms: ESBL Date of last positivie culture/infection: 12/11/22 ESBL-E.coli MDRO Source:: Urine Past Surgical History: Breast Surgery, Cholecystectomy Additional Past Surgical History / Comment(s): R breast lumpectomy Past Anesthesia/Blood Transfusion Reactions: No Reported Reaction Past Psychological History: Anxiety, Depression Smoking Status: Never smoker Past Alcohol Use History: None Reported Past Drug Use History: None Reported - Past Family History Mother Family Medical History: CVA/TIA Additional Family Medical History / Comment(s): Heart problems Sister(s) Family Medical History: Cancer Additional Family Medical History / Comment(s): of lung cancer <[place] - Last Filed: 05/08/24 14:32> General Exam Limitations: altered mental status <[place] - Last Filed: 05/08/24 14:32> - General Exam Comments Initial Comments: PHYSICAL EXAM: General Impression: Alert and oriented x3, not in acute distress HEENT: Normocephalic atraumatic, extra-ocular movements intact, pupils equal and reactive to light bilaterally, mucous membranes moist. Cardiovascular: Heart regular rate and rhythm Chest: Able to complete full sentences, no retractions, no tachypnea Abdomen: abdomen soft, non-tender, non-distended, no organomegaly Musculoskeletal: Pulses present and equal in all extremities, no peripheral edema Motor: no focal deficits noted Neurological: CN II-XII grossly intact, no focal motor or sensory deficits noted Skin: Intact with no visualized rashes Psych: Normal affect and mood ([place]) Course Vital Signs 05/08/24 10:44 Temperature 98.2 F Pulse Rate 96 Respiratory 16 Rate Blood Pressure 129/65 O2 Sat by Pulse 97 Oximetry EKG Findings - EKG Comments: EKG Findings:: My EKG interpretation: Ventricular rate 87, sinus rhythm,. 04/17/2012, QRS 80, QTc 406. No DE prolongation, no QTC prolongation, no ST or T- wave changes noted. Overall, this EKG is unremarkable <[place] - Last Filed: 05/08/24 14:32> Medical Decision Making - Lab Data Result diagrams: 05/08/24 11:35 05/08/24 11:35 <[place] - Last Filed: 05/08/24 14:32> - Lab Data Result diagrams: 05/08/24 11:35 05/08/24 11:35 <Lorne Escobedo - Last Filed: 05/08/24 17:04> - Medical Decision Making Was pt. sent in by a medical professional or institution (, PA, POWER PLANT MECHANIC, urgent care, hospital, or snf...) When possible be specific @ -No Did you speak to anyone other than the patient for history (EMS, parent, family, police, friend...)? What history was obtained from this source @ -No Did you review nursing and triage notes (agree or disagree)? Why? @ -I reviewed and agree with nursing and triage notes Were old charts reviewed (outside hosp., previous admission, EMS record, old EKG, old radiological studies, urgent care reports/EKG's, snf records)? Report findings @ -No old charts were reviewed Differential Diagnosis (chest pain, altered mental status, abdominal pain women, abdominal pain men, vaginal bleeding, musculoskeletal, weakness, fever, dyspnea, syncope, headache, dizziness, GI bleed, back pain, seizure, CVA, palpatations, mental health)? @ -Differential Mental Health: Depression, anxiety, bipolar, psychosis, schizophrenia, borderline personality, situational depression, adjustment disorder, behavioral disorder, brain tumor, malingering, substance abuse, encephalopathy, medication reaction, dementia, hypothyroidism, degenerative neurologic disorder, lupus.... This is not meant to be all-inclusive list EKG interpreted by me (3pts min.). @ -See above X-rays interpreted by me (1pt min.). @ -None done CT interpreted by me (1pt min.). @ -None done U/S interpreted by me (1pt. min.). @ -None done What testing was considered but not performed or refused? (CT, X-rays, U/S, labs)? Why? @ -None What meds were considered but not given or refused? Why? @ -None Was smoking cessation discussed for >3mins.? @ -No Were there social determinants of health that impacted care today? How? (Homelessness, low income, unemployed, alcoholism, drug addiction, transportation, low edu. Level, literacy, decrease access to med. care, fpc, rehab)? @ -No Was there de-escalation of care discussed even if they declined (Discuss DNR or withdrawal of care, Hospice)? DNR status @ -No What co-morbidities impacted this encounter? (DM, HTN, Smoking, COPD, CAD, Cancer, CVA, ARF, Chemo, Hep., AIDS, mental health diagnosis, sleep apnea, mor bid obesity)? @ -Seizure disorder, advanced age Was patient admitted / discharged? Hospital course, mention meds given and route, prescriptions, significant lab abnormalities, going to OR and other p ertinent info. @ -88-year-old female from assisted living facility for mental health evaluation. Patient has been displaying paranoid behavior and has been refusing her medications. Vital signs stable. Physical examination is benign. Patient no acute distress. Laboratory evaluations unremarkable. Urine shows dirty catch with 12 white blood cells. COVID-negative. Patient medically cleared for EPS Signed out to oncoming physician for follow-up of EPS recommendations Did you discuss the management of the patient with other professionals (professionals i.e. , PA, POWER PL[employer] MECHANIC, lab, RT, psych nurse, licensed master social worker, park maintainer, teacher, correctional officer sergeant, pillowcase sewer)? Give summary @ -No Was critical care preformed (if so, how long)? @ -No Undiagnosed new problem with uncertain prognosis? @ -No Drug Therapy requiring intensive monitoring for toxicity (Heparin, Nitro, Insulin, Cardizem)? @ -No Were any procedures done? @ -No Diagnosis/symptom? Acute, or Chronic, or Acute on Chronic? Uncomplicated (without systemic symptoms) or Complicated (systemic symptoms)? @ -Mental health evaluation Side effects of treatment? @ -No Exacerbation, Progression, or Severe Exacerbation? @ -No Poses a threat to life or bodily function? How? (Chest pain, USA, SD, pneumonia, PE, COPD, DKA, ARF, appy, cholecystitis, CVA, Diverticulitis, Homicidal, Suicidal, threat to staff... and all critical care pts) @ -Yes ([place]) Patient signed out to me pending results of EPS evaluation. Presents from her assisted living facility for increased paranoia and refusal to take medications. Supposed be on Keppra but she states she will not take the medications. She states that when it is her time it is her time is referring to her . Patient was medically cleared by previous provider. EPS evaluated the patient and determined that she does not meet inpatient psychiatric criteria however we all agree that sending her back to her facility where she is not taking her antiepileptic medications is not an option. Patient will be made a medical admission with psychiatry and neurology on consult. I did discuss with the patient and she was amenable to taking her normal Keppra dosing, she states "I just do not want to be given a handful of pills without knowing what they do." I did the patient's daughter, Kyra, who confirmed patient is DNR and was in a greement plan for admission. I spoke with the admitting provider, Dr. Mcfarland of [facility] emergency department physician group who accepted the admission. It does seem that patient's mistrust does stem from the fact that she was being held down for heparin injections when she was at one of her nursing facilities after recent admission for seizures requiring intubation. She is distressed in staff overall as well as what is provided to her. Diagnosis/symptom? @ -Paranoia, dementia, altered mental status, debility Acute, or Chronic, or Acute on Chronic? @ -Acute Uncomplicated (without systemic symptoms) or Complicated (systemic symptoms)? @ -Complicated Side effects of treatment? @ -None Exacerbation, Progression, or Severe Exacerbation] @ -No Poses a threat to life or bodily function? @ -Possibly, yes (Lorne Escobedo) - Lab Data Lab Results 05/08/24 05/08/24 05/08/24 Range/Units 11:25 11:35 11:35 WBC 9.1 (3.8-10.6) k/uL RBC 4.55 (3.80-5.40) m/uL Hgb 13.6 (11.4-16.0) gm/dL Hct 41.1 (34.0-46.0) % MCV 90.4 (80.0-100.0) fL MCH 29.9 (25.0-35.0) pg MCHC 33.1 (31.0-37.0) g/dL RDW 14.4 (11.5-15.5) % Plt Count 239 (150-450) k/uL MPV 7.9 Neutrophils % 69 % Lymphocytes % 20 % Monocytes % 7 % Eosinophils % 2 % Basophils % 1 % Neutrophils # 6.3 (1.3-7.7) k/uL Lymphocytes # 1.8 (1.0-4.8) k/uL Monocytes # 0.6 (0-1.0) k/uL Eosinophils # 0.1 (0-0.7) k/uL Basophils # 0.1 (0-0.2) k/uL Sodium 138 (137-145) mmol/L Potassium 5.1 (3.5-5.1) mmol/L Chloride 101 (98-107) mmol/L Carbon Dioxide 23 (22-30) mmol/L Anion Gap 14 mmol/L BUN 57 H (7-17) mg/dL Creatinine 1.27 H (0.52-1.04) mg/dL Est GFR (CKD-EPI)AfAm 44 (>60 ml/min/1.73 sqM) Est GFR (CKD-EPI)NonAf 38 (>60 ml/min/1.73 sqM) Glucose 136 H (74-99) mg/dL Calcium 9.8 (8.4-10.2) mg/dL Urine Color Yellow Urine Appearance Turbid H (Clear) Urine pH 5.0 (5.0-8.0) Ur Specific [place] 1.020 (1.001-1.035) Urine Protein Trace H (Negative) Urine Glucose (UA) Negative (Negative) Urine Ketones Negative (Negative) Urine Blood Negative (Negative) Urine Nitrite Negative (Negative) Urine Bilirubin Negative (Negative) Urine Urobilinogen <2.0 (<2.0) mg/dL Ur Leukocyte Esterase Moderate H (Negative) Urine RBC 2 (0-5) /hpf Urine WBC 12 H (0-5) /hpf Ur Squamous Epith Cells 56 H (0-4) /hpf Urine Bacteria Few H (None) /hpf Urine Mucus Rare H (None) /hpf SARS-CoV-2 (PCR) (Not Detectd) 05/08/24 Range/Units 11:35 WBC (3.8-10.6) k/uL RBC (3.80-5.40) m/uL Hgb (11.4-16.0) gm/dL Hct (34.0-46.0) % MCV (80.0-100.0) fL MCH (25.0-35.0) pg MCHC (31.0-37.0) g/dL RDW (11.5-15.5) % Plt Count (150-450) k/uL MPV Neutrophils % % Lymphocytes % % Monocytes % % Eosinophils % % Basophils % % Neutrophils # (1.3-7.7) k/uL Lymphocytes # (1.0-4.8) k/uL Monocytes # (0-1.0) k/uL Eosinophils # (0-0.7) k/uL Basophils # (0-0.2) k/uL Sodium (137-145) mmol/L Potassium (3.5-5.1) mmol/L Chloride (98-107) mmol/L Carbon Dioxide (22-30) mmol/L Anion Gap mmol/L BUN (7-17) mg/dL Creatinine (0.52-1.04) mg/dL Est GFR (CKD-EPI)AfAm (>60 ml/min/1.73 sqM) Est GFR (CKD-EPI)NonAf (>60 ml/min/1.73 sqM) Glucose (74-99) mg/dL Calcium (8.4-10.2) mg/dL Urine Color Urine Appearance (Clear) Urine pH (5.0-8.0) Ur Specific [place] (1.001-1.035) Urine Protein (Negative) Urine Glucose (UA) (Negative) Urine Ketones (Negative) Urine Blood (Negative) Urine Nitrite (Negative) Urine Bilirubin (Negative) Urine Urobilinogen (<2.0) mg/dL Ur Leukocyte Esterase (Negative) Urine RBC (0-5) /hpf Urine WBC (0-5) /hpf Ur Squamous Epith Cells (0-4) /hpf Urine Bacteria (None) /hpf Urine Mucus (None) /hpf SARS-CoV-2 (PCR) Not Detected (Not Detectd) Disposition <[place] - Last Filed: 05/08/24 14:32> Time of Disposition: 15:45 <Lorne Escobedo - Last Filed: 05/08/24 17:04> Clinical Impression: Mental health problem, Paranoia, Altered mental status, Debility, Dementia Disposition: ADMITTED IP TO THIS HOSP Condition: Stable
[2024-05-08 11:48] LABS: Basophils # (A) 0.1 k/uL (0-0.2); Basophils % (A) 1 %; Eosinophils # (A) 0.1 k/uL (0-0.7); Eosinophils % (A) 2 %; HCT 41.1 % (34.0-46.0); HGB 13.6 gm/dL (11.4-16.0); Lymphocytes # (A) 1.8 k/uL (1.0-4.8); Lymphocytes % (A) 20 %; MCH 29.9 pg (25.0-35.0); MCHC 33.1 g/dL (31.0-37.0); MCV 90.4 fL (80.0-100.0); Mean Platelet Volume 7.9; Monocytes # (A) 0.6 k/uL (0-1.0); Monocytes % (A) 7 %; Neutrophils # (A) 6.3 k/uL (1.3-7.7); Neutrophils % (A) 69 %; Platelet Count 239 k/uL (150-450); RBC 4.55 m/uL (3.80-5.40); RDW 14.4 % (11.5-15.5); WBC 9.1 k/uL (3.8-10.6)
[2024-05-08 11:59] LABS: Appearance,Urine Turbid (Clear); Bacteria,Urine Few /hpf; Bilirubin,Urine Negative (Negative); Blood,Urine Negative (Negative); Color,Urine Yellow; Glucose,Urine (UA) Negative (Negative); Ketones,Urine Negative (Negative); Leukocyte Esterase,Urine Moderate (Negative); Mucus,Urine Rare /hpf; Nitrite,Urine Negative (Negative); Protein,Urine Trace (Negative); RBC,Urine 2 /hpf (0-5); Squamous Epithelial Cell,Urine 56 /hpf (0-4); Urobilinogen,Urine <2.0 mg/dL (<2.0); WBC,Urine 12 /hpf (0-5)
[2024-05-08 12:16] LABS: African American GFR (CKD) 44 (>60 ml/min/1.73 sqM); Anion Gap 14 mmol/L; Blood Urea Nitrogen 57 mg/dL (7-17); Calcium 9.8 mg/dL (8.4-10.2); Carbon Dioxide 23 mmol/L (22-30); Chloride 101 mmol/L (98-107); Glucose 136 mg/dL (74-99); Non-African American GFR(CKD) 38 (>60 ml/min/1.73 sqM); Potassium 5.1 mmol/L (3.5-5.1); Sodium 138 mmol/L (137-145)
[2024-05-08] MEDS ORDERED: levETIRAcetam IV 1,000 MG in SODIUM CHLORIDE 0.9% 250 ML IVPB ONE (13:05)
[2024-05-08] MEDS ORDERED: NALOXONE 0.4 MG/ML 1 ML VIAL IV PRN (15:55)
[2024-05-08] MEDS ORDERED: ONDANSETRON 4 MG/2 ML VIAL IVP PRN (15:55)
[2024-05-08] MEDS: levETIRAcetam IV 500 MG/5 ML VIAL IVP ONE (16:37)
[2024-05-08] MEDS: ACETAMINOPHEN TAB 325 MG TAB PO STA (17:09)
[2024-05-08] MEDS: levETIRAcetam 500 MG TAB PO STA (17:09)
[2024-05-08] MEDS: SODIUM CHLORIDE 0.9% 1,000 ML IV SCH (17:34)
[2024-05-08] MEDS ORDERED: ACETAMINOPHEN TAB 325 MG TAB PO PRN (18:28)
--- NOTE | 2024-05-08 18:41 | P.HPIM ---
History of Present Illness H&P Date: 05/08/24 History of present illness; Patient is a 88-year-old female with seizure disorder, hypertension who presents from assisted living facility with increasing paranoia and altered mental status. Per patient account she believes she was sent here because of a seizure. She states her last seizure was 1 month ago. Patient attested to poor treatment at [facility] and stated that she is unsure "if that place is a crack house or not". Otherwise, she is denying urinary frequency or pain. She states she last urinated several hours ago. She also attest to recent lack of appetite due to unpleasant tasting food. She has no other complaints. Patient reports absence of fever, chills, chest pain, palpitations, diaphoresis, dyspnea, cough, abdominal pain, nausea, vomiting, constipation, diarrhea, myalgia, dizziness, headache, and dysuria. Spoke with the ER physician, patient admission was accepted by internal medicine service for treatment. REVIEW OF SYSTEMS: Pertinent positives and negatives noted in HPI. PHYSICAL EXAMINATION: Vitals reviewed GENERAL: Resting comfortably in bed. Paranoid and accusatory EYES: PERRL, no scleral injection or icterus. No vision loss HENT: Normocephalic, atraumatic, hearing acuity poor, moist mucous membranes NECK: No tracheal deviation, full range of motion. CARDIOVASCULAR: S1 and S2 present. No murmurs, rubs, or gallops. PULMONARY: Chest is clear to auscultation, no wheezing, rhonchi, or crackles. ABDOMEN: Soft, nontender, nondistended. No palpable organomegaly. MUSCULOSKELETAL: No apparent joint swelling and deformities. EXTREMITIES: No apparent cyanosis, clubbing. No pedal edema. NEUROLOGICAL: Alert and oriented x3. Gross neurological examination with no apparent focal deficits. SKIN: No apparent rashes. ER FINDINGS: Labs significant for WBC 9.1, hemoglobin 13.6, sodium 138, potassium 5.1, bicarb 23, BUN 57, creatinine 1.27, glucose 136, UA significant for moderate leukocyte Estrace with squamous epithelial cells EKG independently interpreted showed sinus rhythm heart rate of 86, no ST segment elevation or depression seen, no T-wave inversions seen. Assessment and Plan: In summary, Patient is a 88-year-old female with seizure disorder, hypertension who presents from assisted living facility with increasing paranoia and altered mental status. #Acute encephalopathy, likely metabolic vs subclinical seizures #Dementia -CT brain pending -Ammonia, Urine tox, TSH -obtain keppra level -Neurology and psych consulted, consider EEG #MADAI prerenal, nonoliguric likely dehydration #Possible UTI Patient's baseline creatinine 0.9, initial today 1.27 Continue IV NS 75 mL/h - hold MEGA inhibitor and avoid nephrotoxic medications Chronic Medical Conditions #Essential hypertension - hold home lisinopril #Hyperlidemia - Resume home Atorvastatin #Hypothyroidism - Resume home Synthroid #GERD- Resume home Pantoprazole # Seizure disorderresume home meds DVT ppx: Subq Lovenox 40 meq daily Code status: no code F: IV Normal saline 75 mL/hr E: Replete as needed N: Heart healthy diet Anticipated discharge place: Pending clinical course Anticipated discharge time: Pending clinical course Dictation was produced using Qnovo dictation software. Please excuse any grammatical, word or spelling errors. I saw and evaluated the patient during the colin and critical portions of this encounter, and discussed the case in detail with the resident author of this note, I agree with the Assessment and Plan, and my changes, if any, are highlighted in blue. Past Medical History Past Medical History: Cancer, Hearing Disorder / Deafness, Hyperlipidemia, Hypertension, Seizure Disorder, Thyroid Disorder Additional Past Medical History / Comment(s): Seizures/lifelong, R breast cancer with lumpectomy/radiation txs, very [place] bilaterally/has hearing aides, past L femur fracture/no surgery, UTI, thyroid disease. History of Any Multi-Drug Resistant Organisms: ESBL Date of last positivie culture/infection: 12/11/22 ESBL-E.coli MDRO Source:: Urine Past Surgical History: Breast Surgery, Cholecystectomy Additional Past Surgical History / Comment(s): R breast lumpectomy Past Anesthesia/Blood Transfusion Reactions: No Reported Reaction Past Psychological History: Anxiety, Depression Smoking Status: Never smoker Past Alcohol Use History: None Reported Past Drug Use History: None Reported - Past Family History Mother Family Medical History: CVA/TIA Additional Family Medical History / Comment(s): Heart problems Sister(s) Family Medical History: Cancer Additional Family Medical History / Comment(s): of lung cancer Medications and Allergies Home Medications Medication Instructions Recorded Confirmed Type Aspirin 81 mg PO DAILY #30 tab 05/12/22 05/08/24 Rx Levothyroxine Sodium [Synthroid] 75 mcg PO DAILY 03/19/23 05/08/24 History Magnesium Oxide [Mag-Ox] 400 mg PO BID 03/19/23 05/08/24 History Celecoxib [CeleBREX] 200 mg PO DAILY 03/31/24 05/08/24 History Lacosamide [Vimpat] 100 mg PO BID 03/31/24 05/08/24 History Acetaminophen Tab [Tylenol] 650 mg PO Q4H PRN 05/08/24 05/08/24 History Atorvastatin Calcium [Lipitor] 40 mg PO HS 05/08/24 05/08/24 History Cefuroxime [Ceftin] 250 mg PO BID 05/08/24 05/08/24 History Lactose-Reduced Food [Ensure Plus] 1 can PO DAILY 05/08/24 05/08/24 History Multivitamins, Thera [Multivitamin 1 tab PO DAILY 05/08/24 05/08/24 History (formulary)] Omeprazole 20 mg PO DAILY 05/08/24 05/08/24 History hydrALAZINE HCL [Apresoline] 10 mg PO Q8H PRN 05/08/24 05/08/24 History levETIRAcetam [Keppra] 1,000 mg PO Q12HR 05/08/24 05/08/24 History lisinopriL [Zestril] 20 mg PO DAILY 05/08/24 05/08/24 History Allergies Allergy/AdvReac Type Severity Reaction Status Date / Time No Known Allergies Allergy Verified 05/08/24 12:13 Physical Exam Osteopathic Statement: *. No significant issues noted on an osteopathic structural exam other than those noted in the History and Physical/Consult. Vitals: Vital Signs Temp Pulse Resp BP Pulse Ox 05/08/24 16:36 98.2 F 75 16 123/68 97 05/08/24 10:44 98.2 F 96 16 129/65 97 Intake and Output 05/08/24 05/08/24 05/08/24 06:59 14:59 22:59 Other: Weight 60.328 kg Results CBC & Chem 7: 05/08/24 11:35 05/08/24 11:35 Labs: Abnormal Lab Results - Last 24 Hours (Table) 05/08/24 05/08/24 Range/Units 11:25 11:35 BUN 57 H (7-17) mg/dL Creatinine 1.27 H (0.52-1.04) mg/dL Glucose 136 H (74-99) mg/dL Urine Appearance Turbid H (Clear) Urine Protein Trace H (Negative) Ur Leukocyte Esterase Moderate H (Negative) Urine WBC 12 H (0-5) /hpf Ur Squamous Epith Cells 56 H (0-4) /hpf Urine Bacteria Few H (None) /hpf Urine Mucus Rare H (None) /hpf
[2024-05-08] MEDS ORDERED: LACOSAMIDE 50 MG TABLET PO SCH (21:00)
[2024-05-08] MEDS: Lacosamide IV (ages 17+ yrs) 200 MG/20 ML ML IVP SCH (23:02)
[2024-05-08] MEDS: ATORVASTATIN 40 MG TAB PO SCH (23:02)
[2024-05-08] MEDS: MAGNESIUM OXIDE 400 MG TAB PO SCH (23:03)
[2024-05-08 23:45] LABS: Appearance,Urine Cloudy (Clear); Bacteria,Urine Many /hpf; Bilirubin,Urine Negative (Negative); Blood,Urine Negative (Negative); Budding Yeast,Urine Rare /hpf; Color,Urine Light Yellow; Glucose,Urine (UA) Negative (Negative); Ketones,Urine Negative (Negative); Leukocyte Esterase,Urine Moderate (Negative); Mucus,Urine Moderate /hpf; Nitrite,Urine Positive (Negative); Protein,Urine Negative (Negative); RBC,Urine 2 /hpf (0-5); Specific Gravity,Urine 1.022 (1.001-1.035); Squamous Epithelial Cell,Urine 8 /hpf (0-4); Urobilinogen,Urine <2.0 mg/dL (<2.0); WBC,Urine 11 /hpf (0-5)
[2024-05-08 23:52] LABS: Amphetamine Screen,Urine Not Detected (NotDetected); Barbiturate Screen,Urine Not Detected (NotDetected); Benzodiazepines Screen,Urine Not Detected (NotDetected); Cocaine Screen,Urine Not Detected (NotDetected); Methadone Screen, Urine Not Detected (NotDetected); Opiate Screen,Urine Not Detected (NotDetected); Oxycodone Screen, Urine Not Detected (NotDetected); Phencyclidine Screen,Urine Not Detected (NotDetected); Tricyclic Antidepressant,Urine Not Detected (NotDetected); Urn Cannabinoid Scrn Not Detected (NotDetected)
[2024-05-09] MEDS: levETIRAcetam IV 500 MG/5 ML VIAL IVP SCH ×2 (04:35→08:18)
[2024-05-09] MEDS: PANTOPRAZOLE 40 MG TABLET PO SCH (05:01)
[2024-05-09] MEDS: LEVOTHYROXINE 75 MCG TAB PO SCH (05:01)
[2024-05-09] MEDS: MULTIVITAMINS, THERA 1 EACH TAB PO SCH (08:07)
[2024-05-09] MEDS: ENOXAPARIN 30 MG/0.3 ML SYRINGE SQ SCH (08:07)
[2024-05-09] MEDS: ASPIRIN 81 MG PO SCH (08:07)
[2024-05-09] MEDS ORDERED: levETIRAcetam 500 MG TAB PO SCH (09:00)
[2024-05-09] MEDS ORDERED: NON FORMULARY DRUG (Lactose-Reduced Food [Ensure Plus] 237 ML Ml) PO SCH (09:00)
[2024-05-09] MEDS ORDERED: CARBIDOPA-LEVODOPA 25-100 MG 1 EACH TAB PO SCH (09:00)
[2024-05-09] MEDS ORDERED: lisinopriL 20 MG TAB PO SCH (09:00)
[2024-05-09 10:12] LABS: Basophils # (A) 0.11 X 10*3/uL (0.00-0.10); Basophils % (A) 1.3 %; Eosinophils # (A) 0.16 X 10*3/uL (0.04-0.35); HCT 37.4 % (37.2-46.3); HGB 12.2 g/dL (12.0-15.0); Lymphocytes # (A) 2.12 X 10*3/uL (0.90-5.00); MCH 29.5 pg (27.0-32.0); MCHC 32.6 g/dL (32.0-37.0); MCV 90.6 FL (80.0-97.0); Mean Platelet Volume 11.1 FL (9.5-12.2); Monocytes # (A) 0.84 X 10*3/uL (0.20-1.00); Monocytes % (A) 10.3 %; NRBC Per 100 WBC 0 X 10*3/uL (0.00-0.01); Platelet Count 259 X 10*3/uL (140-440); RBC 4.13 X 10*6/uL (4.10-5.20); RDW 15.1 % (11.5-14.5); WBC 8.16 X 10*3/uL (4.50-10.00)
[2024-05-09 10:30] LABS: ALT 17 U/L (8-44); AST 21 U/L (13-35); BUN/Creat Ratio 37.09 Ratio (12.00-20.00); Blood Urea Nitrogen 40.8 mg/dL (9.0-27.0); Calcium 9.3 mg/dL (8.7-10.3); Carbon Dioxide 21.5 mmol/L (21.6-31.8); Chloride 105 mmol/L (96-109); Glucose 157 mg/dL (70-110); Potassium 4.9 mmol/L (3.5-5.5); Sodium 138 mmol/L (135-145)
[2024-05-09 10:31] LABS: Albumin 4.1 g/dL (3.8-4.9); Albumin/Globulin Ratio 1.46 Ratio (1.60-3.17); Alkaline Phosphatase 96 U/L (41-126); Globulin 2.8 g/dL (1.6-3.3); Total Bilirubin 0.3 mg/dL (0.3-1.2); Total Protein 6.9 g/dL (6.2-8.2)
--- NOTE | 2024-05-09 10:40 | CT ---
EXAMINATION TYPE: CT brain wo con DATE OF EXAM: 05/09/2024 COMPARISON: 03/31/2024 CLINICAL INDICATION: Female, 88 years old with history of Headache; PHH, ams CT DLP: 1096 mGycm Automated exposure control for dose reduction was used. Findings: The ventricles, basal cisterns and sulci over convexities are moderately enlarged consistent with mod erate generalized atrophy, appropriate for the patient's age. There is mild decreased density in the periventricular white matter consistent with chronic ischemic white matter demyelination. There is no mass effect or shift of midline structures. There is no acute intra or extra-axial hemorrhage. The posterior fossa including the brainstem, fourth ventricle and cerebellopontine angles appear feliciano sly normal. The intraorbital contents appear normal symmetric Visualized paranasal sinuses and mastoid air cells are well aerated. Calvarium is intact. IMPRESSION: 1. Age appropriate senescent changes as described above. 2. No significant interval change. 3. No acute bleed or mass effect. [facility], , 05/09/2024 10:37 AM
[2024-05-09] MEDS ORDERED: QUEtiapine 25 MG TAB PO PRN (17:12)
[2024-05-09] MEDS ORDERED: MELATONIN 5 MG TABLET PO PRN (17:12)
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
[2024-05-10] MEDS ORDERED: QUEtiapine 25 MG TAB PO PRN (13:42)
--- NOTE | 2024-05-10 13:49 | P.PN ---
Progress Note - Text Progress Note Date: 05/10/24 IDENTIFYING DATA: This patient is a 88-year-old female, currently lives at a assisted living facility, she has 2 daughters and several grandchildren REASON FOR REFERRAL: Psychiatry was consulted for paranoia HISTORY OF PRESENT ILLNESS: The patient presented to the hospital on 05/08 for complaints of paranoia and medication noncompliance. Patient is currently living at a assisted living facility. Neurology has been following along appreciate recommendations. Patient urine drug screen is negative, urine analysis was inconclusive. Patients nurse claims that patient has been mildly paranoid however for the most part fairly cooperative, has been refusing medications. Patient knew her correct name, believes that she was "86" years old, she knew more or less the date today, she knew that she was in [facility]. Claims that she came to the hospital because she had a "seizure" and was fairly focused on talking about her seizure and medical history. She claims that she has been coming from a independent living facility. States that she believes that the staff there are giving her "too many medications" and she is suspicious of them. She states that she had a better experience at [facility] instead of [facility]. She was requesting to go there. She states that her daughters do help her with her care however she does not agree with what they say at times. She was somewhat tangential/circumstantial with her response when asked more about paranoid thoughts, not well-defined. Sleep has been on and off appetite has been on and off. Patient has appears to be poor/limited insight into her condition and need for treatment. She has been refusing most medications here in the hospital. At this time patient denies any suicidal or homical ideations, intent or plan. Patient denies any auditory, visual hallucinations. Patients admits to using no recreational drugs or cigarettes PAST PSYCHIATRIC HISTORY: Patient has a a history of dementia. Patient denies being on any psychiatric medications. Patient denies any previous psychiatric hospitalizations. Patient denies any psychiatric outpatient follow-up. Patient denies any history of suicide attempts in the past. Past Medical History: Cancer, Hearing Disorder / Deafness, Hyperlipidemia, Hypertension, Seizure Disorder, Thyroid Disorder Additional Past Medical History / Comment(s): Seizures/lifelong, R breast cancer with lumpectomy/radiation txs, very NIKOLAI bilaterally/has hearing aides, past L femur fracture/no surgery, UTI, thyroid disease. History of Any Multi-Drug Resistant Organisms: ESBL Date of last positivie culture/infection: 12/11/22 ESBL-E.coli MDRO Source:: Urine Past Surgical History: Breast Surgery, Cholecystectomy Additional Past Surgical History / Comment(s): R breast lumpectomy Past Anesthesia/Blood Transfusion Reactions: No Reported Reaction Past Psychological History: Anxiety, Depression Smoking Status: Never smoker Past Alcohol Use History: None Reported Past Drug Use History: None Reported ALLERGIES: as per EMR. CHEMICAL DEPENDENCY HISTORY: as per HPI. FAMILY PSYCHIATRIC/SUBSTANCE USE HISTORY: Denies SOCIAL HISTORY: Patient was born and raised in [place] then moved to [place]. Claims that she completed up to the seventh grade in school. States that she has 2 daughters. Currently lives in a independent living facility. Denies any legal history. MENTAL STATUS EXAM: General Appearance: Patient appears to be thin, short hair, stated age is alert, pleasant, and ems to be cooperative. Patient appears to have fair hygiene and grooming wearing hospital gown with fair eye contact. Behavior: Patient is calmly lying in bed without any agitated behavior. Mildly suspicious Speech: Patient's speech is fluent and nonpressured. Talkative Mood/Affect: Patient reports their mood is "ok", affect is congruent Suicidality/Homicidality: Patient denies having any suicidal or homicidal ideation intent or plan. Perceptions: Patient denies any visual hallucinations and denies any auditory hallucinations Though content/process: There is no evidence of any delusional thought content and thought process is linear and circumstantial at times. Rambles at times. Memory and concentration: AOX3, grossly intact for the purposes of this session. 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 -Patient DOES NOT have decision making capacity at this time and is unable to reason through and communicate/appreciate the risks, benefits and alternatives to treatment. -Delirium precautions recommended with patient including - avoiding use of narcotics and ELECTROMECH[employer]ICAL ASSEMBLER sedatives, limit anticholinergic medications when possible, frequent re-orientation, minimize use of restraints, open window shades during the day and close them at night -Would recommend the following medication changes/additions: Change Seroquel to scheduled 12.5 mg nightly for sleep/mood stabilization/psychosis, with twice daily as needed dosing for agitation/psychosis -telecommunications linesworker to provide patient with outpatient mental health/psychiatry resources for appropriate follow up upon discharge -Communicated plan to patient's nurse -Psychiatry will sign off at this time -Please contact with any questions.
--- NOTE | 2024-05-10 15:29 | P.PN ---
Subjective Progress Note Date: 05/10/24 No new complaints today. Pt UCx growing E coli and Pseudomonas, but has no symptoms Hospital Course: Patient is a 88-year-old female with seizure disorder, hypertension who presents from assisted living facility with increasing paranoia and altered mental status. 05/09/2024patient seen and examined at bedside. No acute events overnight. Patient with no stated complaints. Neurology and psych consulted. Assessment and Plan: In summary, Patient is a 88-year-old female with seizure disorder, hypertension who presents from assisted living facility with increasing paranoia and altered mental status. #Acute encephalopathy #Dementia -CT brain age-appropriate senescent changes -Ammonia, Urine tox, TSH are WNL -Keppra level pending -Neurology and psych consulted, consider EEG #MADAI prerenal, nonoliguric likely dehydration, resolved Patient's baseline creatinine 0.9, initial today 1.27 => 1.1 Discontinue fluids - hold MEGA inhibitor and avoid nephrotoxic medications #Asymptomatic Bacteriuria -pt has AMS, but no WBC or fever; no evidence of SPT, CVAT, dysuria, hematuria, nocturia, hesitancy -no indication for abx at this time Chronic Medical Conditions #Essential hypertension - hold home lisinopril #Hyperlidemia - Resume home Atorvastatin #Hypothyroidism - Resume home Synthroid #GERD- Resume home Pantoprazole # Seizure disorderresume home meds DVT ppx: Subq Lovenox 40 meq daily Code status: no code F: P.o. E: Replete as needed N: Heart healthy diet Anticipated discharge place: Pending clinical course Anticipated discharge time: Pending clinical course Dictation was produced using [employer] dictation software. Please excuse any grammatical, word or spelling errors. Objective - Vital Signs Vital signs: Vital Signs Temp 98.3 F 05/10/24 13:33 Pulse 84 05/10/24 13:33 Resp 18 05/10/24 13:33 BP 127/71 05/10/24 13:33 Pulse Ox 93 L 05/10/24 13:33 FiO2 Intake & Output 05/09/24 05/10/24 05/10/24 18:59 06:59 18:59 Other: Voiding Method Toilet Toilet # Voids 3 - Labs CBC & Chem 7: 05/09/24 06:16 05/09/24 06:16 Labs: Microbiology - Last 24 Hours (Table) 05/08/24 11:25 Urine Culture - Final Urine,Voided Escherichia coli ESBL Klebsiella oxytoca
[2024-05-10] MEDS: QUEtiapine 25 MG TAB PO SCH (20:55)
--- NOTE | 2024-05-10 23:07 | P.PN ---
Subjective Progress Note Date: 05/10/24 Patient was seen for a follow-up. Patient is laying comfortably in the bed. Offers no new complaints. States she now remembers that the current state is [place], as she could not remember it while I was there to see her yesterday. Objective - Vital Signs Vital signs: Vital Signs Temp 98.3 F 05/10/24 13:33 Pulse 84 05/10/24 13:33 Resp 18 05/10/24 13:33 BP 127/71 05/10/24 13:33 Pulse Ox 93 L 05/10/24 13:33 FiO2 Intake & Output 05/09/24 05/10/24 05/10/24 18:59 06:59 18:59 Other: Voiding Method Toilet Toilet # Voids 3 - Exam Patient examination remains unchanged. Mentation normal. She says that she is in "[facility], in [facility]. Rest of the examination is unchanged. - Labs CBC & Chem 7: 05/09/24 06:16 05/09/24 06:16 Labs: Microbiology - Last 24 Hours (Table) 05/08/24 11:25 Urine Culture - Final Urine,Voided Escherichia coli ESBL Klebsiella oxytoca Assessment and Plan Assessment: * Altered mental status with some paranoia, likely due to acute delirium. Exact cause is uncertain. Possible due to acute UTI. UA is abnormal, and urine cultures grew > 100,000 E. coli ESBL MDRO, and 10,000-49,000 CFU Klebsiella oxytoca. IM feels it is colonization. Patient does not have any symptoms of UTI. * Acute kidney injury, much improved. * Abnormal thyroid functions * Epilepsy (localization-related), since childhood. 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 Probable due to acute delirium. Exact cause is uncertain. * No seizures have been reported. Patient is on Keppra 1000 g every 12 hours, but has been on it for quite some time. Doubt acute side effect from Keppra. Keppra level pending. * Check B12, folate. * Patient's UA and urine cultures are abnormal, suggestive of acute UTI. I discussed with primary physician, who believes patient has no temperature, no leukocytosis, no suprapubic tenderness or CVA tenderness, dysuria, frequency, hesitancy, nocturia or hematuria, or recent urologic procedure. They are calling it asymptomatic bacteriuria. * Patient has abnormal thyroid functions. We will defer to IM. * Ammonia < 9 * Psychiatry has seen the patient, and diagnosed with major neurocognitive disorder, psychosis unspecified. Patient does not have decision-making capacity at this time. They recommended Seroquel schedule 12.5 mg nightly for sleep/mood, with twice daily as needed dosing for agitation/psychosis. * Patient had presented with acute kidney injury, now much improved. * Need to evaluate for other causes of delirium like occult infection. Will defer to IM. * Dr. Gagandeep Enriquez to resume neurology service from the morning.
--- NOTE | 2024-05-11 14:52 | P.PN ---
Subjective Progress Note Date: 05/11/24 Patient is a 88-year-old female with seizure disorder, hypertension who presents from assisted living facility with increasing paranoia and altered mental status. Per patient account she believes she was sent here because of a seizure. She states her last seizure was 1 month ago. Patient attested to poor treatment at [facility] and stated that she is unsure "if that place is a crack house or not". Otherwise, she is denying urinary frequency or pain. She states she last urinated several hours ago. She also attest to recent lack of appetite due to unpleasant tasting food. She has no other complaints. Patient reports absence of fever, chills, chest pain, palpitations, diaphoresis, dyspnea, cough, abdominal pain, nausea, vomiting, constipation, diarrhea, myalgia, dizziness, headache, and dysuria. 05/09/2024patient seen and examined at bedside. No acute events overnight. Patient with no stated complaints. Neurology and psych consulted. 05/10/24-No new complaints today. Pt UCx growing E coli and Pseudomonas, but has no symptoms. 05/11/24 -patient seen at bedside. No acute overnight events. She has no new complaints, remains increasingly confused and paranoid. PHYSICAL EXAMINATION: GENERAL: The patient is alert and oriented x3, not in any acute distress. Well developed, well nourished. HEENT: Pupils are round and equally reacting to light. EOMI. No scleral icterus. No conjunctival pallor. Normocephalic, atraumatic. CARDIOVASCULAR: S1 and S2 present. No murmurs, rubs, or gallops. PULMONARY: Chest is clear to auscultation, no wheezing or crackles. ABDOMEN: Soft, nontender, nondistended, normoactive bowel sounds. No palpable organomegaly. MUSCULOSKELETAL: No joint swelling or deformity. EXTREMITIES: No cyanosis, clubbing, or pedal edema. NEUROLOGICAL: Gross neurological examination did not reveal any focal deficits. Awake, alert, oriented x3. SKIN: No rashes. Assessment and plan In summary, Patient is a 88-year-old female with seizure disorder, hypertension who presents from assisted living facility with increasing paranoia and altered mental status. #Acute encephalopathy #Dementia -CT brain age-appropriate senescent changes -Ammonia, Urine tox, TSH are WNL -Keppra level 71.4 -Neurology and psych consulted, consider EEG -Speech therapy consulted for mental status examination, for the purposes of placement -ST unable to complete the evaluation due to the patient's paranoia -ST evaluation of mental status would be an assist for placement following discharge #MADAI prerenal, nonoliguric likely dehydration, resolved Patient's baseline creatinine 0.9, initial today 1.27 => 1.1 Discontinue fluids - hold MEGA inhibitor and avoid nephrotoxic medications #Asymptomatic bacteriuria -Urine culture positive for ESBL E. coli and Klebsiella -Patient continues to show no signs/symptoms Chronic Medical Conditions #Essential hypertension - hold home lisinopril #Hyperlidemia - Resume home Atorvastatin #Hypothyroidism - Resume home Synthroid #GERD- Resume home Pantoprazole #Seizure disorderresume home meds -Pending neurology's recommendation on dose of home Keppra, secondary to elevated Keppra level of 71.4 DVT ppx: Subq Lovenox 40 meq daily Code status: no code F: P.o. E: Replete as needed N: Heart healthy diet Anticipated discharge place: Pending clinical course Anticipated discharge time: Pending clinical course Dictation was produced using [employer] dictation software. please excuse any grammatical, word or spelling errors. I saw and evaluated the patient during the colin and critical portions of this encounter, and discussed the case in detail with the resident author of this note, I agree with the Assessment and Plan, and my changes, if any, are highlighted in blue. Objective - Vital Signs Vital signs: Vital Signs Temp 98.4 F 05/11/24 01:25 Pulse 66 05/11/24 01:25 Resp 18 05/11/24 01:25 BP 108/54 05/11/24 01:25 Pulse Ox 95 05/11/24 01:25 FiO2 Intake & Output 05/10/24 05/11/24 05/11/24 18:59 06:59 18:59 Intake Total 360 Output Total 0 Balance 0 360 Intake: Oral 360 Output: Stool 0 Other: Voiding Method Toilet # Voids 4 2 - Labs CBC & Chem 7: 05/09/24 06:16 05/09/24 06:16 Labs: Abnormal Lab Results - Last 24 Hours (Table) 05/09/24 Range/Units 06:16 Levetiracetam 71.4 H (3.0-60.0) ug/mL Microbiology - Last 24 Hours (Table) 05/08/24 11:25 Urine Culture - Final Urine,Voided Escherichia coli ESBL Klebsiella oxytoca
--- NOTE | 2024-05-11 17:58 | P.PN ---
Subjective Progress Note Date: 05/11/24 This is an 88-year-old woman with history of seizure and I am seeing the patient for the first time during this hospital visit. Please refer to Dr. Montanez's note for further details. Seems that she presents to the hospital because of altered mental status. Unable to obtain history from the patient since she continues to be severely confused. Patient was seen by our neurology team in the past multiple times especially 2022. In January 2023 at that time the patient was on Depakote as well as Vimpat 100 mg twice daily. In December 2022 as she had significant hyponatremia as low as 116. Seems that she is off of Depakote and she is on Keppra and unsure when Keppra was started. She is on Keppra 1000 mg twice daily as well as Vimpat 100 mg twice daily.. Primary team patient is confused and has paranoia with supratherapeutic Keppra level of 71.4 and normal is between 3-60. Objective - Vital Signs Vital signs: Vital Signs Temp 97.8 F 05/11/24 14:33 Pulse 78 05/11/24 14:33 Resp 16 05/11/24 14:33 BP 156/76 05/11/24 14:33 Pulse Ox 95 05/11/24 14:33 FiO2 Intake & Output 05/10/24 05/11/24 05/11/24 18:59 06:59 18:59 Intake Total 360 Output Total 0 Balance 0 360 Intake: Oral 360 Output: Stool 0 Other: Voiding Method Toilet # Voids 4 2 - Exam General: Lying in bed and does not appear in acute distress. Neuro: Limited since is severely confused and seems agitated. She was asking me where is the controller for the nurse. She is oriented to self. She would not follow simple commands and refused on multiple attempts. No facial weakness from limitation of examination. - Labs CBC & Chem 7: 05/09/24 06:16 05/09/24 06:16 Labs: Abnormal Lab Results - Last 24 Hours (Table) 05/09/24 Range/Units 06:16 Levetiracetam 71.4 H (3.0-60.0) ug/mL Assessment and Plan Assessment: * Altered mental status with some paranoia, likely due to acute delirium. Exact cause is uncertain. Unsure if due to Keppra (unsure when start of Keppra). Patient has supratherapeutic Keppra level. As per colleague possible due to acute UTI. UA is abnormal, and urine cultures grew > 100,000 E. coli ESBL MDRO, and 10,000-49,000 CFU Klebsiella oxytoca. IM feels it is colonization. * Epilepsy (localization-related), since childhood. Patient is on Keppra 1 g twice daily as well as Vimpat 100 mg twice daily. In 2022 patient was on Vimpat 100 mg twice daily and was on Depakote and unsure when Keppra was started. * Acute kidney injury, much improved. 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 * I went down on Keppra from 1000 mg twice daily to 500 mg twice daily and went up on the Vimpat 100 mg twice daily to 150 mg twice daily. * Will try to obtain more information about her start of Keppra. * If patient continues to be confused then we will get a repeat EEG. In the past patient had multiple EEG which shows right frontal discharges. * Dr. Montanez recommended Check B12, folate. * Patient's UA and urine cultures are abnormal, suggestive of acute UTI. I discussed with primary physician, who believes patient has no temperature, no leukocytosis, no suprapubic tenderness or CVA tenderness, dysuria, frequency, hesitancy, nocturia or hematuria, or recent urologic procedure. They are calling it asymptomatic bacteriuria. * Patient has abnormal thyroid functions. We will defer to IM. * Ammonia < 9 * Psychiatry has seen the patient, and diagnosed with major neurocognitive disorder, psychosis unspecified. Patient does not have decision-making capacity at this time. They recommended Seroquel schedule 12.5 mg nightly for sleep/mood, with twice daily as needed dosing for agitation/psychosis. * Patient had presented with acute kidney injury, now much improved. * Need to evaluate for other causes of delirium like occult infection. Will defer to IM. Plan discussed with the primary team. Time with Patient: Less than 30
[2024-05-11] MEDS ORDERED: LACOSAMIDE 50 MG TABLET PO SCH (21:00)
[2024-05-11] MEDS: Lacosamide IV (ages 17+ yrs) 200 MG/20 ML ML IVP SCH (21:39)
[2024-05-12] MEDS: levETIRAcetam IV 500 MG/5 ML VIAL IVP SCH (05:32)
--- NOTE | 2024-05-12 14:02 | P.PN ---
Subjective Progress Note Date: 05/12/24 Patient is a 88-year-old female with seizure disorder, hypertension who presents from assisted living facility with increasing paranoia and altered mental status. Per patient account she believes she was sent here because of a seizure. She states her last seizure was 1 month ago. Patient attested to poor treatment at [facility] and stated that she is unsure "if that place is a crack house or not". Otherwise, she is denying urinary frequency or pain. She states she last urinated several hours ago. She also attest to recent lack of appetite due to unpleasant tasting food. She has no other complaints. Patient reports absence of fever, chills, chest pain, palpitations, diaphoresis, dyspnea, cough, abdominal pain, nausea, vomiting, constipation, diarrhea, myalgia, dizziness, headache, and dysuria. 05/09/2024patient seen and examined at bedside. No acute events overnight. Patient with no stated complaints. Neurology and psych consulted. 05/10/24-No new complaints today. Pt UCx growing E coli and Pseudomonas, but has no symptoms. 05/11/24 -patient seen at bedside. No acute overnight events. She has no new complaints, remains increasingly confused and paranoid. 05/12/24 - Patient seen and examined at bedside. No acute events overnight. She has no new complaints, remains increasingly confused and paranoid. Guardianship of the patient will be switched to her daughter Kyra who lives locally. She has no acute complaints today. PHYSICAL EXAMINATION: GENERAL: The patient is alert and oriented x3, not in any acute distress. Well developed, well nourished. HEENT: Pupils are round and equally reacting to light. EOMI. No scleral icterus. No conjunctival pallor. Normocephalic, atraumatic. CARDIOVASCULAR: S1 and S2 present. No murmurs, rubs, or gallops. PULMONARY: Chest is clear to auscultation, no wheezing or crackles. ABDOMEN: Soft, nontender, nondistended, normoactive bowel sounds. No palpable organomegaly. MUSCULOSKELETAL: No joint swelling or deformity. EXTREMITIES: No cyanosis, clubbing, or pedal edema. NEUROLOGICAL: Gross neurological examination did not reveal any focal deficits. Awake, alert, oriented x3. SKIN: No rashes. Assessment and plan In summary, Patient is a 88-year-old female with seizure disorder, hypertension who presents from assisted living facility with increasing paranoia and altered mental status. #Acute encephalopathy #Dementia -CT brain age-appropriate senescent changes -Ammonia, Urine tox, TSH are WNL -Keppra level 71.4 -Per neurology's recommendation on 05/11/2024 patient's Keppra dose was switched to 500 mg every 12 hours and Vimpat 140 mg IV push twice daily was added -Neurology and psych consulted, consider EEG -Speech therapy consulted for mental status examination, for the purposes of placement -ST unable to complete the evaluation due to the patient's paranoia -ST evaluation of mental status would be an assist for placement following discharge #MADAI prerenal, nonoliguric likely dehydration, resolved Patient's baseline creatinine 0.9, initial today 1.27 => 1.1 Discontinue fluids - hold MEGA inhibitor and avoid nephrotoxic medications #Asymptomatic bacteria -Urine culture positive for ESBL E. coli and Klebsiella -Patient continues to show no signs/symptoms Chronic Medical Conditions #Essential hypertension - hold home lisinopril #Hyperlidemia - Resume home Atorvastatin #Hypothyroidism - Resume home Synthroid #GERD - Resume home Pantoprazole #Seizure disorderresume home meds -Pending neurology's recommendation on dose of home Keppra, secondary to elevated Keppra level of 71.4 -Per neurology's recommendation on 05/11/2024 patient's Keppra dose was switched to 500 mg every 12 hours DVT ppx: Subq Lovenox 40 meq daily Code status: no code F: P.o. E: Replete as needed N: Heart healthy diet Anticipated discharge place: Pending clinical course Anticipated discharge time: Pending clinical course Dictation was produced using [employer] dictation software. please excuse any grammatical, word or spelling errors. I saw and evaluated the patient during the colin and critical portions of this encounter, and discussed the case in detail with the resident author of this note, I agree with the Assessment and Plan, and my changes, if any, are highlighted in blue. Objective - Vital Signs Vital signs: Vital Signs Temp 97.4 F L 05/12/24 00:39 Pulse 71 05/12/24 00:39 Resp 18 05/12/24 00:39 BP 143/68 05/12/24 00:39 Pulse Ox 97 05/12/24 00:39 FiO2 Intake & Output 05/11/24 05/12/24 05/12/24 18:59 06:59 18:59 Intake Total 240 Balance 240 Intake: Oral 240 Other: Voiding Method Toilet # Voids 4 3 # Bowel Movements 0 - Labs CBC & Chem 7: 05/09/24 06:16 05/09/24 06:16
--- NOTE | 2024-05-12 15:46 | P.PN ---
Subjective Progress Note Date: 05/12/24 I am following up with the patient and seems the patient is doing drastically better today compared to yesterday. She stated that she always does better as long as she does not get bothered all the time and she gets the appropriate sleeping. Objective - Vital Signs Vital signs: Vital Signs Temp 98.0 F 05/12/24 14:45 Pulse 78 05/12/24 14:45 Resp 18 05/12/24 14:45 BP 170/86 05/12/24 14:45 Pulse Ox 100 05/12/24 14:45 FiO2 Intake & Output 05/11/24 05/12/24 05/12/24 18:59 06:59 18:59 Intake Total 240 Balance 240 Intake: Oral 240 Other: Voiding Method Toilet Toilet # Voids 4 3 2 # Bowel Movements 0 - Exam General: Sitting up in a chair and is not in acute distress. Neuro: Patient is awake alert oriented to self, year and she correctly stated that she is in the hospital but does not know the name of the hospital. She is following simple commands in the. Pupils are round about 4 mm bilaterally reactive to light. Visual bunch are full to confrontation. Extraocular movements intact no nystagmus. No facial weakness. No dysarthria The motor the strength is that she is left in all extremities above gravity appears symmetrical. - Labs CBC & Chem 7: 05/09/24 06:16 05/09/24 06:16 Assessment and Plan Assessment: * Altered mental status with some paranoia, likely due to acute delirium probable due to high dose of Keppra and had supratherapeutic Keppra level--Today drastically better after lower the Keppra yesterday. * As per colleague possible due to acute UTI. UA is abnormal, and urine cultures grew > 100,000 E. coli ESBL MDRO, and 10,000-49,000 CFU Klebsiella oxytoca. IM feels it is colonization. * Epilepsy (localization-related), since childhood. Patient is on Keppra 1 g twice daily as well as Vimpat 100 mg twice daily. In 2022 patient was on Vimpat 100 mg twice daily and was on Depakote and unsure when Keppra was started. * Acute kidney injury, much improved. 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 * I went down on Keppra from 1000 mg twice daily to 500 mg twice daily and went up on the Vimpat 100 mg twice daily to 150 mg twice daily both on 05/11/2024 and today is drastically better.. * Will try to obtain more information about her start of Keppra. * Dr. Montanez recommended Check B12, folate. * Patient's UA and urine cultures are abnormal, suggestive of acute UTI. I discussed with primary physician, who believes patient has no temperature, no leukocytosis, no suprapubic tenderness or CVA tenderness, dysuria, frequency, hesitancy, nocturia or hematuria, or recent urologic procedure. They are calling it asymptomatic bacteriuria. * Patient has abnormal thyroid functions. We will defer to IM. * Ammonia < 9 * Psychiatry has seen the patient, and diagnosed with major neurocognitive disorder, psychosis unspecified. Patient does not have decision-making capacity at this time. They recommended Seroquel schedule 12.5 mg nightly for sleep/mood, with twice daily as needed dosing for agitation/psychosis. * Patient had presented with acute kidney injury, now much improved. * Need to evaluate for other causes of delirium like occult infection. Will defer to IM. * Commend the patient to follow-up with a neurologist as an outpatient within 2 weeks. Plan discussed with the primary team. Otherwise, no additional neurological work-up. Will sign off. Please reconsult if needed. Time with Patient: Less than 30
--- NOTE | 2024-05-13 14:20 | CDI ---
Documentation Clarification Form Date: 05/13/2024 01:46:45 PM From: Chanel Cha RN CCDS Phone: [phone] Admit Date: 05/11/2024 08:56:00 AM Patient Name: Racheal Grace Visit Number: [id number] Discharge Date: ATTENTION: The Clinical Documentation Specialists (CDI) and [facility] Coding Staff appreciate your assistance in clarifying documentation. Please respond to the clarification below the line at the bottom and electronically sign. The CDI & [facility] Coding staff will review the response and follow-up if needed. Please note: Queries are made part of the Legal Health Record. If you have any questions, please contact the author of this message via ITS. Doctor: Ricardo Conflicting documentation has been found in the medical record. As attending physician, please provide clarification. Asymptomatic Bacteriuria, medicine note, 05/10 Acute UTI, Neurology note, 05/11 History/Risk Factors: 88 year old female presents to the ED from assisted living facility with increasing paranoia and altered mental status. Medical history: seizures, htn, gerd and hypothyroidism. 05/08, [place] Clinical Indicators: 05/11, Medicine note: Explained why we do not give antibiotics for asymptomatic bacteria, and discussed the likelihood of the patient's altered mentation as a result of something else. 05/11, Neurology note: Patient has supratherapeutic Keppra level.As per colleague possible due to acute UTI.UA is abnormal, and urine cultures grew > 100,000 E. coli ESBL MDRO, and 10,000-49,000 CFU Klebsiella oxytoca.IM feels it is colonization. 05/08, UA: Yellow in color, turbid in appearance, protein trace, leukocyte esterase moderate, Wbc 12, Squamous epith cells 56, bacteria few mucus rare 05/08 Urine culture: Escherichia coli ESBL Klebsiella oxytoca Treatment: Tylenol po x 1, Urine culture Please clarify which diagnosis is most appropriate: [ ] UTI [ + ] Asymptomatic bacteria [ ] Other (please specify) [ ] Unable to determine (Template Last Revised: June 2020) MTDD
--- NOTE | 2024-05-13 14:49 | CDI ---
Documentation Clarification Form Date: 05/13/2024 02:21:55 PM From: Chanel Cha RN CCDS Phone: [phone] Admit Date: 05/11/2024 08:56:00 AM Patient Name: Racheal Grace Visit Number: [id number] Discharge Date: ATTENTION: The Clinical Documentation Specialists (CDI) and [facility] Coding Staff appreciate your assistance in clarifying documentation. Please respond to the clarification below the line at the bottom and electronically sign. The CDI & [facility] Coding staff will review the response and follow-up if needed. Please note: Queries are made part of the Legal Health Record. If you have any questions, please contact the author of this message via ITS. Doctor:Ricardo The patients principal diagnosis the diagnosis that was chiefly responsible for the admission - has not been clearly identified and clarification is requested. The patient presented with the following increased paranoia and altered mental status. History/Risk Factors: 88 year old female presents to the ED from assisted living facility with increasing paranoia and altered mental status. Medical history: seizures, htn, gerd and hypothyroidism. 05/08, [place] Clinical Indicators: Lab findings: 05/09 Levetiracetam 71.4 Radiology findings: CT Brain 05/09: Age appropriate senescent changes Vital Signs: B/P129/65, HR 96, Temp 98.2F Oral, RR 16, SpO2 97% ra bmi 23.6kg Neurology note, 05/12: Altered Mental status, with some paranoia, likely due to acute delirium probable due to high dose of Keppra and had supratherapeutic Keppra level Today drastically better after lower the Keppra yesterday. Meds on admission: Vimpat 100mg PO BID, Keppra 1,000mg PO Q12H Treatment: Medicine change Keppra 1000mg twice daily to 500mg twice daily and went up on the Vimpat 100mg twice daily to 150mg twice daily both on 05/11/2024 Consults: Neurology In your professional opinion, can you please clarify which diagnosis, after study, was the reason chiefly responsible for the admission? [ + ] Toxic Metabolic Encephalopathy due to increased Keppra level . [ ] Other, please specify [ ] Unable to determine (Template Last Revised: June 2020) MTDD
--- NOTE | 2024-05-13 18:31 | P.PN ---
Progress Note - Text Progress Note Date: 05/13/24 Patient is a 88-year-old female with seizure disorder, hypertension who presents from assisted living facility with increasing paranoia and altered mental status. Per patient account she believes she was sent here because of a seizure. She states her last seizure was 1 month ago. Patient attested to poor treatment at [facility] and stated that she is unsure "if that place is a crack house or not". Otherwise, she is denying urinary frequency or pain. She states she last urinated several hours ago. She also attest to recent lack of appetite due to unpleasant tasting food. She has no other complaints. Patient reports absence of fever, chills, chest pain, palpitations, diaphoresis, dyspnea, cough, abdominal pain, nausea, vomiting, constipation, diarrhea, myalgia, dizziness, headache, and dysuria. 05/09/2024patient seen and examined at bedside. No acute events overnight. Patient with no stated complaints. Neurology and psych consulted. 05/10/24-No new complaints today. Pt UCx growing E coli and Pseudomonas, but has no symptoms. 05/11/24 -patient seen at bedside. No acute overnight events. She has no new complaints, remains increasingly confused and paranoid. 05/12/24 - Patient seen and examined at bedside. No acute events overnight. She has no new complaints, remains increasingly confused and paranoid. Guardianship of the patient will be switched to her daughter Kyra who lives locally. She has no acute complaints today. May 13: Patient eating fair. Does the patient sit up in a chair. Sometimes will refuse medications. Patient's daughter came is obtaining guardianship today. Patient had about 75% of breakfast today and 50% of supper. Refused lunch. Plan for patient to return to assisted living. Active Medications Acetaminophen (Acetaminophen Tab 325 Mg Tab) 650 mg PO Q4H PRN PRN Reason: Pain or Fever > 100.5 Aspirin (Aspirin 81 Mg) 81 mg PO DAILY [facility] Last Admin: 05/13/24 08:22 Dose: 81 mg Atorvastatin Calcium (Atorvastatin 40 Mg Tab) 40 mg PO HS [facility] Last Admin: 05/12/24 21:39 Dose: 40 mg Enoxaparin Sodium (Enoxaparin 30 Mg/0.3 Ml Syringe) 30 mg SQ DAILY [facility] Last Admin: 05/13/24 08:22 Dose: 30 mg Lacosamide (Lacosamide Iv (Ages 17+ Yrs) 200 Mg/20 Ml Ml) 150 mg IVP BID [facility] Last Admin: 05/13/24 08:22 Dose: 150 mg Levetiracetam (Levetiracetam Iv 500 Mg/5 Ml Vial) 500 mg IVP Q12H [facility] Last Admin: 05/13/24 17:15 Dose: Not Given Levothyroxine Sodium (Levothyroxine 75 Mcg Tab) 75 mcg PO DAILY@0630 [facility] Last Admin: 05/13/24 06:39 Dose: Not Given Magnesium Oxide (Magnesium Oxide 400 Mg Tab) 400 mg PO BID [facility] Last Admin: 05/13/24 08:22 Dose: 400 mg Melatonin (Melatonin 5 Mg Tablet) 5 mg PO HS PRN PRN Reason: Insomnia Multivitamins (Multivitamins, Thera 1 Each Tab) 1 each PO DAILY [facility] Last Admin: 05/13/24 08:22 Dose: 1 each Naloxone HCl (Naloxone 0.4 Mg/Ml 1 Ml Vial) 0.2 mg IV Q2M PRN PRN Reason: Opioid Reversal Ondansetron HCl (Ondansetron 4 Mg/2 Ml Vial) 4 mg IVP Q8HR PRN PRN Reason: Nausea And Vomiting Pantoprazole Sodium (Pantoprazole 40 Mg Tablet) 40 mg PO AC-BRKFST [facility] Last Admin: 05/13/24 06:39 Dose: Not Given Quetiapine Fumarate (Quetiapine 25 Mg Tab) 12.5 mg PO BID PRN PRN Reason: agitation/psychosis Quetiapine Fumarate (Quetiapine 25 Mg Tab) 12.5 mg PO HS [facility] Last Admin: 05/12/24 21:39 Dose: 12.5 mg On examination: VITAL SIGNS: [98.5, 76, 18, 123 x 77, 90% room air] GENERAL APPEARANCE: BMI 23.6, laying in bed comfortable HEENT: Normal external appearance of nose and ear. Oral cavity normal EYES: Pupils equal. Conjunctiva normal. NECK: JVD not raised. Mass not palpable. RESPIRATORY: Respiratory effort normal. Lungs clear to auscultation. CARDIOVASCULAR: First and second sounds normal. No edema. ABDOMEN: Soft. Liver and spleen not palpable. No tenderness. No mass palpable. PSYCHIATRY: Patient able to answer simple questions. Sometimes agitated. Per nursing sometimes confused INVESTIGATIONS, reviewed in the clinical context: May 09: White count 8.1 hemoglobin 12.2 platelets 259 sodium 138 potassium 4.9 creatinine 1.1 TSH 7.5 Assessment and plan In summary, Patient is a 88-year-old female with seizure disorder, hypertension who presents from assisted living facility with increasing paranoia and altered mental status. #Acute encephalopathy #Dementia, likely Alzheimer's -CT brain age-appropriate senescent changes -Ammonia, Urine tox, TSH are WNL -Keppra level 71.4 -Per neurology's recommendation on 05/11/2024 patient's Keppra dose was switched to 500 mg every 12 hours and Vimpat 140 mg IV push twice daily was added -Neurology and psych consulted, consider EEG -Speech therapy consulted for mental status examination, for the purposes of placement -ST unable to complete the evaluation due to the patient's paranoia -ST evaluation of mental status would be an assist for placement following disch arge #MADAI prerenal, nonoliguric likely dehydration, resolved Patient's baseline creatinine 0.9, initial today 1.27 => 1.1 Discontinue fluids - hold MEGA inhibitor and avoid nephrotoxic medications #Asymptomatic bacteria -Urine culture positive for ESBL E. coli and Klebsiella -Patient continues to show no signs/symptoms Chronic Medical Conditions #Essential hypertension - hold home lisinopril #Hyperlidemia - Resume home Atorvastatin #Hypothyroidism - Resume home Synthroid #GERD - Resume home Pantoprazole -Hard of hearing with bilateral hearing aids #Seizure disorderresume home meds -Because of elevated Keppra level Keppra decreased to 500 mg twice daily per neurology. Vimpat increased to 150 twice daily. -Medical power of order packer. Daughter came -DNR Disposition: [facility]
[2024-05-14 02:52] VITALS: TEMP 98.2
[2024-05-14 10:22] VITALS: BP 131/69; PULSE 77; RESP 18
--- NOTE | 2024-05-14 20:51 | P.DS ---
Providers Date of admission: 05/11/24 08:56 Expected date of discharge: 05/14/24 Attending physician: Elier Silva Consults: 05/08/24 15:55 Consult Physician Routine Consulting Provider: Tim Bee Consult Reason/Comments: paranoia Do you want consulting provider notified?: Yes Consult Physician Routine Consulting Provider: Vianey Montanez Consult Reason/Comments: AMS, seizure history, paranoia Do you want consulting provider notified?: Yes Primary care physician: Stuart Abebe MD Hospital Course: Patient is a 88-year-old female with seizure disorder, hypertension who presents from assisted living facility with increasing paranoia and altered mental status. Per patient account she believes she was sent here because of a seizure. She states her last seizure was 1 month ago. Patient attested to poor treatment at [facility] and stated that she is unsure "if that place is a crack house or not". Otherwise, she is denying urinary frequency or pain. She states she last urinated several hours ago. She also attest to recent lack of appetite due to unpleasant tasting food. She has no other complaints. Patient reports absence of fever, chills, chest pain, palpitations, diaphoresis, dyspnea, cough, abdominal pain, nausea, vomiting, constipation, diarrhea, myalgia, dizziness, headache, and dysuria. 05/09/2024patient seen and examined at bedside. No acute events overnight. Patient with no stated complaints. Neurology and psych consulted. 05/10/24-No new complaints today. Pt UCx growing E coli and Pseudomonas, but has no symptoms. 05/11/24 -patient seen at bedside. No acute overnight events. She has no new complaints, remains increasingly confused and paranoid. 05/12/24 - Patient seen and examined at bedside. No acute events overnight. She has no new complaints, remains increasingly confused and paranoid. Guardianship of the patient will be switched to her daughter Kyra who lives locally. She has no acute complaints today. May 13: Patient eating fair. Does the patient sit up in a chair. Sometimes will refuse medications. Patient's daughter pat is obtaining guardianship today. Patient had about 75% of breakfast today and 50% of supper. Refused lunch. Plan for patient to return to assisted living. May 14: Up to chair. Comfortable. Return to assisted living. The On examination: VITAL SIGNS: 98.2, 77, 18, 131 x 69, 95% room air GENERAL APPEARANCE: BMI 23.6, up in chair comfortable HEENT: Normal external appearance of nose and ear. Oral cavity normal EYES: Pupils equal. Conjunctiva normal. NECK: JVD not raised. Mass not palpable. RESPIRATORY: Respiratory effort normal. Lungs clear to auscultation. CARDIOVASCULAR: First and second sounds normal. No edema. ABDOMEN: Soft. Liver and spleen not palpable. No tenderness. No mass palpable. PSYCHIATRY: Answering simple questions INVESTIGATIONS, reviewed in the clinical context: May 09: White count 8.1 hemoglobin 12.2 platelets 259 sodium 138 potassium 4.9 creatinine 1.1 TSH 7.5 Assessment and plan In summary, Patient is a 88-year-old female with seizure disorder, hypertension who presents from assisted living facility with increasing paranoia and altered mental status. #Acute encephalopathy #Dementia, likely Alzheimer's -CT brain age-appropriate senescent changes -Ammonia, Urine tox, TSH are WNL -Keppra level 71.4 -Per neurology's recommendation on 05/11/2024 patient's Keppra dose was switched to 500 mg every 12 hours and Vimpat 140 mg IV push twice daily was added -Neurology and psych consulted, consider EEG -Speech therapy consulted for mental status examination, for the purposes of placement -ST unable to complete the evaluation due to the patient's paranoia -ST evaluation of mental status would be an assist for placement following discharge #MADAI prerenal, nonoliguric likely dehydration, resolved Patient's baseline creatinine 0.9, initial today 1.27 => 1.1 Discontinue fluids - hold MEGA inhibitor and avoid nephrotoxic medications #Asymptomatic bacteria -Urine culture positive for ESBL E. coli and Klebsiella -Patient continues to show no signs/symptoms Chronic Medical Conditions #Essential hypertension - hold home lisinopril #Hyperlidemia - Resume home Atorvastatin #Hypothyroidism - Resume home Synthroid #GERD - Resume home Pantoprazole -Hard of hearing with bilateral hearing aids -Hypothyroid abnormal TSH Recheck TSH in 2 weeks-outpatient #Seizure disorderresume home meds -Because of elevated Keppra level Keppra decreased to 500 mg twice daily per neurology. Vimpat increased to 150 twice daily. -Medical power of [place] attorney. Daughter came -DNR Disposition: [facility] assisted living Plan - Discharge Summary Discharge Rx Participant: No New Discharge Prescriptions: New QUEtiapine [SEROquel] 12.5 mg PO HS #30 tab QUEtiapine [SEROquel] 12.5 mg PO BID PRN #30 tab PRN Reason: agitation/psychosis Melatonin 5 mg PO HS PRN #30 tab PRN Reason: Insomnia Continue Aspirin 81 mg PO DAILY #30 tab Magnesium Oxide [Mag-Ox] 400 mg PO BID Lactose-Reduced Food [Ensure Plus] 1 can PO DAILY Atorvastatin Calcium [Lipitor] 40 mg PO HS Omeprazole 20 mg PO DAILY Levothyroxine Sodium [Synthroid] 75 mcg PO DAILY Lacosamide [Vimpat] 100 mg PO BID Multivitamins, Thera [Multivitamin (formulary)] 1 tab PO DAILY lisinopriL [Zestril] 20 mg PO DAILY levETIRAcetam [Keppra] 1,000 mg PO Q12HR hydrALAZINE HCL [Apresoline] 10 mg PO Q8H PRN PRN Reason: sbp greater than 150 Acetaminophen Tab [Tylenol] 650 mg PO Q4H PRN PRN Reason: Pain Or Fever > 100.5 Discontinued Cefuroxime [Ceftin] 250 mg PO BID Celecoxib [CeleBREX] 200 mg PO DAILY Discharge Medication List Aspirin 81 mg PO DAILY #30 tab 05/12/22 [Rx] Levothyroxine Sodium [Synthroid] 75 mcg PO DAILY 03/19/23 [History] Magnesium Oxide [Mag-Ox] 400 mg PO BID 03/19/23 [History] Lacosamide [Vimpat] 100 mg PO BID 03/31/24 [History] Acetaminophen Tab [Tylenol] 650 mg PO Q4H PRN 05/08/24 [History] Atorvastatin Calcium [Lipitor] 40 mg PO HS 05/08/24 [History] Lactose-Reduced Food [Ensure Plus] 1 can PO DAILY 05/08/24 [History] Multivitamins, Thera [Multivitamin (formulary)] 1 tab PO DAILY 05/08/24 [History] Omeprazole 20 mg PO DAILY 05/08/24 [History] hydrALAZINE HCL [Apresoline] 10 mg PO Q8H PRN 05/08/24 [History] levETIRAcetam [Keppra] 1,000 mg PO Q12HR 05/08/24 [History] lisinopriL [Zestril] 20 mg PO DAILY 05/08/24 [History] Melatonin 5 mg PO HS PRN #30 tab 05/14/24 [Rx] QUEtiapine [SEROquel] 12.5 mg PO BID PRN #30 tab 05/14/24 [Rx] QUEtiapine [SEROquel] 12.5 mg PO HS #30 tab 05/14/24 [Rx] Follow up Appointment(s)/Referral(s): Tania Eagle MD [REFERRING] - 1-2 days Stuart Abebe MD [Primary Care Provider] - 1 Week Medical Team,[facility] [NON-STAFF] - As Needed (Hospice) Maribeth Mcmahon MD [REFERRING] - 2 Weeks Discharge Disposition: HOME SELF-CARE
== END 2024-05-14 13:27 | disposition home or self-care (01) | DRG 92 ==
LOC: EC 10:36 → 4SSUR 15:57 → OBSVTOIN 05-11 08:56 → EEVIPCON 05-11 08:56
PROVIDERS: ADMIT Hospitalist; ATTEND Hospitalist
DX: G92.8 Other toxic encephalopathy (principal); E87.1 Hypo-osmolality and hyponatremia; F02.82 Dementia in other diseases classified elsewhere, unspecified severity, with psychotic disturbance; Z66 Do not resuscitate; F05 Delirium due to known physiological condition; B96.5 Pseudomonas (aeruginosa) (mallei) (pseudomallei) as the cause of diseases classified elsewhere; I10 Essential (primary) hypertension; E03.9 Hypothyroidism, unspecified; F32.A Depression, unspecified; G40.909 Epilepsy, unspecified, not intractable, without status epilepticus; N17.9 Acute kidney failure, unspecified; Z16.12 Extended spectrum beta lactamase (ESBL) resistance; Z16.24 Resistance to multiple antibiotics; G30.9 Alzheimer's disease, unspecified; T42.6X5A Adverse effect of other antiepileptic and sedative-hypnotic drugs, initial encounter; E86.0 Dehydration; K21.9 Gastro-esophageal reflux disease without esophagitis; Z85.3 Personal history of malignant neoplasm of breast; E78.5 Hyperlipidemia, unspecified; Z86.73 Personal history of transient ischemic attack (TIA), and cerebral infarction without residual deficits; R26.9 Unspecified abnormalities of gait and mobility; B96.20 Unspecified Escherichia coli [E. coli] as the cause of diseases classified elsewhere; R82.71 Bacteriuria; Z90.49 Acquired absence of other specified parts of digestive tract; H91.93 Unspecified hearing loss, bilateral; I44.0 Atrioventricular block, first degree; Z79.1 Long term (current) use of non-steroidal anti-inflammatories (NSAID); Z79.82 Long term (current) use of aspirin; Z79.890 Hormone replacement therapy; Z79.899 Other long term (current) drug therapy; Z91.148 Patient's other noncompliance with medication regimen for other reason; Z97.4 Presence of external hearing-aid; X58.XXXA Exposure to other specified factors, initial encounter
CPT/HCPCS: 36415; 70450; 80048; 80053; 80177; 80306; 81001; 82075; 82140; 84439; 84443; 85025; 87077; 87086; 87186; 87635; 93005; 96374; 99285

== ENCOUNTER 2024-06-10 11:51 | Day surgery (SDC) | payer MEDICARE, OTHER ==
--- NOTE | 2024-06-10 08:14 | P.HPOR ---
History of Present Illness H&P Date: 06/10/24 Chief Complaint: Left arm pain The patient is an 88-year-old [facility] resident who presents with left arm pain after sustaining a fall May 25, 2024. Initially she was seen in the emergency room and placed in a splint. She notes persistent pain. She does have severe dementia. Review of Systems Per HPI Past Medical History Past Medical History: Cancer, Dementia, Hearing Disorder / Deafness, Hyp erlipidemia, Hypertension, Memory Impairment, Seizure Disorder, Thyroid Disorder Additional Past Medical History / Comment(s): Seizures/lifelong- last one last week @ [facility], fractured left arm, another seizure fell and broke two teeth, R breast cancer with lumpectomy/radiation txs, very [employer] bilaterally/has hearing aides, past L femur fracture/no surgery, chronic UTI, thyroid disease, short term memory impairment & confusion; uses rolling walker, occasional loss of balance; wears briefs. History of Any Multi-Drug Resistant Organisms: ESBL Date of last positivie culture/infection: 05/08/24 MDRO Source:: Urine Past Surgical History: Breast Surgery, Cholecystectomy Additional Past Surgical History / Comment(s): R breast lumpectomy Past Anesthesia/Blood Transfusion Reactions: No Reported Reaction Smoking Status: Never smoker - Past Family History Mother Family Medical History: CVA/TIA Additional Family Medical History / Comment(s): Heart problems Sister(s) Family Medical History: Cancer Additional Family Medical History / Comment(s): of lung cancer Medications and Allergies Home Medications Medication Instructions Recorded Confirmed Type Aspirin 81 mg PO DAILY #30 tab 05/12/22 06/09/24 Rx Levothyroxine Sodium [Synthroid] 75 mcg PO DAILY 03/19/23 06/09/24 History Acetaminophen Tab [Tylenol] 650 mg PO Q4H PRN 05/08/24 06/09/24 History Atorvastatin Calcium [Lipitor] 40 mg PO HS 05/08/24 06/09/24 History hydrALAZINE HCL [Apresoline] 10 mg PO Q8H PRN 05/08/24 06/09/24 History lisinopriL [Zestril] 20 mg PO DAILY 05/08/24 06/09/24 History Melatonin 5 mg PO HS PRN #30 tab 05/14/24 06/09/24 Rx QUEtiapine [SEROquel] 12.5 mg PO HS #30 tab 05/14/24 06/09/24 Rx Lacosamide [Vimpat] 150 mg PO BID #12 tab 05/20/24 06/09/24 Rx Psyllium Husk 100% [Metamucil 6 gm PO DAILY packet 05/20/24 06/09/24 Rx Packet] levETIRAcetam [Keppra] 500 mg PO Q12HR #0 05/20/24 06/09/24 Rx HYDROcodone/APAP 5-325MG [[place] 1 tab PO Q6HR PRN 3 Days #12 tab 05/27/24 06/09/24 Rx 5-325] Ativan 0.25 mg IM DAILY PRN 06/09/24 06/09/24 History Allergies Allergy/AdvReac Type Severity Reaction Status Date / Time No Known Allergies Allergy Verified 06/09/24 09:55 Physical Examination - Shoulder left Tenderness with palpation: other (Left mid humerus) Results The patient is a well-developed well-nourished female approximately 5 foot 2, 127 pounds of mesomorphic habitus. HEENT exam is nonfocal, neck is supple. She is nontender about the left shoulder. She has moderate swelling about the left upper extremity. She is tender about the left mid humerus. She does have significant wrist and finger extensor weakness on the left. 2+ distal radial pulses noted. Capillary refills less than 2 seconds in the left digits. She is nontender about the left wrist and hand. - Diagnostic results Shoulder x-ray: image reviewed (2 views of the left humerus obtained in the office show a spiral distal humeral shaft fracture with significant displacement and angulation) Assessment and Plan Assessment: Left spiral distal humeral shaft fracturedisplaced Left radial nerve palsy History of dementia History of seizures Plan: I talked to the patient's family regarding her condition at this point recommend proceeding with surgical intervention. We will plan to proceed with intramedullary nailing of left humeral shaft fracture. We will have to monitor for nerve recovery regarding her radial nerve. We will likely keep the patient for 23-hour hold postoperatively and then return her to the extended care facility.
[2024-06-10] MEDS: IV FLUID CONTINUATION 1,000 ML IV ONE (12:27)
[2024-06-10] MEDS: DEXAMETHASONE SOD PHOSPHATE 4 MG/ML 1 ML VIAL IV ONE (12:48)
[2024-06-10] MEDS: LACTATED RINGERS 1,000 ML IV SCH (12:48)
[2024-06-10] MEDS: ONDANSETRON 4 MG/2 ML VIAL IVP ONE (12:48)
[2024-06-10 12:53] LABS: HCT 36.9 % (34.0-46.0); HGB 11.9 gm/dL (11.4-16.0); MCH 29.4 pg (25.0-35.0); MCHC 32.4 g/dL (31.0-37.0); MCV 90.9 fL (80.0-100.0); RBC 4.06 m/uL (3.80-5.40); RDW 13.5 % (11.5-15.5); WBC 8.8 k/uL (3.8-10.6)
[2024-06-10 12:54] LABS: Basophils # (A) 0.1 k/uL (0-0.2); Basophils % (A) 1 %; Eosinophils # (A) 0.2 k/uL (0-0.7); Eosinophils % (A) 2 %; Lymphocytes # (A) 1.9 k/uL (1.0-4.8); Lymphocytes % (A) 21 %; Monocytes # (A) 0.6 k/uL (0-1.0); Monocytes % (A) 6 %; Neutrophils % (A) 69 %; Platelet Count 386 k/uL (150-450)
[2024-06-10 13:04] LABS: African American GFR (CKD) 81 (>60 ml/min/1.73 sqM); Anion Gap 9 mmol/L; Blood Urea Nitrogen 14 mg/dL (7-17); Calcium 9.3 mg/dL (8.4-10.2); Carbon Dioxide 28 mmol/L (22-30); Chloride 100 mmol/L (98-107); Glucose 110 mg/dL (74-99); Non-African American GFR(CKD) 70 (>60 ml/min/1.73 sqM); Potassium 4.3 mmol/L (3.5-5.1); Sodium 137 mmol/L (137-145)
[2024-06-10] MEDS ORDERED: ROCURONIUM 10 MG/ML (5 ML VIAL) IV ONE (15:08)
[2024-06-10] MEDS ORDERED: NEOSTIGMINE 1 MG/ML 10 ML VIAL ONE (15:08)
[2024-06-10] MEDS ORDERED: SUCCINYLCHOLINE CHLORIDE 200 MG/10 ML VIAL IV ONE (15:08)
[2024-06-10] MEDS ORDERED: PROPOFOL 10 MG/ML 20 ML VIAL IV ONE (15:08)
[2024-06-10] MEDS ORDERED: LABETALOL 5 MG/ML VIAL MDV ONE (15:08)
[2024-06-10] MEDS ORDERED: LIDOCAINE 1% INJ 10MG/ML (20 ML MDV) ONE (15:08)
[2024-06-10] MEDS ORDERED: fentaNYL (PF) 50 MCG/ML 2 ML AMP ONE (15:08)
[2024-06-10] MEDS ORDERED: GLYCOPYRROLATE 0.2 MG/ML 2 ML VIAL ONE (15:08)
[2024-06-10] MEDS: SODIUM CHLORIDE 0.9% 50 ML with ceFAZolin 2,000 MG IV ONE (15:12)
[2024-06-10] MEDS ORDERED: SENNOSIDES-DOCUSATE SODIUM 1 EACH TAB PO PRN (17:29)
--- NOTE | 2024-06-10 17:35 | P.OP ---
Date of Procedure: 06/10/24 Preoperative Diagnosis: Left displaced distal humeral shaft fracture Postoperative Diagnosis: Same Procedure(s) Performed: Intramedullary nailing left humeral shaft fracture Implants: Synthes 7 mm x 270 mm humeral nail Anesthesia: FELICIA Surgeon: Soren Stoner Marine Painter #1: Dilip Carrero Estimated Blood Loss (ml): 50 Pathology: none sent Condition: stable Disposition: PACU Indications for Procedure: The patient is an 88-year-old female who presents after falling injuring her left arm 2 weeks ago and presents with a displaced spiral humeral shaft fracture. She has severe dementia. A discussion of the risks and benefits of operative intervention was made with her family/power of erisa attorney. Informed consent was obtained. Operative Findings: As below Description of Procedure: The patient was brought to the operating room, and after induction of general anesthesia was placed in a beachchair position. Bony prominences were appropriately padded. Left upper extremity was prepped and draped in normal fashion. A 3 cm incision was then made along the anterolateral border of the acromion. Skin was incised sharply. Subcutaneous tissues were divided bluntly. The junction of the anterior and lateral deltoid was bluntly dissected. A self-retaining retractor was placed. The supraspinatus was split in line with the tendon fibers. The edges were then tagged. A starting hole was made in the proximal humerus at the articular junction. A starting awl was utilized. A ball-tipped guidewire was then gently inserted. Reduction was then obtained passing the guidewire past the fracture site with the aid of fluoroscopy. The proximal portion of the nail was reamed to 10 mm. The shaft was reamed to 8 mm. I did not ream past the fracture site as she had a dense radial nerve palsy. A 7 mm x 270 mm intramedullary nail was then gently inserted over the guidewire. This was done with the aid of fluoroscopy. Good reduction of fracture was noted on the AP and lateral views. The guidewire was then removed. The proximal 4.0 mm locking screw was placed with the appropriate guide. The distal 2 locking screws were placed utilizing a freehand technique with the aid of fluoroscopy. A 2 cm incision was made along the anterior aspect of the left elbow and blunt dissection was made down to the cortex. Final fluoroscopic view showed adequate reduction of the fracture and placement of the locked implant. The wounds were irrigated with normal saline. The rotator cuff was repaired in a [id number] fashion with #2 Ethibond suture. The subcutaneous tissues reapproximated interrupted 2-0 Vicryl sutures. The skin was reapproximated 3-0 subcuticular Prolene suture proximally and nylon sutures distally. A sterile dressing was applied in addition to a sling. The patient was awoken from anesthesia and transferred to the recovery room in fair condition. Blood loss is estimated 50 cc. No complications were incurred. Sponge and needle counts were correct in the case. Dilip LOVING assisted during the major composes the case to include positioning, exposure, implantation, and closure.
[2024-06-10] MEDS: HYDROmorphone 0.5 MG/0.5 ML SYRINGE IVP PRN (18:39)
[2024-06-10] MEDS: LACTATED RINGERS 1,000 ML IV ONE (18:58)
[2024-06-10] MEDS: Acetaminophen-Codeine 300-30mg TAB PO PRN (21:31)
[2024-06-10 21:38] LABS: Basophils % (A) 0 %; Eosinophils % (A) 0 %; HCT 37.8 % (34.0-46.0); HGB 11.6 gm/dL (11.4-16.0); Hypochromasia Moderate; Lymphocytes # (A) 0.7 k/uL (1.0-4.8); Lymphocytes % (A) 4 %; MCH 28.5 pg (25.0-35.0); MCHC 30.7 g/dL (31.0-37.0); Mean Platelet Volume 7.4; Monocytes # (A) 0.8 k/uL (0-1.0); Monocytes % (A) 4 %; Neutrophils # (A) 16.4 k/uL (1.3-7.7); Neutrophils % (A) 90 %; Platelet Count 415 k/uL (150-450); RBC 4.06 m/uL (3.80-5.40); RDW 13.5 % (11.5-15.5); WBC 18.1 k/uL (3.8-10.6)
--- NOTE | 2024-06-10 22:54 | FL ---
Fluoroscopy INDICATION: Pain, open reduction internal fixation left humerus FINDINGS: Fluoroscopy time: 3.5 seconds. Total dose area product (DAP) in uGy*m?, mGy*cm? (or similar): 1.0803 Images obtained: 7. IMPRESSION: 1. Documentation of fluoroscopy. [facility], , 06/10/2024 10:52 PM
[2024-06-10] MEDS ORDERED: hydrALAZINE HCL 10 MG TAB PO PRN (23:08)
[2024-06-10] MEDS ORDERED: MELATONIN 5 MG TABLET PO PRN (23:30)
[2024-06-10] MEDS: QUEtiapine 25 MG TAB PO SCH (23:46)
[2024-06-10] MEDS: levETIRAcetam 500 MG TAB PO SCH (23:46)
[2024-06-10] MEDS: LACOSAMIDE 150 MG TABLET PO SCH (23:46)
[2024-06-10] MEDS: HYDROcodone/APAP 5-325MG 1 EACH TAB PO PRN (23:50)
--- NOTE | 2024-06-11 03:03 | P.CONS ---
History of Present Illness - Reason for Consult Consult date: 06/10/24 - History of Present Illness History of present illness Patient is a 88-year-old female who presented for scheduled intramedullary nailing of left humeral shaft fracture. Internal medicine was consulted for medical management. She is a [facility] resident and began having left arm pain after sustaining a fall on May 25, and was found to have left displaced distal humeral shaft fracture. Patient is now postop with no known surgical complications. Patient is laying in bed resting with no complaints of pain. Patient reports absence of fever, chills, chest pain, palpitations, diaphoresis, dyspnea, cough, nausea, vomiting, constipation, diarrhea, abdominal pain, weakness, myalgia, dizziness, headache, and dysuria. REVIEW OF SYSTEMS: All systems reviewed, pertinent positives and negatives noted in HPI. All other symptoms are negative. PHYSICAL EXAMINATION: Vitals reviewed GENERAL: No acute distress. Well developed, well nourished. EYES: PERRL, no scleral injection or icterus. No vision loss HENT: Normocephalic, atraumatic, poor hearing acuity, moist mucous membranes CARDIOVASCULAR: S1 and S2 present. No murmurs, rubs, or gallops. PULMONARY: Chest is clear to auscultation, no wheezing, rhonchi, or crackles. ABDOMEN: Soft, nontender, nondistended, normoactive bowel sounds. No palpable organomegaly. MUSCULOSKELETAL: Left shoulder dressing, arm in sling. No apparent joint swelling and deformities. EXTREMITIES: No apparent cyanosis, clubbing, or pedal edema. NEUROLOGICAL: The patient is oriented x2, Gross neurological examination did not reveal any focal deficits. Left arm sensation intact, left hand spear fisher strength intact. Left shoulder exam deferred. SKIN: No apparent rashes. Pertinent lab findings are WBC 18.1, glucose 110 Independently interpreted x-ray of left humerus findings of displaced fracture Assessment and plan: Patient is a 88-year-old female who presented for emergent intramedullary nailing of left humeral shaft fracture. #Leukocytosis, likely reactive - Follow up CBC in AM #Essential hypertension -resume home lisinopril and hydralazine as needed #Hyperlidemia - Resume home Atorvastatin #Hypothyroidism - Resume home Synthroid #Seizure disorder resume home Keppra and Vimpat #Insomniaresume home melatonin and Seroquel #Dementia # Intramedullary nailing of left humeral shaft fracture due to left humeral shaft fracture -Pain management and DVT prophylaxis per primary surgical team F: P.o. E: Replete as needed N: Heart healthy diet DVT ppx: per primary surgical team Code status: No code Patient is stable from medical stand point Dictation was produced using [employer] dictation software. Please excuse any grammatical, word or spelling errors. Past Medical History Past Medical History: Cancer, Dementia, Hearing Disorder / Deafness, Hyperlipidemia, Hypertension, Memory Impairment, Seizure Disorder, Thyroid Disorder Additional Past Medical History / Comment(s): Seizures/lifelong- last one last week @ [facility], fractured left arm, another seizure fell and broke two te eth, R breast cancer with lumpectomy/radiation txs, very [place] bilaterally/has hearing aides, past L femur fracture/no surgery, chronic UTI, thyroid disease, short term memory impairment & confusion; uses rolling walker, occasional loss of balance; wears briefs. History of Any Multi-Drug Resistant Organisms: ESBL Year Discovered:: 05/08/24 MDRO Source:: Urine Past Surgical History: Breast Surgery, Cholecystectomy Additional Past Surgical History / Comment(s): R breast lumpectomy Past Anesthesia/Blood Transfusion Reactions: No Reported Reaction Smoking Status: Never smoker - Past Family History Mother Family Medical History: CVA/TIA Additional Family Medical History / Comment(s): Heart problems Sister(s) Family Medical History: Cancer Additional Family Medical History / Comment(s): of lung cancer Medications and Allergies Home Medications Medication Instructions Recorded Confirmed Type Aspirin 81 mg PO DAILY #30 tab 05/12/22 06/10/24 Rx Levothyroxine Sodium [Synthroid] 75 mcg PO DAILY 03/19/23 06/10/24 History Acetaminophen Tab [Tylenol] 650 mg PO Q4H PRN 05/08/24 06/10/24 History Atorvastatin Calcium [Lipitor] 40 mg PO HS 05/08/24 06/10/24 History hydrALAZINE HCL [Apresoline] 10 mg PO Q8H PRN 05/08/24 06/10/24 History lisinopriL [Zestril] 20 mg PO DAILY 05/08/24 06/10/24 History Melatonin 5 mg PO HS PRN #30 tab 05/14/24 06/10/24 Rx QUEtiapine [SEROquel] 12.5 mg PO HS #30 tab 05/14/24 06/10/24 Rx Lacosamide [Vimpat] 150 mg PO BID #12 tab 05/20/24 06/10/24 Rx Psyllium Husk 100% [Metamucil 6 gm PO DAILY packet 05/20/24 06/10/24 Rx Packet] levETIRAcetam [Keppra] 500 mg PO Q12HR #0 05/20/24 06/10/24 Rx HYDROcodone/APAP 5-325MG [[place] 1 tab PO Q6HR PRN 3 Days #12 tab 05/27/24 06/10/24 Rx 5-325] Ativan 0.25 mg IM DAILY PRN 06/09/24 06/10/24 History Allergies Allergy/AdvReac Type Severity Reaction Status Date / Time No Known Allergies Allergy Verified 06/10/24 12:35 Physical Exam Vitals: Vital Signs Temp Pulse Pulse Resp BP Pulse Ox 06/10/24 20:03 98.8 F 66 18 152/73 98 06/10/24 19:31 67 16 146/65 99 06/10/24 19:16 67 16 156/67 99 06/10/24 19:00 55 L 16 163/72 99 06/10/24 18:45 59 L 15 163/72 99 06/10/24 18:30 75 17 165/70 95 06/10/24 18:15 75 17 168/74 97 06/10/24 18:00 79 15 175/73 100 06/10/24 17:45 99 17 173/77 100 06/10/24 17:29 96.9 F L 108 H 16 168/74 100 06/10/24 12:46 97.7 F 70 16 135/63 97 Intake and Output 06/10/24 06/10/24 06/11/24 14:59 22:59 06:59 Intake Total 200 850 Output Total 350 Balance 200 500 Intake: IV 200 850 Output: Urine 300 Estimated Blood Loss 50 Other: Weight 57.606 kg Results CBC & Chem 7: 06/10/24 21:12 06/10/24 12:39 Labs: Abnormal Lab Results - Last 24 Hours (Table) 06/10/24 06/10/24 Range/Units 12:39 21:12 WBC 18.1 H (3.8-10.6) k/uL MCHC 30.7 L (31.0-37.0) g/dL Neutrophils # 16.4 H (1.3-7.7) k/uL Lymphocytes # 0.7 L (1.0-4.8) k/uL Glucose 110 H (74-99) mg/dL
[2024-06-11] MEDS: LEVOTHYROXINE 75 MCG TAB PO SCH (06:14)
--- NOTE | 2024-06-11 08:46 | XR ---
Fluoroscopy INDICATION: Pain FINDINGS: Fluoroscopy time: 3 minutes 3.5 seconds. Total dose area product (DAP) in uGy*m?, mGy*cm? (or similar): 1.0803 Images obtained: 7. Images document reduction internal fixation of the humerus IMPRESSION: 1. Documentation of fluoroscopy. [facility], , 06/11/2024 8:44 AM
[2024-06-11 10:12] LABS: Basophils # (A) 0.07 X 10*3/uL (0.00-0.10); Basophils % (A) 0.5 %; Eosinophils # (A) 0.01 X 10*3/uL (0.04-0.35); Eosinophils % (A) 0.1 %; HGB 9.7 g/dL (12.0-15.0); Lymphocytes # (A) 1.67 X 10*3/uL (0.90-5.00); Lymphocytes % (A) 11.8 %; MCH 29.3 pg (27.0-32.0); MCHC 32.3 g/dL (32.0-37.0); MCV 90.6 FL (80.0-97.0); Mean Platelet Volume 10.6 FL (9.5-12.2); Monocytes # (A) 1.25 X 10*3/uL (0.20-1.00); Monocytes % (A) 8.9 %; NRBC Per 100 WBC 0 X 10*3/uL (0.00-0.01); Neutrophils # (A) 11.05 X 10*3/uL (1.80-7.70); Neutrophils % (A) 78.2 %; Platelet Count 380 X 10*3/uL (140-440); RBC 3.31 X 10*6/uL (4.10-5.20); RDW 13.3 % (11.5-14.5); WBC 14.12 X 10*3/uL (4.50-10.00)
[2024-06-11] MEDS: ASPIRIN 81 MG PO SCH (10:14)
[2024-06-11] MEDS: PSYLLIUM HUSK 100% 6 GM PACKET PO SCH (10:14)
[2024-06-11] MEDS: lisinopriL 20 MG TAB PO SCH (10:14)
[2024-06-11 10:51] LABS: ALT 15 U/L (8-44); AST 26 U/L (13-35); Albumin 3.4 g/dL (3.8-4.9); Albumin/Globulin Ratio 1.48 Ratio (1.60-3.17); Alkaline Phosphatase 125 U/L (41-126); BUN/Creat Ratio 17.62 Ratio (12.00-20.00); Blood Urea Nitrogen 14.1 mg/dL (9.0-27.0); Calcium 8.7 mg/dL (8.7-10.3); Carbon Dioxide 25.5 mmol/L (21.6-31.8); Chloride 102 mmol/L (96-109); Globulin 2.3 g/dL (1.6-3.3); Glucose 112 mg/dL (70-110); Potassium 4.9 mmol/L (3.5-5.5); Sodium 136 mmol/L (135-145); Total Bilirubin 0.3 mg/dL (0.3-1.2); Total Protein 5.7 g/dL (6.2-8.2)
--- NOTE | 2024-06-11 11:35 | P.DS ---
Providers Date of admission: 06/10/2024 Expected date of discharge: 06/11/24 Attending physician: Soren Stoner Consults: 06/10/24 21:57 Consult Physician Routine Consulting Provider: Ritesh Valiente Consult Reason/Comments: Medical Management Do you want consulting provider notified?: Yes Primary care physician: Stuart Abebe MD Hospital Course: Date of admission: 06/10/2024 Date of discharge: 06/11/2024 Admission diagnosis: Displaced left distal humeral shaft fracture Discharge diagnosis: Same Attending physician: Dr. Stoner Surgical procedures: Intramedullary nailing left humeral shaft fracture Brief history: Patient is a 88-year-old female with a history of displaced left distal humeral shaft fracture. At this point patient has failed conservative treatment measures and has opted to proceed with a elective nailing left humeral shaft fracture. Hospital course: Details of patient's surgery can be found in operative report. Patient tolerated the procedure well and was subsequently transported to orthopedic floor. Patient's orthopeidc and medical care was provided daily. Patient had daily laboratory tests performed for evaluation of overall blood counts. Patient had daily physical therapy to include strengthening range of motion as well as education with walker ambulation. Patient was treated with aspirin for their postoperative DVT prophylaxis during their inpatient stay. Patient was noted to have a relatively uneventful postoperative course. Patient reported satisfactory pain control with oral pain medications by postoperative day 1. Patient showed satisfactory progress with physical therapy. Patient moved steadily through the program and had no difficulty meeting the goals by postoperative day 1. Given patient's otherwise satisfactory course and having met physical therapy goals, plan is to discharge patient to intermediate on postoperative day 1. Discharge condition/disposition: Patient will be discharged to intermediate in stable condition. Discharge medications: Instructions are given on resumption of patient's normal daily medications per primary care recommendation, in addition patient will be prescribed Tylenol with codeine; resume aspirin 81 mg daily for DVT prophylaxis. Orthopedic Discharge Instructions: 1. Wound care and infection precautions, keep incision dry and covered while showering, no lotions, creams, moisturizers. No soaking, pools, hot tubs. Do not scrub over incision. 2. Weight-bear as tolerated with walker / cane until follow-up. 3. Ice and elevate when necessary. Do not exceed 20 minutes per hour with ice pack. 4. Utilize sling to left upper extremity until seen at first follow up appointment. 5. Pain meds and anticoagulants per prescription. 6. Pain medication has potential to cause constipation. Increase oral fluid and fiber intake. Contact primary care provider if you have not had a bowel movement within 48 hours after discharge. 7. No anti-inflammatory medication until discussed at first post operative visit, this including Motrin, Aleve, Mobic, Diclofenac. 8. Follow up in office at 2 weeks postop with Alex Mcnally PA-C / Dilip Carrero PA-C 9. Follow up with your primary care doctor 7-10 days after discharge. 10. Contact [facility] with any questions, . Assessment: Left displaced distal humeral shaft fracture Procedures: Intramedullary nailing left humeral shaft fracture Patient Condition at Discharge: Good Plan - Discharge Summary Discharge Rx Participant: No New Discharge Prescriptions: New Acetaminophen-Codeine 300-30mg [Tylenol w/codeine #3] 1 - 2 tab PO Q4-6H PRN #24 tablet PRN Reason: Pain Continue Aspirin 81 mg PO DAILY #30 tab No Action Atorvastatin Calcium [Lipitor] 40 mg PO HS QUEtiapine [SEROquel] 12.5 mg PO HS #30 tab Lacosamide [Vimpat] 150 mg PO BID #12 tab HYDROcodone/APAP 5-325MG [[place] 5-325] 1 tab PO Q6HR PRN 3 Days #12 tab PRN Reason: Severe Pain Levothyroxine Sodium [Synthroid] 75 mcg PO DAILY lisinopriL [Zestril] 20 mg PO DAILY hydrALAZINE HCL [Apresoline] 10 mg PO Q8H PRN PRN Reason: sbp greater than 150 Acetaminophen Tab [Tylenol] 650 mg PO Q4H PRN PRN Reason: Pain Or Fever > 100.5 Melatonin 5 mg PO HS PRN #30 tab PRN Reason: Insomnia Psyllium Husk 100% [Metamucil Packet] 6 gm PO DAILY packet levETIRAcetam [Keppra] 500 mg PO Q12HR #0 Ativan 0.25 mg IM DAILY PRN PRN Reason: Seizures Discharge Medication List Aspirin 81 mg PO DAILY #30 tab 05/12/22 [Rx] Levothyroxine Sodium [Synthroid] 75 mcg PO DAILY 03/19/23 [History] Acetaminophen Tab [Tylenol] 650 mg PO Q4H PRN 05/08/24 [History] Atorvastatin Calcium [Lipitor] 40 mg PO HS 05/08/24 [History] hydrALAZINE HCL [Apresoline] 10 mg PO Q8H PRN 05/08/24 [History] lisinopriL [Zestril] 20 mg PO DAILY 05/08/24 [History] Melatonin 5 mg PO HS PRN #30 tab 05/14/24 [Rx] QUEtiapine [SEROquel] 12.5 mg PO HS #30 tab 05/14/24 [Rx] Lacosamide [Vimpat] 150 mg PO BID #12 tab 05/20/24 [Rx] Psyllium Husk 100% [Metamucil Packet] 6 gm PO DAILY packet 05/20/24 [Rx] levETIRAcetam [Keppra] 500 mg PO Q12HR #0 05/20/24 [Rx] HYDROcodone/APAP 5-325MG [[place] 5-325] 1 tab PO Q6HR PRN 3 Days #12 tab 05/27/24 [Rx] Ativan 0.25 mg IM DAILY PRN 06/09/24 [History] Acetaminophen-Codeine 300-30mg [Tylenol w/codeine #3] 1 - 2 tab PO Q4-6H PRN #24 tablet 06/11/24 [Rx] Follow up Appointment(s)/Referral(s): Dilip Carrero PAC [PHYSICIAN SOLID WASTE TECHNICIAN] - 2 Weeks [facility], [NON-STAFF] - As Needed Activity/Diet/Wound Care/Special Instructions: Orthopedic Discharge Instructions: 1. Wound care and infection precautions, keep incision dry and covered while showering, no lotions, creams, moisturizers. No soaking, pools, hot tubs. Do not scrub over incision. 2. Weight-bear as tolerated with walker / cane until follow-up. 3. Ice and elevate when necessary. Do not exceed 20 minutes per hour with ice pack. 4. Utilize sling to left upper extremity until seen at first follow up appointment. 5. Pain meds and anticoagulants per prescription. 6. Pain medication has potential to cause constipation. Increase oral fluid and fiber intake. Contact primary care provider if you have not had a bowel movement within 48 hours after discharge. 7. No anti-inflammatory medication until discussed at first post operative visit, this including Motrin, Aleve, Mobic, Diclofenac. 8. Follow up in office at 2 weeks postop with Alex Mcnally PA-C / Dilip Carrero PA-C 9. Follow up with your primary care doctor 7-10 days after discharge. 10. Contact [facility] with any questions, . Discharge Disposition: TRANSFER TO SNF/ECF
--- NOTE | 2024-06-11 11:45 | P.PN ---
Subjective Progress Note Date: 06/11/24 Principal diagnosis: Left displaced distal humeral shaft fracture Patient was seen at bedside this morning lying; position with postop dressing present to the left upper extremity and sling present to left upper extremity. Patient says pain is controlled with oral medication. She says there is improved pain control since surgery. Patient says she is able to move her left hand, but does have a difficult time moving the arm up and down unless she uses her right arm to assist with this. Patient denies any other issues at this time. Objective - Vital Signs Vital signs: Vital Signs Temp 98.8 F 06/11/24 09:59 Pulse 70 06/11/24 09:59 Resp 17 06/11/24 09:59 BP 117/73 06/11/24 09:59 Pulse Ox 95 06/11/24 01:33 FiO2 Intake & Output 06/10/24 06/11/24 06/11/24 18:59 06:59 18:59 Intake Total 1050 Output Total 350 400 Balance 700 -400 Weight 57.606 kg 57.606 kg Intake: IV 1050 Output: Urine 300 400 Uretheral (Pandey) 400 Estimated Blood Loss 50 Other: Voiding Method Diaper - Exam Left upper extremity: Incision is clean, dry, and intact. The postoperative dressing is in good condition. Sling present to the left upper extremity. there is minimal soft tissue swelling and ecchymosis surrounding the medial and lateral aspects of the incision. There is some diffuse swelling present over the dorsum of the left hand. Patient is able to wiggle digits throughout left hand. Patient does have good range of motion in left wrist in flexion/extension. There is some limited range of motion in the left elbow and shoulder secondary to referred stiffness and pain from the surgery. Calf is soft, no tenderness with palpation. Plantar flexion, dorsiflexion, EHL, FHL are intact. Sensory exam to light touch throughout the extremity is intact, dorsal pedis pulses 2+. - Labs CBC & Chem 7: 06/11/24 03:46 06/11/24 03:46 Labs: Abnormal Lab Results - Last 24 Hours (Table) 06/10/24 06/10/24 06/11/24 Range/Units 12:39 21:12 03:46 WBC 18.1 H 14.12 H (3.8-10.6) k/uL RBC 3.31 L (4.10-5.20) X 10*6/uL Hgb 9.7 L (12.0-15.0) g/dL Hct 30.0 L (37.2-46.3) % MCHC 30.7 L (31.0-37.0) g/dL Immature Gran # 0.07 H (0.00-0.04) X 10*3/uL Neutrophils # 16.4 H 11.05 H (1.3-7.7) k/uL Lymphocytes # 0.7 L (1.0-4.8) k/uL Monocytes # 1.25 H (0.20-1.00) X 10*3/uL Eosinophils # 0.01 L (0.04-0.35) X 10*3/uL Glucose 110 H (74-99) mg/dL Total Protein (6.2-8.2) g/dL Albumin (3.8-4.9) g/dL Albumin/Globulin Ratio (1.60-3.17) Ratio 06/11/24 Range/Units 03:46 WBC (3.8-10.6) k/uL RBC (4.10-5.20) X 10*6/uL Hgb (12.0-15.0) g/dL Hct (37.2-46.3) % MCHC (31.0-37.0) g/dL Immature Gran # (0.00-0.04) X 10*3/uL Neutrophils # (1.3-7.7) k/uL Lymphocytes # (1.0-4.8) k/uL Monocytes # (0.20-1.00) X 10*3/uL Eosinophils # (0.04-0.35) X 10*3/uL Glucose 112 H (74-99) mg/dL Total Protein 5.7 L (6.2-8.2) g/dL Albumin 3.4 L (3.8-4.9) g/dL Albumin/Globulin Ratio 1.48 L (1.60-3.17) Ratio Assessment and Plan Assessment: 1. Left displaced distal humeral shaft fracture -Postop day 1 status post intramedullary nailing left humeral shaft fracture Plan: 1. Left displaced distal humeral shaft fracture - intramedullary nailing left humeral shaft fracture surgery performed yesterday, 06/10/2024. Patient stable bedside's morning with sling present to left upper extremity and postop dressings in place. Dressings appear to be clean, dry, intact. Patient's pain is controlled with oral medication. Patient does reside at [facility]. Discharge back to [facility] later today. 2. Appreciate medical management 3. Pain management -Tylenol with codeine; [place] 4. DVT prophylaxis -aspirin 5. GI prophylaxis senna 6. PT/OT -weightbearing as tolerated sling to left upper extremity as needed 7. Encourage incentive spirometer use 8. Discharge planning -discharge back to [facility] today Time with Patient: Less than 30
--- NOTE | 2024-06-11 14:24 | P.PN ---
Subjective Progress Note Date: 06/11/24 Subjective: He was seen and examined at bedside, complaining of left shoulder pain, mild to moderate Pertinent positives and negatives as discussed above, a complete review of systems was performed and all other systems are negative. Vitals Signs Reviewed. GENERAL: No acute distress. Well developed, well nourished. EYES: PERRL, no scleral injection or icterus. No vision loss HENT: Normocephalic, atraumatic, poor hearing acuity, moist mucous membranes CARDIOVASCULAR: S1 and S2 present. No murmurs, rubs, or gallops. PULMONARY: Chest is clear to auscultation, no wheezing, rhonchi, or crackles. ABDOMEN: Soft, nontender, nondistended, normoactive bowel sounds. No palpable organomegaly. MUSCULOSKELETAL: Left shoulder dressing, arm in sling. No apparent joint swelling and deformities. EXTREMITIES: No apparent cyanosis, clubbing, or pedal edema. NEUROLOGICAL: The patient is oriented x2, Gross neurological examination did not reveal any focal deficits. 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 Left shoulder exam deferred. SKIN: No apparent rashes. Data Reviewed Today: Pertinent Labs: WBC 14.1, hemoglobin 9.7, normal platelet count, sodium, potassium, creatinine normal, glucose 112 Patient is a 88-year-old female who presented for emergent intramedullary nailing of left humeral shaft fracture. #Leukocytosis, likely reactive Acute blood loss anemia. -Improving leukocytosis, hemoglobin dropped to 9.7, no signs of active bleeding, can follow-up with primary care physician and recheck in 1 week -Stable from IM standpoint for discharge #Essential hypertension -resume home lisinopril and hydralazine as needed #Hyperlidemia - Resume home Atorvastatin #Hypothyroidism - Resume home Synthroid #Seizure disorder resume home Keppra and Vimpat #Insomniaresume home melatonin and Seroquel #Dementia # Intramedullary nailing of left humeral shaft fracture due to left humeral shaft fracture -Pain management and DVT prophylaxis per primary surgical team F: P.o. E: Replete as needed N: Heart healthy diet DVT ppx: per primary surgical team Code status: No code Patient is stable from medical stand point Dictation was produced using [employer] software. Please excuse any grammatical, word or spelling errors. Objective - Vital Signs Vital signs: Vital Signs Temp 98.8 F 06/11/24 09:59 Pulse 70 06/11/24 09:59 Resp 17 06/11/24 09:59 BP 117/73 06/11/24 09:59 Pulse Ox 95 06/11/24 01:33 FiO2 Intake & Output 06/10/24 06/11/24 06/11/24 18:59 06:59 18:59 Intake Total 1050 Output Total 350 400 Balance 700 -400 Weight 57.606 kg 57.606 kg Intake: IV 1050 Output: Urine 300 400 Uretheral (Pandey) 400 Estimated Blood Loss 50 Other: Voiding Method Diaper Diaper - Labs CBC & Chem 7: 06/11/24 03:46 06/11/24 03:46 Labs: Abnormal Lab Results - Last 24 Hours (Table) 06/10/24 06/11/24 06/11/24 Range/Units 21:12 03:46 03:46 WBC 18.1 H 14.12 H (3.8-10.6) k/uL RBC 3.31 L (4.10-5.20) X 10*6/uL Hgb 9.7 L (12.0-15.0) g/dL Hct 30.0 L (37.2-46.3) % MCHC 30.7 L (31.0-37.0) g/dL Immature Gran # 0.07 H (0.00-0.04) X 10*3/uL Neutrophils # 16.4 H 11.05 H (1.3-7.7) k/uL Lymphocytes # 0.7 L (1.0-4.8) k/uL Monocytes # 1.25 H (0.20-1.00) X 10*3/uL Eosinophils # 0.01 L (0.04-0.35) X 10*3/uL Glucose 112 H (70-110) mg/dL Total Protein 5.7 L (6.2-8.2) g/dL Albumin 3.4 L (3.8-4.9) g/dL Albumin/Globulin Ratio 1.48 L (1.60-3.17) Ratio
[2024-06-11] MEDS: LORazepam 2 MG/ML INJ IV STA (18:47)
[2024-06-11] MEDS: ATORVASTATIN 40 MG TAB PO SCH (21:38)
[2024-06-12 09:45] VITALS: BP 125/66; PULSE 71; RESP 20; TEMP 97.9
--- NOTE | 2024-06-12 11:33 | P.PN ---
Subjective Progress Note Date: 06/12/24 Subjective: Yesterday It was attempted to discharge patient however she started , refused transportation, received 1 dose of Ativan, calm down, however later refused again. She stayed overnight, this morning she looks comfortable, calm, cooperative Can be discharged from IM standpoint Pertinent positives and negatives as discussed above, a complete review of systems was performed and all other systems are negative. Vitals Signs Reviewed. GENERAL: No acute distress. Well developed, well nourished. EYES: PERRL, no scleral injection or icterus. No vision loss HENT: Normocephalic, atraumatic, poor hearing acuity, moist mucous membranes CARDIOVASCULAR: S1 and S2 present. No murmurs, rubs, or gallops. PULMONARY: Chest is clear to auscultation, no wheezing, rhonchi, or crackles. ABDOMEN: Soft, nontender, nondistended, normoactive bowel sounds. No palpable organomegaly. MUSCULOSKELETAL: Left shoulder dressing, arm in sling. No apparent joint swelling and deformities. EXTREMITIES: No apparent cyanosis, clubbing, or pedal edema. NEUROLOGICAL: The patient is oriented x2, Gross neurological examination did not reveal any focal deficits. Left arm sensation intact, left hand train operations supervisor strength intact. Left shoulder exam deferred. SKIN: No apparent rashes. Patient is a 88-year-old female who presented for emergent intramedullary nailing of left humeral shaft fracture. #Leukocytosis, likely reactive Acute blood loss anemia. -Improving leukocytosis, hemoglobin dropped to 9.7, no signs of active bleeding, can follow-up with primary care physician and recheck in 1 week -Stable from IM standpoint for discharge #Essential hypertension -resume home lisinopril and hydralazine as needed #Hyperlidemia - Resume home Atorvastatin #Hypothyroidism - Resume home Synthroid #Seizure disorder resume home Keppra and Vimpat #Insomniaresume home melatonin and Seroquel #Dementia # Intramedullary nailing of left humeral shaft fracture due to left humeral shaft fracture -Pain management and DVT prophylaxis per primary surgical team F: P.o. E: Replete as needed N: Heart healthy diet DVT ppx: per primary surgical team Code status: No code Patient is stable from medical stand point Dictation was produced using [employer] software. Please excuse any grammatical, word or spelling errors. Objective - Vital Signs Vital signs: Vital Signs Temp 97.9 F 06/12/24 09:40 Pulse 71 06/12/24 09:40 Resp 20 06/12/24 09:40 BP 125/66 06/12/24 09:40 Pulse Ox 93 L 06/12/24 09:40 FiO2 Intake & Output 06/11/24 06/12/24 06/12/24 18:59 06:59 18:59 Other: Voiding Method Diaper Diaper # Voids 2 3 - Labs CBC & Chem 7: 06/11/24 03:46 06/11/24 03:46
== END 2024-06-12 15:00 ==
LOC: OR 11:51 → 4SSUR 18:56 → OR 06-12 15:00
PROVIDERS: ATTEND Orthopaedic Surgery
DX: S42.302A Unspecified fracture of shaft of humerus, left arm, initial encounter for closed fracture (principal); I10 Essential (primary) hypertension; E78.5 Hyperlipidemia, unspecified; F03.C18 Unspecified dementia, severe, with other behavioral disturbance; G47.00 Insomnia, unspecified; G40.909 Epilepsy, unspecified, not intractable, without status epilepticus; W18.30XA Fall on same level, unspecified, initial encounter; Z85.3 Personal history of malignant neoplasm of breast; Z90.49 Acquired absence of other specified parts of digestive tract; Z82.3 Family history of stroke; Z80.1 Family history of malignant neoplasm of trachea, bronchus and lung; Z79.890 Hormone replacement therapy; Z79.82 Long term (current) use of aspirin; Z79.899 Other long term (current) drug therapy; Z79.02 Long term (current) use of antithrombotics/antiplatelets
CPT/HCPCS: 80053; 80048; 85025 ×2; 73060; 23412; C1713; J2060; J1100; J0690 ×3; J2405; J1171